=== PATIENT | female | born 1960 | race Caucasian/White ===

== ENCOUNTER 2017-11-16 06:12 | Emergency (ER) | payer OTHER, SELFPAY ==
[2017-11-16 06:14] VITALS: BP 134/77; PULSE 86; RESP 16; TEMP 36.8; O2SAT 97; BMI 26.5
--- NOTE | 2017-11-16 06:32 | CT_ITS ---
STUDY: CT ABDOMEN AND PELVIS WITH CONTRAST REASON FOR EXAM: Female, 56 years old. Left lower quadrant and flank pain RADIATION DOSAGE (If Supplied By Facility): CTDIvol = ( 10.18 ) mGy, DLP = ( 543.61 ) mGycm TECHNIQUE: Transaxial images were obtained from the dome of the diaphragm to the symphysis pubis without oral contrast. 100 ml of Isovue 300 contrast was administered. Sagittal and coronal images were reconstructed. Individualized dose optimization techniques were used for this CT. COMPARISON: 06/21/2017 FINDINGS: The visualized lung bases are unremarkable. The visualized portions of the heart are within normal limits. Normal liver. Normal gallbladder and extrahepatic biliary system. Normal spleen. Normal pancreas. Normal bilateral adrenal glands. Normal right kidney. Normal left kidney. Normal visualized stomach. Normal small intestine. Early/mild acute sigmoid diverticulitis is suspected with inflamed thick-walled diverticulum seen on axial image 83. No abscess or free air. The appendix is visualized and appears normal. Normal abdominal aorta. Normal inferior vena cava. Normal retroperitoneum. Normal urinary bladder. Fallopian tube clip on the left. Free pelvic fluid. Normal abdominal wall. Normal osseous structures. CT/Abdomen/Pelvis W IV Cont ONLY IMPRESSION: Early/mild acute sigmoid diverticulitis is suspected. No abscess or free air. Free pelvic fluid. Electronically Signed: Holden Byers MD at 7:16 EST Tel , Service support ,
[2017-11-16] MEDS: 0.9% Normal Saline 1,000 ML 1000 ML IV (06:41)
[2017-11-16 06:45] LABS: Color, Urine Yellow (Yellow); Glucose, Dipstick Normal (Normal); Ketone-Dipstick Negative (Negative); Leukocyte Esterase-Dipstick 500 /ul (Negative); Mucous, Urine 0 SEEN /hpf (<or=2+); Nitrite-Dipstick Negative (Negative); Occult Blood-Urine 25 /ul (Negative); Protein-Dipstick Negative (Negative); Specific Gravity, Urine 1.025 (1.002-1.030); Urine Bilirubin Dipstick Negative (Negative); Urine Clarity Clear (Clear); Urine Urobilinogen Normal (Normal)
[2017-11-16 06:49] LABS: Absolute Lymphocyte Count 1.74 X10^3/ul (0.83-4.51); Absolute Neutrophil Count 4.2 X10^3/uL (2.0-7.7); Basophil# 0.01 X10^3/uL; Basophil% 0.1 % (0-1); Eosinophil# 0.13 X10^3/uL; Eosinophils% 1.9 % (0-5); Hematocrit 43.6 % (37-47); Hemoglobin 14.5 g/dl (12.0-15.0); Lymphocyte # 1.74 X10^3/ul (4.0); Lymphocyte % 25.8 % (19-41); Mean Corp Hgb Conc 33.3 g/gl (32-36); Mean Corpuscular Hgb 30.7 pg (27.0-32.0); Mean Corpuscular Volume 92.2 fL (81-99); Monocyte# 0.65 X10^3/uL; Monocyte% 9.6 % (0-10); Neutrophil # 4.22 X10^3/uL (2.7-7.7); Neutrophil % 62.6 % (47-70); Platelet Count 206 K/mm3 (150-450); RBC Distribution Width CV 12.2 % (11.6-14.6); Red Blood Count 4.73 M/mm3 (4.2-5.4); White Blood Count 6.8 K/mm3 (4.4-11.0)
[2017-11-16 06:51] LABS: POSITIVE COUNT NO; POSITIVE DIFFERENTIAL NO; POSITIVE MORPHOLOGY NO
--- NOTE | 2017-11-16 06:54 | ED.DCSUM_ITS ---
- ER Visit Summary Date of Service: 11/16/17 Chief Complaint: Abdominal pain History of Present Illness: The patient is a 56 F with left lower quadrant abdominal pain since yesterday evening. She was having some similar symptoms about a week ago and she was worried about her kidneys. She drank a lot of cranberry juice and seemed to feel better. Since last night, her pain has been increasingly more severe. Very severe this morning. Crampy and feels like gas pain. She had similar symptoms in the past with diverticulitis. She denies fevers or chills. Denies any urinary symptoms. Denies nausea, vomiting, or diarrhea. Physical Examination: Afebrile and vital signs unremarkable. The patient appears nontoxic and in no acute distress. Heart regular. Lungs clear. Abdomen is tender in the left lower quadrant. No guarding or rebound. CVAs nontender. Skin appears normal in color. Alert and oriented. Moves all extremities, normal gait. Test Results: CT, labs, urinalysis pending. Emergency Department Course and Treatment: Patient was treated with fluids while awaiting results. She declined pain medication. The oncoming physician will check the results and make the appropriate disposition. I am concerned this is diverticulitis. The patient was noted to have multiple medication allergies. She cannot tolerate clindamycin or Flagyl. She also cannot tolerate Cipro, penicillin, or Bactrim. She has taken Levaquin in the past without issue. She has not taken moxifloxacin in the past, and this would provide good monotherapy coverage for diverticulitis. All results returned before I left. Her CBC, BMP, and urinalysis were unremarkable. CT showed early diverticulitis without complications. After discussion with the patient, we will prescribe moxifloxacin, 400 mg once a day for 7 days. Patient was discharged to follow-up with her primary doctor. Treatment Plan: As above Disposition: Discharge Impression: 1. Acute sigmoid diverticulitis This note was generated with [employer]ation software. It may contain incorrect words, spelling, and punctuation that were not noted in review of the chart prior to signing ED Disposition - Plan for ED Patient: Chief Complaint: Flank Pain Referrals: Kwasi Calderon MD [Primary Care Provider] -
[2017-11-16 06:56] LABS: Bacteria RARE /hpf (None Seen); Squamous Epithelial Cells - UA 0-5 SEEN /hpf (5-10)
[2017-11-16 06:57] LABS: White Blood Cells 5-10 SEEN /hpf (0-5)
[2017-11-16 07:01] LABS: Red Blood Cells-Urine 5-10 SEEN /hpf (0-5)
[2017-11-16 07:05] LABS: Anion Gap 9 (5-15); BUN 16 mg/dL (7-18); BUN/Creat Ratio 19.6 RATIO (10-20); Calcium,Total 9.3 mg/dL (8.5-10.1); Chloride 107 mmol/L (98-107); Creatinine, Serum 0.82 mg/dL (0.55-1.02); EST Glomerular Filtration Rate 77 mL/min (>60); Est Glom Filt Rate - Afr Amer 93 mL/min (>60); Estimated Creatinine Clearance 64.12 ml/min; Glucose 100 mg/dL (74-106); Potassium 4.7 mmol/L (3.5-5.1); Sodium Level 140 mmol/L (136-145)
--- NOTE | 2017-11-16 07:17 | ED.RN ---
Report received, care of patient assumed.
--- NOTE | 2017-11-16 07:23 | ED.DEP ---
ED Disposition - Plan for ED Patient: Chief Complaint: Flank Pain Instructions: ED Diverticulitis Prescriptions: Moxifloxacin HCl 400 mg PO DAILY 7 Days #7 tab Referrals: Kwasi Calderon MD [Primary Care Provider] -
[2017-11-16 07:27] VITALS: BP 128/81; PULSE 71; RESP 16; O2SAT 98
--- NOTE | 2017-11-16 07:33 | ED.RN ---
Verbal and written d/c instructions given. All questions answered. Skin w/d. ABCS intact. Gait steady out of department.
== END 2017-11-16 07:33 | disposition home or self-care (01) ==
LOC: ED 06:30
PROVIDERS: Emergency Provider Emergency Medicine; Family Provider Family Medicine; PCP Family Medicine
DX: K57.32 Diverticulitis of large intestine without perforation or abscess without bleeding (principal)
CPT/HCPCS: 74176; 80048; 81001; 85025; 96360; 99283; J7030; A4216

== ENCOUNTER 2018-05-02 00:23 | Observation (INO) | payer OTHER, SELFPAY ==
[2018-05-02] VITALS (15 sets, daily range): BP systolic 125–175; BP diastolic 70–90; PULSE 59–74; RESP 16–19; TEMP 36.6–37.2; O2SAT 93–99; BMI 26.9; BMI 26.6; BMI 26.7
--- NOTE | 2018-05-02 01:02 | RAD_ITS ---
STUDY: X-RAY CHEST REASON FOR EXAM: Female, 57 years old. chest pain, chest tightness, SOB TECHNIQUE: Single frontal view of the chest. COMPARISON: 11/02/2016 FINDINGS: The lungs are clear and expanded. There is no demonstrated pleural abnormality. Normal size heart. Normal mediastinum and rosanne. Normal visualized pulmonary arteries. Normal visualized aortic arch and descending thoracic aorta. There are diffuse degenerative changes of the visualized thoracic spine. Normal visualized ribs, clavicles, and shoulders. There is no demonstrated abnormality of the visualized soft tissue structures of the upper abdomen. RAD/Chest 1 View (Portable) IMPRESSION: No acute pulmonary findings. Electronically Signed: Holden Byers MD at 1:37 EDT Tel , Service support ,
--- NOTE | 2018-05-02 01:02 | EKG12_ITS ---
Test Reason : CP Blood Pressure : / mmHG Vent. Rate : 070 BPM Atrial Rate : 070 BPM P-R Int : 120 ms QRS Dur : 098 ms QT Int : 418 ms P-R-T Axes : 023 044 035 degrees QTc Int : 451 ms Normal sinus rhythm Low voltage QRS (limb leads) Confirmed by MARIANA COMBS, MICHELINE ([id number]), assistant production editor NEELA DORMAN ([id number]) on 05/03/2018 1:32:06 PM Referred By: ALLAN Confirmed By:MICHELINE PEÑA MD
[2018-05-02 01:08] LABS: Absolute Lymphocyte Count 2.56 X10^3/ul (0.83-4.51); Absolute Neutrophil Count 3.2 X10^3/uL (2.0-7.7); Basophil# 0.02 X10^3/uL; Basophil% 0.3 % (0-1); Eosinophil# 0.06 X10^3/uL; Eosinophils% 0.9 % (0-5); Hematocrit 42.7 % (37-47); Hemoglobin 14.9 g/dl (12.0-15.0); Lymphocyte # 2.56 X10^3/ul (4.0); Lymphocyte % 40.2 % (19-41); Mean Corp Hgb Conc 34.9 g/gl (32-36); Mean Corpuscular Hgb 31.6 pg (27.0-32.0); Mean Corpuscular Volume 90.5 fL (81-99); Monocyte# 0.55 X10^3/uL; Monocyte% 8.6 % (0-10); Neutrophil # 3.18 X10^3/uL (2.7-7.7); POSITIVE COUNT NO; POSITIVE DIFFERENTIAL NO; POSITIVE MORPHOLOGY NO; Platelet Count 194 K/mm3 (150-450); RBC Distribution Width CV 12.7 % (11.6-14.6); Red Blood Count 4.72 M/mm3 (4.2-5.4); White Blood Count 6.4 K/mm3 (4.4-11.0)
[2018-05-02] MEDS: Aspirin 81 MG TAB.CHEW 324 MG PO (01:12)
[2018-05-02 01:21] LABS: Anion Gap 6 (5-15); BUN 12 mg/dL (7-18); BUN/Creat Ratio 12.9 RATIO (10-20); Chloride 108 mmol/L (98-107); Creatinine, Serum 0.93 mg/dL (0.55-1.02); EST Glomerular Filtration Rate 66 mL/min (>60); Est Glom Filt Rate - Afr Amer 80 mL/min (>60); Estimated Creatinine Clearance 58.33 ml/min; Glucose 123 mg/dL (74-106); Potassium 3.1 mmol/L (3.5-5.1); Sodium Level 142 mmol/L (136-145)
--- NOTE | 2018-05-02 01:57 | ED.DCSUM_ITS ---
- ER Visit Summary Date of Service: 05/02/18 Chief Complaint: Chest pain History of Present Illness: The patient is a 57 F presenting with chest pain. Patient states she has had chest pressure which has been intermittent for the past 3 days. She states this is becoming more frequent and more severe. She states this is associated with shortness of breath. She does not recall anything that makes this better or worse. She recently started amlodipine for hypertension. She is not a smoker. No PE/DVT risk factors. Physical Examination: Vitals are stable. Patient is afebrile. Alert no acute distress. HEENT exam is unremarkable. Neck is supple. Lungs are clear and equal bilaterally. Heart is regular rate and rhythm. Abdomen is soft nontender nondistended. Extremities are unremarkable. Skin is warm and dry. No focal neurologic deficit. Remainder of exam is unremarkable. Emergency Department Course and Treatment: EKG is sinus rhythm rate of 70 with no acute ischemic changes. Chest x-ray shows no acute process. CBC, chemistries unremarkable other than potassium 3.1, glucose 123. Troponin is negative. She was given aspirin, potassium oral replacement. On repeat evaluation, she is pain-free. Discussed with the hospitalist for observation. Disposition: Observation Impression: Chest pain This note was generated with [employer] dictation software. It may contain incorrect words, spelling, and punctuation that were not noted in review of the chart prior to signing ED Disposition - Plan for ED Patient: Chief Complaint: Chest Pain Referrals: Irwin Baker MD [Primary Care Provider] -
--- NOTE | 2018-05-02 03:42 | HP.PCM_ITS ---
Problem List (1) Chest pain Status: Acute History of Present Illness Date of Admission: 05/02/18 Chief Complaint: Chest pain ?3 days The patient is a 57 year old F with a significant history of hypertension, cardiac arrhythmia (tachycardia) who presented because of worsening chest pain ? 3 days. Patient describes her chest pain as chest pressure. She woke up at 3 days ago with the chest pain. Her chest pain has been episodic. However the night before her admission the chest pain became persistent. Her chest pain does not radiate. She denies any nausea, vomiting or diaphoresis. Because she has been having elevated blood pressure at the same time that her chest pain has been occurring she attributed the chest pain to have elevated blood pressure. She reports an unremarkable treadmill and nuclear imaging a year ago. [] Past Medical History Past Medical History (Chronic Problems): Chronic Problems Cardiac arrhythmia (Chronic) Menometrorrhagia (Chronic) History of anemia (Chronic) Allergies ciprofloxacin [From Cipro] Allergy (Verified 05/02/18:) Hives ciprofloxacin HCl [From Cipro] Allergy (Verified 05/02/18:) Hives clindamycin Allergy (Verified 05/02/18:) Hives Iodinated Contrast- Oral and IV Dye [CONTRASTS] Allergy (Verified 05/02/18: ) Chest tightness metronidazole [From Flagyl] Allergy (Verified 05/02/18) Other Metronidazole HCl [From Flagyl] Allergy (Verified 05/02/18:) Other Penicillins Allergy (Verified 05/02/18:) Anaphylaxis procaine HCl [From Novocain] Allergy (Verified 05/02/18:) Other red dye Allergy (Verified 05/02/18:) Unknown sulfamethoxazole [From Bactrim] Allergy (Verified 05/02/18:) Hives tetracycline [Tetracycline] Allergy (Verified 05/02/18:) Hives trimethoprim [From Bactrim] Allergy (Verified 05/02/18:) Hives morphine Adverse Reaction (Verified 05/02/18:) Other Sulfa (Sulfonamide Antibiotics) Adverse Reaction (Verified 05/02/18:) Unknown peanuts Allergy (Uncoded 05/02/18:) Food Allergy strawberry Allergy (Uncoded 05/02/18:26) Food Allergy Home Medications: Ambulatory Orders Medication Instructions Recorded Metoprolol(XL)Succ [Toprol Xl] 50 mg PO QHS 07/21/13 Amlodipine [Norvasc] 2.5 mg PO DAILY 05/02/18 Ascorbic Acid [Vitamin C] 1,000 mg PO DAILY 05/02/18 Aspirin [Aspirin, Baby] 81 tab PO DAILY 05/02/18 Multivitamin [Daily Multiple 1 tab PO DAILY 05/02/18 Vitamin] Surgical History: no surgical history Smoking Status: Never smoker Tobacco Use: Non-smoker Alcohol: None - *Family History Maternal History Items: No pertinent history Paternal History Items: No pertinent history Review of Systems Constitutional: Denies: Chills, Fever, Weight Change HEENT: Reports: Difficulty Hearing Cardiovascular: Reports: Chest Pain Respiratory: Reports: Shortness of Breath Gastrointestinal: Denies: Abdominal Pain, Nausea, Vomiting Genitourinary: Denies: Dysuria Musculoskeletal: Denies: Joint Pain, Joint Tenderness Skin: Denies: Rash, Wounds Neurological: Reports: Balance problems Psychiatric: Reports: Depression. Denies: Homicidal Ideations, Suicidal Ideations Hematologic/ Lymphatic: Denies: Easy Bruising, Easy Bleeding VTE Information - Inpt Only VTE Present on Admission: No VTE Mechan Device Prophylaxis: None VTE Pharm Prophylaxis ordered?: Yes Patient Problems: Active and Suspected Problems Chest pain (Acute) - Physical Exam General: Alert, Oriented x3, Cooperative, - - Crying during examination HEENT: Atraumatic, PERRLA, EOMI, Normocephalic Neck: Supple, No JVD, Negative Carotid Bruits Lungs: Clear to auscultation Cardiovascular: Regular rate, No murmurs, - - Nontender chest Abdomen: Bowel Sounds Present, Soft, Non Tender Extremities: No edema, Capillary Refill Less than 3 Seconds Skin: No rashes, No breakdown Musculoskeletal: No Tenderness to Palpation of Joints or Extremities Neurological: Cranial nerves II-XII grossly intact Psych/Mental Status: Normal Affect, Appropriate Vital Signs Temp Pulse Resp BP Pulse Ox 98.1 F 74 16 168/79 H 98 05/02/18 00:23 05/02/18 03:07 05/02/18 03:07 05/02/18 03:07 05/02/18 03:07 Oxygen Flow Rate (L/min) 2 Oxygen Delivery Method Nasal Cannula Weight: 71.214 kg Body Mass Index (BMI) 26.9 Laboratory Tests Past 24 Hrs 05/02/18 05/02/18 00:35 00:35 WBC 6.4 RBC 4.72 Hgb 14.9 Hct 42.7 MCV 90.5 MCH 31.6 MCHC 34.9 RDW 12.7 RDW Differential 42.0 Plt Count 194 MPV 11.0 Immature Gran % (Auto) 0.000 Neut % (Auto) 50.0 Lymph % (Auto) 40.2 [place] % (Auto) 8.6 Eos % (Auto) 0.9 Baso % (Auto) 0.3 Absolute Neuts (auto) 3.2 Absolute Lymphs (auto) 2.56 Total Counted Not Reportable Sodium 142 Potassium 3.1 L Chloride 108 H Carbon Dioxide 28.0 Anion Gap 6 BUN 12 Creatinine 0.93 Estim Creat Clear Calc 58.33 Est GFR (MDRD) Af Amer 80 Est GFR (MDRD) Non-Af 66 BUN/Creatinine Ratio 12.9 Glucose 123 H Calcium 9.0 Troponin I < 0.015 Assessment/Plan All Active Problems Chest pain (Acute) The patient is a 57 year old F with a significant history of hypertension, cardiac arrhythmia (tachycardia) who presented because of worsening chest pain ? 3 days chest pain Chest pain Her PALAK score (aspirin use in the past 7 days, severe angina) is at 2 points representing 8% MORTALITY risk EKG was unremarkable and troponins were negative. The patient received 325 mg aspirin at the ED. Admitted to monitored bed on PCU Serial troponins ordered Daily aspirin continued Atorvastatin ordered. Patient took her home metoprolol a few hours before presentation. Nitroglycerin as needed Fasting lipids in a.m. Stress test in a.m Her risk of cardiac risk chest pain is intermediate. Other differential diagnosis includes hypertensive induced chest pain; musculoskeletal source of chest pain and anxiety. Hydralazine as needed was added to her regimen. If stress test is negative recommend further optimization of her blood pressure regimen. Hypokalemia Potassium on presentation was 3.1 Received 40 mEq potassium at the ED BMP in a.m. DVT prophylaxis Lovenox Code Visit OBSV E&M: [id number] Initial observation care L2
--- NOTE | 2018-05-02 03:46 | NURSING ---
Richi garner rn aware that pt ok to come to floor at this time.
--- NOTE | 2018-05-02 04:07 | EKG12_ITS ---
Test Reason : CP ADMIT Blood Pressure : / mmHG Vent. Rate : 070 BPM Atrial Rate : 070 BPM P-R Int : 128 ms QRS Dur : 090 ms QT Int : 424 ms P-R-T Axes : 036 049 047 degrees QTc Int : 457 ms Normal sinus rhythm Normal ECG Confirmed by MARIANA COMBS, MICHELINE ([id number]), primer expeditor and drier NEELA DORMAN ([id number]) on 05/03/2018 1:46:07 PM Referred By: DR PEREZ Confirmed By:MICHELINE PEÑA MD
[2018-05-02 04:48] LABS: Anion Gap 7 (5-15); BUN 10 mg/dL (7-18); BUN/Creat Ratio 11.3 RATIO (10-20); Chloride 111 mmol/L (98-107); Cholesterol 194 mg/dL (200); Creatinine, Serum 0.88 mg/dL (0.55-1.02); EST Glomerular Filtration Rate 70 mL/min (>60); Est Glom Filt Rate - Afr Amer 85 mL/min (>60); Estimated Creatinine Clearance 61.64 ml/min; Glucose 99 mg/dL (74-106); High Density Lipoprotein 55 mg/dL; Potassium 3.8 mmol/L (3.5-5.1); Sodium Level 145 mmol/L (136-145); Triglycerides 154 mg/dL; Very Low Density Lipoprotein 31 mg/dL (5-40)
[2018-05-02 05:29] LABS: International Normalized Ratio 1.1; Prothrombin Time (Protime)PT. 13.7 SECONDS (11.7-14.9)
[2018-05-02 05:30] LABS: Partial Thromboplast Time 30.8 Seconds (24.1-36.2)
--- NOTE | 2018-05-02 12:02 | NURSING ---
pt at stress test
--- NOTE | 2018-05-02 13:05 | STRESSREP ---
Stress Test Report Date: 05/02/2018 Procedure: Exercise tolerance test/imaging study Indications: Chest pain Consent: Per the patient Procedure: The patient exercised on a Paco protocol for 12 minutes completing Stage 4 achieving a peak heart rate of 146 bpm (89 % predicted maximal heart rate) with a peak blood pressure 170/90 mmHg and a peak MET capacity of 13 METs. The baseline ECG demonstrated sinus rhythm. The peak exercise ECG demonstrated no obvious ECG changes. There was an occasional PVC and a rare ventricular couplet during exercise. The functional capacity was considered excellent. There was vague chest discomfort during early exercise with subsequent resolution by peak exercise. The examination was discontinued secondary to dyspnea. Impression: 1. Technically adequate (percent predicted maximal heart rate greater than 85%) exercise tolerance test 2. Peak exercise ECG with no obvious ECG changes 3. There was an occasional PVC and a rare ventricular couplet during exercise. 4. Nuclear images pending Myocardial perfusion imaging study: Technique: The patient was injected with 11.7 mCi of technetium 99m Cardiolite and subsequently rest SPECT Cardiolite nuclear imaging was obtained in the horizontal long, vertical long, and short axis views. The patient exercised on a Paco protocol for 12 minutes completing Stage 4 achieving a peak heart rate of 146 bpm (89 % predicted maximal heart rate) with a peak blood pressure 170/90 mmHg and a peak MET capacity of 13 METs. The patient was injected with 31.4 mCi of technetium 99m Cardiolite and subsequently stress SPECT Cardiolite nuclear imaging was obtained in the horizontal long, vertical long, and short axis views. A gated Cardiolite study at peak stress was obtained. Interpretation: Rest and stress SPECT Cardiolite nuclear imaging status post realignment, normalization, and attenuation correction, demonstrates of a small area of subtle diminished tracer uptake near the apical segments without significant change between rest and stress. There is end systolic thickening and brightening. The gated Cardiolite study demonstrates myocardial thickening and inward wall motion. The reported LVEF is 84 %. Impression: 1. Rest and stress SPECT Cardiolite nuclear imaging demonstrate a small area of subtle diminished tracer uptake near the apical segments without significant change between rest and stress appearing compatible with physiologic apical thinning with no myocardial perfusion changes consider diagnostic for associated stress-induced myocardial ischemia or previous myocardial injury/infarction. 2. The gated Cardiolite study reports an LVEF of 84 %. This note was generated with [employer] software. It may contain incorrect words, spelling, and punctuation that were not noted in checking the note before signing.
--- NOTE | 2018-05-02 13:16 | STRESSREP_ITS ---
Stress Test Report Date: 05/02/2018 Procedure: Exercise tolerance test/imaging study Indications: Chest pain Consent: Per the patient Procedure: The patient exercised on a Paco protocol for 12 minutes completing Stage 4 achieving a peak heart rate of 146 bpm (89 % predicted maximal heart rate) with a peak blood pressure 170/90 mmHg and a peak MET capacity of 13 METs. The baseline ECG demonstrated sinus rhythm. The peak exercise ECG demonstrated no obvious ECG changes. There was an occasional PVC and a rare ventricular couplet during exercise. The functional capacity was considered excellent. There was vague chest discomfort during early exercise with subsequent resolution by peak exercise. The examination was discontinued secondary to dyspnea. Impression: 1. Technically adequate (percent predicted maximal heart rate greater than 85% ) exercise tolerance test 2. Peak exercise ECG with no obvious ECG changes 3. There was an occasional PVC and a rare ventricular couplet during exercise. 4. Nuclear images pending Myocardial perfusion imaging study: Technique: The patient was injected with 11.7 mCi of technetium 99m Cardiolite and subsequently rest SPECT Cardiolite nuclear imaging was obtained in the horizontal long, vertical long, and short axis views. The patient exercised on a Paco protocol for 12 minutes completing Stage 4 achieving a peak heart rate of 146 bpm (89 % predicted maximal heart rate) with a peak blood pressure 170/ 90 mmHg and a peak MET capacity of 13 METs. The patient was injected with 31.4 mCi of technetium 99m Cardiolite and subsequently stress SPECT Cardiolite nuclear imaging was obtained in the horizontal long, vertical long, and short axis views. A gated Cardiolite study at peak stress was obtained. Interpretation: Rest and stress SPECT Cardiolite nuclear imaging status post realignment, normalization, and attenuation correction, demonstrates of a small area of subtle diminished tracer uptake near the apical segments without significant change between rest and stress. There is end systolic thickening and brightening. The gated Cardiolite study demonstrates myocardial thickening and inward wall motion. The reported LVEF is 84 %. Impression: 1. Rest and stress SPECT Cardiolite nuclear imaging demonstrate a small area of subtle diminished tracer uptake near the apical segments without significant change between rest and stress appearing compatible with physiologic apical thinning with no myocardial perfusion changes consider diagnostic for associated stress-induced myocardial ischemia or previous myocardial injury/ infarction. 2. The gated Cardiolite study reports an LVEF of 84 %. This note was generated with [employer] software. It may contain incorrect words, spelling, and punctuation that were not noted in checking the note before signing.
[2018-05-02] MEDS: Enoxaparin 40 MG/0.4 ML Syringe SC (13:56)
--- NOTE | 2018-05-02 16:55 | DCINST_ITS ---
- Discharge Diagnoses Current Active Problems: Current Active and Chronic Problems Chest pain (Acute) You will use the following diet at home:: No restrictions Your food should be the consistency of: Regular Your liquids should be the consistency of: Regular/Thin Discharge Activity: Return to Normal Activity Weight Bearing Status: Full weight bearing Allergies/Adverse Reactions: Allergies ciprofloxacin [From Cipro] Allergy (Verified 05/02/18 00:26) Hives ciprofloxacin HCl [From Cipro] Allergy (Verified 05/02/18 00:) Hives clindamycin Allergy (Verified 05/02/18 00:) Hives Iodinated Contrast- Oral and IV Dye [CONTRASTS] Allergy (Verified 05/02/18 00:27 ) Chest tightness metronidazole [From Flagyl] Allergy (Verified 05/02/18:) Other Metronidazole HCl [From Flagyl] Allergy (Verified 05/02/18:) Other Penicillins Allergy (Verified 05/02/18 00:) Anaphylaxis procaine HCl [From Novocain] Allergy (Verified 05/02/18 00:) Other red dye Allergy (Verified 05/02/18:) Unknown sulfamethoxazole [From Bactrim] Allergy (Verified 05/02/18 00:26) Hives tetracycline [Tetracycline] Allergy (Verified 05/02/18:26) Hives trimethoprim [From Bactrim] Allergy (Verified 05/02/18:) Hives morphine Adverse Reaction (Verified 05/02/18:26) Other Sulfa (Sulfonamide Antibiotics) Adverse Reaction (Verified 05/02/18 00:26) Unknown peanuts Allergy (Uncoded 05/02/18:26) Food Allergy strawberry Allergy (Uncoded 05/02/18 00:26) Food Allergy Medications to take at Discharge Metoprolol(XL)Succ [Toprol Xl (Beta Kayla)] 50 mg PO QHS 07/21/13 Amlodipine [Norvasc] 2.5 mg PO DAILY 05/02/18 Ascorbic Acid [Vitamin C] 1,000 mg PO DAILY 05/02/18 Aspirin E.C. [Ecotrin] 81 mg PO DAILY@0800 tablet 05/02/18 Aspirin [Aspirin, Baby] 81 tab PO DAILY 05/02/18 Multivitamin [Daily Multiple Vitamin] 1 tab PO DAILY 05/02/18 Primary Care Physician: Irwin Baker MD [Primary Care Provider] - Please follow up with your Primary Care Physician in: in 1-2 weeks Test Results: Test results from this visit will be discussed in further detail at your follow- up appointment, if applicable.
--- NOTE | 2018-05-06 10:08 | PCM.DC.SUM ---
Discharge Date and Diagnosis Date of Admission: 05/02/18 Date of Discharge: 05/02/18 - Primary Discharge Diagnosis #1 musculoskeletal chest pain #2 cardiac arrhythmias by history-type unknown #3 hypokalemia - Secondary Discharge Diagnosis Chronic Problems Cardiac arrhythmia (Chronic) Menometrorrhagia (Chronic) History of anemia (Chronic) Hospital Course and Treatment Operations: None Procedures: Nuclear stress test Summary of Care Provided: The patient is a 57 year old F was seen in the emergency room at [facility] chief complaint of chest pain which she describes as pressure-like in nature and had been intermittent for the past 3 days prior to being seen in the emergency room. Patient had a past history of cardiac arrhythmias-type unknown and was on medication for this. Evaluation in the emergency room showed a negative troponin, potassium was slightly low, chest x-ray showed no acute process, CBC was unremarkable. Patient was placed in observation status on PCU, enzymes were cycled and they remain normal, patient underwent a nuclear stress test which was negative for reversible ischemia. On 05/02/18, patient was seen and examined and felt to be in stable condition for discharge home, I discussed other testing which could be done to further investigate why she was having chest discomfort, these included a Holter monitor and echocardiogram and may be a CT of her chest. Patient was going to consider having these as an outpatient and did not want to stay in the hospital to have any of these testing modalities done. Discharge Activity: Return to Normal Activity Weight Bearing Status: Full weight bearing Home Medications: Medications to take at Discharge Metoprolol(XL)Succ [Toprol Xl (Beta Kayla)] 50 mg PO QHS 07/21/13 Amlodipine [Norvasc] 2.5 mg PO DAILY 05/02/18 Ascorbic Acid [Vitamin C] 1,000 mg PO DAILY 05/02/18 Aspirin E.C. [Ecotrin] 81 mg PO DAILY@0800 tablet 05/02/18 Aspirin [Aspirin, Baby] 81 tab PO DAILY 05/02/18 Multivitamin [Daily Multiple Vitamin] 1 tab PO DAILY 05/02/18 Primary Care Physician: Irwin Baker MD [Primary Care Provider] - Please follow up with your Primary Care Physician in: in 1-2 weeks Disposition: Home Minutes spent on discharge:: 25 Patient Condition:: Stable Medical Necessity - Tobacco Use Smoking Status: Never smoker Tobacco Use: Non-smoker Meaningful Use Info Meaningful Use Diagnoses (Choose all that apply): None applicable Code Visit OBSV E&M: 56965 Observation care discharge
--- NOTE | 2018-05-06 10:12 | DS.PCM_ITS ---
Discharge Date and Diagnosis Date of Admission: 05/02/18 Date of Discharge: 05/02/18 - Primary Discharge Diagnosis #1 musculoskeletal chest pain #2 cardiac arrhythmias by history-type unknown #3 hypokalemia - Secondary Discharge Diagnosis Chronic Problems Cardiac arrhythmia (Chronic) Menometrorrhagia (Chronic) History of anemia (Chronic) Hospital Course and Treatment Operations: None Procedures: Nuclear stress test Summary of Care Provided: The patient is a 57 year old F was seen in the emergency room at [facility] chief complaint of chest pain which she describes as pressure -like in nature and had been intermittent for the past 3 days prior to being seen in the emergency room. Patient had a past history of cardiac arrhythmias- type unknown and was on medication for this. Evaluation in the emergency room showed a negative troponin, potassium was slightly low, chest x-ray showed no acute process, CBC was unremarkable. Patient was placed in observation status on PCU, enzymes were cycled and they remain normal, patient underwent a nuclear stress test which was negative for reversible ischemia. On 05/02/18, patient was seen and examined and felt to be in stable condition for discharge home, I discussed other testing which could be done to further investigate why she was having chest discomfort, these included a Holter monitor and echocardiogram and may be a CT of her chest. Patient was going to consider having these as an outpatient and did not want to stay in the hospital to have any of these testing modalities done. Discharge Activity: Return to Normal Activity Weight Bearing Status: Full weight bearing Home Medications: Medications to take at Discharge Metoprolol(XL)Succ [Toprol Xl (Beta Kayla)] 50 mg PO QHS 07/21/13 Amlodipine [Norvasc] 2.5 mg PO DAILY 05/02/18 Ascorbic Acid [Vitamin C] 1,000 mg PO DAILY 05/02/18 Aspirin E.C. [Ecotrin] 81 mg PO DAILY@0800 tablet 05/02/18 Aspirin [Aspirin, Baby] 81 tab PO DAILY 05/02/18 Multivitamin [Daily Multiple Vitamin] 1 tab PO DAILY 05/02/18 Primary Care Physician: Irwin Baker MD [Primary Care Provider] - Please follow up with your Primary Care Physician in: in 1-2 weeks Disposition: Home Minutes spent on discharge:: 25 Patient Condition:: Stable Medical Necessity - Tobacco Use Smoking Status: Never smoker Tobacco Use: Non-smoker Meaningful Use Info Meaningful Use Diagnoses (Choose all that apply): None applicable Code Visit OBSV E&M: 11139 Observation care discharge
== END 2018-05-02 17:10 | disposition home or self-care (01) ==
LOC: ED 03:12 → PCU 03:43
PROVIDERS: Admitting Provider Hospitalist; Emergency Provider Emergency Medicine; Family Provider Family Medicine; PCP Family Medicine; Visit Provider Internal Medicine
DX: R07.89 Other chest pain (principal); R06.02 Shortness of breath; I10 Essential (primary) hypertension; Z79.899 Other long term (current) drug therapy; E87.6 Hypokalemia; I49.9 Cardiac arrhythmia, unspecified
CPT/HCPCS: 36415; 71045; 78452; 80048; 80061; 84484; 85025; 85610; 85730; 93005; 93017; 96372; 99218; 99284; A9500; A4216; G0378

== ENCOUNTER 2019-10-14 11:40 | Emergency (ER) | payer OTHER, SELFPAY ==
[2019-10-14 11:40] VITALS: BMI 26.5
[2019-10-14 11:41] VITALS: BP 160/82; PULSE 70; RESP 16; TEMP 36.6; O2SAT 99; BMI 28.3
--- NOTE | 2019-10-14 12:23 | EKG12_ITS ---
Test Reason : Blood Pressure : / mmHG Vent. Rate : 068 BPM Atrial Rate : 068 BPM P-R Int : 136 ms QRS Dur : 088 ms QT Int : 418 ms P-R-T Axes : 066 053 044 degrees QTc Int : 444 ms Normal sinus rhythm Normal ECG Confirmed by KRISTEN WHITESIDE ([id number]), editor managing director NEELA DORMAN ([id number] on 10/16/2019 10:51:06 AM Referred By: RUDDY Confirmed By:KRISTEN WHITESIDE
--- NOTE | 2019-10-14 12:23 | RAD_ITS ---
STUDY: X-RAY CHEST REASON FOR EXAM: Female, 58 years old. CHEST PAIN TECHNIQUE: Single AP portable view of the chest. COMPARISON: Comparison is made with prior examination of May 02, 2018. FINDINGS: EKG electrodes are seen. The lungs are clear and expanded. There is no demonstrated pleural abnormality. Normal size heart. Normal mediastinum and rosanne. Normal visualized pulmonary arteries. Normal visualized aortic arch and descending thoracic aorta. There are diffuse degenerative changes of the visualized thoracic spine. Normal visualized ribs, clavicles, and shoulders. There is no demonstrated abnormality of the visualized soft tissue structures of the upper abdomen. RAD/Chest 1 View (Portable) IMPRESSION: No acute abnormality is seen. Electronically Signed: Quinn Ugalde, at 12:53 EST , Service support ,
--- NOTE | 2019-10-14 12:34 | ED.VIS.GEN ---
History of Present Illness Chief Complaint: Chest Pain Informant: Patient Onset: Yesterday Narrative: She presents for the valuation of chest pain. Patient states symptoms began yesterday while at work. Initially she thought had to do with her being bent over more than normal as to her chair at her desk was lower. She went home but continued to wax and wane sometimes would ease up and resolve. She states she had a similar occurrence in the past and got better with an antacid and Maalox. She states she had a stress test last year (chart review shows April 2018). She has a history of SVT. She denies any current dyspepsia. No nausea vomiting. She denies any recent surgery or prior issues with DVT PE. Past Medical History - Allergies and Home Meds Allergies/Adverse Reactions: Allergies ciprofloxacin [From Cipro] Allergy (Verified 10/14/19 11:47) Hives ciprofloxacin HCl [From Cipro] Allergy (Verified 10/14/19 11:47) Hives clindamycin Allergy (Verified 10/14/19 11:47) Hives Iodinated Contrast Media [CONTRASTS] Allergy (Verified 10/14/19 11:47) Chest tightness metronidazole [From Flagyl] Allergy (Verified 10/14/19 11:47) Other Metronidazole HCl [From Flagyl] Allergy (Verified 10/14/19 11:47) Other Penicillins Allergy (Verified 10/14/19 11:47) Anaphylaxis procaine HCl [From Novocain] Allergy (Verified 10/14/19 11:47) Other red dye Allergy (Verified 10/14/19 11:47) Unknown sulfamethoxazole [From Bactrim] Allergy (Verified 10/14/19 11:47) Hives tetracycline [Tetracycline] Allergy (Verified 10/14/19 11:47) Hives trimethoprim [From Bactrim] Allergy (Verified 10/14/19 11:47) Hives morphine Adverse Reaction (Verified 10/14/19 11:47) Other Sulfa (Sulfonamide Antibiotics) Adverse Reaction (Verified 10/14/19 11:47) Unknown peanuts Allergy (Uncoded 10/14/19 11:47) Food Allergy strawberry Allergy (Uncoded 10/14/19 11:47) Food Allergy Primary Care Physician: Irwin Baker MD [Primary Care Provider] - Surgical History: no surgical history Smoking Status: Never smoker - Family History Maternal Family History: Reports: No pertinent history Paternal Family History: Reports: No pertinent history Review of Systems General: Denies: Chills, Fever, Sweats Eyes: Denies: Visual changes - bilaterally, Diplopia ENT: Denies: Rhinorrhea, Sore throat Cardiovascular: Reports: Chest pain. Denies: Palpitations Respiratory: Denies: Dyspnea, Cough, Dyspnea on exertion Gastrointestinal: Denies: Abdominal pain, Nausea, Vomiting, Diarrhea, Melena, Hematochezia Genitourinary: Denies: Dysuria, Hematuria, Frequency Musculoskeletal: Denies: Back pain, Extremity Pain Skin: Denies: Rash, Wounds Neurological: Denies: Headache, Weakness, Numbness Physical Exam Vital Signs/Narrative: Vital Signs Temp Pulse Resp BP Pulse Ox 10/14/19 11:41 97.9 F 70 16 160/82 H 99 Inital Vital Signs reviewed: Yes General: Well nourished, Well developed, No Acute Distress Head: Normocephalic, Atraumatic Eyes: Perrl, EOMI ENT: Moist mucous membranes, No rhinorrhea Neck: Supple, Nontender Cardiovascular: Regular rate, Regular rhythm, No murmurs Respiratory: No distress, CTA bilaterally, Chest nontender Abdomen: Soft, Nontender, Nondistended, Normal bowel sounds Back: Nontender, Normal Inspection Extremities: Nontender, No edema Skin: Normal color, No rash Neurological: Alert, Oriented x3, Cranial nerves II-XII grossly intact, Normal Strength, Normal Sensation Psychological: Normal affect, Normal Mood Diagnostic/Tx/Re-eval - Rhythm Strip Rhythm Strip: Sinus Rhythm Rate: 68 - No significant change noted from April 2018 Ectopy: None - Medical Decision Making Basic labs are negative. Cardiac enzymes are normal. I do not think this is pulmonary embolism. There is no pleuritic component to it. She is not tachycardic she is not hypoxic she is not short of breath. She has no leg swelling or other PE risk factors. She has a normal mediastinal silhouette I do not think this is dissection. She got no relief with a GI cocktail. At this point her pain has been constant since yesterday and the enzymes are negative. Patient will be discharged home to follow-up with her doctor return if worsening or concerns ED Disposition - Plan for ED Patient: Disposition: Home or Assisted Living Diagnosis: Chest pain Instructions: CHEST PAIN, Uncertain Cause Referrals: Irwin Baker MD [Primary Care Provider] - As soon as possible
[2019-10-14 12:48] LABS: Absolute Lymphocyte Count 1.71 X10^3/uL (0.83-4.51); Absolute Neutrophil Count 3.3 X10^3/uL (2.0-7.7); Basophil# 0.03 X10^3/uL; Basophil% 0.5 % (0-1); Eosinophil# 0.11 X10^3/uL; Hematocrit 44.2 % (37-47); Hemoglobin 14.7 g/dL (12.0-15.0); Lymphocyte # 1.71 X10^3/ul (4.0); Lymphocyte % 30.3 % (19-41); Mean Corp Hgb Conc 33.3 g/dL (32-36); Mean Corpuscular Hgb 30.9 pg (27.0-32.0); Mean Corpuscular Volume 92.9 fL (81-99); Mean Platelet Vol. 10.8 fl (6.2-12.0); Monocyte# 0.47 X10^3/uL; Monocyte% 8.3 % (0-10); NRBC Flagged by Analyzer 0 % (0-5); Neutrophil # 3.31 X10^3/uL (2.7-7.7); Neutrophil % 58.7 % (47-70); Platelet Count 214 K/mm3 (150-450); RBC Distribution Width SD 41.5 fl (35.1-43.9); Red Blood Count 4.76 M/mm3 (4.2-5.4); White Blood Count 5.6 K/mm3 (4.4-11.0)
[2019-10-14] MEDS: Mag Hydrox/Al Hydrox/Simeth 30 ML UDC PO (12:56)
[2019-10-14 13:04] LABS: Anion Gap 4 (5-15); BUN 12 mg/dL (7-18); BUN/Creat Ratio 13.5 RATIO (10-20); Calcium,Total 9.6 mg/dL (8.5-10.1); Chloride 111 mmol/L (98-107); Creatinine, Serum 0.89 mg/dL (0.55-1.02); EST Glomerular Filtration Rate 70 mL/min (>60); Est Glom Filt Rate - Afr Amer 84 mL/min (>60); Estimated Creatinine Clearance 60.22 ml/min; Glucose 106 mg/dL (74-106); Potassium 3.6 mmol/L (3.5-5.1); Sodium Level 143 mmol/L (136-145)
[2019-10-14 14:01] VITALS: BP 148/77; PULSE 61; RESP 17; O2SAT 95
== END 2019-10-14 14:10 | disposition home or self-care (01) ==
PROVIDERS: Emergency Provider Emergency Medicine; Family Provider Family Medicine; PCP Family Medicine
DX: R07.9 Chest pain, unspecified (principal); I47.1 Supraventricular tachycardia; Z79.899 Other long term (current) drug therapy
CPT/HCPCS: 71045; 80048; 84484; 85025; 93005; 99285; A4216

== ENCOUNTER 2019-11-16 01:37 | Emergency (ER) | payer OTHER, SELFPAY ==
[2019-11-16 01:38] VITALS: BP 158/90; PULSE 85; RESP 16; TEMP 36.9; O2SAT 98; BMI 27.4
--- NOTE | 2019-11-16 02:14 | CT_ITS ---
STUDY: CT ABDOMEN AND PELVIS WITHOUT CONTRAST REASON FOR EXAM: Female, 58 years old. BILATERAL FLANK PAIN WITH HEMATURIA SINCE SUNDAY, CLEAN URINALYSIS, HX HTN RADIATION DOSAGE (If Supplied By Facility): CTDIvol = ( 6.78 ) mGy, DLP = ( 311.74 ) mGycm TECHNIQUE: Transaxial images were obtained from the dome of the diaphragm to the symphysis pubis without oral contrast, and without intravenous contrast. Sagittal and coronal images were reconstructed. Individualized dose optimization techniques were used for this CT. COMPARISON: 11/16/2017 FINDINGS: The visualized lung bases are unremarkable. The visualized portions of the heart are within normal limits. Normal liver. Normal gallbladder and extrahepatic biliary system. Normal spleen. Normal pancreas. Normal bilateral adrenal glands. Normal right kidney. Normal left kidney. Normal visualized stomach. Normal small intestine. There are multiple colonic diverticula consistent with diverticulosis. The appendix is visualized and appears normal. Normal abdominal aorta. Normal inferior vena cava. Normal retroperitoneum. Normal urinary bladder. Fallopian tube clip on the left. Normal abdominal wall. Normal osseous structures. CT/Abdomen/Pelvis without Cont IMPRESSION: No evidence of appendicitis, acute intestinal pathology, or acute obstructive uropathy. Electronically Signed: Holden Byers MD at 2:54 EST Tel , Service support ,
--- NOTE | 2019-11-16 02:16 | ED.VISSUMM ---
- ER Visit Summary Date of Service: 11/16/19 Chief Complaint: Bilateral flank pain History of Present Illness: The patient is a 58 F who presents with bilateral flank pain that has been getting worse over the past 3 days. Patient states she did have some hematuria couple of days ago. Patient states she went to an urgent care and had a urinalysis done. Patient states there was no evidence of urinary tract infection at that time, only the hematuria. Patient states that they did perform a urine culture and wrote her a prescription for Macrobid to take if her culture grew out something. Patient admits to occasional abdominal pain. Patient denies any nausea or vomiting. Patient denies any dysuria. Physical Examination: Vital signs are stable. Patient is afebrile. Patient is in no acute distress. Oral mucosa is pink and moist. Neck is supple. Trachea is midline. There is no JVD noted. Heart was regular rate and rhythm. Lungs are clear and equal bilaterally. Abdomen is soft. Bowel sounds are normal. There is no tenderness. There is no rebound or guarding noted. There is some mild bilateral CVA tenderness. Skin is warm dry. Cranial nerves II through XII are intact. There are no focal motor or sensory deficits noted. Extremities are intact. There is no calf tenderness or edema. Test Results: Urinalysis shows evidence of urinary tract infection with 50-100 white blood cells and 3+ bacteria. CT scan of the abdomen and pelvis was obtained. There is no acute pathology noted. This was interpreted by the radiologist and myself. Emergency Department Course and Treatment: Patient was given her first dose of Macrobid here. Patient was instructed to fill her prescription for Macrobid as previously prescribed. Patient was instructed to take Tylenol or Motrin as needed for pain or fever. Patient was instructed to follow-up with her primary care physician in 5 to 7 days. Patient understood and was agreeable with the plan. All questions were answered. Disposition: Discharge home Impression: Urinary tract infection This note was generated with [employer] dictation software. It may contain incorrect words, spelling, and punctuation that were not noted in review of the chart prior to signing ED Disposition - Plan for ED Patient: Disposition: Home or Assisted Living Diagnosis: Urinary tract infection Instructions: Bladder Infection, Female (Adult) Referrals: Irwin Baker MD [Primary Care Provider] - 3-5 Days
[2019-11-16] MEDS: Ketorolac 30 MG/ML Syringe IV (02:23)
[2019-11-16 02:24] LABS: Mucous, Urine 0 SEEN /hpf (<or=2+)
[2019-11-16 02:35] LABS: Absolute Lymphocyte Count 2.26 X10^3/uL (0.83-4.51); Absolute Neutrophil Count 4.5 X10^3/uL (2.0-7.7); Basophil# 0.01 X10^3/uL; Basophil% 0.1 % (0-1); Eosinophil# 0.15 X10^3/uL; Hematocrit 42.8 % (37-47); Hemoglobin 14.5 g/dL (12.0-15.0); Lymphocyte # 2.26 X10^3/ul (4.0); Lymphocyte % 30.3 % (19-41); Mean Corp Hgb Conc 33.9 g/dL (32-36); Mean Corpuscular Hgb 31.4 pg (27.0-32.0); Mean Corpuscular Volume 92.6 fL (81-99); Mean Platelet Vol. 11.1 fl (6.2-12.0); Monocyte# 0.55 X10^3/uL; Monocyte% 7.4 % (0-10); NRBC Flagged by Analyzer 0 % (0-5); Neutrophil # 4.46 X10^3/uL (2.7-7.7); Neutrophil % 59.8 % (47-70); Platelet Count 192 K/mm3 (150-450); RBC Distribution Width CV 12.1 % (11.6-14.6); RBC Distribution Width SD 41.1 fl (35.1-43.9); Red Blood Count 4.62 M/mm3 (4.2-5.4); White Blood Count 7.5 K/mm3 (4.4-11.0)
[2019-11-16 02:36] LABS: Color, Urine Yellow (Yellow); Glucose, Dipstick Normal (Normal); Ketone-Dipstick Negative (Negative); Leukocyte Esterase-Dipstick 500 /ul (Negative); Nitrite-Dipstick Negative (Negative); Occult Blood-Urine 250 /ul (Negative); Protein-Dipstick 30 mg/dl (Negative); Specific Gravity, Urine 1.005 (1.002-1.030); Urine Bilirubin Dipstick Negative (Negative); Urine Clarity Cloudy (Clear); Urine Urobilinogen Normal (Normal)
[2019-11-16 02:38] LABS: AST(SGOT) 23 U/L (15-37); Alanine Aminotransfer ALT/SGPT 31 U/L (13-56); Albumin, Serum 3.8 g/dL (3.2-5.0); Alkaline Phosphatase 135 U/L (45-117); Anion Gap 5 (5-15); BUN 12 mg/dL (7-18); BUN/Creat Ratio 13.6 RATIO (10-20); Calcium,Total 9.1 mg/dL (8.5-10.1); Chloride 110 mmol/L (98-107); Creatinine, Serum 0.88 mg/dL (0.55-1.02); EST Glomerular Filtration Rate 70 mL/min (>60); Est Glom Filt Rate - Afr Amer 85 mL/min (>60); Estimated Creatinine Clearance 60.91 ml/min; Globulin 3.9 g/dL (2.2-4.2); Glucose 118 mg/dL (74-106); Potassium 3.7 mmol/L (3.5-5.1); Protein, Total 7.7 g/dL (6.4-8.2); Sodium Level 141 mmol/L (136-145)
[2019-11-16 03:05] LABS: Bacteria 3+ /hpf (None Seen); Red Blood Cells-Urine 10-25 SEEN /hpf (0-5); Squamous Epithelial Cells - UA 0-5 SEEN /hpf (5-10); White Blood Cells 50-100 SEEN /hpf (0-5)
[2019-11-16] MEDS: Nitrofurantoin Macrocrystals 100 MG Capsule PO (03:36)
[2019-11-16 03:43] VITALS: BP 148/86; PULSE 84; RESP 16; O2SAT 98
== END 2019-11-16 03:44 | disposition home or self-care (01) ==
PROVIDERS: Emergency Provider Emergency Medicine; PCP Family Medicine
DX: N39.0 Urinary tract infection, site not specified (principal); I10 Essential (primary) hypertension; Z79.899 Other long term (current) drug therapy
CPT/HCPCS: 74176; 80053; 81001; 85025; 96374; 99284; A4216

== ENCOUNTER 2020-10-25 04:20 | Emergency (ER) | payer OTHER, SELFPAY ==
[2020-10-25 04:20] VITALS: BP 170/77; PULSE 89; RESP 16; TEMP 36.8; O2SAT 97; BMI 31.9
--- NOTE | 2020-10-25 04:25 | CT_ITS ---
STUDY: CT ABDOMEN AND PELVIS WITHOUT CONTRAST REASON FOR EXAM: Female, 59 years old. LLQ PAIN AND ACID REFLUX -- HX:HTN,DIVERTICULITIS,HYSTERECTOMY RADIATION DOSAGE (If Supplied By Facility): CTDIvol = ( 8.40 ) mGy, DLP = ( 403.00 ) mGycm TECHNIQUE: Transaxial images were obtained from the dome of the diaphragm to the symphysis pubis without oral contrast, and without intravenous contrast. Sagittal and coronal images were reconstructed. Individualized dose optimization techniques were used for this CT. COMPARISON: CT scan abdomen and pelvis 11/16/2019. FINDINGS: The visualized lung bases are unremarkable. The visualized portions of the heart are within normal limits. Normal liver. Normal gallbladder and extrahepatic biliary system. Normal spleen. Normal pancreas. Normal bilateral adrenal glands. Normal right kidney. Normal left kidney. There is a small hiatal hernia. Normal small intestine. There are multiple colonic diverticula consistent with diverticulosis. There is mural thickening in the mid segment of the sigmoid colon with adjacent fat infiltration, consistent with acute diverticulitis. There is no demonstrated abscess, ascites, or free intraperitoneal air. The appendix is seen on axial images 114-128 and it appears normal. Normal abdominal aorta. Normal inferior vena cava. Normal retroperitoneum. Normal urinary bladder. There is absence of the uterus consistent with a prior hysterectomy. Normal abdominal wall. There are multilevel degenerative changes in the lumbar spine. CT/Abdomen/Pelvis without Cont IMPRESSION: Acute diverticulitis of the sigmoid colon. No associated abscess or free intraperitoneal air. Small hiatal hernia. Previous hysterectomy. Electronically Signed: Adam Bernard MD at 5:52 EST , Service support ,
--- NOTE | 2020-10-25 04:28 | ED.VIS.GEN ---
History of Present Illness Chief Complaint: Abd Pain Informant: Patient Onset: Yesterday Context: Gradual Onset Timing: Continuous Current Severity: Moderate Maximum Severity: Severe Narrative: The patient is a 59-year-old female who presents to the emergency department abdominal pain. The patient states it started yesterday. She states she had a dull ache in her left lower quadrant. She states it worsened overnight into the morning. She has been nauseated without vomiting. She denies fevers or chills. She denies any urinary symptoms. She does have history of hysterectomy, but no other abdominal surgery. She states she is had about 3 days of some hard stools and constipation. She does have a history of diverticulitis and states this feels similar. Prior similar symptoms: Yes Recent Illness/Hospitalization: No Past Medical History - Allergies and Home Meds Allergies/Adverse Reactions: Allergies ciprofloxacin [From Cipro] Allergy (Verified 11/16/19 01:44) Hives ciprofloxacin HCl [From Cipro] Allergy (Verified 11/16/19 01:44) Hives clindamycin Allergy (Verified 11/16/19 01:44) Hives Iodinated Contrast Media [CONTRASTS] Allergy (Verified 11/16/19 01:44) Chest tightness metronidazole [From Flagyl] Allergy (Verified 11/16/19 01:44) Other Metronidazole HCl [From Flagyl] Allergy (Verified 11/16/19 01:44) Other Penicillins Allergy (Verified 11/16/19 01:44) Anaphylaxis procaine HCl [From Novocain] Allergy (Verified 11/16/19 01:44) Other red dye Allergy (Verified 11/16/19 01:44) Unknown sulfamethoxazole [From Bactrim] Allergy (Verified 11/16/19 01:44) Hives tetracycline [Tetracycline] Allergy (Verified 11/16/19 01:44) Hives trimethoprim [From Bactrim] Allergy (Verified 11/16/19 01:44) Hives bisoprolol [From Ziac] Adverse Reaction (Verified 11/16/19 01:44) Rash hydrochlorothiazide [From Ziac] Adverse Reaction (Verified 11/16/19 01:44) Rash losartan Adverse Reaction (Verified 11/16/19 01:44) Swelling morphine Adverse Reaction (Verified 11/16/19 01:44) Other Sulfa (Sulfonamide Antibiotics) Adverse Reaction (Verified 11/16/19 01:44) Unknown peanuts Allergy (Uncoded 11/16/19 01:44) Food Allergy strawberry Allergy (Uncoded 11/16/19 01:44) Food Allergy Primary Care Physician: Irwin Baker MD [Primary Care Provider] - Prior records reviewed: Yes Past Medical History: None Surgical History: no surgical history Smoking Status: Former smoker - Family History Maternal Family History: Reports: No pertinent history Paternal Family History: Reports: No pertinent history Review of Systems General: Denies: Chills, Fever, Sweats Eyes: Denies: Visual changes - bilaterally, Diplopia ENT: Denies: Rhinorrhea, Sore throat Cardiovascular: Denies: Chest pain, Palpitations Respiratory: Denies: Dyspnea, Cough, Dyspnea on exertion Gastrointestinal: Reports: Abdominal pain, Constipation. Denies: Nausea, Vomiting, Diarrhea, Melena, Hematochezia Genitourinary: Denies: Dysuria, Hematuria, Frequency Musculoskeletal: Denies: Back pain, Extremity Pain Skin: Denies: Rash, Wounds Neurological: Denies: Headache, Weakness, Numbness Physical Exam Vital Signs/Narrative: Vital Signs Temp Pulse Resp BP Pulse Ox 10/25/20 04:20 98.2 F 89 16 170/77 H 97 Inital Vital Signs reviewed: Yes General: Well nourished, Well developed, No Acute Distress Head: Normocephalic, Atraumatic Eyes: Perrl, EOMI ENT: Moist mucous membranes, No rhinorrhea Neck: Supple, Nontender Cardiovascular: Regular rate, Regular rhythm, No murmurs Respiratory: No distress, CTA bilaterally, Chest nontender Abdomen: Soft, Nondistended, Normal bowel sounds, Tender. Negative for: Guarding, Rebound tenderness Back: Nontender, Normal Inspection Extremities: Nontender, No edema Skin: Normal color, No rash Neurological: Alert, Oriented x3, Cranial nerves II-XII grossly intact, Normal Strength, Normal Sensation Psychological: Normal affect, Normal Mood Diagnostic/Tx/Re-eval Clinical Impression(s) from Imaging Studies Abdomen/Pelvis CT 10/25/20 04:25 IMPRESSION: Acute diverticulitis of the sigmoid colon. No associated abscess or free intraperitoneal air. Small hiatal hernia. Previous hysterectomy. Electronically Signed: Adam Bernard MD at 5:52 EST , Service support , Abnormal Lab Results 10/25/20 10/25/20 10/25/20 04:35 04:35 04:50 WBC 8.0 RBC 4.79 Hgb 14.9 Hct 44.4 MCV 92.7 MCH 31.1 MCHC 33.6 RDW Std Deviation 41.0 RDW Coeff of [place] 12.0 Plt Count 196 MPV 10.8 Immature Gran % (Auto) 0.100 Neut % (Auto) 62.6 Lymph % (Auto) 27.4 [place] % (Auto) 7.5 Eos % (Auto) 2.0 Baso % (Auto) 0.4 Absolute Neuts (auto) 5.0 Absolute Lymphs (auto) 2.19 Nucleated RBC % 0 Sodium 138 Potassium 3.8 Chloride 107 Carbon Dioxide 25.0 Anion Gap 6 BUN 16 Creatinine 0.96 Estim Creat Clear Calc 52.84 Est GFR (MDRD) Af Amer 76 Est GFR (MDRD) Non-Af 63 BUN/Creatinine Ratio 16.6 Glucose 104 Calcium 9.1 Total Bilirubin 0.50 AST 24 ALT 31 Alkaline Phosphatase 131 H Total Protein 7.7 Albumin 3.7 Globulin 4.0 Albumin/Globulin Ratio 0.9 Urine Color Yellow Urine Clarity Clear Urine pH 6.0 Ur Specific [place] 1.015 Urine Protein Negative Urine Glucose (UA) Normal Urine Ketones Negative Urine Occult Blood 50 H Urine Nitrite Negative Urine Bilirubin Negative Urine Urobilinogen Normal Ur Leukocyte Esterase 500 H Urine RBC 5-10 SEEN Urine WBC 5-10 SEEN Ur Squamous Epith Cells 0-5 SEEN Urine Bacteria 0 SEEN Urine Mucus 0 SEEN - Medical Decision Making Patient presents with left lower quadrant pain. She does have a history of diverticulitis. She declined antiemetics or analgesics. She was given fluids. Metabolic work-up was pursued and is relatively unremarkable. CT demonstrates diverticulitis without perforation or abscess. Patient has multiple drug allergies and intolerances. However, she has been treated with Avelox before in the past. I will use this. She was counseled on concerning symptoms and reasons to return. She will be discharged home. Impression 1. Diverticulitis ED Disposition - Plan for ED Patient: Instructions: ED Diverticulitis Prescriptions: Moxifloxacin HCl [Avelox] 400 mg PO DAILY #7 tab Prescription Printed Referrals: Irwin Baker MD [Primary Care Provider] -
[2020-10-25 04:48] LABS: Absolute Lymphocyte Count 2.19 X10^3/uL (0.83-4.51); Basophil# 0.03 X10^3/uL; Basophil% 0.4 % (0-1); Eosinophil# 0.16 X10^3/uL; Hematocrit 44.4 % (37-47); Hemoglobin 14.9 g/dL (12.0-15.0); Lymphocyte # 2.19 X10^3/ul (4.0); Lymphocyte % 27.4 % (19-41); Mean Corp Hgb Conc 33.6 g/dL (32-36); Mean Corpuscular Hgb 31.1 pg (27.0-32.0); Mean Corpuscular Volume 92.7 fL (81-99); Mean Platelet Vol. 10.8 fl (6.2-12.0); Monocyte% 7.5 % (0-10); NRBC Flagged by Analyzer 0 % (0-5); Neutrophil # 4.99 X10^3/uL (2.7-7.7); Neutrophil % 62.6 % (47-70); Platelet Count 196 K/mm3 (150-450); Red Blood Count 4.79 M/mm3 (4.2-5.4)
[2020-10-25 04:53] VITALS: BP 131/86; PULSE 72; RESP 18; O2SAT 97
[2020-10-25] MEDS: 0.9% Normal Saline 1,000 ML 1000 ML IV (04:53)
[2020-10-25 05:00] LABS: Bacteria 0 SEEN /hpf (None Seen); Color, Urine Yellow (Yellow); Glucose, Dipstick Normal (Normal); Ketone-Dipstick Negative (Negative); Leukocyte Esterase-Dipstick 500 /ul (Negative); Mucous, Urine 0 SEEN /hpf (<or=2+); Nitrite-Dipstick Negative (Negative); Occult Blood-Urine 50 /ul (Negative); Protein-Dipstick Negative (Negative); Specific Gravity, Urine 1.015 (1.002-1.030); Urine Bilirubin Dipstick Negative (Negative); Urine Clarity Clear (Clear); Urine Urobilinogen Normal (Normal)
[2020-10-25 05:07] LABS: ALB/GLOB Ratio 0.9 RATIO (0.9-2.4); AST(SGOT) 24 U/L (15-37); Alanine Aminotransfer ALT/SGPT 31 U/L (13-56); Albumin, Serum 3.7 g/dL (3.2-5.0); Alkaline Phosphatase 131 U/L (45-117); Anion Gap 6 (5-15); BUN 16 mg/dL (7-18); BUN/Creat Ratio 16.6 RATIO (10-20); Calcium,Total 9.1 mg/dL (8.5-10.1); Chloride 107 mmol/L (98-107); Creatinine, Serum 0.96 mg/dL (0.55-1.02); EST Glomerular Filtration Rate 63 mL/min (>60); Est Glom Filt Rate - Afr Amer 76 mL/min (>60); Estimated Creatinine Clearance 52.84 ml/min; Glucose 104 mg/dL (74-106); Potassium 3.8 mmol/L (3.5-5.1); Protein, Total 7.7 g/dL (6.4-8.2); Sodium Level 138 mmol/L (136-145)
[2020-10-25 05:10] LABS: Red Blood Cells-Urine 5-10 SEEN /hpf (0-5); Squamous Epithelial Cells - UA 0-5 SEEN /hpf (5-10); White Blood Cells 5-10 SEEN /hpf (0-5)
[2020-10-25 06:00] VITALS: BP 164/78; PULSE 74; RESP 16; O2SAT 97
== END 2020-10-25 06:08 | disposition home or self-care (01) ==
LOC: ED 05:28
PROVIDERS: Emergency Provider Emergency Medicine; PCP Family Medicine
DX: K57.32 Diverticulitis of large intestine without perforation or abscess without bleeding (principal); K44.9 Diaphragmatic hernia without obstruction or gangrene; Z87.891 Personal history of nicotine dependence
CPT/HCPCS: 74176; 80053; 81001; 85025; 96360; 99285; J7030; A4216

== ENCOUNTER 2020-10-26 18:18 | Observation (INO) | payer OTHER, SELFPAY ==
[2020-10-25 04:20] VITALS: BMI 31.9
[2020-10-26] VITALS (8 sets, daily range): BP systolic 134–160; BP diastolic 76–91; PULSE 70–104; RESP 15–21; TEMP 36.4–36.7; O2SAT 94–99; BMI 29.2; BMI 29.4
--- NOTE | 2020-10-26 18:41 | EKG12_ITS ---
Test Reason : MORNING EKG Blood Pressure : / mmHG Vent. Rate : 060 BPM Atrial Rate : 060 BPM P-R Int : 132 ms QRS Dur : 086 ms QT Int : 456 ms P-R-T Axes : 023 045 041 degrees QTc Int : 456 ms Normal sinus rhythm Normal ECG When compared with ECG of 26-OCT-2020 23:53, MANUAL COMPARISON REQUIRED, DATA IS UNCONFIRMED Confirmed by VANNA COMBS, JAVIER ([id number]), marketing editor MICHELINE HENNESSY ([id number]) on 10/28/2020 2:28:20 PM Referred By: ANA Confirmed By:JAVIER PRABHAKAR MD
--- NOTE | 2020-10-26 18:42 | ED.VISSUMM ---
- ER Visit Summary Date of Service: 10/26/20 Chief Complaint: [Chest pain] History of Present Illness: The patient is a 59 F [presents to the emergency department complaint of chest pain that started initially last evening. She had some mild discomfort in the center of her chest that she thought was related to just being under increased stress because she was diagnosed with diverticulitis yesterday morning. Patient throughout the day has been having some tightness in the center of her chest without any real radiation. After dinner patient states that she noted like her heart was pounding and felt like it was racing and she felt somewhat short of breath. She denies any nausea or vomiting. Patient has had similar discomfort in the past but no etiology was found. She denies recent travel or surgery. She has no cardiac history. Patient denies history of PE or DVT. Patient denies recent illness such as fever or cough. No Covid exposures. Patient states that she did not fill her antibiotics yet for her diverticulitis.] Physical Examination: [HEENT-PERRLA, EOMI. Cranial nerves II through XII grossly intact. TMs clear. Mucous membranes moist. No adenopathy. Cardiovascular-regular rate and rhythm without murmur or ectopy Lungs-clear to auscultation, chest wall stable without crepitus or subcu emphysema Abdomen-normoactive bowel sounds, soft, nontender, no rebound or rigidity, no peritoneal signs. Extremities-intact ?4, normal range of motion, normal pulses, atraumatic] Test Results: [EKG obtained on arrival shows sinus rhythm with a ventricular rate of 93 bpm with some nonspecific ST changes and occasional PVC.] CBC with it was normal. Chemistries unremarkable. Troponin was less than 0.15. D-dimer was 0.66. CTA of the chest was obtained which showed no evidence of PE or dissection. Emergency Department Course and Treatment: [IV line established on arrival. Patient was given Solu-Medrol and Benadryl to premedicate prior to obtaining CTA given that she claims allergy to IV dye. Patient had taken aspirin at home none was given here. Case discussed with hospitalist will evaluate patient for admission] Treatment Plan: [Admit for heart score of 4] Disposition: [Admit] Impression: [Chest pain-rule out acute coronary syndrome] This note was generated with [employer]ation software. It may contain incorrect words, spelling, and punctuation that were not noted in review of the chart prior to signing ED Disposition - Plan for ED Patient: Referrals: Irwin Baker MD [Primary Care Provider] -
[2020-10-26] MEDS: 0.9% Normal Saline 1,000 ML 150 ML IV (18:58)
[2020-10-26 19:05] LABS: Absolute Lymphocyte Count 1.69 X10^3/uL (0.83-4.51); Absolute Neutrophil Count 4.7 X10^3/uL (2.0-7.7); Basophil# 0.03 X10^3/uL; Basophil% 0.4 % (0-1); Eosinophils% 1.4 % (0-5); Hemoglobin 14.9 g/dL (12.0-15.0); Lymphocyte # 1.69 X10^3/ul (4.0); Lymphocyte % 24.1 % (19-41); Mean Corp Hgb Conc 33.9 g/dL (32-36); Mean Corpuscular Hgb 31.2 pg (27.0-32.0); Mean Corpuscular Volume 92.2 fL (81-99); Mean Platelet Vol. 11.3 fl (6.2-12.0); Monocyte# 0.45 X10^3/uL; Monocyte% 6.4 % (0-10); NRBC Flagged by Analyzer 0 % (0-5); Neutrophil # 4.73 X10^3/uL (2.7-7.7); Neutrophil % 67.4 % (47-70); Platelet Count 210 K/mm3 (150-450); RBC Distribution Width CV 11.9 % (11.6-14.6); RBC Distribution Width SD 40.7 fl (35.1-43.9); Red Blood Count 4.77 M/mm3 (4.2-5.4)
[2020-10-26 19:16] LABS: D-Dimer Quantitative (DVT/PE) 0.66 FEU/ug/m (0.27-0.49)
--- NOTE | 2020-10-26 19:19 | CT_ITS ---
STUDY: CTA CHEST REASON FOR EXAM: Female, 59 years old. CHEST PAIN, PALPITATIONS, TACHYCARDIA, ELEV. D-DIMER. -- HX:HTN RADIATION DOSAGE (If Supplied By Facility): CTDIvol = ( 9.78 ) mGy, DLP = ( 421.86 ) mGycm TECHNIQUE: The examination was performed with the intravenous administration of IV 100mL Isovue-370. Post-processing of the angiographic images was performed, with multiplanar reformation and 3D reconstruction. Individualized dose optimization techniques were used for this CT. COMPARISON: None. FINDINGS: Normal enhancement of the main pulmonary artery and right and left pulmonary arteries. Normal enhancement of the bilateral peripheral pulmonary arteries. There is no demonstrated pulmonary embolism. Normal thoracic aorta and visualized great vessels. There is no demonstrated aortic dissection. Normal heart and pericardium. Normal mediastinum. Normal hilar regions. Normal visualized trachea and bronchi. The lungs are well expanded. There is minimal atelectasis within the dependent portion lungs. No focal infiltration or pulmonary nodule Normal pleura. Normal chest wall structures. Dorsal spine demonstrates advanced spondylosis Normal visualized upper abdomen. CT/CTA Chest W/WO Contrast IMPRESSION: Minimal atelectasis within the dependent portion of the lungs.. No acute abnormalities. No evidence for pulmonary embolus Electronically Signed: Kwasi De León MD at 21:08 EST , Service support ,
[2020-10-26 19:28] LABS: Anion Gap 7 (5-15); BUN 12 mg/dL (7-18); BUN/Creat Ratio 11.4 RATIO (10-20); Calcium,Total 9.5 mg/dL (8.5-10.1); Chloride 106 mmol/L (98-107); Creatinine, Serum 1.05 mg/dL (0.55-1.02); EST Glomerular Filtration Rate 57 mL/min (>60); Est Glom Filt Rate - Afr Amer 69 mL/min (>60); Estimated Creatinine Clearance 50.43 ml/min; Glucose 185 mg/dL (74-106); Potassium 3.5 mmol/L (3.5-5.1); Sodium Level 140 mmol/L (136-145)
[2020-10-26] MEDS: DiphenhydrAMINE 50 MG/ML Syringe IV (19:39)
[2020-10-26] MEDS: MethylPREDNISolone 125 MG/2 ML Vial IV (19:40)
--- NOTE | 2020-10-26 22:11 | PCM.HP.STD ---
Problem List (1) Chest pain Status: Acute (2) Cardiac arrhythmia Status: Chronic (3) Menometrorrhagia Status: Chronic (4) History of anemia Status: Chronic History of Present Illness Date of Admission: 10/26/20 Chief Complaint: Chest pain The patient is a 59 year old F with a significant history of arrhythmia who presents to the emergency department with chest pain that started a day before presentation. After dinner on the night before presentation the patient had chest pain. The chest pain persisted on the day of presentation and increased after dinner on the day of presentation. She described the chest pain as a dull. Intensity of the chest pain is between 5-6. The chest pain is nonradiating. At that time of examination her chest pain was between 1-2. Because of the chest pain she was having difficulty breathing. Also patient had palpitations that was very concerning for her. Past Medical History Past Medical History (Chronic Problems): Chronic Problems Cardiac arrhythmia (Chronic) Menometrorrhagia (Chronic) History of anemia (Chronic) Allergies ciprofloxacin [From Cipro] Allergy (Verified 10/26/20 18:23) Hives ciprofloxacin HCl [From Cipro] Allergy (Verified 10/26/20 18:23) Hives clindamycin Allergy (Verified 10/26/20 18:23) Hives Iodinated Contrast Media [CONTRASTS] Allergy (Verified 10/26/20 18:23) Chest tightness metronidazole [From Flagyl] Allergy (Verified 10/26/20 18:23) Other Metronidazole HCl [From Flagyl] Allergy (Verified 10/26/20 18:23) Other Penicillins Allergy (Verified 10/26/20 18:23) Anaphylaxis procaine HCl [From Novocain] Allergy (Verified 10/26/20 18:23) Other red dye Allergy (Verified 10/26/20 18:23) Unknown sulfamethoxazole [From Bactrim] Allergy (Verified 10/26/20 18:23) Hives tetracycline [Tetracycline] Allergy (Verified 10/26/20 18:23) Hives trimethoprim [From Bactrim] Allergy (Verified 10/26/20 18:23) Hives bisoprolol [From Ziac] Adverse Reaction (Verified 10/26/20 18:23) Rash hydrochlorothiazide [From Ziac] Adverse Reaction (Verified 10/26/20 18:23) Rash levofloxacin [From Levaquin] Adverse Reaction (Verified 10/26/20 18:23) PT UNSURE OF REACTION losartan Adverse Reaction (Verified 10/26/20 18:23) Swelling morphine Adverse Reaction (Verified 10/26/20 18:23) Other Sulfa (Sulfonamide Antibiotics) Adverse Reaction (Verified 10/26/20 18:23) Unknown peanuts Allergy (Uncoded 11/16/19 01:44) Food Allergy strawberry Allergy (Uncoded 11/16/19 01:44) Food Allergy Home Medications: Ambulatory Orders Medication Instructions Recorded Metoprolol(XL)Succ [Toprol Xl 37.5 mg PO QHS 07/21/13 (Beta Kayla)] Ascorbic Acid [Vitamin C] 1,500 mg PO DAILY 05/02/18 Multivitamin [Daily Multiple 1 tab PO DAILY 05/02/18 Vitamin] Moxifloxacin HCl [Avelox] 400 mg PO DAILY #7 tab 10/25/20 Surgical History: hysterectomy Smoking Status: Former smoker - *Family History Maternal History Items: - - Her mother had atrial fibrillation Paternal History Items: Cancer, - Review of Systems Constitutional: Denies: Chills, Fever, Weight Change HEENT: Denies: Head Aches, Sinus Congestion, Sinus Drainage Cardiovascular: Reports: Chest Pain, Palpitations Respiratory: Denies: Cough, Shortness of breath at rest, Sputum production Gastrointestinal: Denies: Abdominal Pain, Nausea, Vomiting Genitourinary: Denies: Dysuria Musculoskeletal: Denies: Joint Pain, Joint Tenderness Skin: Denies: Rash, Wounds Neurological: Denies: Numbness, Tingling, Focal weakness Psychiatric: Denies: Anxiety, Depression, Homicidal Ideations, Suicidal Ideations Hematologic/ Lymphatic: Denies: Easy Bruising, Easy Bleeding VTE Information - Inpt Only VTE Present on Admission: No VTE Mechan Device Prophylaxis: SCD's VTE Pharm Prophylaxis ordered?: No Patient Problems: Active and Suspected Problems Chest pain (Acute) - Physical Exam Vitals/I&O's: Vital Signs Temp Pulse Resp BP Pulse Ox 98 F 74 18 134/86 H 96 10/26/20 21:28 10/26/20 21:28 10/26/20 21:28 10/26/20 21:28 10/26/20 21:28 Oxygen Delivery Method Room Air Weight: 77.111 kg Body Mass Index (BMI) 29.2 General: Alert, Oriented x3, Cooperative HEENT: Atraumatic, PERRLA, EOMI, Normocephalic Neck: Supple, No JVD, Negative Carotid Bruits Lungs: Clear to auscultation, Normal air movement Cardiovascular: Regular rate, Normal S1, Normal S2, No murmurs Abdomen: Bowel Sounds Present, Soft, Non Tender Extremities: No edema, Capillary Refill Less than 3 Seconds Skin: No rashes, No breakdown Musculoskeletal: No Tenderness to Palpation of Joints or Extremities Neurological: Cranial nerves II-XII grossly intact Psych/Mental Status: Normal Affect, Appropriate Laboratory Results 10/26/20 18:50: WBC 7.0, RBC 4.77, Hgb 14.9, Hct 44.0, MCV 92.2, MCH 31.2, MCHC 33.9, RDW Std Deviation 40.7, RDW Coeff of Colby 11.9, Plt Count 210, MPV 11.3, Immature Gran % (Auto) 0.300, Neut % (Auto) 67.4, Lymph % (Auto) 24.1, Pine % (Auto) 6.4, Eos % (Auto) 1.4, Baso % (Auto) 0.4, Absolute Neuts (auto) 4.7, Absolute Lymphs (auto) 1.69, Nucleated RBC % 0 10/26/20 18:50: Sodium 140, Potassium 3.5, Chloride 106, Carbon Dioxide 27.0, Anion Gap 7, BUN 12, Creatinine 1.05 H, Estim Creat Clear Calc 50.43, Est GFR (MDRD) Af Amer 69, Est GFR (MDRD) Non-Af 57 L, BUN/Creatinine Ratio 11.4, Glucose 185 H, Calcium 9.5, Troponin I < 0.015 10/26/20 18:50: D-Dimer Quant (PE/DVT) 0.66 H* Current Medications Sodium Chloride () 1,000 mls @ 150 mls/hr IV .Q6H40M [facility] Last Admin: 10/26/20 18:58 Dose: 150 mls/hr Documented by: Assessment/Plan All Active Problems Chest pain (Acute) The patient is a 59 year old F with a significant history of arrhythmia who presents emergency department with chest pain and palpitations. Chest pain Place on a monitored bed at the PCU. D-dimer was elevated. Follow-up chest CTA showed minimal atelectasis within the dependent portions of the lungs without any acute abnormalities. There was no evidence of pulmonary embolus. Actual EKG tracing was independently visualized. EKG tracing showed nonspecific changes. ASA 81 mg p.o. daily ordered SL NTG 0.4 mg prn as needed for chest pain ordered Morphine as needed for pain ordered We will check lipid panel. Serial cardiac enzymes ordered Stat EKG as needed for chest pain Patient had negative stress test at [facility] a year ago. Review of records here shows that patient had a negative stress test in 2018 at this hospital ([facility]). Treadmill stress test in the AM if the cardiac enzymes are negative Palpitations. Placed on telemetry at progressive care unit. Acute diverticulitis Patient was at our emergency department on 10/25/2019 and diagnosed with diverticulitis. Reportedly, she was prescribed antibiotics but she has not picked up the prescription. Patient is declining antibiotics at this time. She reports that typically with a soft diet and liquids she does fine with diverticulitis. Soft diet per patient's request ordered. DVT SCD in the setting of cardiac work-up for chest pain. OBSV E&M: 08095 Initial observation care L2
[2020-10-26] MEDS: Aspirin 81 MG TAB.CHEW PO (22:12)
--- NOTE | 2020-10-26 22:58 | EKG12_ITS ---
Test Reason : CP ADMISSION Blood Pressure : / mmHG Vent. Rate : 064 BPM Atrial Rate : 064 BPM P-R Int : 132 ms QRS Dur : 088 ms QT Int : 422 ms P-R-T Axes : 036 046 051 degrees QTc Int : 435 ms Normal sinus rhythm Normal ECG When compared with ECG of 14-OCT-2019 11:44, No significant change was found Confirmed by VANNA COMBS, JAVIER ([id number]), school photograph editor MICHELINE HENNESSY ([id number]) on 10/28/2020 2:28:35 PM Referred By: ANA Confirmed By:JAVIER PRABHAKAR MD
--- NOTE | 2020-10-26 23:03 | PCS.PANDOC ---
PANDEMIC DOCUMENTATION INITIATED: Date: 10/26/2020 Time: 8587
[2020-10-27 05:19] LABS: Absolute Lymphocyte Count 0.72 X10^3/uL (0.83-4.51); Absolute Neutrophil Count 8.2 X10^3/uL (2.0-7.7); Basophil# 0.01 X10^3/uL; Basophil% 0.1 % (0-1); Hematocrit 42.2 % (37-47); Hemoglobin 14.4 g/dL (12.0-15.0); Lymphocyte # 0.72 X10^3/ul (4.0); Lymphocyte % 7.9 % (19-41); Mean Corp Hgb Conc 34.1 g/dL (32-36); Mean Corpuscular Volume 90.9 fL (81-99); Monocyte% 1.1 % (0-10); NRBC Flagged by Analyzer 0 % (0-5); Neutrophil # 8.24 X10^3/uL (2.7-7.7); Neutrophil % 90.6 % (47-70); Platelet Count 204 K/mm3 (150-450); RBC Distribution Width CV 11.9 % (11.6-14.6); RBC Distribution Width SD 39.6 fl (35.1-43.9); Red Blood Count 4.64 M/mm3 (4.2-5.4); White Blood Count 9.1 K/mm3 (4.4-11.0)
[2020-10-27 05:20] VITALS: BP 129/77; PULSE 60; RESP 17; TEMP 36.6; O2SAT 96
[2020-10-27 05:45] LABS: Anion Gap 5 (5-15); BUN 13 mg/dL (7-18); BUN/Creat Ratio 15.7 RATIO (10-20); Calcium,Total 9.1 mg/dL (8.5-10.1); Chloride 111 mmol/L (98-107); Cholesterol 218 mg/dL (200); Creatinine, Serum 0.83 mg/dL (0.55-1.02); EST Glomerular Filtration Rate 75 mL/min (>60); Est Glom Filt Rate - Afr Amer 91 mL/min (>60); Glucose 154 mg/dL (74-106); High Density Lipoprotein 68 mg/dL; Potassium 4.1 mmol/L (3.5-5.1); Sodium Level 140 mmol/L (136-145); Thyroid Stim Hormone (TSH) 0.67 uIU/mL (0.358-3.74); Triglycerides 52 mg/dL; Very Low Density Lipoprotein 10 mg/dL (5-40)
--- NOTE | 2020-10-27 05:55 | EKG12_ITS ---
Test Reason : CP Blood Pressure : / mmHG Vent. Rate : 093 BPM Atrial Rate : 093 BPM P-R Int : 152 ms QRS Dur : 088 ms QT Int : 348 ms P-R-T Axes : 079 064 063 degrees QTc Int : 432 ms Sinus rhythm with frequent Premature ventricular complexes Nonspecific ST abnormality Abnormal ECG Confirmed by VANNA COMBS, JAVIER ([id number]), editor city MICHELINE HENNESSY ([id number]) on 11/01/2020 12:49:38 PM Referred By: NIKOLAS Confirmed By:JAVIER PRABHAKAR MD
[2020-10-27 07:00] VITALS: PULSE 67
[2020-10-27 07:05] VITALS: O2SAT 96
[2020-10-27 10:13] VITALS: BP 120/80; PULSE 85; RESP 18; TEMP 36.7; O2SAT 94
[2020-10-27] MEDS: Ascorbic Acid 500 MG Tablet 1500 MG PO (10:50)
[2020-10-27] MEDS: Multivitamins,Therapeutic Tablet 1 TABLET PO (10:50)
[2020-10-27] MEDS: Aspirin 81 MG TAB.CHEW PO (10:50)
--- NOTE | 2020-10-27 12:55 | STRESSREP ---
Stress Test Report Date: 10-27-2020 Procedure: Exercise tolerance test/imaging study Indications: Chest pain Consent: Per the patient Procedure: The patient exercised on a Paco protocol for 10 minutes completing Stage III and 1 minute of Stage IV achieving a peak heart rate of 162 bpm (100% predicted maximal heart rate) with a peak blood pressure 160/90 mmHg and a peak MET capacity of 11 METs. The baseline ECG demonstrated sinus rhythm. The peak exercise ECG demonstrated no obvious ECG changes. There was an occasional PVC and a rare ventricular couplet during exercise and a rare PVC during recovery. The functional capacity was considered good. There was no complaint of chest discomfort during exercise or recovery. The examination was discontinued secondary to dyspnea. Impression: 1. Technically adequate (percent predicted maximal heart rate greater than 85%) exercise tolerance test 2. Peak exercise ECG with no obvious ECG changes 3. There was an occasional PVC and a rare ventricular couplet during exercise and a rare PVC during recovery 4. Nuclear images pending Myocardial perfusion imaging study: Technique: The patient was injected with 11.2 mCi of technetium 99m Cardiolite and subsequently rest SPECT Cardiolite nuclear imaging was obtained in the horizontal long, vertical long, and short axis views. The patient exercised on a Paco protocol for 10 minutes completing Stage III and 1 minute of Stage IV achieving a peak heart rate of 162 bpm (100% predicted maximal heart rate) with a peak blood pressure 160/90 mmHg and a peak MET capacity of 11 METs. The patient was injected with 32.8 mCi of technetium 99m Cardiolite and subsequently stress SPECT Cardiolite nuclear imaging was obtained in the horizontal long, vertical long, and short axis views. A gated Cardiolite study at peak stress was obtained. Interpretation: Rest and stress SPECT Cardiolite nuclear imaging status post realignment and normalization demonstrates the appearance of body motion during image acquisition and otherwise relative uniform tracer uptake during rest and status post exercise. There is end systolic thickening and brightening. The gated Cardiolite study demonstrates myocardial thickening and inward wall motion. The reported LVEF is 92%. Impression: 1. Rest and stress SPECT Cardiolite nuclear imaging demonstrate relative uniform tracer uptake and myocardial perfusion appearing within normal limits. 2. The gated Cardiolite study reports an LVEF of 92%. This note was generated with [employer] software. It may contain incorrect words, spelling, and punctuation that were not noted in checking the note before signing.
--- NOTE | 2020-10-27 13:51 | PCM.DC ---
- Discharge Diagnoses Current Active Problems: Current Active and Chronic Problems Chest pain (Acute) Cardiac arrhythmia (Chronic) Menometrorrhagia (Chronic) History of anemia (Chronic) You will use the following diet at home:: No restrictions, Other - minimize caffeine and alcohol Your food should be the consistency of: Regular Call your doctor if you observe: Fever of 101 or Higher, Chest pain, Increased palpitations (irregular heartbeat) Allergies/Adverse Reactions: Allergies bisacodyl [From Dulcolax (bisacodyl)] Allergy (Verified 10/26/20 23:17) Hives ciprofloxacin [From Cipro] Allergy (Verified 10/26/20 18:23) Hives ciprofloxacin HCl [From Cipro] Allergy (Verified 10/26/20 18:23) Hives clindamycin Allergy (Verified 10/26/20 18:23) Hives Iodinated Contrast Media [CONTRASTS] Allergy (Verified 10/26/20 18:23) Chest tightness metronidazole [From Flagyl] Allergy (Verified 10/26/20 18:23) Other Metronidazole HCl [From Flagyl] Allergy (Verified 10/26/20 18:23) Other nitrofurantoin [From Macrobid] Allergy (Verified 10/26/20 23:18) Hives Penicillins Allergy (Verified 10/26/20 18:23) Anaphylaxis procaine HCl [From Novocain] Allergy (Verified 10/26/20 18:23) Other red dye Allergy (Verified 10/26/20 18:23) Unknown sulfamethoxazole [From Bactrim] Allergy (Verified 10/26/20 18:23) Hives tetracycline [Tetracycline] Allergy (Verified 10/26/20 18:23) Hives trimethoprim [From Bactrim] Allergy (Verified 10/26/20 18:23) Hives bisoprolol [From Ziac] Adverse Reaction (Verified 10/26/20 18:23) Rash hydrochlorothiazide [From Ziac] Adverse Reaction (Verified 10/26/20 18:23) Rash levofloxacin [From Levaquin] Adverse Reaction (Verified 10/26/20 18:23) PT UNSURE OF REACTION losartan Adverse Reaction (Verified 10/26/20 18:23) Swelling morphine Adverse Reaction (Verified 10/26/20 18:23) Other Sulfa (Sulfonamide Antibiotics) Adverse Reaction (Verified 10/26/20 18:23) Unknown peanuts Allergy (Uncoded 02/09/20 01:44) Food Allergy strawberry Allergy (Uncoded 11/16/19 01:44) Food Allergy Medications to take at Discharge Metoprolol(XL)Succ [Toprol Xl (Beta Kayla)] 37.5 mg PO DAILY 07/21/13 Ascorbic Acid [Vitamin C] 1,500 mg PO DAILY 05/02/18 Multivitamin [Daily Multiple Vitamin] 1 tab PO DAILY 05/02/18 Aspirin 81 mg PO DAILY 10/26/20 Calcium/D3/Mag Ox/Optical Coating Technician/Federico/Zn [Caltrate+D3 Plus Mineral Minis] 1 tab PO DAILY 10/26/20 Primary Care Physician: Irwin Baker MD [Primary Care Provider] - Within 2 Weeks Test Results: Test results from this visit will be discussed in further detail at your follow-up appointment, if applicable. Please Follow Up With: [facility] When: 2-4 weeks Proposed Discharge Date: 10/27/20
--- NOTE | 2020-10-27 13:53 | DS.PCM_ITS ---
Discharge Date and Diagnosis - Problem List Patient Problems: Active and Suspected Problems Chest pain (Acute) Date of Admission: 10/26/20 Date of Discharge: 10/27/20 - Primary Discharge Diagnosis Acute Problems: Active Problems Chest pain (Acute) - Secondary Discharge Diagnosis Chronic Problems: Chronic Problems Cardiac arrhythmia (Chronic) Menometrorrhagia (Chronic) History of anemia (Chronic) Hospital Course and Treatment Imaging Results: 10/27/20 05:55 Nuclear Stress Test - Treadmil [NM] AM (NON MEDS) Clinical Impression(s) from Imaging Studies Chest CTA 10/26/20 19:19 IMPRESSION: Minimal atelectasis within the dependent portion of the lungs.. No acute abnormalities. No evidence for pulmonary embolus Electronically Signed: Kwasi De León MD at 21:08 EST , Service support , Operations: None Summary of Care Provided: The patient is a 59 year old F presents with chest pain. Chest pain was midsternal. Patient was also having some palpitations at this time. She checked her blood pressure and was noted to be in the 170s and heart rate was noted to be around 115. Patient has a history of a cardiac arrhythmia noted on Holter monitor and is on metoprolol succinate. Was recently increased to 37.5 daily a few months ago. Patient's blood pressure for the most part remained stable but does have times where it does go up into the 160s 170s. Patient presented to the emergency room and underwent a cardiac work-up, including troponins, CTA of the chest and a stress test. All of which were negative. Discussed with the patient that this could be related with her blood pressure being transiently elevated and/or her heart rate being up. Patient has never seen a care management coordinator. I recommend that she follow-up with cardiology as outpatient for further recommendations. I did inform patient that she did not have a blood clots and her D-dimer was not concerning degree since she had a negative CT angiogram of her chest. Told her I would not change anything in regards to her blood pressure treatment as her blood pressure has remained fairly stable during the course of this hospitalization though I still recommended she continue to check her blood pressure at home and follow-up with her primary care doctor to see if any additional changes would be necessary. Patient was asked about returning to exercise I told her that since she has not really been exercising that much recently to slowly get back into her routine. Patient was previously running prepandemic but I told her not to do that at this point time but just to try to walk at a brisk pace for short period of time around 20 minutes and then over the next several weeks to increase her speed and time as she is able to tolerate. I did tell her that she would not be able to achieve high heart rates given the fact that she is on metoprolol succinate. [] Patient Problems: Active and Suspected Problems Chest pain (Acute) - Physical Exam Vitals/I&O's: Vital Signs Temp Pulse Resp BP Pulse Ox 36.7 C 85 18 120/80 94 10/27/20 10:13 10/27/20 10:13 10/27/20 10:13 10/27/20 10:13 10/27/20 10:13 Oxygen Delivery Method Room Air Weight: 77.7 kg Body Mass Index (BMI) 29.4 Intake and Output for Last 24 Hours 10/25/20 10/26/20 10/27/20 23:59 23:59 23:59 Intake Total 1000 / 1000 Balance 1000 / 1000 General: Alert, No apparent distress HEENT: Atraumatic, Normocephalic Psych/Mental Status: Normal Affect, Appropriate Laboratory Results 10/26/20 18:50: WBC 7.0, RBC 4.77, Hgb 14.9, Hct 44.0, MCV 92.2, MCH 31.2, MCHC 33.9, RDW Std Deviation 40.7, RDW Coeff of [place] 11.9, Plt Count 210, MPV 11.3, Immature Gran % (Auto) 0.300, Neut % (Auto) 67.4, Lymph % (Auto) 24.1, [place] % (Auto) 6.4, Eos % (Auto) 1.4, Baso % (Auto) 0.4, Absolute Neuts (auto) 4.7, Absolute Lymphs (auto) 1.69, Nucleated RBC % 0 10/26/20 18:50: Sodium 140, Potassium 3.5, Chloride 106, Carbon Dioxide 27.0, Anion Gap 7, BUN 12, Creatinine 1.05 H, Estim Creat Clear Calc 50.43, Est GFR (MDRD) Af Amer 69, Est GFR (MDRD) Non-Af 57 L, BUN/Creatinine Ratio 11.4, Glucose 185 H, Calcium 9.5, Troponin I < 0.015 10/26/20 18:50: D-Dimer Quant (PE/DVT) 0.66 H* 10/26/20 23:12: Troponin I < 0.015 10/27/20 01:58: Troponin I < 0.015 10/27/20 05:00: WBC 9.1, RBC 4.64, Hgb 14.4, Hct 42.2, MCV 90.9, MCH 31.0, MCHC 34.1, RDW Std Deviation 39.6, RDW Coeff of [place] 11.9, Plt Count 204, MPV 11.0, Immature Gran % (Auto) 0.300, Neut % (Auto) 90.6 H, Lymph % (Auto) 7.9 L, [place] % (Auto) 1.1, Eos % (Auto) 0.0, Baso % (Auto) 0.1, Absolute Neuts (auto) 8.2 H, Absolute Lymphs (auto) 0.72 L, Nucleated RBC % 0 10/27/20 05:00: Sodium 140, Potassium 4.1, Chloride 111 H, Carbon Dioxide 24.0, Anion Gap 5, BUN 13, Creatinine 0.83, Estim Creat Clear Calc 63.80, Est GFR (MDRD) Af Amer 91, Est GFR (MDRD) Non-Af 75, BUN/Creatinine Ratio 15.7, Glucose 154 H, Calcium 9.1, Troponin I < 0.015, Triglycerides 52, Cholesterol 218 H, LDL Cholesterol 140 H, VLDL Cholesterol 10, HDL Cholesterol 68, TSH 0.67 Current Medications Acetaminophen (Acetaminophen 325 Mg Tablet) 650 mg PO Q6H PRN PRN PRN Reason: Pain Score 1-10/Temp > 100.7 F Ascorbic Acid (Ascorbic Acid 500 Mg Tablet) 1,500 mg PO DAILY [facility] Last Admin: 10/27/20 10:50 Dose: 1,500 mg Documented by: Aspirin (Aspirin 81 Mg Tab.Chew) 81 mg PO DAILY@0800 [facility] Last Admin: 10/27/20 10:50 Dose: 81 mg Documented by: Sodium Chloride () 250 mls @ 15 mls/hr IV .[id number] PRN PRN Reason: Saline Flush Sodium Chloride () 250 mls @ 15 mls/hr IV .[id number] PRN PRN Reason: Additional IVPB Infusion Melatonin (Melatonin 3 Mg Tablet) 3 mg PO QHS PRN PRN PRN Reason: INSOMNIA Metoprolol Succinate (Metoprolol(Xl)Succ 25 Mg Tablet) 37.5 mg PO QHS [facility] Last Admin: 10/26/20 23:42 Dose: Not Given Documented by: Multivitamins ([facility]it[facility],Therapeutic Tablet) [facility] Admin: 10/27/20 10:50 Dose: 1 tablet Documented by: Nitroglycerin (Nitroglycerin (Inpatient Use) 0.4 Mg Tab.Subl) 0.4 mg SUBLINGUAL Q5M PRN PRN Reason: CARDIAC/CHEST PAIN Ondansetron HCl (Ondansetron 4 Mg/2 Ml Vial) 4 mg IV Q8H PRN PRN PRN Reason: NAUSEA/VOMITING Senna/Docusate Sodium (Senna/Docusate Sodium 1 Tablet) 2 tablet PO BID PRN PRN PRN Reason: Constipation Sodium Chloride (0.9% Saline Lock 10 Ml Syringe) 10 - 40 ml IV UD PRN PRN Reason: SALINE FLUSH Discharge Diet: No Restrictions Call your doctor if you observe: Fever of 101 or Higher, Chest pain, Increased palpitations (irregular heartbeat) Home Medications: Medications to take at Discharge Metoprolol(XL)Succ [Toprol Xl (Beta Kayla)] 37.5 mg PO DAILY 07/21/13 Ascorbic Acid [Vitamin C] 1,500 mg PO DAILY 05/02/18 Multivitamin [Daily Multiple Vitamin] 1 tab PO DAILY 05/02/18 Aspirin 81 mg PO DAILY 10/26/20 Calcium/D3/Mag Ox/Entry Level Java Developer/Federico/Zn [Caltrate+D3 Plus Mineral Minis] 1 tab PO DAILY 10/26/20 Primary Care Physician: Irwin Baker MD [Primary Care Provider] - Within 2 Weeks Please Follow Up With: [facility] When: 2-4 weeks Disposition: Home Minutes spent on discharge:: 35 Patient Condition:: Good Medical Necessity - Tobacco Use Smoking Status: Former smoker Meaningful Use Info Meaningful Use Diagnoses (Choose all that apply): None applicable OBSV E&M: 25625 Observation care discharge
== END 2020-10-27 13:52 | disposition home or self-care (01) ==
LOC: ED 19:00 → PCU 22:06
PROVIDERS: Admitting Provider Hospitalist; Emergency Provider Emergency Medicine; PCP Family Medicine
DX: R07.89 Other chest pain (principal); K57.92 Diverticulitis of intestine, part unspecified, without perforation or abscess without bleeding; R06.02 Shortness of breath; Z79.899 Other long term (current) drug therapy; Z79.82 Long term (current) use of aspirin; I49.9 Cardiac arrhythmia, unspecified; R00.2 Palpitations; Z87.891 Personal history of nicotine dependence
CPT/HCPCS: 36415; 71275; 78452; 80048; 80061; 84443; 84484; 85025; 85379; 93005; 93017; 96361; 96374; 96375; 99218; 99285; A9500; J7030; Q9967; A4216; G0378

== ENCOUNTER → 2020-12-01 13:02 | Outpatient (CLI) | payer OTHER, SELFPAY ==
[2020-11-10 10:05] VITALS: BMI 29.8
--- NOTE | 2020-12-01 13:04 | ECHOD_ITS ---
Reason For Study: HYPERTENSION Procedure This was a 2D Doppler, Color Flow transthoracic echocardiogram. Exam performed in department. Left Ventricle Normal LV size. Left ventricular systolic function is normal. The estimated ejection fraction is 65 %. Stage 1 diastolic dysfunction. No regional wall motion abnormalities noted. Right Ventricle Normal RV size. Normal systolic function. Atria Normal left atrium. Normal right atrium. Mitral Valve Normal mitral valve. Tricuspid Valve Normal tricuspid valve. Mild (1+) tricuspid valve insufficiency. Pulmonary artery systolic pressure is 40 mmHg. Aortic Valve Normal aortic valve. Trisinus/trileaflet aortic valve. Pulmonic Valve Normal pulmonic valve. Great Vessels Normal aortic root. The pulmonary artery is normal size. Normal inferior vena cava. Pericardium/Pleural No pericardial effusion. MMode/2D Measurements & Calculations LVIDd: 4.6 cm IVSd: 1.1 cm Ao root diam: 3.2 cm LVIDs: 3.0 cm LVPWd: 1.1 cm RVDd: 3.1 cm FS: 33.6 % LAV(MOD-bp): 38.2 ml LA A4 area: 15.2 cm2 LA dimension(2D): 3.9 cm LAV(MOD-bp) Indexed: 20.7 ml/m2 LAV(MOD-sp2): 37.9 ml LAV(MOD-sp4): 38.4 ml RA A4 area: 11.2 cm2 Time Measurements MV dec time: 0.18 sec Doppler Measurements & Calculations MV E max chucho: 68.2 cm/sec Lat Peak E' Chucho: 5.9 cm/sec Med Peak E' Chucho: 8.5 cm/sec MV A max chucho: 72.2 cm/sec E/E' lat: 11.5 E/E' med: 8.1 MV E/A: 0.94 Ao V2 max: 120.6 cm/sec LV V1 max: 82.7 cm/sec PA V2 max: 83.8 cm/sec Ao max P.8 mmHg LV V1 max P.7 mmHg TR max chucho: 302.5 cm/sec TR max P.6 mmHg Interpretation Summary Normal LV size. Left ventricular systolic function is normal. The estimated ejection fraction is 65 %. Pulmonary artery systolic pressure is 40 mmHg. Stage 1 diastolic dysfunction. Structurally normal valves. Ordering Physician: Erik Cheney Referring Physician: Irwin Baker Performed By: Henna Pratt RDCS, RVT
== END ==
PROVIDERS: PCP Family Medicine; Referring Provider Internal Medicine Cardiovascular Disease; Visit Provider Internal Medicine Cardiovascular Disease
DX: I10 Essential (primary) hypertension (principal)
CPT/HCPCS: 93306

== ENCOUNTER 2021-05-16 08:49 | Emergency (ER) | payer OTHER, SELFPAY ==
[2021-05-11 10:56] VITALS: BMI 29.8
[2021-05-16 08:51] VITALS: BP 163/87; PULSE 76; RESP 15; TEMP 35.9; O2SAT 100; BMI 27.8
--- NOTE | 2021-05-16 09:17 | EKG12_ITS ---
Test Reason : CP Blood Pressure : / mmHG Vent. Rate : 072 BPM Atrial Rate : 072 BPM P-R Int : 130 ms QRS Dur : 092 ms QT Int : 402 ms P-R-T Axes : 059 013 033 degrees QTc Int : 440 ms Normal sinus rhythm Low voltage QRS Borderline ECG Confirmed by MARIANA COMBS, MICHELINE ([id number]), design editor JOHN ROQUE ([id number]) on 05/18/2021 10:32:59 AM Referred By: STEVE Confirmed By:MICHELINE PEÑA MD
--- NOTE | 2021-05-16 09:17 | EX.ED.DYSGE1 ---
HPI History of Present Illness Chief Complaint: Palpitations Informant: patient Onset/Context/Timing Onset: Days (3) Context: Sudden Onset Timing: Intermittent (2 episodes) and Lasts (several mins) Quality: irregular HB Location: chest Current Severity: Gone Maximum Severity: Moderate Worsened by: nothing Relieved by: nothing in particular Associated Symptoms Associated Symptoms: ?chest heaviness - I'm not sure Narrative Narrative: Couple episodes of palpitations the most recent one occurred at 330 or so. She called her doctor this morning about this episode and the one 3 days ago and was this morning told to go to the emergency room. She is asymptomatic at this time. 3 weeks ago or so, she was advised to decrease her metoprolol dose because her heart rate was in the high 50s. She went from 37.5 mg daily to 25 mg daily. She has been seeing her doctor and cardiology regarding elevated blood pressures in the last couple months, they have been anywhere from 140-150s systolic. This morning they were in the 140 -165 range. She denies any dyspnea presyncope nausea vomiting arm discomfort headache or any other symptoms acutely with these symptoms. She states this morning it felt irregular, Sunday she could not tell if it felt heavy or just fluttering. She states taking deep breaths help to make it go away she thinks, she was very anxious during this and so is having trouble remembering the details of the symptoms. She was diagnosed with tachycardia in the past based on a Holter monitor and symptoms of palpitations that she is unsure is similar to this or not, which is why she was put on metoprolol. She denies any recent injury or illness, she does not drink a heavy amount of caffeine and denies any illicit drugs. [facility] Medical History (Updated 05/16/21 @ 11:[address] Pablo Main MD) Anxiety and depression Cardiac arrhythmia Essential (primary) hypertension GERD (gastroesophageal reflux disease) History of anemia Iron deficiency anemia Menometrorrhagia Premature ventricular contractions Subclinical hypothyroidism Tachyarrhythmia Home Medications ascorbic acid (vitamin C) 1,500 mg PO DAILY 05/02/18 [History Last Taken 10/26/20] multivitamin 1 tab PO DAILY 05/02/18 [History Last Taken 10/26/20] Ca carb-D3-mag [id number]-Zn 1 tab PO DAILY 10/26/20 [History Last Taken 10/26/20] aspirin 81 mg tablet,delayed release 81 mg PO DAILY 05/11/21 [History Last Taken Unknown] metoprolol succinate 50 mg PO DAILY #0 tab 05/16/21 [Rx Last Taken Unknown] Allergy/AdvReac Type Severity Reaction Status Date / Time bisacodyl Allergy Hives Verified 05/16/21 08:51 [From Dulcolax (bisacodyl)] ciprofloxacin [From Cipro] Allergy Hives Verified 05/16/21 08:51 ciprofloxacin HCl Allergy Hives Verified 05/16/21 08:51 [From Cipro] clindamycin Allergy Hives Verified 05/16/21 08:51 Iodinated Contrast Media Allergy Chest Verified 05/16/21 08:51 [CONTRASTS] tightness metronidazole [From Flagyl] Allergy Other Verified 05/16/21 08:51 Metronidazole HCl Allergy Other Verified 05/16/21 08:51 [From Flagyl] nitrofurantoin Allergy Hives Verified 05/16/21 08:51 [From Macrobid] Penicillins Allergy Anaphylaxis Verified 05/16/21 08:51 procaine HCl [From Novocain] Allergy Other Verified 05/16/21 08:51 red dye Allergy Unknown Verified 05/16/21 08:51 sulfamethoxazole Allergy Hives Verified 05/16/21 08:51 [From Bactrim] tetracycline [Tetracycline] Allergy Hives Verified 05/16/21 08:51 trimethoprim [From Bactrim] Allergy Hives Verified 05/16/21 08:51 amlodipine AdvReac swelling Verified 05/16/21 08:51 bisoprolol [From Ziac] AdvReac Rash Verified 05/16/21 08:51 hydrochlorothiazide AdvReac Rash Verified 05/16/21 08:51 [From Ziac] levofloxacin [From Levaquin] AdvReac PT UNSURE Verified 05/16/21 08:51 OF REACTION lisinopril AdvReac cough Verified 05/16/21 08:51 losartan AdvReac Swelling Verified 05/16/21 08:51 morphine AdvReac Other Verified 05/16/21 08:51 Sulfa (Sulfonamide AdvReac Unknown Verified 05/16/21 08:51 Antibiotics) peanuts Allergy Food Uncoded 11/10/20 09:09 Allergy strawberry Allergy Food Uncoded 11/10/20 09:09 Allergy Family History Father Cancer Mother Heart disease atrial fib Brother Heart disease afib Other CVA (cerebral vascular accident) Surgical History History of hysterectomy Social History Smoking Status: Former smoker ROS ROS ED Constitutional Constitutional ED: Denies chills or fever(s) Eyes Eyes: Denies change in vision or diplopia ENT ENT ED: Denies rhinorrhea or sore throat Cardiovascular Cardiovascular: Reports as per HPI and palpitations; Denies slow heart rate or syncope Respiratory/Chest Respiratory/Chest: Denies cough or dyspnea Gastrointestinal Gastrointestinal: Denies abdominal pain, diarrhea, nausea or vomiting Genitourinary Genitourinary ED: Denies dysuria or hematuria Musculoskeletal Musculoskeletal: Denies back pain or neck pain Integumentary Denies abscess or rash Neurologic Neurologic: Denies headache(s), paresthesias or weakness Psychiatric Psychiatric: Denies anxiety or suicidal thoughts EXAM Physical Exam Const Vital Signs: 05/16/21 08:51 05/16/21 10:23 Temperature 96.7 F L Temperature Source Temporal Pulse Rate 76 65 Respiratory Rate 15 17 Blood Pressure 163/87 H 146/90 H Blood Pressure Mean 112 108 Pulse Ox 100 97 Oxygen Delivery Method Room Air Room Air Positive well nourished and well developed General Appearance ED: well developed and NAD HEENT Reports moist mucous membranes normocephalic and atraumatic Eyes PERRL and EOMs intact bilaterally Neck full ROM and supple Resp normal respiratory effort and clear to auscultation bilaterally Cardio regular rate, regular rhythm and no murmurs GI non-tender and non-distended Auscultation: normoactive bowel sounds Palpation: soft Back/Spine no CVA tenderness General Back: other FROM Extremity normal to inspection General Extremety ED: Negative for edema, pulses abnormal or tenderness General Extremity: Negative for edema or pulses abnormal Neuro oriented x3, CN's II-XII intact bilaterally and no sensory deficits noted Sensorium / Orientation: awake and alert Motor Exam: strength 5/5 throughout Skin no rashes or lesions noted and no wounds MDM MDM MDM Narrative Medical decision making narrative: During evaluation, patient did have 3 or 4 PVCs that I saw on the monitor while her heart rate was in the 60-70s in sinus rhythm otherwise. These were all symptomatic, but she states this was not the degree of symptoms that she had earlier. Otherwise patient had no dysrhythmias. Her labs are noted below, unremarkable. I discussed with Dr. Gil, who advised doubling her metoprolol to 50 mg at this time, and if she continues to have palpitations 4 days after the change to call the office to have a Holter placed. Patient will follow up and she is comfortable with that plan, she had done 75 mg in the past and had symptomatic bradycardia in the low 40s, she is advised that if that happens again with the 50 to go back down to 25. Lab Data Labs: Laboratory Results - last 24 hr 05/16/21 05/16/21 09:00 09:00 WBC 7.9 RBC 4.73 Hgb 14.7 Hct 44.5 MCV 94.1 MCH 31.1 MCHC 33.0 RDW Std Deviation 41.6 RDW Coeff of [place] 11.9 Plt Count 236 MPV 11.2 Immature Gran % (Auto) 0.100 Neut % (Auto) 61.6 Lymph % (Auto) 29.6 [place] % (Auto) 6.9 Eos % (Auto) 1.4 Baso % (Auto) 0.4 Absolute Neuts (auto) 4.9 Absolute Lymphs (auto) 2.35 Nucleated RBC % 0 Sodium 140 Potassium 3.5 Chloride 108 H Carbon Dioxide 28.0 Anion Gap 4 L BUN 12 Creatinine 0.90 Estim Creat Clear Calc 58.12 Est GFR (MDRD) Af Amer 83 Est GFR (MDRD) Non-Af 68 BUN/Creatinine Ratio 13.4 Glucose 111 H Calcium 9.3 Troponin I High Sens 6.1 Rhythm Strip Rhythm Strip: Sinus Rhythm Rate: 70 Ectopy: PVC(s) EKG Initial EKG: Attestation: I personally reviewed and interpreted this EKG as follows: Interpretation: Sinus Rhythm and No Acute Injury Pattern Comments: normal EKG Discharge Plan Triage Chief Complaint: Palpitations ED Provider: Pablo Main Dx/Rx/DC Orders Clinical Impression: Palpitations Instructions: ED Palpitations Prescriptions: Continued aspirin [Adult Low Dose Aspirin] 81 mg tablet,delayed release (DR/EC) 81 mg PO DAILY RF: 0 multivitamin 1 EACH tablet 1 tab PO DAILY RF: 0 ascorbic acid (vitamin C) 1,000 MG tablet 1,500 mg PO DAILY RF: 0 Ca carb-D3-mag gw-mur-fafb-Zn 1 EACH tablet 1 tab PO DAILY RF: 0 Changed metoprolol succinate 25 mg tablet extended release 24 hr 50 mg PO DAILY Qty: 0 RF: 0 Primary Care Provider: Irwin Baker Referrals: Irwin Baker MD [Primary Care Provider] - Bertha Gil MD [STAFF PHYSICIAN] - (or available green building architect/TOOL AND DIE MANAGER) Activity Restrictions/Additional Instructions: Double your metoprolol to 50 mg once a day (2 tablets). If you are lightheaded and your heart rate is too slow, back it back down to 1 tablet. If you stay at the new dose for days or more and you are still having palpitations, call the office as they will have you do a Holter monitor at that point. Otherwise, call for routine follow-up. Disposition Disposition: Home, Self Care
[2021-05-16 09:28] LABS: Absolute Lymphocyte Count 2.35 X10^3/uL (0.83-4.51); Absolute Neutrophil Count 4.9 X10^3/uL (2.0-7.7); Basophil# 0.03 X10^3/uL; Basophil% 0.4 % (0-1); Eosinophil# 0.11 X10^3/uL; Eosinophils% 1.4 % (0-5); Hematocrit 44.5 % (37-47); Hemoglobin 14.7 g/dL (12.0-15.0); Lymphocyte # 2.35 X10^3/ul (0.83-4.51); Lymphocyte % 29.6 % (19-41); Mean Corpuscular Hgb 31.1 pg (27.0-32.0); Mean Corpuscular Volume 94.1 fL (81-99); Mean Platelet Vol. 11.2 fl (6.2-12.0); Monocyte# 0.55 X10^3/uL; Monocyte% 6.9 % (0-10); NRBC Flagged by Analyzer 0 % (0-5); Neutrophil # 4.89 X10^3/uL (2.7-7.7); Neutrophil % 61.6 % (47-70); Platelet Count 236 K/mm3 (150-450); RBC Distribution Width CV 11.9 % (11.6-14.6); RBC Distribution Width SD 41.6 fl (35.1-43.9); Red Blood Count 4.73 M/mm3 (4.2-5.4); White Blood Count 7.9 K/mm3 (4.4-11.0)
[2021-05-16 09:45] LABS: Anion Gap 4 (5-15); BUN 12 mg/dL (7-18); BUN/Creat Ratio 13.4 RATIO (10-20); Calcium,Total 9.3 mg/dL (8.5-10.1); Chloride 108 mmol/L (98-107); EST Glomerular Filtration Rate 68 mL/min (>60); Est Glom Filt Rate - Afr Amer 83 mL/min (>60); Estimated Creatinine Clearance 58.12 ml/min; Glucose 111 mg/dL (74-106); Potassium 3.5 mmol/L (3.5-5.1); Sodium Level 140 mmol/L (136-145); Troponin-I HS 6.1 pg/mL (3.0-53.7)
[2021-05-16 10:23] VITALS: BP 146/90; PULSE 65; RESP 17; O2SAT 97
[2021-05-16 11:05] VITALS: PULSE 56; RESP 19; O2SAT 98
== END 2021-05-16 11:36 | disposition home or self-care (01) ==
PROVIDERS: Emergency Provider Emergency Medicine; PCP Family Medicine
DX: R00.2 Palpitations (principal); I10 Essential (primary) hypertension; K21.9 Gastro-esophageal reflux disease without esophagitis; Z79.899 Other long term (current) drug therapy; Z87.891 Personal history of nicotine dependence
CPT/HCPCS: 80048; 84484; 85025; 93005; 99284; A4216

== ENCOUNTER 2021-06-24 02:31 | Emergency (ER) | payer OTHER, SELFPAY ==
[2021-06-24 02:32] VITALS: BP 167/89; PULSE 101; RESP 16; RESP 18; TEMP 35.7; O2SAT 98; BMI 28.8
[2021-06-24 02:46] VITALS: O2SAT 98
--- NOTE | 2021-06-24 02:46 | EKG12_ITS ---
Test Reason : TACHYCARDIA Blood Pressure : / mmHG Vent. Rate : 096 BPM Atrial Rate : 096 BPM P-R Int : 132 ms QRS Dur : 082 ms QT Int : 342 ms P-R-T Axes : 057 007 031 degrees QTc Int : 432 ms Normal sinus rhythm Nonspecific ST abnormality Abnormal ECG Confirmed by VANNA COMBS, JAVIER ([id number]), publications editor JOHN ROQUE ([id number]) on 06/27/2021 10:08:53 AM Referred By: ANGELITA Confirmed By:JAVIER PRABHAKAR MD
[2021-06-24 02:51] LABS: Absolute Lymphocyte Count 1.28 X10^3/uL (0.83-4.51); Absolute Neutrophil Count 2.2 X10^3/uL (2.0-7.7); Basophil# 0.03 X10^3/uL; Basophil% 0.7 % (0-1); Eosinophil# 0.02 X10^3/uL; Eosinophils% 0.5 % (0-5); Hematocrit 44.5 % (37-47); Lymphocyte # 1.28 X10^3/ul (0.83-4.51); Lymphocyte % 30.3 % (19-41); Mean Corp Hgb Conc 33.7 g/dL (32-36); Mean Corpuscular Hgb 31.8 pg (27.0-32.0); Mean Corpuscular Volume 94.3 fL (81-99); Mean Platelet Vol. 10.5 fl (6.2-12.0); Monocyte# 0.68 X10^3/uL; Monocyte% 16.1 % (0-10); NRBC Flagged by Analyzer 0 % (0-5); Neutrophil # 2.21 X10^3/uL (2.7-7.7); Neutrophil % 52.2 % (47-70); Platelet Count 175 K/mm3 (150-450); RBC Distribution Width CV 12.6 % (11.6-14.6); RBC Distribution Width SD 43.4 fl (35.1-43.9); Red Blood Count 4.72 M/mm3 (4.2-5.4); White Blood Count 4.2 K/mm3 (4.4-11.0)
--- NOTE | 2021-06-24 03:00 | RAD_ITS ---
STUDY: X-RAY CHEST REASON FOR EXAM: Female, 60 years old. chest pain TECHNIQUE: Single AP portable view of the chest. COMPARISON: None. FINDINGS: The lungs are clear and expanded. There is no demonstrated pleural abnormality. Normal size heart. Normal mediastinum and ros[place]. Normal visualized pulmonary arteries. Normal visualized aortic arch and descending thoracic aorta. Normal visualized thoracic spine. Normal visualized ribs, clavicles, and shoulders. There is no demonstrated abnormality of the visualized soft tissue structures of the upper abdomen. RAD/Chest 1 View (Portable) IMPRESSION: Normal x-ray examination of the chest. Electronically Signed: Johanny Del Cid MD at 3:18 EDT Tel , Service support ,
[2021-06-24 03:05] LABS: Anion Gap 6 (5-15); BUN 9 mg/dL (7-18); BUN/Creat Ratio 8.6 RATIO (10-20); Calcium,Total 9.2 mg/dL (8.5-10.1); Chloride 106 mmol/L (98-107); Creatinine, Serum 1.05 mg/dL (0.55-1.02); EST Glomerular Filtration Rate 57 mL/min (>60); Est Glom Filt Rate - Afr Amer 69 mL/min (>60); Estimated Creatinine Clearance 49.82 ml/min; Glucose 108 mg/dL (74-106); Potassium 3.7 mmol/L (3.5-5.1); Sodium Level 139 mmol/L (136-145); Troponin-I HS 7 pg/mL (3.0-54.0)
--- NOTE | 2021-06-24 03:27 | ED.VIS.CHEST ---
HPI History of Present Illness Chief Complaint: Palpitations Informant: patient Onset/Context/Timing Onset: Today Activity at onset: sudden Timing: Intermittent Quality: Negative for Aching Location: Substernal Worsened By: Nothing Relieved By: Nothing Associated Symptoms: Negative for Nausea, Vomiting, Diaphoresis, Dyspnea and Cough Narrative Narrative: 60-year-old female with a history of palpitations without any specific diagnosis. She recently was wearing a heart monitor which she is to follow-up with her primary care physician in [facility] to see if there was anything found on it. Tonight she woke up from sleep heart rate was between 117 and 132. She try to go back to sleep was not feeling well and came in the emergency department. Now the accelerated heart rate and palpitations have resolved. She denies any chest pain or shortness of breath currently. Prior Similar Symptoms: Yes Recent Illness/Hospitalization: No CVD Risk Factors: Negative for Hypertension, Hypercholesterolemia and Smoking PE Risk Factors: Negative for Recent Travel/Surgery, Recent Immobilization, Prior DVT or PE, Cancer and OCP + Smoking + >/=35 TAD Risk Factors: Negative for Marfan's Syndrome, Hypertension and Family History [facility] Medical History (Updated 06/24/21 @ 03:[address] Eros Hernandez MD) Anxiety and depression Cardiac arrhythmia Essential (primary) hypertension GERD (gastroesophageal reflux disease) History of anemia Iron deficiency anemia Menometrorrhagia Premature ventricular contractions Subclinical hypothyroidism Tachyarrhythmia Home Medications ascorbic acid (vitamin C) 1,500 mg PO DAILY 05/02/18 [History Last Taken 10/26/20] multivitamin 1 tab PO DAILY 05/02/18 [History Last Taken 10/26/20] Ca carb-D3-mag [id number] 1 tab PO DAILY 10/26/20 [History Last Taken 10/26/20] metoprolol succinate 25 mg PO DAILY 06/24/21 [History Last Taken Unknown] Allergy/AdvReac Type Severity Reaction Status Date / Time bisacodyl Allergy Hives Verified 05/16/21 08:51 [From Dulcolax (bisacodyl)] ciprofloxacin [From Cipro] Allergy Hives Verified 05/16/21 08:51 ciprofloxacin HCl Allergy Hives Verified 05/16/21 08:51 [From Cipro] clindamycin Allergy Hives Verified 05/16/21 08:51 Iodinated Contrast Media Allergy Chest Verified 05/16/21 08:51 [CONTRASTS] tightness metronidazole [From Flagyl] Allergy Other Verified 05/16/21 08:51 Metronidazole HCl Allergy Other Verified 05/16/21 08:51 [From Flagyl] nitrofurantoin Allergy Hives Verified 05/16/21 08:51 [From Macrobid] Penicillins Allergy Anaphylaxis Verified 05/16/21 08:51 procaine HCl [From Novocain] Allergy Other Verified 05/16/21 08:51 red dye Allergy Unknown Verified 05/16/21 08:51 sulfamethoxazole Allergy Hives Verified 05/16/21 08:51 [From Bactrim] tetracycline [Tetracycline] Allergy Hives Verified 05/16/21 08:51 trimethoprim [From Bactrim] Allergy Hives Verified 05/16/21 08:51 amlodipine AdvReac swelling Verified 05/16/21 08:51 bisoprolol [From Ziac] AdvReac Rash Verified 05/16/21 08:51 hydrochlorothiazide AdvReac Rash Verified 05/16/21 08:51 [From Ziac] levofloxacin [From Levaquin] AdvReac PT UNSURE Verified 05/16/21 08:51 OF REACTION lisinopril AdvReac cough Verified 05/16/21 08:51 losartan AdvReac Swelling Verified 05/16/21 08:51 morphine AdvReac Other Verified 05/16/21 08:51 Sulfa (Sulfonamide AdvReac Unknown Verified 05/16/21 08:51 Antibiotics) peanuts Allergy Food Uncoded 11/10/20 09:09 Allergy strawberry Allergy Food Uncoded 11/10/20 09:09 Allergy Family History Father Cancer Mother Heart disease atrial fib Brother Heart disease afib Other CVA (cerebral vascular accident) Surgical History History of hysterectomy Social History Smoking Status: Former smoker ROS ROS ED ROS Narrative Denies recent illness. Denies weight loss or hair loss. Review of Systems ROS Unobtainable: Denies due to encephalopathy Constitutional Constitutional ED: Denies chills or fever(s) Eyes Eyes: Denies none or change in vision ENT ENT ED: Denies ear pain or sore throat Cardiovascular Cardiovascular: Reports as per HPI and palpitations; Denies chest pain Respiratory/Chest Respiratory/Chest: Denies cough or dyspnea Gastrointestinal Gastrointestinal: Denies abdominal pain, diarrhea, nausea or vomiting Genitourinary Genitourinary ED: Denies dysuria or hematuria Musculoskeletal Musculoskeletal: Denies arthralgias or myalgias Integumentary Denies rash Neurologic Neurologic: Denies headache(s) Psychiatric Psychiatric: Denies depression Endocrine Endocrinology: Denies polyuria Hematologic/Lymphatic Hematologic/Lymphatic: Denies easy bruising Allergic/Immunologic Allergic/Immunologic ED: Denies urticaria EXAM Physical Exam Narrative Exam Narrative: Well-appearing female. Vital signs stable afebrile. On my exam her heart rates in the 80s. Pulse ox 98% on room air no signs of hypoxia. H EENT exam normal. Neck normal no thyromegaly. Lungs are clear to auscultation bilaterally. Heart regular rate and rhythm rate about 85 no murmur. Chest were nontender. Abdomen nontender. Moving all 4 extremities. Calves are nontender without edema or cords. Neurologic exam normal. Unremarkable exam at this time with a normal sinus rhythm. Const Vital Signs: 06/24/21 02:32 06/24/21 02:46 Temperature 96.2 F L Temperature Source Temporal Pulse Rate 101 H Respiratory Rate 16 Blood Pressure 167/89 H Blood Pressure Mean 115 Pulse Ox 98 98 Oxygen Delivery Method Room Air Room Air Positive well nourished and well developed; Negative for obese, cachectic, contractures or unkempt General Appearance ED: well developed and NAD; Negative for unkempt, cachectic, contractures or pallor Nutritional Appearance: Negative for cachectic or obese HEENT Reports moist mucous membranes normocephalic and atraumatic; Negative for trauma or tenderness Eyes PERRL and EOMs intact bilaterally Neck no lymphadenopathy, supple and no JVD General: Negative for tenderness Chest Wall inspection of chest normal and palpation of chest normal Resp normal respiratory effort and clear to auscultation bilaterally Effort and Inspection: respiratory distress Auscultation: Negative for rales, rhonchi or wheezes Cardio regular rate, regular rhythm, S1 normal heart sound, S2 normal heart sound and no murmurs Rate: Negative for bradycardia or tachycardic GI normal to inspection, nondistended, normoactive bowel sounds, soft to palpation, non-tender, non-distended and no masses Back/Spine no CVA tenderness General Back: Negative for CVA tenderness Extremity normal to inspection General Extremety ED: Negative for edema, pulses abnormal or tenderness General Extremity: Negative for edema or pulses abnormal Neuro oriented x3 and CN's II-XII intact bilaterally Sensorium / Orientation: awake, alert, oriented to person, oriented to place and oriented to time Motor Exam: strength 5/5 throughout Psych mental status grossly normal Appearance: Negative for unkempt Attitude: No agitated Mood & Affect: Negative for depressed, anxious or tearful Skin no rashes or lesions noted and no wounds General Skin Exam: Negative for jaundice or pallor Heart Score History: Slightly/Non-Suspicious ECG: Normal Age: >45 - <65 years Risk Factors: No Risk Factors Troponin: </= Normal Limit Score: 1 MDM MDM MDM Narrative Medical decision making narrative: Middle-aged female with history of palpitations without specific cause. Currently exam is normal and heart rate in the 80s. She undergo cardiac work-up. Repeat exam patient is doing well at 3:33 AM and be discharged home. We went over all of her test results. 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 Lab Data Lab results narrative: CBC White count of 4. Hemoglobin 15. Electrolytes show a normal gap of 6 normal creatinine of 1. Glucose of 108. Troponin of 7. Labs: Laboratory Results - last 24 hr 06/24/21 06/24/21 02:28 02:28 WBC 4.2 L RBC 4.72 Hgb 15.0 Hct 44.5 MCV 94.3 MCH 31.8 MCHC 33.7 RDW Std Deviation 43.4 RDW Coeff of Colby 12.6 Plt Count 175 MPV 10.5 Immature Gran % (Auto) 0.200 Neut % (Auto) 52.2 Lymph % (Auto) 30.3 Sanders % (Auto) 16.1 H Eos % (Auto) 0.5 Baso % (Auto) 0.7 Absolute Neuts (auto) 2.2 Absolute Lymphs (auto) 1.28 Nucleated RBC % 0 Sodium 139 Potassium 3.7 Chloride 106 Carbon Dioxide 27.0 Anion Gap 6 BUN 9 Creatinine 1.05 H Estim Creat Clear Calc 49.82 Est GFR (MDRD) Af Amer 69 Est GFR (MDRD) Non-Af 57 L BUN/Creatinine Ratio 8.6 L Glucose 108 H Calcium 9.2 Troponin I High Sens 7 Radiography Chest X-Ray - ED: 1 View, Read by ED Physician, Read by Radiologist, Normal, Heart, Lungs, Mediastinum, Bony Structures and No Acute Disease Diagnostic Testing: Radiology Impression Chest X-Ray 06/24/21 03:00 IMPRESSION: Normal x-ray examination of the chest. Electronically Signed: Johanny Del Cid MD at 3:18 EDT Tel , Service support , Portable single view chest x-ray interpreted both by myself the radiologist shows no acute abnormality. Rhythm Strip Rhythm Strip: Sinus Rhythm Rate: 96 Ectopy: None EKG Initial EKG: Attestation: I personally reviewed and interpreted this EKG as follows: Interpretation: Sinus Rhythm and No Acute Injury Pattern Comments: Normal sinus rhythm rate of 96 no acute signs of MN nor ischemia nor any dysrhythmia. Unchanged from a prior EKG from May. Prior EKG tracings: available for review Prior: Unchanged Discharge Plan Triage Chief Complaint: Palpitations ED Provider: Eros Hernandez Dx/Rx/DC Orders Clinical Impression: Palpitations Instructions: ED Palpitations Prescriptions: No Action multivitamin 1 EACH tablet 1 tab PO DAILY RF: 0 ascorbic acid (vitamin C) 1,000 MG tablet 1,500 mg PO DAILY RF: 0 Ca carb-D3-mag [id number] 1 EACH tablet 1 tab PO DAILY RF: 0 metoprolol succinate 25 mg tablet extended release 24 hr 25 mg PO DAILY RF: 0 Primary Care Provider: Irwin Baker Referrals: Irwin Baker MD [Primary Care Provider] - As soon as possible Activity Restrictions/Additional Instructions: Follow-up with your primary care physician and/or Dr. Erik Cheney your electric golf cart repairer to get your results of your outpatient laboratory monitor. Your chest x-ray, EKG and labs tonight were all normal. Disposition Disposition: Home, Self Care
[2021-06-24 03:40] VITALS: BP 150/78; PULSE 83; RESP 16; O2SAT 95
== END 2021-06-24 03:50 | disposition home or self-care (01) ==
LOC: ED 03:43
PROVIDERS: Emergency Provider Emergency Medicine; PCP Family Medicine
DX: R00.2 Palpitations (principal); I10 Essential (primary) hypertension; K21.9 Gastro-esophageal reflux disease without esophagitis; Z87.891 Personal history of nicotine dependence
CPT/HCPCS: 71045; 80048; 84484; 85025; 93005; 99285; A4216

== ENCOUNTER → 2024-01-22 | Outpatient (CLI) | payer OTHER, SELFPAY | END | disposition home or self-care (01) | LOC: PSN 10:30 | PROVIDERS: PCP Family Medicine; Referring Provider Nurse Practitioner Gerontology; Visit Provider Nurse Practitioner Gerontology | DX: R00.2 Palpitations (principal) | CPT/HCPCS: 93225; 93226 ==

== ENCOUNTER → 2024-02-07 | Outpatient (CLI) | payer OTHER, SELFPAY ==
--- NOTE | 2024-02-07 12:49 | ECHOD_ITS ---
Reason For Study: Dyspnea/SOB Procedure This was a 2D Doppler, Color Flow transthoracic echocardiogram. Exam performed in department. Left Ventricle Normal LV size. Left ventricular systolic function is normal. The estimated ejection fraction is 60 %. Normal diastology for age. No regional wall motion abnormalities noted. Right Ventricle Normal RV size. Normal systolic function. Atria Normal left atrium. Normal right atrium. Mitral Valve Normal mitral valve. Mild (1+) eccentric mitral valve insufficiency. Tricuspid Valve Normal tricuspid valve. Mild tricuspid valve insufficiency. Pulmonary artery systolic pressure is 24 mmHg. Aortic Valve Normal aortic valve. Pulmonic Valve Normal pulmonic valve. Great Vessels Normal aortic root. The pulmonary artery is normal size. Normal inferior vena cava. Pericardium/Pleural No pericardial effusion. MMode/2D Measurements & Calculations LVIDd: 4.6 cm IVSd: 0.97 cm Ao root diam: 3.4 cm LVIDs: 3.0 cm LVPWd: 0.97 cm LA dimension: 4.0 cm RVDd: 3.6 cm FS: 33.9 % LAV(MOD-bp): 44.3 ml LA A4 area: 17.9 cm2 RA A4 area: 16.5 cm2 LAV(MOD-bp) Indexed: 24.9 ml/m2 LAV(MOD-sp2): 40.6 ml LAV(MOD-sp4): 47.1 ml TAPSE: 2.2 cm Time Measurements MV dec time: 0.21 sec Doppler Measurements & Calculations MV E max chucho: 67.1 cm/sec Lat Peak E' Chucho: 8.5 cm/sec Med Peak E' Chucho: 7.5 cm/sec MV A max chucho: 63.6 cm/sec E/E' lat: 7.8 E/E' med: 9.0 MV E/A: 1.1 MV V2 max: 70.8 cm/sec MV P1/2t max chucho: 71.4 cm/sec Ao V2 max: 104.3 cm/sec MV max P.0 mmHg MV P1/2t: 68.6 msec Ao max P.4 mmHg MV V2 mean: 36.7 cm/sec Ao V2 mean: 73.6 cm/sec MV mean P.65 mmHg MV dec slope: 305.1 cm/sec2 Ao mean P.5 mmHg MV V2 VTI: 25.1 cm MVA(P1/2t): 3.2 cm2 Ao V2 VTI: 26.8 cm AV (velocity ratio): 0.93 LV V1 max: 91.2 cm/sec MR max chucho: 555.0 cm/sec PA V2 max: 87.2 cm/sec LV V1 max P.3 mmHg MR max P.2 mmHg PA V2 mean: 61.7 cm/sec LV V1 mean P.0 mmHg LV V1 mean: 68.0 cm/sec LV V1 VTI: 25.0 cm TR max chucho: 230.7 cm/sec TR max P.3 mmHg ECHO/Echo Complete Interpretation Summary Normal LV size. Left ventricular systolic function is normal. The estimated ejection fraction is 60 %. Normal diastology for age. Mild (1+) eccentric mitral valve insufficiency. Mild tricuspid valve insufficiency. Ordering Physician: Syl Bustos Referring Physician: Syl Bustos Performed By: Ranjit Miranda RCS
== END | disposition home or self-care (01) ==
LOC: CVS 12:49
PROVIDERS: PCP Family Medicine; Referring Provider Nurse Practitioner Gerontology; Visit Provider Nurse Practitioner Gerontology
DX: R06.09 Other forms of dyspnea (principal); R00.2 Palpitations
CPT/HCPCS: 93306

== ENCOUNTER → 2024-05-01 | Outpatient (CLI) | payer OTHER, SELFPAY ==
[2024-05-01 10:50] LABS: Absolute Lymphocyte Count 1.81 X10^3/uL (0.83-4.51); Absolute Neutrophil Count 2.5 X10^3/uL (2.0-7.7); Basophil# 0.05 X10^3/uL; Eosinophil# 0.13 X10^3/uL; Eosinophils% 2.6 % (0-5); Hematocrit 43.6 % (37-47); Hemoglobin 14.5 g/dL (12.0-15.0); Lymphocyte # 1.81 X10^3/ul (0.83-4.51); Lymphocyte % 36.7 % (19-41); Mean Corp Hgb Conc 33.3 g/dL (32-36); Mean Corpuscular Hgb 31.5 pg (27.0-32.0); Mean Corpuscular Volume 94.6 fL (81-99); Mean Platelet Vol. 11.4 fl (6.2-12.0); Monocyte# 0.45 X10^3/uL; Monocyte% 9.1 % (0-10); NRBC Flagged by Analyzer 0 % (0-5); Neutrophil # 2.48 X10^3/uL (2.7-7.7); Neutrophil % 50.4 % (47-70); Platelet Count 215 K/mm3 (150-450); RBC Distribution Width CV 12.3 % (11.6-14.6); RBC Distribution Width SD 42.9 fl (35.1-43.9); Red Blood Count 4.61 M/mm3 (4.2-5.4); White Blood Count 4.9 K/mm3 (4.4-11.0)
[2024-05-01 11:38] LABS: Anion Gap 2 (5-15); BUN 14 mg/dL (7-18); BUN/Creat Ratio 14.3 RATIO (10-20); Calcium,Total 9.7 mg/dL (8.5-10.1); Chloride 109 mmol/L (98-107); Creatinine, Serum 0.98 mg/dL (0.55-1.02); EST Glomerular Filtration Rate 61 mL/min (>60); Est Glom Filt Rate - Afr Amer 74 mL/min (>60); Glucose 89 mg/dL (74-106); Magnesium 2.5 mg/dL (1.6-2.6); Potassium 4.3 mmol/L (3.5-5.1); Sodium Level 140 mmol/L (136-145); Thyroid Stim Hormone (TSH) 2.34 uIU/mL (0.358-3.74)
== END | disposition home or self-care (01) ==
LOC: LAB 10:18
PROVIDERS: PCP Family Medicine; Referring Provider Nurse Practitioner Gerontology; Visit Provider Nurse Practitioner Gerontology
DX: R00.2 Palpitations (principal)
CPT/HCPCS: 36415; 80048; 83735; 84443; 85025

== ENCOUNTER → 2024-08-04 | Outpatient (CLI) | payer OTHER, SELFPAY ==
--- OUTSIDE RECORDS SUMMARY | 2024-08-04 06:26 | XMS RPT_ITS | CCD ---
Author Organization [facility] ion [facility] Care Team Providers Care Jordan Man Name Role Phone BRIDGETT WILKS Unavailable Unavaila ble SAMUEL, RENNY OTTO Unavailable Unavailable Samuel, Renny Unavailable Unavailable Samuel, Renny L Unavailable Unavailable Brittany Pink Unavailable Unavailable Phylicia Jay Unavailable Unavailable Samuel, Renny Unavailable Unavailable AprylBrittany neri Unavailable Unavailable Samuel, Renny L Unavailable Unavailable Unavailable Samuel, Renny Otto Unavailable [phone] Alton Scott Unavailable Unavailable Unavailable Unavailable Pepe Tuttle Attending Unavailable Ms. Michelle Odonnell Referring Unavailable SAMUEL, RENNY OTTO Primary Care Unavailable SAMUEL, RENNY OTTO Primary Care Unavailable SAMUEL, RENNY OTTO Attending Unavailable ASMUEL, RENNY OTTO Referring Unavailable SAMUEL, RENNY OTTO Primary Care Unavailable SAMUEL, RENNY OTTO Attending Unavailable SAMUEL, RENNY OTTO Referring Unavailable SAMUEL, RENNY OTTO Primary Care Unavailable Velma Mckenna Attending Unavailable MckennaVelma Referring Unavailable SAMUEL, RENNY OTTO Primary Care Unavailable SAMUEL, RENNY OTTO Attending Unavailable SAMUEL, RENNY OTTO Referring Unavailable SAMUEL, RENNY OTTO Primary Care Unavailable SAMUEL, RENNY OTTO Attending Unavailable SAMUEL, RENNY OTTO Referring Unavailable Stentz, Gamaliel Attending Unavailable Stentz, Mr. Alston Referring Unavailable SAMUEL, RENNY OTTO Primary Care Unavailable Dr. BRITTANY PINK Attending Unavailable SAMUEL, RENNY AGOSTO Referring Unavailable SAMUEL, RENNY OTTO Primary Care Unavailable Stentz, Gamaliel Attending Unavailable Stentz, Mr. Alston Referring Unavailable SAMUEL, RENNY OTTO Primary Care Unavailable Stentz, Mr. Alston Attending Unavailable Stentz, Mr. Alston Referring Unavailable SAMUEL, RENNY OTTO Primary Care Unavailable RENNY BAKER OTTO Attending Unavailable RENNY BAKER OTTO Referring Unavailable SAMUEL, RENNY OTTO Primary Care Unavailable Unavailable Unavailable Renny Baker MD Primary Care Provider Renny Baker MD Unavailable [phone] MD RENNY BAKER Attending Unavailabl MD RENNY Conteh Primary Care Unavailabl e Ernst Martinez Attending Unavailable Juan Ernst Admitting Unavailable MD RENNY BAKER Referring Unavailabl e MD RENNY BAKRE Primary Care Unavailabl e ANNE-MARIE, MEDIATOR CHRIS KEEN Attending Unavailable MD RENNY BAKER Primary Care Unavailabl e SAMUEL, RENNY L Referring Unavailable SAMUEL, RENNY L Primary Care Unavailable STENTZ, GAMALIEL Referring Unavailable SAMUEL, RENNY L Primary Care Unavailable BERE RIVERS Attending Unava ilable SAMUEL, RENNY L Primary Care Unavailable SAMUEL, RENNY L Primary Care Unavailable STENTZ, GAMALIEL Attending Unavailable SAMUEL, RENNY L Primary Care Unavailable SAMUEL, RENNY L Attending Unavailable SAMUEL, RENNY L Primary Care Unavailable VELMA MCKENNA Attending Unavailable SAMUEL, RENNY L Primary Care Unavailable STENTZ, GAMALIEL Attending Unavailable SAMUEL, RENNY L Primary Care Unavailable SAMUEL, RENNY L Attending Unavailable SAMUEL, RENNY L Primary Care Unavailable SAMUEL, RENNY L Attending Unavailable SAMUEL, RENNY L Primary Care Unavailable Velma Mckenna MD Unavailable [phone] SAMUEL, RENNY L Primary Care Unavailable SAMUEL, RENNY L Primary Care Unavailable SAMUEL, RENNY L Primary Care Unavailable Allergies Allergy Classification Reported Allergen(s) Allergy Type Date of Onset Reaction(s) Facility Bisoprolol / hydroCHLOROthiazide (8 sources) Bisoprolol / hydroCHLOROthiazide; Translations: [bisoprolol-hydrochlo rothiazide] Drug Allergy Itching, Rash [facility] Work Phone: Contrast Media (4 sources) Contrast media Substance Allergy [facility] Work Phone: Docusate (4 sources) Docusate; Translations: [docusate] Drug Allergy Rash [facility] Work Phone: [phone] Lincosamides (antibiotic) (8 sources) Clindamycin; Translations: [clindamycin] Drug Allergy Hives [facility] Work Phone: [phone] NITROFURANTOIN, MACROCRYSTALS / Nitrofurantoin, Monohydrate (4 sources) NITROFURANTOIN, MACROCRYSTALS / Nitrofurantoin, Monohydrate; Translations: [Macrobid] Drug Allergy Other [facility] Work Phone: [phone] Nitroimidazoles (antibiotic) (4 sources) metroNIDAZOLE; Translations: [Flagyl] Drug Allergy Other [facility] Work Phone: [phone] Opioid Agonists (4 sources) Morphine; Translations: [morphine] Drug Allergy Anaphylaxis [facility] Work Phone: [phone] Peanuts and Peanut Containing Products (8 sources) peanut Food Allergy Hives, Other [facility] Work Phone: [phone] Penicillins (antibiotic) (4 sources) Penicillins; Translations: [Penicillins] Drug Allergy Anaphylaxis [facility] Work Phone: [phone] Quinolones (antibiotic) (12 sources) Ciprofloxacin; Translations: [Cipro] Drug Allergy Other, Unknown [facility] Work Phone: [phone] strawberry allergenic extract (4 sources) strawberry allergenic extract Drug Allergy [facility] Work Phone: [phone] Sulfamethoxazole / Trimethoprim (8 sources) Sulfamethoxazole / Trimethoprim; Translations: [Bactrim] Drug Allergy Hives [facility] Work Phone: Tetracyclines (antibiotic) (4 sources) Tetracycline; Translations: [tetracycline] Drug Allergy Hives [facility] Work Phone: (20 sources) Penicillins; Translations: [Penicillins] Allergy to drug (finding) 06-24-2 011 Anaphylaxis [facility] Work Phone: Comment on above: SOB (20 sources) Bisoprolol / hydroCHLOROthiazide; Translations: [bisoprolol-hydrochlo rothiazide] Drug Allergy 023 Itching, Rash [facility] Work Phone: [phone] (20 sources) Ciprofloxacin; Translations: [Cipro] Drug Allergy 023 Other [facility] Work Phone: [phone] (20 sources) Clindamycin; Translations: [clindamycin] Drug Allergy 011 Hives [facility] Work Phone: [phone] (20 sources) Contrast media Allergy to substance (finding) [facility] Work Phone: [phone] (20 sources) Docusate; Translations: [docusate] Drug Allergy 018 Rash [facility] Work Phone: [phone] (20 sources) levoFLOXacin; Translations: [Levaquin] Drug Allergy 023 Unknown [facility] Work Phone: [phone] (20 sources) metroNIDAZOLE; Translations: [Flagyl] Drug Allergy 020 Other [facility] Work Phone: [phone] (20 sources) Morphine; Translations: [morphine] Drug Allergy 017 Anaphylaxis, Other [facility] Work Phone: [phone] (20 sources) NITROFURANTOIN, MACROCRYSTALS / Nitrofurantoin, Monohydrate; Translations: [Macrobid] Drug Allergy 023 Other [facility] Work Phone: [phone] (20 sources) peanut; Translations: [PEANUTS] Allergy to substance (finding) 013 Hives, Other [facility] Work Phone: Comment on above: BLISTES MOUTH & TONG UE (20 sources) strawberry allergenic extract; Translations: [STRAWBERRY] Drug Allergy 013 [facility] (20 sources) Sulfamethoxazole / Trimethoprim; Translations: [Bactrim] Drug Allergy 023 Hives [facility] Work Phone: [phone] (20 sources) Tetracycline; Translations: [tetracycline] Drug Allergy 011 Hives [facility] Work Phone: [phone] (20 sources) Chlorthalidone; Translations: [chlorthalidone] Drug Allergy 023 Unknown [facility] Work Phone: (20 sources) amLODIPine; Translations: [amlodipine] Drug Allergy 023 Swelling [facility] (20 sources) Cephalexin; Translations: [cephalexin] Drug Allergy 023 Unknown [facility] Work Phone: [phone] (20 sources) Mupirocin; Translations: [Mupirocin OINT] Drug Allergy 023 Unknown [facility] Work Phone: (20 sources) rifAMPin; Translations: [rifampin] Drug Allergy 023 Itching, Rash [facility] Work Phone: (1 source) Bisoprolol / hydroCHLOROthiazide Drug Allergy Itching [facility] (1 source) Ciprofloxacin Drug Allergy Other [facility] Comment on above: SOB (1 source) Contrast media Other [facility] Comment on above: CHEST DISCOMFORT (1 source) Docusate Drug Allergy Rash [facility] (1 source) levoFLOXacin Drug Allergy Unknown [facility] (1 source) metroNIDAZOLE Drug Allergy Other [facility] Comment on above: ANXIOUSNESS (1 source) NITROFURANTOIN, MACROCRYSTALS / Nitrofurantoin, Monohydrate Drug Allergy Other [facility] (1 source) Sulfacetamide Drug Allergy Rash [facility] (1 source) Sulfamethoxazole / Trimethoprim Drug Allergy Hives/Urtica daniel [facility] (14 sources) Docusate; Translations: [DOCUSATE SODIUM] Drug Allergy 023 Rash [facility] (1 source) pantoprazole Drug Allergy 023 Other [facility] Work Phone: (14 sources) peanut allergenic extract; Translations: [PEANUT] Drug Allergy 023 Hives, Other [facility] Work Phone: (11 sources) Penicillins Drug Allergy 023 Anaphylaxis [facility] Work Phone: (14 sources) Iodinated Contrast Media; Translations: [IODINATED CONTRAST MEDIA] Drug Allergy 020 Anaphylaxis, Other, Unknown [facility] Work Phone: (4 sources) Ciprofloxacin; Translations: [CIPROFLOXACIN] Drug Allergy 011 [facility] 2 Repository (4 sources) levoFLOXacin; Translations: [LEVOFLOXACIN] Drug Allergy 016 [facility] Repository (4 sources) metroNIDAZOLE; Translations: [METRONIDAZOLE] Drug Allergy 011 [facility] Repository (3 sources) Mupirocin; Translations: [MUPIROCIN] Drug Allergy 023 [facility] Repository (3 sources) Sulfamethoxazole / Trimethoprim; Translations: [SULFAMETHOXAZOLE-TRI METHOPRIM] Drug Allergy 023 [facility] Repository (3 sources) NITROFURANTOIN MONOHYD/M-CRYST; Translations: [NITROFURANTOIN MONOHYD/M-CRYST] Propensity to adverse reactions to drug (disorder) 023 [facility] 2 Repository (6 sources) Nitrofurantoin; Translations: [NITROFURANTOIN] Drug Allergy [facility] Work Phone: (6 sources) Bisacodyl; Translations: [BISACODYL] Drug Allergy [address] [facility] (5 sources) hydroCHLOROthiazide; Translations: [HYDROCHLOROTHIAZIDE] Drug Allergy Rash [facility] Work Phone: (5 sources) Lisinopril; Translations: [LISINOPRIL] Drug Allergy Cough [facility] Work Phone: (5 sources) Losartan; Translations: [LOSARTAN] Drug Allergy 08-04-2 021 Swelling [facility] Work Phone: (5 sources) Procaine; Translations: [PROCAINE] Drug Allergy 020 Other [facility] Work Phone: (6 sources) Sulfonamides (Antibiotic); Translations: [SULFA (SULFONAMIDE ANTIBIOTICS)] Drug Intolerance 017 Hives, Rash, Unknown [facility] Work Phone: (5 sources) Trimethoprim; Translations: [TRIMETHOPRIM] Drug Allergy 020 Hives [facility] Work Phone: (1 source) Contrast media; Translations: [RED DYE] Propensity to adverse reactions to drug (disorder) 013 [facility] Repository (1 source) Iodine; Translations: [IODINE] Drug Allergy 019 [facility] Repository (1 source) [place]; Translations: [STRAWBERRIES] Propensity to adverse reactions to food (disorder) 013 [facility] Repository (1 source) Sulfamethoxazole; Translations: [SULFAMETHOXAZOLE] Drug Allergy 011 [facility] Repository Medications Current Medications Medication Drug Class(es) Dates Sig (Normalized) Sig (Original) ascorbic acid 1500 mg extended release oral tablet (20 sources) Vitamin C Start: 04-29-2020 take 1 tablet by mouth once daily ascorbic acid, vitamin C, 1,500 mg ER tablet Take 1 tablet (1,500 mg) by mouth once daily. 04/29/2020 Active take 1 tablet by mouth once shree y Vitamin C 1000 mg oral tablet ; 1 tab(s) orally once a day Quantity: 0 Refills: 0 Ordered: 18-Sep-2020 Юлия Avalos Generic Substitution Allowed cholecalciferol 0.025 mg oral tablet (4 sources) Vitamin D take 1 tablet by mouth once daily cholecalciferol (Vitamin D3) 25 MCG (1000 UT) tablet Take 1 tablet (1,000 Units) by mouth once daily. Active codeine phosphate 2 mg/ml / guaiFENesin 20 mg/ml oral solution (1 source) Opioid Agonist Start: End: take 5 mL by mouth every six hours for cough codeine-guaifenesin (Robitussin-AC) 10-100 mg/5 mL syrup Indications: Viral URI with cough Take 5 mL by mouth every 6 hours if needed for cough for up to 7 days. 120 mL 0 12/31/2023 01/07/2024 Active cyclobenzaprine hydrochloride 5 mg oral tablet (1 source) Muscle Relaxant Start: End: take 1 tablet by mouth three times daily as needed for muscle spasms cyclobenzaprine (Flexeril) 5 mg tablet Indications: Neck muscle spasm Take 1 tablet (5 mg) by mouth 3 times a day as needed for muscle spasms. 30 tablet 0 10/16/2023 12/15/2023 Active diclofenac sodium 0.01 mg/mg topical gel (6 sources) Nonsteroidal Anti-inflammatory Drug Start: End: diclofenac sodium (Voltaren) 1 % gel Indications: Acute right-sided low back pain without sciatica Apply 4g topically. 100 g 02/26/2024 07/18/2024 Discontinued (Med List Cleanup) Start: 08-06-2023 End: 02-26-2024 diclofenac sodium (Voltaren) 1 % gel gel Indications: Acute right-sided low back pain without sciatica Apply 1 Application topically 4 times a day. Apply 2g topically. 100 g 08/06/2023 02/26/2024 Discontinued (Reorder) meloxicam 7.5 mg oral tablet (1 source) Nonsteroidal Anti-inflammatory Drug Start: 08-06-2023 End: 08-16-2023 take 2 tablets by mouth once daily meloxicam (Mobic) 7.5 mg tablet Indications: Acute right-sided low back pain without sciatica Take 2 tablets (15 mg) by mouth once daily for 10 days. 20 tablet 0 08/06/2023 08/16/2023 Active 24 hr metoprolol succinate 25 mg extended release oral tablet (20 sources) beta-Adrenergic Kayla Start: 07-24-2019 End: 07-01-2025 take 1 tablet by mouth once daily metoprolol succinate XL (Toprol-XL) 25 mg 24 hr tablet Indications: Benign essential hypertension Take 1 tablet (25 mg) by mouth once daily. 30 tablet 11 07/01/2024 07/01/2025 Active Start: 07-24-2019 take 2 tablets by mo uth once daily Metoprolol Succinate ER 25 MG Oral Tablet Extended Release 24 Hour TAKE 2 TABLET Daily Quantity: 60 Refills: 11 SamuelRenny garner Start : 24-Jul-2019 Active take 1 tablet by sandeep th twice daily metoprolol succinate 25 mg oral tablet, extended release ; 1 orally 2 times a day Quantity: 0 Refills: 0 Ordered: 06-Oct-2019 Claudio Henao Generic Substitution Allowed multivitamin tablet (11 sources) take 1 tablet by sandeep th once daily multivitamin tablet Take 1 tablet by mouth once daily. Active take 1 tablet by mouth once shree y multivitamin tablet Take 1 tablet by mouth once daily. 0 Active pantoprazole 40 mg delayed release oral tablet (20 sources) Proton Pump Inhibitor Start: 04-17-2024 End: 04-17-2025 take 1 tablet by mouth once daily pantoprazole (ProtoNix) 40 mg EC tablet Indications: Gastroesophageal reflux disease, unspecified whether esophagitis present Take 1 tablet (40 mg) by mouth once daily. 90 tablet 3 04/17/2024 04/17/2025 Active Start: 12-02-2020 End: 03-25-2024 take 1 tablet by mouth once daily pantoprazole (ProtoNix) 40 mg EC tablet Indications: Gastroesophageal reflux disease, unspecified whether esophagitis present Take 1 tablet (40 mg) by mouth once daily. 90 tablet 3 03/26/2023 03/25/2024 Active predniSONE 20 mg oral tablet (3 sources) Start: 02-26-2024 predniSONE (De ltasone) 20 mg tablet Indications: Achilles tendinitis of left lower extremity Take 3 tabs (60mg) daily for 3 days, then take 2 tabs (40mg) daily for 3 days, then take 1 tab (20mg) daily for 3 days. 18 tablet 02/26/2024 Active Start: 02-20-2022 End: 02-24-2022 take 3 tablets by mouth once daily at mealtime predniSONE 10 mg oral tablet ; 3 tab(s) orally once a day x 5 days Quantity: 15 Refills: 0 Ordered: 20-Feb-2022 Alton Scott Start: 20-Feb-2022 End: 24-Feb-2022 Generic Substitution Allowed Comments: It is very important that you take or use this exactly as directed. Do not skip doses or discontinue unless directed by your doctor.Obtain medical advice before taking any non-prescription drugs as some may affect the action of this medication.Take with food or milk. Start: 10-06-2019 End: 10-08-2019 take 1 tablet by mouth twice daily at mealtime predniSONE 10 mg oral tablet ; 1 tab(s) orally 2 times a day Quantity: 6 Refills: 0 Ordered: 06-Oct-2019 Mario Jimenez Start: 06-Oct-2019 End: 08-Oct-2019 Status: Other Generic Substitution Allowed Comments: It is very important that you take or use this exactly as directed. Do not skip doses or discontinue unless directed by your doctor.Obtain medical advice before taking any non-prescription drugs as some may affect the action of this medication.Take with food or milk. Comment on above: It is very important that you take or use this exactly as directed. Do not skip doses or discontinue unless directed by your doctor.Obtain medical advice before taking any non-prescription drugs as some may affect the action of this medication.Take with food or milk. spironolactone 25 mg oral tablet (20 sources) Aldosterone Antagonist Start: 2020 End: 2022 take 1 tablet by mouth once daily spironolactone (Aldactone) 25 mg tablet Indications: Benign essential hypertension Take 1 tablet (25 mg) by mouth once daily. 90 tablet 3 01/08/2023 Active tirzepatide (Mounjaro) 2.5 mg/0.5 mL pen injector (4 sources) Start: 2022 End: 2023 inject 2.5 mg by subcutaneous injection every week tirzepatide (Mounjaro) 2.5 mg/0.5 mL pen injector Indications: Overweight (BMI 25.0-29.9) Inject 2.5 mg under the skin 1 (one) time per week. 2 mL 2 07/10/2023 10/16/2023 Discontinued (Cost of medication) Start: 07-10-2023 inject 2.5 mg by sub cutaneous injection every week tirzepatide (Mounjaro) 2.5 mg/0.5 mL pen injector Indications: Overweight (BMI 25.0-29.9) Inject 2.5 mg under the skin 1 (one) time per week. 2 mL 2 07/10/2023 Active zinc sulfate 220 mg oral capsule (11 sources) take 1 capsule by [facility] once daily zinc sulfate (Zincate) 220 (50 Zn) MG capsule Take 1 capsule (50 mg of elemental zinc) by mouth once daily. Active Completed/Discontinued Medications Medication Drug Class(es) Dates Sig (Normalized) Sig (Original) amLODIPine 2.5 mg oral tablet (1 source) Dihydropyridine Calcium Channel Kayla Start: 01-14-2020 take 1 tablet by mouth once daily amLODIPine Besylate 2.5 MG Oral Tablet Take 1 tablet daily Quantity: 30 Refills: 1 Phylicia Prajapati Start : 14-Jan-2020 Active aspirin 81 mg delayed release oral tablet (11 sources) Platelet Aggregation Inhibitor, Nonsteroidal Anti-inflammatory Drug Start: 07-24-2019 Aspirin EC Low Dose 81 MG Oral Tablet Delayed Release Refills: 0 Start : 24-Jul-2019 Active Caltrate 600+D Plus Minerals 600-800 MG-UNIT Oral Tablet Chewable (20 sources) Start: 04-29-2020 take 600-800 tablets by mouth once daily Caltrate 600+D Plus Minerals 600-800 MG-UNIT Oral Tablet Chewable Once daily Quantity: 0 Refills: 0 Ordered: 29-Apr-2020 Phylicia Prajapati Start : 29-Apr-2020 Active carvedilol 6.25 mg oral tablet (7 sources) alpha-Adrenergic Kayla, beta-Adrenergic Kayla Start: 06-03-2021 take 1 tablet by mouth twice daily at dinner Carvedilol 6.25 MG Oral Tablet TAKE 1 TABLET TWICE DAILY, WITH MORNING AND EVENING MEAL Quantity: 60 Refills: 1 Ordered: 03-Jun-2021 Michelle Gill Start : 03-Jun-2021 Active ceFAZolin 1000 mg injection (5 sources) Cephalosporin Antibacterial Start: 12-13-2022 ceFAZolin Sodium 1 GM Injection Solution Reconstituted USE DIRECTED. Quantity: 1 Refills: 0 Ordered: 14-Dec-2022 Brittany Pink MD Start : 13-Dec-2022 Active cefdinir 300 mg oral capsule (1 source) Cephalosporin Antibacterial Start: 10-06-2019 End: 10-15-2019 take 1 capsule by mouth twice daily cefdinir 300 mg oral capsule ; 1 cap(s) orally 2 times a day Quantity: 20 Refills: 0 Ordered: 06-Oct-2019 Mario Jimenez Start: 06-Oct-2019 End: 15-Oct-2019 Status: Other Generic Substitution Allowed Comments: Finish all this medication unless otherwise directed by prescriber. Comment on above: Finish all this medi cation unless otherwise directed by prescriber. cefTRIAXone 1000 mg injection (5 sources) Cephalosporin Antibacterial Start: 12-13-2022 CefTRIAXone Sodium 1 GM Injection Solution Reconstituted Do not reconstitute. To be used for skin testing. Send Package insert. Fill by request Quantity: 1 Refills: 0 Ordered: 14-Dec-2022 Brittany Pink MD Start : 13-Dec-2022 Active cefuroxime 1500 mg injection (5 sources) Cephalosporin Antibacterial Start: 12-13-2022 Cefuroxime Sodium 1.5 GM Intravenous Solution Reconstituted to be used for skin testing. Do not reconstitue. Please send package insert. Quantity: 1 Refills: 0 Ordered: 14-Dec-2022 Brittany Pink MD Start : 13-Dec-2022 Active cephalexin 500 mg oral capsule (1 source) Cephalosporin Antibacterial Start: 02-03-2022 take 1 capsule by mouth four times daily Cephalexin 500 MG Oral Capsule TAKE 1 CAPSULE 4 TIMES DAILY UNTIL GONE. Quantity: 40 Refills: 0 Ordered: 03-Feb-2022 Gamaliel Swenson PA-C Start : 03-Feb-2022 Active chlorthalidone 25 mg oral tablet (2 sources) Thiazide-like Diuretic Start: 09-06-2021 End: 09-08-2021 take 0.5 tablet by mouth once daily Chlorthalidone 25 MG Oral Tablet TAKE 0.5 TABLET Daily Quantity: 15 Refills: 0 Ordered: 06-Sep-2021 Renny Baker MD Start : 06-Sep-2021 End : 08-Sep-2021 Complete ibuprofen 800 mg oral tablet (18 sources) Nonsteroidal Anti-inflammatory Drug Start: 04-18-2021 End: 12-21-2021 take 1 tablet by mouth three times daily Ibuprofen 800 MG Oral Tablet TAKE 1 TABLET 3 TIMES DAILY. Quantity: 15 Refills: 0 Ordered: 18-Apr-2021 Michelle Gill Start : 18-Apr-2021 End : 21-Dec-2021 Complete 50 ml levoFLOXacin 5 mg/ml injection (1 source) Quinolone Antimicrobial Start: 11-26-2019 levoFLOXacin in D5W 250 MG/50ML Intravenous Solution To be used for testing Quantity: 1 Refills: 0 Brittany Pink MD Start : 26-Nov-2019 Active 50 ML Flex Cont lisinopril 10 mg oral tablet (2 sources) Angiotensin Converting Enzyme Inhibitor Start: 04-18-2021 take 1 tablet by mouth once daily Lisinopril 10 MG Oral Tablet TAKE 1 TABLET DAILY DIRECTED. Quantity: 30 Refills: 3 Ordered: 18-Apr-2021 Belle HAASNVonMEDIATORMichelle Start : 18-Apr-2021 Active magnesium sulfate 0.0277 meq/ml / potassium sulfate 0.0374 meq/ml / sodium sulfate 0.257 meq/ml oral solution (3 sources) Start: 01-25-2023 Na Sulfate-K Sulfate-Mg Sulf 17.5-3.13-1.6 GM/177ML Oral Solution USE DIRECTED. Quantity: 1 Refills: 0 Ordered: 30-Jan-2023 Ernst Martinez DO Start : 25-Jan-2023 Active 100 ML metroNIDAZOLE 5 MG/ML Injection (1 source) Nitroimidazole Antimicrobial Start: 11-26-2019 metroNIDAZOLE in NaCl 5-0.79 MG/ML-% Intravenous Solution to be used for skin testing Quantity: 100 Refills: 0 Brittany Pink MD Start : 26-Nov-2019 Active Multi-Vitamins TABS (20 sources) Multi-Vitamins T ABS Quantity: 0 Refills: 0 Ordered: 10-Aug-2020 DO Active mupirocin 0.02 mg/mg topical ointment (1 source) RNA Synthetase Inhibitor Antibacterial Start: 02-03-2022 Mupirocin 2 % External Ointment APPLY A SMALL AMOUNT 3 TIMES DAILY DIRECTED. Quantity: 1 Refills: 1 Ordered: 03-Feb-2022 Gamaliel Swenson PA-C Start : 03-Feb-2022 Active nitrofurantoin, macrocrystals 25 mg / nitrofurantoin, monohydrate 75 mg oral capsule (1 source) Nitrofuran Antibacterial Start: 11-26-2019 Nitrofurantoin Monohyd Macro 100 MG Oral Capsule to be used for skin testing and oral challenge Quantity: 10 Refills: 0 Brittany Pink MD Start : 26-Nov-2019 Active omeprazole 40 mg delayed release oral capsule (4 sources) Proton Pump Inhibitor Start: 01-08-2020 take 1 capsule by mouth once daily Omeprazole 40 MG Oral Capsule Delayed Release TAKE 1 CAPSULE Daily Quantity: 30 Refills: 0 Phylicia Prajapati Start : 08-Jan-2020 Active Start: 07-24-2019 take 1 tablet by sandeep once daily Omeprazole 20 MG Oral Tablet Delayed Release Take 1 tablet daily Refills: 0 DO Start : 24-Jul-2019 Active ondansetron 4 mg oral tablet (1 source) Serotonin-3 Receptor Antagonist Start: 09-18-2020 End: 09-20-2020 take 1 tablet by mouth three times daily ondansetron 4 mg oral tablet ; 1 tab(s) orally 3 times a day Quantity: 9 Refills: 0 Ordered: 18-Sep-2020 Catia Castelan Start: 18-Sep-2020 End: 20-Sep-2020 Status: Other Generic Substitution Allowed predniSONE 10 MG (21) Oral Tablet Therapy Pack (4 sources) Start: 01-30-2022 take 5 tablets by mouth once daily, then take 1 tablet by mouth once daily, then take 2 tablets by mouth once daily, then take 3 tablets by mouth once daily, then take 4 tablets by mouth once daily predniSONE 10 MG (21) Oral Tablet Therapy Pack take 5 tablets on day 1, then 4 tabs day 2, 3 tabs day 3, 2 tavs day 4, and 1 tablet daily until gone Quantity: 1 Refills: 0 Ordered: 30-Jan-2022 Chris Mcmillan Start : 30-Jan-2022 Active rifAMPin 300 mg oral capsule (1 source) Rifamycin Antibacterial Start: 02-06-2022 take 2 capsules by mouth once daily rifAMPin 300 MG Oral Capsule TAKE 2 CAPSULES DAILY. Quantity: 10 Refills: 0 Ordered: 06-Feb-2022 Gamaliel Swenson PA-C Start : 06-Feb-2022 Active tetracycline 250 mg oral capsule (1 source) Tetracycline-class Antimicrobial Start: 11-26-2019 Tetracycline HCl - 250 MG Oral Capsule to be used for skin testing and oral challenge Quantity: 10 Refills: 0 Brittany Pink MD Start : 26-Nov-2019 Active Vitamin D-3 TABS (20 sources) Vitamin D-3 TABS Quantity: 0 Refills: 0 Ordered: 20-Sep-2021 DO Active Problems Active Problems Problem Classification Problem Date Documented Da te Episodic/Chronic Allergic reactions (20 sources) Allergy to drug; Translations: [Personal history of allergy to other antibiotic agent] Onset: 3 03-11-2023 Episodic Anxiety disorders (19 sources) Generalized anxiety disorder; Translations: [Generalized anxiety disorder] 07-18-2024 Chronic Cardiac dysrhythmias (20 sources) Ventricular premature beats; Translations: [Other premature beats] Onset: 3 01-08-2023 Chronic Disorders of lipid metabolism (4 sources) Hypertriglyceridemia; Translations: [Pure hyperglyceridemia] Onset: 4 07-10-2023 Chronic Diverticulosis and diverticulitis (20 sources) Diverticulitis of colon; Translations: [Diverticulitis of colon (without mention of hemorrhage)] Onset: 3 11-20-2022 Chronic E Codes: Adverse effects of medical drugs (3 sources) Adverse reaction to drug; Translations: [Unspecified drug or medicinal substance causing adverse effects in therapeutic use] Episodic Esophageal disorders (20 sources) Gastroesophageal reflux disease; Translations: [Esophageal reflux] Onset: 3 11-20-2022 Chronic Essential hypertension (20 sources) Benign essential hypertension; Translations: [Benign essential hypertension] Onset: 3 Resolved: 1 01-08-2023 Chronic Mood disorders (18 sources) Depressive disorder; Translations: [Depressive disorder, not elsewhere classified] Chronic Nonmalignant breast conditions (11 sources) Breast lump; Translations: [Other (abnormal) findings on radiological examination of breast] Episodic Nonspecific chest pain (10 sources) Chest pain; Translations: [Chest discomfort] Onset: 3 02-01-2023 Episodic Open wounds of head; neck; and trunk (5 sources) Complication of ear piercing; Translations: [Open wound of ear, part unspecified, complicated] Episodic Osteoarthritis (20 sources) Bilateral osteoarthritis of feet; Translations: [Osteoarthrosis, localized, primary, ankle and foot] Onset: 3 Resolved: 3 11-20-2022 Chronic Other aftercare (1 source) longterm (current) use of aspirin; Translations: [longterm (current) use of aspirin] Onset: 3 Episodic Other aftercare (1 source) Long-term current use of aspirin; Translations: [longterm (current) use of aspirin] 03-11-2023 Episodic Other and unspecified benign neoplasm (3 sources) Personal history of colonic polyps; Translations: [Personal history of colonic polyps] Onset: 3 Episodic Other and unspecified benign neoplasm (1 source) History of polyp of colon; Translations: [Personal history of colonic polyps] 03-02-2023 Episodic Other circulatory disease (20 sources) H/O: hypertension; Translations: [Personal history of other diseases of circulatory system] Episodic Other connective tissue disease (18 sources) Pain in left lower limb; Translations: [Pain in limb] Episodic Other connective tissue disease (14 sources) Pain in toe; Translations: [Pain in limb] Episodic Other connective tissue disease (2 sources) Trochanteric bursitis; Translations: [Trochanteric bursitis, left hip] 07-10-2023 Episodic Other connective tissue disease (1 source) Muscle spasm of cervical muscle of neck; Translations: [Other muscle spasm] 10-16-2023 Episodic Other connective tissue disease (1 source) Left achilles tendonitis; Translations: [Achilles tendinitis, left leg] 02-26-2024 Episodic Other ear and sense organ disorders (20 sources) Bilateral tinnitus; Translations: [Tinnitus, unspecified] Episodic Other gastrointestinal disorders (1 source) Heartburn; Translations: [Heartburn] Episodic Other gastrointestinal disorders (1 source) Diarrhea; Translations: [Diarrhea] Episodic Other hematologic conditions (20 sources) H/O: anemia; Translations: [Personal history of diseases of blood and blood-forming organs] Episodic Other lower respiratory disease (1 source) Chronic cough; Translations: [Chronic cough] Episodic Other lower respiratory disease (20 sources) H/O: bronchitis; Translations: [Personal history of other diseases of respiratory system] Episodic Other lower respiratory disease (2 sources) Other forms of dyspnea; Translations: [Other forms of dyspnea] Onset: 4 Episodic Other non-traumatic joint disorders (17 sources) Shoulder pain; Translations: [Pain in joint, shoulder region] Episodic Other nutritional; endocrine; and metabolic disorders (18 sources) Obesity; Translations: [Obesity, unspecified] Chronic Other nutritional; endocrine; and metabolic disorders (12 sources) Overweight in adulthood with body mass index of 25 or more but less than 30; Translations: [Overweight] Episodic Other nutritional; endocrine; and metabolic disorders (3 sources) Body mass index 25-29 - overweight; Translations: [Overweight] 07-10-2023 Episodic Other screening for suspected conditions (not mental disorders or infectious disease) (20 sources) Patient encounter status; Translations: [Breast screening, unspecified] Onset: 3 07-10-2023 Episodic Other upper respiratory disease (18 sources) Nasal sinus problem; Translations: [Other disease of nasal cavity and sinuses] Episodic Residual codes; unclassified (18 sources) Hypersomnia; Translations: [Hypersomnia, unspecified] Chronic Residual codes; unclassified (20 sources) Sleep apnea; Translations: [Unspecified sleep apnea] Onset: 3 01-08-2023 Chronic Residual codes; unclassified (1 source) Sleep apnea, unspecified; Translations: [Sleep apnea, unspecified] Onset: 3 Chronic Residual codes; unclassified (1 source) Acquired absence of both cervix and uterus; Translations: [Acquired absence of both cervix and uterus] Onset: 3 Episodic Residual codes; unclassified (1 source) Acquired absence of cervix and uterus; Translations: [Acquired absence of both cervix and uterus] 03-11-2023 Episodic Spondylosis; intervertebral disc disorders; other back problems (18 sources) Cervical syndrome; Translations: [Other syndromes affecting cervical region] Chronic Spondylosis; intervertebral disc disorders; other back problems (2 sources) Acute low back pain; Translations: [Acute right-sided low back pain without sciatica] 08-06-2023 Episodic Thyroid disorders (20 sources) Subclinical hypothyroidism; Translations: [Other specified acquired hypothyroidism] Onset: 3 01-08-2023 Chronic Unclassified (2 sources) LEFT ELBOW DISCOLORATION 02-20-2022 Comment on above: LEFT ELBOW DISCOLORA TION Unclassified (1 source) 6 MONTHS 12-21-2021 Comment on above: 6 MONTHS Unclassified (1 source) cross fell and hit pt in [place] Onset: 4 Unclassified (1 source) Low back pain, unspecified; Translations: [Low back pain, unspecified] Onset: 3 Urinary tract infections (1 source) Urinary tract infectious disease; Translations: [Urinary tract infection] Episodic Past or Other Problems Problem Classification Problem Date Documented Da te Episodic/Chronic Abdominal pain (20 sources) O/E - epigastric pain; Translations: [Abdominal pain] Onset: 3 Resolved: 0 08-06-2023 Episodic Allergic reactions (1 source) Allergy to antibiotic; Translations: [Allergy to multiple antibiotics] Cardiac dysrhythmias (20 sources) Tachyarrhythmia ; Translations: [Tachycardia, unspecified] Onset: 3 Resolved: 3 01-08-2023 Episodic Conditions associated with dizziness or vertigo (1 source) Dizziness and giddiness; Translations: [Dizziness] Onset: 4 Episodic Deficiency and other anemia (20 sources) Iron deficiency anemia; Translations: [Iron deficiency anemia, unspecified] Onset: 3 11-20-2022 Episodic Genitourinary symptoms and ill-defined conditions (2 sources) Other microscopic hematuria; Translations: [Other microscopic hematuria] Onset: 4 Episodic Noninfectious gastroenteritis (20 sources) Noninfectious colitis; Translations: [Other and unspecified noninfectious gastroenteritis and colitis] Resolved: 0 Episodic Other congenital anomalies (18 sources) Ear lesion; Translations: [Sebaceous cyst] Onset: 3 Resolved: 3 01-08-2023 Chronic Other connective tissue disease (11 sources) Pain of toe of left foot; Translations: [Pain in left toe(s)] Onset: 3 Resolved: 3 01-08-2023 Episodic Other connective tissue disease (11 sources) Bursitis of elbow; Translations: [Other bursitis of elbow, left elbow] Onset: 3 Resolved: 3 01-08-2023 Episodic Other connective tissue disease (4 sources) Other bursitis of elbow, left elbow; Translations: [Olecranon bursitis] Onset: 3 Resolved: 3 Episodic Other connective tissue disease (2 sources) Achilles tendinitis, left leg; Translations: [Achilles tendinitis, left leg] Onset: 4 Episodic Other connective tissue disease (2 sources) Other muscle spasm; Translations: [Other muscle spasm] Onset: 4 Episodic Other liver diseases (20 sources) Alkaline phosphatase raised; Translations: [Other nonspecific abnormal serum enzyme levels] Onset: 3 01-08-2023 Episodic Other non-traumatic joint disorders (1 source) Pain in left elbow; Translations: [Pain in left elbow] Onset: 3 Episodic Other nutritional; endocrine; and metabolic disorders (2 sources) Overweight; Translations: [Overweight] Onset: 4 Episodic Other skin disorders (1 source) Localized swelling, mass and lump, left upper limb; Translations: [Localized swelling, mass and lump, left upper limb] Onset: 3 Episodic Other upper respiratory infections (3 sources) Viral upper respiratory tract infection; Translations: [Acute upper respiratory infection, unspecified] Onset: 4 12-31-2023 Episodic Phlebitis; thrombophlebitis and thromboembolism (20 sources) Thrombophlebitis of superficial vein of left lower limb; Translations: [Phlebitis and thrombophlebitis of superficial vessels of lower extremities] Onset: 3 11-20-2022 Episodic Residual codes; unclassified (20 sources) Past history of procedure; Translations: [Other specified personal history presenting hazards to health] Resolved: 0 Episodic Unclassified (3 sources) Patient encounter status; Translations: [Encounter for screening mammogram for breast cancer] Unclassified (1 source) Low back pain, unspecified; Translations: [Low back pain, unspecified] Onset: 3 Unclassified (1 source) Onset: 4 04-17-2024 Viral infection (20 sources) Disease caused by 2019-nCoV; Translations: [Other specified viral infection] Resolved: 1 Episodic NEGATED: Highlighted row has not occurred!Residual codes; unclassified (12 sources) Disease Episodic Results Test Name Value Interpretation Reference Range Facility Basic metabolic 2000 panelon 07-18-2024 Anion gap [Moles/Vol] 10 mmol/L Normal 10-20 [facility] Comment on above: Performed By: #### 2 4321-2 #### ADEN SANON ([id number]) [facility] ([facility]) [address] [place] [address] [id number] Calcium [Mass/Vol] 10.0 mg/dL Normal 8.6-10.3 [facility] Comment on above: Performed By: #### 2 4321-2 #### ADEN SANON ([id number]) [facility] ([facility]) [address] [place] [address] 46417 Chloride [Moles/Vol] 111 mmol/L High 98-107 [facility] Comment on above: Performed By: #### 2 4321-2 #### ADEN SANON ([id number]) [facility] ([facility]) [address] [place] [address] 47459 CO2 [Moles/Vol] 28 mmol/L Normal 21-32 [facility] Comment on above: Performed By: #### 2 4321-2 #### ADEN SANON ([id number]) [facility] ([facility]) [address] [place] [address] 86357 Creatinine [Mass/Vol] 0.93 mg/dL Normal 0.50-1.05 [facility] Comment on above: Performed By: #### 2 4321-2 #### ADEN SANON ([id number]) [facility] ([facility]) [address] [place] [address] 05891 Glomerular filtration rate/1.73 sq M.predicted 70 mL/min/1.73m*2 Normal >60 [facility] Comment on above: Result Comment: Calc ulations of estimated GFR are performed using the 2020 CKD-EPI Study Refit equation without the race variable for the IDMS-Traceable creatinine methods. https://jasn.asnjournals.org/content/early//ASN.73366 18283 Performed By: #### 2 4321-2 #### ADEN SANON ([id number]) [facility] ([facility]) [address] [place] [address] 56955 Glucose [Mass/Vol] 86 mg/dL Normal 74-99 [facility] Comment on above: Performed By: #### 2 4321-2 #### ADEN SANON ([id number]) [facility] ([facility]) [address] [place] [address] 09282 Potassium [Moles/Vol] 4.4 mmol/L Normal 3.5-5.3 [facility] Comment on above: Performed By: #### 2 4321-2 #### ADEN SANON ([id number]) [facility] ([facility]) [address] [place] [address] 74627 Sodium [Moles/Vol] 145 mmol/L Normal 136-145 [facility] Comment on above: Performed By: #### 2 4321-2 #### ADEN SANON ([id number]) [facility] ([facility]) [address] [place] [address] 65183 Urea nitrogen [Mass/Vol] 12 mg/dL Normal 6-23 [facility] Comment on above: Performed By: #### 2 4321-2 #### ADEN SANON ([id number]) [facility] ([facility]) [address] [place] [address] 86975 CBC W Auto Differential pane l (Bld)on 07-18-2024 Basophils (Bld) [#/Vol] 0.04 x10*3/uL Normal 0.00-0.10 [facility] Comment on above: Performed By: #### 5 7021-8 #### ADEN SANON ([id number]) [facility] ([facility]) [address] [place] [address] 78774 Basophils/100 WBC (Bld) 0.6 % Normal 0.0-2.0 [facility] Comment on above: Performed By: #### 5 7021-8 #### ADEN SANON ([id number]) [facility] ([facility]) [address] [place] [address] 14877 Eosinophils (Bld) [#/Vol] 0.13 x10*3/uL Normal 0.00-0.70 [facility] Comment on above: Performed By: #### 5 7021-8 #### ADEN SANON ([id number]) [facility] ([facility]) [address] [place] [address] 30196 Eosinophils/100 WBC (Bld) 2.0 % Normal 0.0-6.0 [facility] Comment on above: Performed By: #### 5 7021-8 #### ADEN SANON ([id number]) [facility] ([facility]) [address] [place] [address] 77832 Erythrocyte distribution width (RBC) [Ratio] 12.1 % Normal 11.5-14.5 [facility] Comment on above: Performed By: #### 5 7021-8 #### ADEN SANON ([id number]) [facility] ([facility]) [address] [place] [address] 75516 Hematocrit (Bld) [Volume fraction] 44.9 % Normal 36.0-46.0 [facility] Comment on above: Performed By: #### 5 7021-8 #### ADEN SANON ([id number]) [facility] ([facility]) [address] [place] [address] 27766 Hemoglobin (Bld) [Mass/Vol] 14.5 g/dL Normal 12.0-16.0 [facility] Comment on above: Performed By: #### 5 7021-8 #### ADEN SANON ([id number]) [facility] ([facility]) [address] [place] [address] 28759 Immature granulocytes (Bld) [#/Vol] 0.02 x10*3/uL Normal 0.00-0.70 [facility] Comment on above: Performed By: #### 5 7021-8 #### ADEN SANON ([id number]) [facility] ([facility]) [address] [place] [address] 48971 Immature granulocytes/100 WBC (Bld) 0.3 % Normal 0.0-0.9 [facility] Comment on above: Result Comment: Luz Elena ture Granulocyte Count (IG) includes promyelocytes, myelocytes and metamyelocytes but does not include bands. Percent differential counts (%) should be interpreted in the context of the absolute cell counts (cells/UL). Performed By: #### 5 7021-8 #### ADEN SANON ([id number]) [facility] ([facility]) [address] [place] [address] 58849 Lymphocytes (Bld) [#/Vol] 2.14 x10*3/uL Normal 1.20-4.80 [facility] Comment on above: Performed By: #### 5 7021-8 #### ADEN SANON ([id number]) [facility] ([facility]) [address] [place] [address] 16682 Lymphocytes/100 WBC (Bld) 33.0 % Normal 13.0-44.0 [facility] Comment on above: Performed By: #### 5 7021-8 #### ADEN SANON ([id number]) [facility] ([facility]) [address] [place] [address] 36158 MCH (RBC) [Entitic mass] 30.9 pg Normal 26.0-34.0 [facility] Comment on above: Performed By: #### 5 7021-8 #### ADEN SANON ([id number]) [facility] ([facility]) [address] [place] [address] 25387 MCHC (RBC) [Mass/Vol] 32.3 g/dL Normal 32.0-36.0 [facility] Comment on above: Performed By: #### 5 7021-8 #### ADEN SANON ([id number]) [facility] ([facility]) [address] [place] [address] 45083 MCV (RBC) [Entitic vol] 96 fL Normal 80-100 [facility] Comment on above: Performed By: #### 5 7021-8 #### ADEN SANON ([id number]) [facility] ([facility]) [address] [place] [address] 66853 Monocytes (Bld) [#/Vol] 0.48 x10*3/uL Normal 0.10-1.00 [facility] Comment on above: Performed By: #### 5 7021-8 #### ADEN SANON ([id number]) [facility] ([facility]) [address] [place] [address] 40378 Monocytes/100 WBC (Bld) 7.4 % Normal 2.0-10.0 [facility] Comment on above: Performed By: #### 5 7021-8 #### ADEN SANON ([id number]) [facility] ([facility]) [address] [place] [address] 64432 Neutrophils (Bld) [#/Vol] 3.68 x10*3/uL Normal 1.20-7.70 [facility] Comment on above: Result Comment: Perc ent differential counts (%) should be interpreted in the context of the absolute cell counts (cells/uL). Performed By: #### 5 7021-8 #### ADEN SANON ([id number]) [facility] ([facility]) [address] [place] [address] 53021 Neutrophils/100 WBC (Bld) 56.7 % Normal 40.0-80.0 [facility] Comment on above: Performed By: #### 5 7021-8 #### ADEN SANON ([id number]) [facility] ([facility]) [address] [place] [address] 84472 Nucleated RBC/100 WBC (Bld) [Ratio] 0.0 /100 WBCs Normal 0.0-0.0 [facility] Comment on above: Performed By: #### 5 7021-8 #### ADEN SANON ([id number]) [facility] ([facility]) [address] [place] [address] 50273 Platelets (Bld) [#/Vol] 205 x10*3/uL Normal 150-450 [facility] Comment on above: Performed By: #### 5 7021-8 #### ADEN SANON ([id number]) [facility] ([facility]) [address] [place] [address] 82578 RBC (Bld) [#/Vol] 4.69 x10*6/uL Normal 4.00-5.20 [facility] Comment on above: Performed By: #### 5 7021-8 #### ADEN SANON ([id number]) [facility] ([facility]) [address] [place] [address] WBC (Bld) [#/Vol] 6.5 x10*3/uL Normal 4.4-11.3 [facility] Comment on above: Performed By: #### 5 7021-8 #### ADEN SANON ([id number]) [facility] ([facility]) [facility] [place] [address] Natriuretic peptide B [Mass/ Vol]on 07-18-2024 Natriuretic peptide B (Bld) [Mass/Vol] 29 pg/mL Normal 0-99 [facility] Comment on above: Order Comment: <100 pg/mL - Heart failure [id number] pg/mL - Intermediate probability of acute heart failure exacerbation. Correlate with clinical context and patient history. >=300 pg/mL - Heart Failure likely. Correlate with clinical context and patient history.BNP testing is performed using different testing methodology at [facility] than at other [facility]. Direct result comparisons should only be made within the same method. Performed By: #### 5 3315-8 #### ADEN SANON ([id number]) [facility] ([facility]) [facility] [place] [address] CT BRAIN WO IVCONon 04-21-20 CT BRAIN WO IVCON * * *Final Report* * * DATE OF EXAM: Apr 21 2024 7:28PM [facility] 0504 - CT BRAIN WO IVCON / PROCEDURE REASON: Head trauma, moderate-severe * * * * Physician Interpretation * * * * CT HEAD, FACIAL BONES AND CERVICAL SPINE CLINICAL HISTORY: Head trauma, moderate-severe (accession [id number]), Neck trauma, midline tenderness (Age 16-64y) (accession [id number]), Maxillofacial pain (accession [id number]) TECHNIQUE: Routine axial images from skull base through vertex and thin axial images through the facial bones including the mandible. Routine thin axial imaging of the cervical spine completed without contrast. Reformatted coronal images of facial bones and sagittal and coronal images of the cervical spine are reviewed. CT Dose-Length Product (DLP): 706.22 (accession [id number]), 227.84 (accession [id number]), 398.32 (accession [id number]) mGy*cm. CT Dose Reduction Employed: Iterative reconstruction. COMPARISON: 03/14/2019 CT scans RESULT: Head: No acute intracranial hemorrhage, air or mass effect. The parenchymal tissue is within normal limits. No evidence of hydrocephalus or extra axial hematoma. Bony structures are unremarkable with no evidence of fracture. Facial bones: The visible facial bones are negative for acute fracture. Bony chakraborty of the orbits are intact. No air, fluid collections or inflammatory changes noted within the orbital cavities. Optic nerves and extraocular muscles are unremarkable. Mandible, including the temporal mandibular joints, are negative. Limited images through the skull base are also negative. Paranasal sinuses: Small mucosal polyp at the floor of the right maxillary sinus. Left medullary sinus mucosal thickening. Cervical spine: Counting reference: Craniocervical junction. Alignment: Alignment is anatomic. Craniocervical junction: Craniocervical junction is normal. Bone: Included bony structures are intact without fracture or destructive changes. Degenerative change: Moderate degenerative changes at C5-6 disc level. Spinal canal: Mild central canal stenosis and bilateral osteophytic foraminal at C5-6 secondary to endplate osteophytes. Cervical soft tissues: The paraspinal soft tissues planes are maintained. Other: Included upper thoracic structures are unremarkable. COMBINED IMPRESSION: 1. Head CT: No acute intracranial abnormality or calvarial fracture. 2. CT of Facial bones: No CT evidence of facial bone fracture. 3. CT of Cervical spine: No acute fracture or traumatic malalignment. Director Of Clinical Education: TRACE Transcribe Date/Time: Apr 21 2024 7:39P Dictated by : SHANE GIMENEZ MD This examination was interpreted and the report reviewed and electronically signed by: SHANE GIMENEZ MD on Apr 21 2024 7:44PM EST [id number] N Normal [facility] CT CERVICAL SPINE WO IVCONon 04-21-2024 CT CERVICAL SPINE WO IVCON * * *Final Report* * * DATE OF EXAM: Apr 21 2024 7:28PM [facility] 0505 - CT CERVICAL SPINE WO IVCON / PROCEDURE REASON: Neck trauma, midline tenderness (Age 16-64y) * * * * Physician Interpretation * * * * CT HEAD, FACIAL BONES AND CERVICAL SPINE CLINICAL HISTORY: Head trauma, moderate-severe (accession [id number]), Neck trauma, midline tenderness (Age 16-64y) (accession [id number]), Maxillofacial pain (accession [id number]) TECHNIQUE: Routine axial images from skull base through vertex and thin axial images through the facial bones including the mandible. Routine thin axial imaging of the cervical spine completed without contrast. Reformatted coronal images of facial bones and sagittal and coronal images of the cervical spine are reviewed. CT Dose-Length Product (DLP): 706.22 (accession [id number]), 227.84 (accession [id number]), 398.32 (accession [id number]) mGy*cm. CT Dose Reduction Employed: Iterative reconstruction. COMPARISON: 03/14/2019 CT scans RESULT: Head: No acute intracranial hemorrhage, air or mass effect. The parenchymal tissue is within normal limits. No evidence of hydrocephalus or extra axial hematoma. Bony structures are unremarkable with no evidence of fracture. Facial bones: The visible facial bones are negative for acute fracture. Bony chakraborty of the orbits are intact. No air, fluid collections or inflammatory changes noted within the orbital cavities. Optic nerves and extraocular muscles are unremarkable. Mandible, including the temporal mandibular joints, are negative. Limited images through the skull base are also negative. Paranasal sinuses: Small mucosal polyp at the floor of the right maxillary sinus. Left medullary sinus mucosal thickening. Cervical spine: Counting reference: Craniocervical junction. Alignment: Alignment is anatomic. Craniocervical junction: Craniocervical junction is normal. Bone: Included bony structures are intact without fracture or destructive changes. Degenerative change: Moderate degenerative changes at C5-6 disc level. Spinal canal: Mild central canal stenosis and bilateral osteophytic foraminal at C5-6 secondary to endplate osteophytes. Cervical soft tissues: The paraspinal soft tissues planes are maintained. Other: Included upper thoracic structures are unremarkable. COMBINED IMPRESSION: 1. Head CT: No acute intracranial abnormality or calvarial fracture. 2. CT of Facial bones: No CT evidence of facial bone fracture. 3. CT of Cervical spine: No acute fracture or traumatic malalignment. Director Of Clinical Education: PSCB Transcribe Date/Time: Apr 21 2024 7:39P Dictated by : SHANE GIMENEZ MD This examination was interpreted and the report reviewed and electronically signed by: SHANE GIMENEZ MD on Apr 21 2024 7:44PM EST [id number] N Normal [facility] CT FACIAL BONE/JACK WO IVCON on 04-21-2024 CT FACIAL BONE/JACK WO IVCON * * *Final Report* * * DATE OF EXAM: Apr 21 2024 7:28PM [facility] 0507 - CT FACIAL BONE/JACK WO IVCON / PROCEDURE REASON: Maxillofacial pain * * * * Physician Interpretation * * * * CT HEAD, FACIAL BONES AND CERVICAL SPINE CLINICAL HISTORY: Head trauma, moderate-severe (accession [id number]), Neck trauma, midline tenderness (Age 16-64y) (accession [id number]), Maxillofacial pain (accession [id number]) TECHNIQUE: Routine axial images from skull base through vertex and thin axial images through the facial bones including the mandible. Routine thin axial imaging of the cervical spine completed without contrast. Reformatted coronal images of facial bones and sagittal and coronal images of the cervical spine are reviewed. CT Dose-Length Product (DLP): 706.22 (accession [id number]), 227.84 (accession [id number]), 398.32 (accession [id number]) mGy*cm. CT Dose Reduction Employed: Iterative reconstruction. COMPARISON: 03/14/2019 CT scans RESULT: Head: No acute intracranial hemorrhage, air or mass effect. The parenchymal tissue is within normal limits. No evidence of hydrocephalus or extra axial hematoma. Bony structures are unremarkable with no evidence of fracture. Facial bones: The visible facial bones are negative for acute fracture. Bony chakraborty of the orbits are intact. No air, fluid collections or inflammatory changes noted within the orbital cavities. Optic nerves and extraocular muscles are unremarkable. Mandible, including the temporal mandibular joints, are negative. Limited images through the skull base are also negative. Paranasal sinuses: Small mucosal polyp at the floor of the right maxillary sinus. Left medullary sinus mucosal thickening. Cervical spine: Counting reference: Craniocervical junction. Alignment: Alignment is anatomic. Craniocervical junction: Craniocervical junction is normal. Bone: Included bony structures are intact without fracture or destructive changes. Degenerative change: Moderate degenerative changes at C5-6 disc level. Spinal canal: Mild central canal stenosis and bilateral osteophytic foraminal at C5-6 secondary to endplate osteophytes. Cervical soft tissues: The paraspinal soft tissues planes are maintained. Other: Included upper thoracic structures are unremarkable. COMBINED IMPRESSION: 1. Head CT: No acute intracranial abnormality or calvarial fracture. 2. CT of Facial bones: No CT evidence of facial bone fracture. 3. CT of Cervical spine: No acute fracture or traumatic malalignment. Director Of Clinical Education: PSCAlbertina Transcribe Date/Time: Apr 21 2024 7:39P Dictated by : SHANE GIMENEZ MD This examination was interpreted and the report reviewed and electronically signed by: SHANE GIMENEZ MD on Apr 21 2024 7:44PM EST [id number] N Normal [facility] ED PROV NOTEon 04-21-2024 ED PROV NOTE HNO ID: [id number] Author: MARY MONTEJO DO Service: Emergency Medicine Author Type: Physician Type: ED Provider Notes Filed: 04/21/2024 19:47 Note Text: ED Provider Note Patient Name: Wanda Haddad : 1960 SERVICE DATE: 04/21/24 History Patient presents with: Head Injury Patient is a pleasant 63-year-old white female presents emergency department following a head injury. She states she was at religion when she was pulling a table out from against the wall when a 7 foot wooden cross fell and struck her in her right cheek and head. She states she was knocked to the ground did not lose consciousness. She states she has some stiffness in her neck no numbness or tingling in her extremities she has no vision changes blurred vision double vision no nausea no vomiting. PAST MEDICAL HISTORY Diagnosis Date Cervical intraepithelial neoplasia (JUDITH) Essential hypertension Menorrhagia Tachyarrhythmia PAST SURGICAL HISTORY Procedure Laterality Date BX BREAST W/DEVICE 1ST LESION ULTRASOUND GUID 09/02/14 U/S needle core UOQ left breast HYSTERECTOMY HX 2013 total robotic LEEP PROCEDURE ([facility] DEPT)_*[place] PAST SURGICAL HISTORY OF 2004 Dr. Viveros - colonoscopy (for anemia) STRESS TEST 11/08/2016 normal FAMILY HISTORY Problem Relation Age of Onset Coronary Artery Disease Mother a-fib Kidney Disease Mother renal failure Diabetes Father Cancer Father bladder Heart Father Hypertension Maternal Grandmother Heart Maternal Grandfather irregular heart beat Cancer Maternal Grandfather prostate Cancer Paternal Grandmother stomach COPD Paternal Grandfather black lung Coronary Artery Disease Brother a-fib Hypertension Brother Diabetes Brother pre Hypertension Brother Social History Tobacco Use Smoking status: Former Packs/day: 1.00 Years: 10.00 Additional pack years: 0.00 Total pack years: 10.00 Types: Cigarettes Quit date: 08/04/1988 Years since quittin.7 Smokeless tobacco: Never Vaping Use Vaping Use: Never used Substance and Sexual Activity Alcohol use: No Drug use: No Sexual activity: Yes Partners: Male control/protection: Surgical Comment: Hysterectomy ALLERGIES Allergen Reactions Red Dye Hives Bactrim [Sulfametho* Rash Ciprofloxacin Rash Clindamycin Rash Colace [Docusate] Rash Dulcolax [Bisacodyl] Rash Flagyl [Metronidazo* Hives Iv Contrast [Iodine] Shortness of Breath Levaquin [Levofloxa* Unknown Morphine Mental Status Change, GI Upset anxiety Peanuts Other: See Comments blisters in mouth Penicillins Shortness of Breath Strawberries Swelling Sulfa (Sulfonamide * Rash Tetracycline Rash Review of Systems HENT: Positive for facial swelling. Eyes: Negative for pain, redness and visual disturbance. Neurological: Positive for headaches. All other systems reviewed and are negative. Physical Exam Vitals [04/21/24 1841] BP Pulse Temp Temp src Resp SpO2 Weight Height 164/93 79 36.6 ?C (97.8 ?F) Temporal 16 100 % -- -- Physical Exam Vitals and nursing note reviewed. 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 Constitutional: General: She is not in acute distress. Appearance: Normal appearance. She is normal weight. She is not ill-appearing or toxic-appearing. HENT: Head: Normocephalic. Contusion (Right cheek extending towards the right islam with soft tissue swelling) present. Jaw: There is normal jaw occlusion. Right Ear: Tympanic membrane normal. Left Ear: Tympanic membrane normal. Nose: Nose normal. Mouth/Throat: Mouth: Mucous membranes are moist. Eyes: General: No scleral icterus. Extraocular Movements: Extraocular movements intact. Conjunctiva/sclera: Conjunctivae normal. Pupils: Pupils are equal, round, and reactive to light. Neck: Trachea: Trachea normal. Cardiovascular: Rate and Rhythm: Normal rate and regular rhythm. Pulses: Normal pulses. Heart sounds: Normal heart sounds. Pulmonary: Effort: Pulmonary effort is normal. Breath sounds: Normal breath sounds. Abdominal: General: Abdomen is flat. Palpations: Abdomen is soft. Musculoskeletal: General: No swelling or tenderness. Normal range of motion. Cervical back: Neck supple. Pain with movement and muscular tenderness present. No spinous process tenderness. Skin: General: Skin is warm and dry. Capillary Refill: Capillary refill takes less than 2 seconds. Neurological: General: No focal deficit present. Mental Status: She is alert and oriented to person, place, and time. Cranial Nerves: No cranial nerve deficit. Sensory: No sensory deficit. Motor: No weakness. Psychiatric: Mood and Affect: Mood normal. Behavior: Behavior normal. Diagnostic Testing ED Labs Ordered and Reviewed - No data to display Procedures ED Course / Clinical Impression Clinical Impressions as of 04/21/241930 Contusion of face, initial encounter Injury of h (more content not included)... Normal [facility] CBC panel Auto (Bld)on 01-07 Erythrocyte distribution width (RBC) [Ratio] 12.4 % Normal 11.5-15.0 [facility] Comment on above: Order Comment: Saravanan flores Type: BLOOD SPECIMEN Ordering Facility: [facility] Address: [address] [place] [address] Performed By: #### 5 8410-2 #### [facility] CLIA [id number] [address] [place] [address] [place] Hematocrit (Bld) [Volume fraction] 41.5 % Normal 36.0-46.0 [facility] Comment on above: Order Comment: Saravanan flores Type: BLOOD SPECIMEN Ordering Facility: [facility] Address: [address] [place] [address] Performed By: #### 5 8410-2 #### [facility] CLIA [id number] [address] [place] [address] [place] Hemoglobin (Bld) [Mass/Vol] 13.8 g/dL Normal 11.5-15.5 [facility] Comment on above: Order Comment: Saravanan flores Type: BLOOD SPECIMEN Ordering Facility: [facility] Address: [address] [place] [address] Performed By: #### 5 8410-2 #### [facility] CLIA [id number] [address] [place], [place] [id number] [place] MCH (RBC) [Entitic mass] 31.7 pg Normal 26.0-34.0 [facility] Comment on above: Order Comment: Speci men Type: BLOOD SPECIMEN Ordering Facility: [facility] Address: [address] [place] [address] Performed By: #### 5 8410-2 #### [facility] CLIA [id number] [address] [place] [address] [place] MCHC (RBC) [Mass/Vol] 33.3 g/dL Normal 30.5-36.0 [facility] Comment on above: Order Comment: Speci men Type: BLOOD SPECIMEN Ordering Facility: [facility] Address: [address] [place] [address] Performed By: #### 5 8410-2 #### [facility] CLIA [id number] [address] [place], [place] [id number] [place] [address] [facility] MCV (RBC) [Entitic vol] 95.4 fL Normal 80.0-100.0 [facility] Comment on above: Order Comment: Speci men Type: BLOOD SPECIMEN Ordering Facility: [facility] Address: [address] [place] [address] Performed By: #### 5 8410-2 #### [facility] CLIA [id number] [address] [place] Platelet mean volume (Bld) [Entitic vol] 11.8 fL Normal 9.0-12.7 [facility] Comment on above: Order Comment: Speci men Type: BLOOD SPECIMEN Ordering Facility: [facility] Address: [address] [place] [address] Performed By: #### 5 8410-2 #### [facility] CLIA [id number] [address] [place] Platelets (Bld) [#/Vol] 198 10*3/uL Normal 150-400 [facility] Comment on above: Order Comment: Speci men Type: BLOOD SPECIMEN Ordering Facility: [facility] Address: [address] [place], [place] [address] Performed By: #### 5 8410-2 #### [facility] CLIA [id number] [address] [place] [address] [facility] [place] RBC (Bld) [#/Vol] 4.35 10*6/uL Normal 3.90-5.20 [facility] Comment on above: Order Comment: Speci men Type: BLOOD SPECIMEN Ordering Facility: [facility] Address: [address] [place] [address] Performed By: #### 5 8410-2 #### [facility] CLIA [id number] [address] [place] [address] [place] WBC (Bld) [#/Vol] 5.33 10*3/uL Normal 3.70-11.00 [facility] Comment on above: Order Comment: Speci men Type: BLOOD SPECIMEN Ordering Facility: [facility] Address: [address] [place] [address] Performed By: #### 5 8410-2 #### [facility] CLIA [id number] [address] [place] [address] [facility] [place] Comprehensive metabolic 2000 panelon 01-08-2024 Albumin [Mass/Vol] 4.0 g/dL Normal 3.9-4.9 [facility] Comment on above: Order Comment: Speci men Type: BLOOD SPECIMEN Ordering Facility: [facility] Address: [address] [place] [address] Performed By: #### 3 016-3, 13056-5, 3039-3, 64071-5 #### [facility] CLIA [id number] [address] [place] [address] [place] ALP [Catalytic activity/Vol] 132 U/L High 34-123 [facility] Comment on above: Order Comment: Speci men Type: BLOOD SPECIMEN Ordering Facility: [facility] Address: [address] [place] [address] Performed By: #### 3 016-3, 86501-2, 3040-3, 65951-8 #### [facility] CLIA [id number] [address] [place] [address] [place] ALT With P-5'-P [Catalytic activity/Vol] 15 U/L Normal 7-38 [facility] Comment on above: Order Comment: Speci men Type: BLOOD SPECIMEN Ordering Facility: [facility] Address: [address] [place] [address] Performed By: #### 3 016-3, 50826-5, 3040-3, 72744-3 #### [facility] CLIA [id number] [address] [place] [address] [place] Anion gap [Moles/Vol] 10 mmol/L Normal 9-18 [facility] Comment on above: Order Comment: Speci men Type: BLOOD SPECIMEN Ordering Facility: [facility] Address: [address] [place] [address] Performed By: #### 3 016-3, 10404-4, 3040-3, #### [facility] CLIA [id number] [address] [place] [address] [place] AST With P-5'-P [Catalytic activity/Vol] 22 U/L Normal 13-35 [facility] Comment on above: Order Comment: Speci men Type: BLOOD SPECIMEN Ordering Facility: [facility] Address: [address] [place] [address] Performed By: #### 3 016-3, 73124-3, 3040-3, #### [facility] CLIA [id number] [address] [place] [address] [place] Bilirubin [Mass/Vol] 0.3 mg/dL Normal 0.2-1.3 [facility] Comment on above: Order Comment: Speci men Type: BLOOD SPECIMEN Ordering Facility: [facility] Address: [address] [place] [address] Performed By: #### 3 016-3, 81991-8, 3040-3, 59718-2 #### [facility] CLIA [id number] [address] [place] [address] [place] Calcium [Mass/Vol] 9.6 mg/dL Normal 8.5-10.2 [facility] Comment on above: Order Comment: Speci men Type: BLOOD SPECIMEN Ordering Facility: [facility] Address: [address] [place] [address] Performed By: #### 3 016-3, 77486-1, 3040-3, 25846-8 #### [facility] CLIA [id number] [address] [place] [address] [place] Chloride [Moles/Vol] 107 mmol/L High 97-105 [facility] Comment on above: Order Comment: Speci men Type: BLOOD SPECIMEN Ordering Facility: [facility] Address: [address] [place] [address] Performed By: #### 3 016-3, 10005-5, 3040-3, 24935-4 #### [facility] CLIA [id number] [address] [place] [address] [place] CO2 [Moles/Vol] 26 mmol/L Normal 22-30 [facility] Comment on above: Order Comment: Speci men Type: BLOOD SPECIMEN Ordering Facility: [facility] Address: [address] [place] [address] Performed By: #### 3 016-3, 55936-8, 3040-3, 67207-9 #### [facility] CLIA [id number] [address] [place] [address] [place] Creatinine [Mass/Vol] 0.91 mg/dL Normal 0.58-0.96 [facility] Comment on above: Order Comment: Speci men Type: BLOOD SPECIMEN Ordering Facility: [facility] Address: [address] [place] [address] Performed By: #### 3 016-3, 43819-5, 3040-3, 40801-6 #### [facility] CLIA [id number] [address] [place] [address] [place] Creatinine and Glomerular filtration rate.predicted panel (S/P/Bld) 71 mL/min/1.73m??? Normal >=60 [facility] Comment on above: Order Comment: Saravanan flores Type: BLOOD SPECIMEN Ordering Facility: [facility] Address: [address] [place] [address] Result Comment: Gerald mated Glomerular Filtration Rate (eGFR) is calculated using the 2020 CKD-EPI creatinine equation. This equation utilizes serum creatinine, sex, and age as parameters. The creatinine assay has traceable calibration to isotope dilution-mass spectrometry. Refer to KDIGO guidelines for clinical interpretation. In patients with unstable renal function, e.g. those with acute kidney injury, the eGFR may not accurately reflect actual GFR. Performed By: #### 3 016-3, 83068-1, 3039-3, 36703-6 #### [facility] CLIA [id number] [address] [place] [address] [place] Glucose [Mass/Vol] 101 mg/dL High 74-99 [facility] Comment on above: Order Comment: Saravanan flores Type: BLOOD SPECIMEN Ordering Facility: [facility] Address: [address] [place] [address] Result Comment: The [place] [employer] (ADA) provides guidance for cutoff values for fasting glucose and random glucose. The ADA defines fasting as no caloric intake for at least 8 hours. Fasting plasma glucose results between 100 to 125 mg/dL indicate increased risk for diabetes (prediabetes). Fasting plasma glucose results greater than or equal to 126 mg/dL meet the criteria for diagnosis of diabetes. In the absence of unequivocal hyperglycemia, results should be confirmed by repeat testing. In a patient with classic symptoms of hyperglycemia or hyperglycemic crisis, random plasma glucose results greater than or equal to 200 mg/dL meet the criteria for diagnosis of diabetes. Reference: Standards of Medical Care in Diabetes 2016, [place] [employer]. Diabetes Care. 2016.39(Suppl 1). Performed By: #### 3 016-3, 46387-8, 3039-3, 04253-2 #### [facility] CLIA [id number] [address] [place] [address] [place] Potassium [Moles/Vol] 3.8 mmol/L Normal 3.7-5.1 [facility] Comment on above: Order Comment: Speci men Type: BLOOD SPECIMEN Ordering Facility: [facility] Address: [address] [place] [address] Performed By: #### 3 016-3, 17497-3, 3040-3, 11189-6 #### [facility] CLIA [id number] [address] [place] [address] [place] Protein [Mass/Vol] 6.9 g/dL Normal 6.3-8.0 [facility] Comment on above: Order Comment: Speci men Type: BLOOD SPECIMEN Ordering Facility: [facility] Address: [address] [place] [address] Performed By: #### 3 016-3, 20724-8, 3040-3, 51010-9 #### [facility] CLIA [id number] [address] [place] [address] [place] Sodium [Moles/Vol] 143 mmol/L Normal 136-144 [facility] Comment on above: Order Comment: Speci men Type: BLOOD SPECIMEN Ordering Facility: [facility] Address: [address] [place] [address] Performed By: #### 3 016-3, 29465-7, 3040-3, 21624-9 #### [facility] CLIA [id number] [address] [place] [address] [place] Urea nitrogen [Mass/Vol] 10 mg/dL Normal 7-21 [facility] Comment on above: Order Comment: Speci men Type: BLOOD SPECIMEN Ordering Facility: [facility] Address: [address] [place], [place] [address] Performed By: #### 3 016-3, 06332-2, 3040-3, 95511-7 #### [facility] CLIA [id number] [address] [place] [address] [place] ECG COMPLETEon 01-08-2024 ECG COMPLETE Ventricular Rate : 6 4 BPM Atrial Rate : 64 BPM P-R Interval : 136 ms QRS Duration : 86 ms Q-T Interval : 416 ms QTC Calculation(Bazett) : 429 ms Calculated P Lagrange : 59 degrees Calculated R Lagrange : 29 degrees Calculated T Lagrange : 40 degrees NORMAL SINUS RHYTHM NORMAL ECG NO PREVIOUS ECGS AVAILABLE Confirmed by MD SENA VINAYAK ([id number]) on 01/10/2024 10:39:20 AM NAME : WANDA HADDAD PID : [id number] : 1960 Gender : Female Race : ORD : [id number] Procedure Date : Jan 08 2024 09:16:08 Edit Date : Jan 10 2024 10:40:48 Diagnosis: NORMAL SINUS RHYTHM NORMAL ECG NO PREVIOUS ECGS AVAILABLE Confirmed by MD SENA VINAYAK ([id number]) on 01/10/2024 10:39:20 AM Test Reason : Chest Pain Location : 191 : [facility] ED Overread By : MD SENA VINAYAK Edited By : MD SENA VINAYAK Referred By : , Acquired by : ELIS JOHNSON [facility] ED NOTEon 01-08-2024 ED NOTE HNO ID: [id number] Author: BETSY NASH RN Service: Emergency Medicine Author Type: Registered Nurse Type: ED Notes Filed: 01/09/2024 15:23 Note Text: Emergency Services: ED Call Back Questionnaire SERVICE DATE: 01/08/2024 Are you feeling better? Yes Any questions about discharge instructions and follow-up care? No Were you able to make a follow up appointment? Yes Do you have any further questions? No Is there anything that we could have done differently to improve your ED visit? No SIGNATURE: Betsy Nash RN PATIENT NAME: Wanda Haddad DATE: January 09, 2024 TIME: 3:23 PM [facility] ED NOTE HNO ID: [id number] Author: DIAZ SAMUELS RN Service: Nursing Author Type: Registered Nurse Type: ED Notes Filed: 01/08/2024 13:21 Note Text: Pt verbalizes understanding of discharge instructions. Pt able to ambulate out of ED. [facility] ED NOTE HNO ID: [id number] Author: MARIANN DESAI RN Service: ? Author Type: Registered Nurse Type: ED Notes Filed: 01/08/2024 09:29 Note Text: Dr rivers at bedside for exam Normal [facility] ED NOTE HNO ID: [id number] Author: MARIANN DESAI, MADELYN Service: ? Author Type: Registered Nurse Type: ED Notes Filed: 01/08/2024 09:09 Note Text: Pt reports waking up this am with a weird feeling in my chest , pt reports palpitations, and dizziness now Normal [facility] ED PROV NOTEon 01-08-2024 ED PROV NOTE HNO ID: [id number] Author: BERE RIVERS MD Service: Emergency Medicine Author Type: Physician Type: ED Provider Notes Filed: 02/12/2024 09:42 Note Text: ED Provider Note Patient Name: Wanda Haddad : 1960 SERVICE DATE: 01/08/24 History Patient presents with: Dizziness Palpitations Ex-smoker, past history of hypertension, tachycardia, presents the emergency department with concerns over dizziness palpitations as she woke with this morning. Patient notes this is different from her previous palpitations she has felt in the past. Patient states she went to bed feeling normal, woke up this morning, she felt like when she took of breath, her heart would race or stop, and she got somewhat dizzy. She felt like her balance was off. She denies room spinning or vertiginous type situation however. She has no headache vision changes focal unilateral neurologic deficits. Patient states she is been somewhat dizzy lately. Patient however admits to multiple stressors. Patient takes her medications including an aspirin daily. She has no chest pain no dyspnea at rest, no history of PE, DVT, or known cardiac disease. Patient is walking on the treadmill almost daily, and was able to 3.5 miles yesterday which is reassuring. No medications were taken for patient's symptoms this morning. Palpitations Palpitations quality: Slow Onset quality: Unable to specify Duration: short duration possibly seconds. Context: not caffeine and not nicotine Context comment: Stress n anxiety Relieved by: Nothing Worsened by: Nothing Ineffective treatments: None tried Associated symptoms: dizziness and shortness of breath Associated symptoms: no chest pain, no chest pressure, no cough, no nausea and no vomiting Risk factors: stress Risk factors: no diabetes mellitus, no heart disease, no hx of atrial fibrillation, no hx of PE and no hx of thyroid disease PAST MEDICAL HISTORY Diagnosis Date Cervical intraepithelial neoplasia (JUDITH) Essential hypertension Menorrhagia Tachyarrhythmia PAST SURGICAL HISTORY Procedure Laterality Date BX BREAST W/DEVICE 1ST LESION ULTRASOUND GUID 09/02/14 U/S needle core UOQ left breast HYSTERECTOMY HX 2012 total robotic LEEP PROCEDURE (LOAN SPECIALIST DEPT)_*FL PAST SURGICAL HISTORY OF 2004 Dr. Viveros - colonoscopy (for anemia) STRESS TEST 11/08/2016 normal FAMILY HISTORY Problem Relation Age of Onset Coronary Artery Disease Mother a-fib Kidney Disease Mother renal failure Diabetes Father Cancer Father bladder Heart Father Hypertension Maternal Grandmother Heart Maternal Grandfather irregular heart beat Cancer Maternal Grandfather prostate Cancer Paternal Grandmother stomach COPD Paternal Grandfather black lung Coronary Artery Disease Brother a-fib Hypertension Brother Diabetes Brother pre Hypertension Brother Social History Tobacco Use Smoking status: Former Packs/day: 1.00 Years: 10.00 Additional pack years: 0.00 Total pack years: 10.00 Types: Cigarettes Quit date: 08/04/1988 Years since quittin.4 Smokeless tobacco: Never Vaping Use Vaping Use: Never used Substance and Sexual Activity Alcohol use: No Drug use: No Sexual activity: Yes Partners: Male control/protection: Surgical Comment: Hysterectomy ALLERGIES Allergen Reactions Red Dye Hives Bactrim [Sulfametho* Rash Ciprofloxacin Rash Clindamycin Rash Colace [Docusate] Rash Dulcolax [Bisacodyl] Rash Flagyl [Metronidazo* Hives Iv Contrast [Iodine] Shortness of Breath Levaquin [Levofloxa* Unknown Morphine Mental Status Change, GI Upset anxiety Peanuts Other: See Comments blisters in mouth Penicillins Shortness of Breath Strawberries Swelling Sulfa (Sulfonamide * Rash Tetracycline Rash Review of Systems Respiratory: Positive for shortness of breath. Negative for cough. Cardiovascular: Positive for palpitations. Negative for chest pain. Gastrointestinal: Negative for nausea and vomiting. Neurological: Positive for dizziness. Physical Exam Vitals [01/08/24 0909] BP Pulse Temp Temp src Resp SpO2 Weight Height 151/79 78 36.7 ?C (98.1 ?F) Temporal Art 18 100 % 71.7 kg (158 lb) 1.626 m (5' 4 ) Physical Exam Vitals and nursing note reviewed. Constitutional: General: She is not in acute distress. Appearance: Normal appearance. She is not ill-appearing or toxic-appearing. HENT: Head: Normocephalic and atraumatic. Right Ear: Tympanic membrane and external ear normal. Left Ear: Tympanic membrane and external ear normal. Mouth/Throat: Mouth: Mucous membranes are moist. Pharynx: No oropharyngeal exudate or posterior oropharyngeal erythema. Eyes: General: Right eye: No discharge. Left eye: No discharge. Extraocular Movements: Extraocular movements intact. Pupils: Pupils are equal, round, and reactive to light. Comments: No nystagmus Cardiovascular: Ra (more content not included)... Normal [facility] HIGH SENSITIVITY TROPONIN T (INITIAL)on 01-08-2024 Troponin T.cardiac High sensitivity method [Mass/Vol] 8 ng/L Normal <12 [facility] Comment on above: Order Comment: Saravanan flores Type: BLOOD SPECIMEN Ordering Facility: [facility] Address: [address] [place] [address] Result Comment: When assessing risk for acute coronary syndromes: In patients undergoing blood draw greater than or equal to 2 hours from symptom onset, with history of very low to moderate risk and non-ischemic ECG, an initial hs-Troponin T less than 12 ng/L AND a 1 hour delta hs-Troponin T less than 3 ng/L should be considered very low risk for 30 day MACE. Performed By: #### L [id number] #### [facility] CLIA [id number] [address] [place] [address] HIGH SENSITIVITY TROPONIN T (SECOND)on 01-08-2024 Troponin T.cardiac High sensitivity method [Mass/Vol] 6 ng/L Normal <12 [facility] Comment on above: Order Comment: Saravanan flores Type: BLOOD SPECIMEN Ordering Facility: [facility] Address: [address] [place] [address] Result Comment: When assessing risk for acute coronary syndromes: In patients undergoing blood draw greater than or equal to 2 hours from symptom onset, with history of very low to moderate risk and non-ischemic ECG, an initial hs-Troponin T less than 12 ng/L AND a 1 hour delta hs-Troponin T less than 3 ng/L should be considered very low risk for 30 day MACE. Performed By: #### L [id number] #### [facility] CLIA [id number] [address] [place] [address] [facility] Lipase SerPl-cCncon 01-08-20 24 Lipase [Catalytic activity/Vol] 33 U/L Normal 16-61 [facility] Comment on above: Order Comment: Speci men Type: BLOOD SPECIMEN Ordering Facility: [facility] Address: [address] [place] [address] Performed By: #### 3 016-3, 70433-2, 3040-3, 07615-1 #### [facility] CLIA [id number] [address] [place] [address] [facility] Magnesium SerPl-mCncon 01-07 Magnesium [Mass/Vol] 2.1 mg/dL Normal 1.7-2.3 [facility] Comment on above: Order Comment: Speci men Type: BLOOD SPECIMEN Ordering Facility: [facility] Address: [address] [place] [address] Performed By: #### 3 016-3, 30730-5, 3040-3, 92744-6 #### [facility] CLIA [id number] [address] [place] [address] [facility] NT-proBNP SerPl-mCncon 01-07 Natriuretic peptide.B prohormone N-Terminal [Mass/Vol] 329 pg/mL High <125 [facility] Comment on above: Order Comment: Speci men Type: BLOOD SPECIMEN Ordering Facility: [facility] Address: [address] [place] [address] Performed By: #### 3 3762-6 #### [facility] CLIA [id number] [address] [place] [address] [facility] TSH SerPl-aCncon 01-08-2024 TSH Qn 2.160 m[IU]/L Normal 0.270-4.200 [facility] Comment on above: Order Comment: Speci men Type: BLOOD SPECIMEN Ordering Facility: [facility] Address: [address] [place] [address] Performed By: #### 3 016-3, 47203-0, 3040-3, 74464-5 #### [facility] CLIA [id number] [address] [place] [address] [facility] Urinalysis complete panel (U )on 01-08-2024 Bilirubin Ql (U) Negative Normal Negative [facility] Comment on above: Order Comment: Speci men Type: URINE SPECIMENOrdering Facility: [facility] Address: [address] [place] [address] Performed By: #### 2 4356-8 ####[facility] [id number] [place] [address] [facility] Clarity (Unsp spec) Clear Normal Clear [facility] Comment on above: Order Comment: Speci men Type: URINE SPECIMENOrdering Facility: [facility] Address: [address] [place] [address] Performed By: #### 2 4356-8 ####[facility] [id number] [place] [address] [facility] Color (U) Yellow Normal Yellow [facility] Comment on above: Order Comment: Speci men Type: URINE SPECIMENOrdering Facility: [facility] Address: [address] [place] [address] Performed By: #### 2 4356-8 ####[facility] [id number] [place] [address] [facility] Epithelial cells LM.HPF (Urine sed) [#/Area] Few Normal [facility] Comment on above: Order Comment: Speci men Type: URINE SPECIMENOrdering Facility: [facility] Address: [address] [place] [address] Result Comment: Few Performed By: #### 2 4356-8 ####[facility] [id number] [place] [address] [facility] Glucose Test strip (U) [Mass/Vol] Negative Normal Negative [facility] Comment on above: Order Comment: Speci men Type: URINE SPECIMENOrdering Facility: [facility] Address: [address] [place] [address] Performed By: #### 2 4356-8 ####[facility] [id number] [place] [address] [place] Hemoglobin Ql (U) Trace Abnormal Negative [facility] Comment on above: Order Comment: Speci men Type: URINE SPECIMENOrdering Facility: [facility] Address: [address] [place] [address] Performed By: #### 2 4356-8 ####[facility] [id number] [place] [address] [place] Ketones Ql (U) Negative Normal Negative [facility] Comment on above: Order Comment: Speci men Type: URINE SPECIMENOrdering Facility: [facility] Address: [address] [place] [address] Performed By: #### 2 4356-8 ####[facility] [id number] [place] [address] [place] Leukocyte esterase Test strip Ql (U) Trace Abnormal Negative [facility] Comment on above: Order Comment: Speci men Type: URINE SPECIMENOrdering Facility: [facility] Address: [address] [place] [address] Performed By: #### 2 4356-8 ####[facility] [id number] [place] [address] [place] Nitrite Ql (U) Negative Normal Negative [facility] Comment on above: Order Comment: Speci men Type: URINE SPECIMENOrdering Facility: [facility] Address: [address] [place] [address] Performed By: #### 2 4356-8 ####[facility] [id number] [place] [address] [place] pH (U) 7.5 [pH] Normal 5.0-8.0 [facility] Comment on above: Order Comment: Speci men Type: URINE SPECIMENOrdering Facility: [facility] Address: [address] [place] [address] Performed By: #### 2 4356-8 ####[facility] [id number] [place] [address] [facility] Protein (U) [Mass/Vol] Negative Normal Negative [facility] Comment on above: Order Comment: Speci men Type: URINE SPECIMENOrdering Facility: [facility] Address: [address] [place] [address] Performed By: #### 2 4356-8 ####[facility] [id number] [place] [address] [facility] RBC LM.HPF (Urine sed) [#/Area] 0-3 /HPF Normal 0-3 /HPF [facility] Comment on above: Order Comment: Speci men Type: URINE SPECIMENOrdering Facility: [facility] Address: [address] [place] [address] Performed By: #### 2 4356-8 ####[facility] [id number] [place] [address] [facility] Specific gravity (U) [Rel density] 1.015 Normal 1.005-1.030 [facility] Comment on above: Order Comment: Speci men Type: URINE SPECIMENOrdering Facility: [facility] Address: [address] [place] [address] Performed By: #### 2 4356-8 ####[facility] [id number] [place] [address] [facility] Urobilinogen Ql (U) 0.2 EU/dL Normal 0.2-1.0 EU/dL [facility] Comment on above: Order Comment: Speci men Type: URINE SPECIMENOrdering Facility: [facility] Address: [address] [place] [address] Performed By: #### 2 4356-8 ####[facility] [id number] [place] [address] [place] WBC LM.HPF (Urine sed) [#/Area] 0-5 /HPF Normal 0-5 /HPF [facility] Comment on above: Order Comment: Speci men Type: URINE SPECIMENOrdering Facility: [facility] Address: [address] [place] [address] Performed By: #### 2 4356-8 ####[facility] [id number] [place] [address] [facility] XR CHEST 2V FRONTAL/LATon XR CHEST 2V FRONTAL/LAT * * *Final Report* * * DATE OF EXAM: Jan 08 2024 10:46AM LDX 5291 - XR CHEST 2V FRONTAL/LAT / PROCEDURE REASON: Shortness of breath * * * * Physician Interpretation * * * * EXAMINATION: CHEST RADIOGRAPH (2 VIEW FRONTAL and LATERAL) CLINICAL HISTORY: Shortness of breath MQ: XC2_6 EXAM DATE/TIME: 01/08/2024 10:46 AM COMPARISON: 11/11/2019 RESULT: Lines, tubes, and devices: None. Lungs and pleura: No consolidation. No lung mass. No pleural effusion. No pneumothorax. Cardiomediastinal silhouette: Normal cardiomediastinal silhouette. Bones and soft tissues: Unremarkable. IMPRESSION: Stable exam with no acute radiographic abnormality. Director Of Clinical Education: TRACE Transcribe Date/Time: Jan 08 2024 10:50A Dictated by : ARLEEN GIPSON MD This examination was interpreted and the report reviewed and electronically signed by: ARLEEN GIPSON MD on Jan 08 2024 10:50AM EST [id number] Normal [facility] Influenza virus A and B and SARS-CoV-2 (COVID-19) identified RUBY+probe Nom (Resp)on 12-31-2023 FLUAV RNA RUBY+probe Ql (Resp) Not detected Normal Not Detected [facility] Comment on above: Order Comment: This assay has received FDA Emergency Use Authorization (EUA) and is only authorized for the duration of time that circumstances exist to justify the authorization of the emergency use of in vitro diagnostic tests for the detection of SARS-CoV-2 virus and/or diagnosis of COVID-19 infection under section 564(b)(1) of the Act, 21 U.S.C. 360bbb-3(b)(1). Testing for SARS-CoV-2 is only recommended for patients who meet current clinical and/or epidemiological criteria as defined by federal, state, or local public health directives. This assay is an in vitro diagnostic nucleic acid amplification test for the qualitative detection of SARS-CoV-2, Influenza A, and Influenza B from nasopharyngeal specimens and has been validated for use at [facility]. Negative results do not preclude COVID-19 infections or Influenza A/B infections, and should not be used as the sole basis for diagnosis, treatment, or other management decisions. If Influenza A/B and RSV PCR results are negative, testing for Parainfluenza virus, Adenovirus and Metapneumovirus is routinely performed for [facility] pediatric oncology and intensive care inpatients, and is available on other patients by placing an add-on request. Performed By: #### 9 5423-0 #### TANIYA Lewis ([id number]) [facility] ([facility]) [address] [place] [address] FLUBV RNA RUBY+probe Ql (Resp) Not detected Normal Not Detected [facility] Comment on above: Order Comment: This assay has received FDA Emergency Use Authorization (EUA) and is only authorized for the duration of time that circumstances exist to justify the authorization of the emergency use of in vitro diagnostic tests for the detection of SARS-CoV-2 virus and/or diagnosis of COVID-19 infection under section 564(b)(1) of the Act, 21 U.S.C. 360bbb-3(b)(1). Testing for SARS-CoV-2 is only recommended for patients who meet current clinical and/or epidemiological criteria as defined by federal, state, or local public health directives. This assay is an in vitro diagnostic nucleic acid amplification test for the qualitative detection of SARS-CoV-2, Influenza A, and Influenza B from nasopharyngeal specimens and has been validated for use at [facility]. Negative results do not preclude COVID-19 infections or Influenza A/B infections, and should not be used as the sole basis for diagnosis, treatment, or other management decisions. If Influenza A/B and RSV PCR results are negative, testing for Parainfluenza virus, Adenovirus and Metapneumovirus is routinely performed for [facility] pediatric oncology and intensive care inpatients, and is available on other patients by placing an add-on request. Performed By: #### 9 5423-0 #### TANIYA Lewis ([id number]) [facility] ([facility]) [id number] [place] [address] SARS-CoV-2 (COVID-19) RNA RUBY+probe Ql (Resp) Not detected Normal Not Detected [facility] Comment on above: Order Comment: This assay has received FDA Emergency Use Authorization (EUA) and is only authorized for the duration of time that circumstances exist to justify the authorization of the emergency use of in vitro diagnostic tests for the detection of SARS-CoV-2 virus and/or diagnosis of COVID-19 infection under section 564(b)(1) of the Act, 21 U.S.C. 360bbb-3(b)(1). Testing for SARS-CoV-2 is only recommended for patients who meet current clinical and/or epidemiological criteria as defined by federal, state, or local public health directives. This assay is an in vitro diagnostic nucleic acid amplification test for the qualitative detection of SARS-CoV-2, Influenza A, and Influenza B from nasopharyngeal specimens and has been validated for use at [facility]. Negative results do not preclude COVID-19 infections or Influenza A/B infections, and should not be used as the sole basis for diagnosis, treatment, or other management decisions. If Influenza A/B and RSV PCR results are negative, testing for Parainfluenza virus, Adenovirus and Metapneumovirus is routinely performed for [facility] pediatric oncology and intensive care inpatients, and is available on other patients by placing an add-on request. Performed By: #### 9 5423-0 #### TANIYA Lewis ([id number]) [facility] ([facility]) [address] [place] [address] Basic metabolic 2000 panelon 10-09-2023 Anion gap [Moles/Vol] 9 mmol/L Low 10-20 [facility] Comment on above: Performed By: #### 2 4321-2 #### ADEN SANON ([id number]) [facility] ([facility]) [address] [place] [address] Calcium [Mass/Vol] 9.9 mg/dL Normal 8.6-10.3 [facility] Comment on above: Performed By: #### 2 4321-2 #### ADEN SANON ([id number]) [facility] ([facility]) [address] [place] [address] Chloride [Moles/Vol] 106 mmol/L Normal 98-107 [facility] Comment on above: Performed By: #### 2 4321-2 #### ADEN SANON ([id number]) [facility] ([facility]) [address] [place] [address] CO2 [Moles/Vol] 29 mmol/L Normal 21-32 [facility] Comment on above: Performed By: #### 2 4321-2 #### ADEN SANON ([id number]) [facility] ([facility]) [address] [place] [address] Creatinine [Mass/Vol] 0.94 mg/dL Normal 0.50-1.05 [facility] Comment on above: Performed By: #### 2 4321-2 #### ADEN SANON ([id number]) [facility] ([facility]) [address] [place] [address] GFR/1.73 sq M.predicted MDRD (S/P/Bld) [Vol rate/Area] 69 mL/min/1.73m*2 Normal >60 [facility] Comment on above: Result Comment: Calc ulations of estimated GFR are performed using the 2020 CKD-EPI Study Refit equation without the race variable for the IDMS-Traceable creatinine methods. https://jasn.asnjournals.org/content/early//ASN.41250 60766 Performed By: #### 2 4321-2 #### ADEN SANON ([id number]) [facility] ([facility]) [facility] [place] [address] Glucose [Mass/Vol] 102 mg/dL High 74-99 [facility] Comment on above: Performed By: #### 2 4321-2 #### ADEN SANON ([id number]) [facility] ([facility]) [address] [place] [address] Potassium [Moles/Vol] 4.4 mmol/L Normal 3.5-5.3 [facility] Comment on above: Performed By: #### 2 4321-2 #### ADEN SANON ([id number]) [facility] ([facility]) [facility] [place] [address] Sodium [Moles/Vol] 140 mmol/L Normal 136-145 [facility] Comment on above: Performed By: #### 2 4321-2 #### ADEN SANON ([id number]) [facility] ([facility]) [address] [place] [address] Urea nitrogen [Mass/Vol] 21 mg/dL Normal 6-23 [facility] Comment on above: Performed By: #### 2 4321-2 #### ADEN SANON ([id number]) [facility] ([facility]) [address] [place] [address] Lipid 1996 panelon 4 Cholesterol [Mass/Vol] 234 mg/dL High 0-199 [facility] Comment on above: Result Comment: Age Desirable Borderline High High 0-19 Y 0 - 169 170 - 199 >/= 200 20-24 Y 0 - 189 190 - 224 >/= 225 >24 Y 0 - 199 200 - 239 >/= 240 All ranges are based on fasting samples. Specific therapeutic targets will vary based on patient-specific cardiac risk. Pediatric guidelines reference:Pediatrics 2011, 128(S5).Adult guidelines reference: NCEP ATPIII Guidelines,TYLER 2001, 258:2486-97 Venipuncture immediately after or during the administration of Metamizole may lead to falsely low results. Testing should be performed immediately prior to Metamizole dosing. Performed By: #### 2 4331-1 #### ADEN SANON ([id number]) [facility] ([facility]) [facility] [place] [address] Cholesterol in HDL [Mass/Vol] 48.0 mg/dL Normal [facility] Comment on above: Result Comment: Age Very Low Low Normal High 0-19 Y < 35 < 40 40-45 ---- 20-24 Y ---- < 40 >45 ---- >24 Y ---- < 40 40-60 >60 Performed By: #### 2 4331-1 #### ADEN SANON ([id number]) [facility] ([facility]) [facility] [place] [address] Cholesterol in LDL [Mass/Vol] 118 mg/dL High <=99 [facility] Comment on above: Result Comment: Near Borderline AGE Desirable Optimal High High Very High 0-19 Y 0 - 109 --- 110-129 >/= 130 ---- 20-24 Y 0 - 119 --- 120-159 >/= 160 ---- >24 Y 0 - 99 100-129 130-159 160-189 >/=190 Performed By: #### 2 4331-1 #### ADEN SANON ([id number]) [facility] ([facility]) [address] [place] [address] Cholesterol in VLDL [Mass/Vol] 68 mg/dL High 0-40 [facility] Comment on above: Performed By: #### 2 4331-1 #### ADEN SANON ([id number]) [facility] ([facility]) [address] [place] [address] CHOLESTEROL/HDL RATIO 4.9 Normal [facility] Comment on above: Result Comment: Ref Values Desirable < 3.4 High Risk > 5.0 Performed By: #### 2 4331-1 #### ADEN SANON ([id number]) [facility] ([facility]) [address] [place] [address] 59709 NON HDL CHOLESTEROL 186 mg/dL High 0-149 [facility] Comment on above: Result Comment: Age Desirable Borderline High High Very High 0-19 Y 0 - 119 120 - 144 >/= 145 >/= 160 20-24 Y 0 - 149 150 - 189 >/= 190 ---- >24 Y 30 mg/dL above LDL Cholesterol goal Performed By: #### 2 4331-1 #### ADEN SANON ([id number]) [facility] ([facility]) [address] [place] [address]476 Triglyceride [Mass/Vol] 339 mg/dL High 0-149 [facility] Comment on above: Result Comment: Age Desirable Borderline High High Very High 0 D-90 D 19 - 174 ---- ---- ---- 91 D- 9 Y 0 - 74 75 - 99 >/= 100 ---- 10-19 Y 0 - 89 90 - 129 >/= 130 ---- 20-24 Y 0 - 114 115 - 149 >/= 150 ---- >24 Y 0 - 149 150 - 199 200- 499 >/= 500 Venipuncture immediately after or during the administration of Metamizole may lead to falsely low results. Testing should be performed immediately prior to Metamizole dosing. Performed By: #### 2 4331-1 #### ADEN SANON ([id number]) [facility] ([facility]) [address] [place] [address] Urinalysis complete panel (U )on 10-09-2023 Appearance (U) Clear Normal Clear [facility] Comment on above: Performed By: #### 2 4356-8 #### ADEN SANON ([id number]) [facility] ([facility]) [address] [place] [address]34 Bilirubin (U) [Mass/Vol] Negative Normal NEGATIVE [facility] Comment on above: Performed By: #### 2 4356-8 #### ADEN SANON ([id number]) [facility] ([facility]) [address] [place] [address] 90719 Color (U) Yellow Normal Straw, Yellow [facility] Comment on above: Performed By: #### 2 4356-8 #### ADEN SANON ([id number]) [facility] ([facility]) [address] [place] [address]302 Glucose Auto test strip (U) [Mass/Vol] Negative Normal NEGATIVE [facility] Comment on above: Performed By: #### 2 4356-8 #### ADEN SANON ([id number]) [facility] ([facility]) [address] [place] [address] 99302 Ketones (U) [Mass/Vol] Negative Normal NEGATIVE Un [facility] Comment on above: Performed By: #### 2 435-8 #### ADEN SANON ([id number]) [facility] ([facility]) [address] [place] [address]34 Leukocyte esterase Auto test strip Ql (U) Negative Normal NEGATIVE [facility] Comment on above: Performed By: #### 2 435-8 #### ADEN SANON ([id number]) [facility] ([facility]) [address] [place] [address] 08900 Nitrite Auto test strip Ql (U) Negative Normal NEGATIVE [facility] Comment on above: Performed By: #### 2 435-8 #### ADEN SANON ([id number]) [facility] ([facility]) [address] [place] [address] 53158 pH (U) 5.0 [pH] Normal 5.0, 5.5, 6.0, 6.5, 7.0, 7.5, 8.0 [facility] Comment on above: Performed By: #### 2 435-8 #### ADEN SANON ([id number]) [facility] ([facility]) [address] [place] [address] 05638 Protein (U) [Mass/Vol] Negative Normal NEGATIVE [facility] Comment on above: Performed By: #### 2 435-8 #### ADEN SANON ([id number]) [facility] ([facility]) [address] [place] [address] 00518 RBC (U) [#/Vol] SMALL (1+) Abnormal NEGATIVE [facility] Comment on above: Performed By: #### 2 435-8 #### ADEN SANON ([id number]) [facility] ([facility]) [address] [place] [address] 52221 Specific gravity (U) [Rel density] 1.019 Normal 1.005-1.035 [facility] Comment on above: Performed By: #### 2 435-8 #### ADEN SANON ([id number]) [facility] ([facility]) [address] [place] [address] 67126 Urobilinogen (U) [Mass/Vol] mg/dL Normal <2.0 [facility] Comment on above: Performed By: #### 2 4356-8 #### ADNE SANON ([id number]) [facility] ([facility]) [address] [place] [address] Urinalysis microscopic panel Auto Ql (U)on 10-09-2023 Epithelial cells.squamous Auto (Urine sed) [#/Area] 1-9 (SPARSE) Normal Reference range not established. [facility] Comment on above: Performed By: #### 5 3315-8 #### ADEN SANON ([id number]) [facility] ([facility]) [address] [place] [address] Mucus Auto (Urine sed) [#/Area] 1+ /LPF Normal Reference range not established. [facility] Comment on above: Performed By: #### 5 3315-8 #### ADEN SANON ([id number]) [facility] ([facility]) [address] [place] [address] RBC Auto (Urine sed) [#/Area] 1-2 Normal NONE, 1-2, 3-5 [facility] Comment on above: Performed By: #### 5 3315-8 #### ADEN SANON ([id number]) [facility] ([facility]) [address] [place] [address] WBC Auto (Urine sed) [#/Area] NONE Normal 1-5, NONE [facility] Comment on above: Performed By: #### 5 3315-8 #### ADEN SANON ([id number]) [facility] ([facility]) [address] [place] [address] CBC panel Auto (Bld)on 08-06 Erythrocyte distribution width (RBC) [Ratio] 12.5 % Normal 11.5-14.5 [facility] Comment on above: Performed By: #### 5 8410-2 #### ADEN SANON ([id number]) [facility] ([facility]) [address] [place] [address] Hematocrit (Bld) [Volume fraction] 44.3 % Normal 36.0-46.0 [facility] Comment on above: Performed By: #### 5 8410-2 #### ADEN SANON ([id number]) [facility] ([facility]) [address] [place] [address] 56715 Hemoglobin (Bld) [Mass/Vol] 14.4 g/dL Normal 12.0-16.0 [facility] Comment on above: Performed By: #### 5 8410-2 #### ADEN SANON ([id number]) [facility] ([facility]) [address] [place] [address] 72249 MCH (RBC) [Entitic mass] 31.0 pg Normal 26.0-34.0 [facility] Comment on above: Performed By: #### 5 8410-2 #### ADEN SANON ([id number]) [facility] ([facility]) [address] [place] [address] 07321 MCHC (RBC) [Mass/Vol] 32.5 g/dL Normal 32.0-36.0 [facility] Comment on above: Performed By: #### 5 8410-2 #### ADEN SANON ([id number]) [facility] ([facility]) [address] [place] [address] 59865 MCV (RBC) [Entitic vol] 96 fL Normal 80-100 [facility] Comment on above: Performed By: #### 5 8410-2 #### ADEN SANON ([id number]) [facility] ([facility]) [address] [place] [address] 49362 Nucleated RBC/100 WBC (Bld) [Ratio] 0.0 /100 WBCs Normal 0.0-0.0 [facility] Comment on above: Performed By: #### 5 8410-2 #### ADEN SANON ([id number]) [facility] ([facility]) [address] [place] [address] 51262 Platelet mean volume (Bld) [Entitic vol] 11.2 fL Normal 7.5-11.5 [facility] Comment on above: Performed By: #### 5 8410-2 #### ADEN SANON ([id number]) [facility] ([facility]) [address] [place] [address] 57988 Platelets (Bld) [#/Vol] 245 x10*3/uL Normal 150-450 [facility] Comment on above: Performed By: #### 5 8410-2 #### ADEN SANON ([id number]) [facility] ([facility]) [address] [place] [address] 81951 RBC (Bld) [#/Vol] 4.64 x10*6/uL Normal 4.00-5.20 [facility] Comment on above: Performed By: #### 5 8410-2 #### ADEN SANON ([id number]) [facility] ([facility]) [address] [place] [address] 62998 WBC (Bld) [#/Vol] 7.2 x10*3/uL Normal 4.4-11.3 [facility] Comment on above: Performed By: #### 5 8410-2 #### ADEN SANON ([id number]) [facility] ([facility]) [address] [place] [address] 45689 Triacylglycerol lipaseon Lipase [Catalytic activity/Vol] 22 U/L Normal 9-82 [facility] Comment on above: Order Comment: Venip uncture immediately after or during the administration of Metamizole may lead to falsely low results. Testing should be performed immediately prior to Metamizole dosing. Performed By: #### 3 040-3 #### ADEN SANON ([id number]) [facility] ([facility]) [address] [place] [address] 97987 Urinalysis complete panel (U )on 08-06-2023 Appearance (U) Clear Normal Clear [facility] Comment on above: Performed By: #### 2 4356-8 #### ADEN SANON ([id number]) [facility] ([facility]) [address] [place] [address] 06214 Bilirubin (U) [Mass/Vol] Negative Normal NEGATIVE [facility] Comment on above: Performed By: #### 2 4356-8 #### ADEN SANON ([id number]) [facility] ([facility]) [address] [place] [address] 36495 Color (U) Yellow Normal Straw, Yellow [facility] Comment on above: Performed By: #### 2 4356-8 #### ADEN SANON ([id number]) [facility] ([facility]) [address] [place] [address] 05920 Glucose Auto test strip (U) [Mass/Vol] Negative Normal NEGATIVE [facility] Comment on above: Performed By: #### 2 4356-8 #### ADEN SANON ([id number]) [facility] ([facility]) [address] [place] [address] 05189 Ketones (U) [Mass/Vol] Negative Normal NEGATIVE [facility] above: Performed By: #### 2 4356-8 #### ADEN SANON ([id number]) [facility] ([facility]) [address] [place] [address] 06652 Leukocyte esterase Auto test strip Ql (U) Negative Normal NEGATIVE [facility] Comment on above: Performed By: #### 2 4356-8 #### ADEN SANON ([id number]) [facility] ([facility]) [address] [place] [address] 28062 Nitrite Auto test strip Ql (U) Negative Normal NEGATIVE [facility] Comment on above: Performed By: #### 2 4356-8 #### ADEN SANON ([id number]) [facility] ([facility]) [address] [place] [address] 57293 pH (U) 6.0 [pH] Normal 5.0, 5.5, 6.0, 6.5, 7.0, 7.5, 8.0 [facility] Comment on above: Performed By: #### 2 4356-8 #### ADEN SANON ([id number]) [facility] ([facility]) [address] [place] [address] 26059 Protein (U) [Mass/Vol] Negative Normal NEGATIVE [facility] Comment on above: Performed By: #### 2 4356-8 #### ADEN SANON ([id number]) [facility] ([facility]) [address] [place] [address] 43832 RBC (U) [#/Vol] SMALL (1+) Abnormal NEGATIVE [facility] Comment on above: Performed By: #### 2 4356-8 #### ADEN SANON ([id number]) [facility] ([facility]) [address] [place] [address] Specific gravity (U) [Rel density] 1.010 Normal 1.005-1.035 [facility] Comment on above: Performed By: #### 2 4356-8 #### ADEN SANON ([id number]) [facility] ([facility]) [address] [place] [address] Urobilinogen (U) [Mass/Vol] mg/dL Normal <2.0 [facility] Comment on above: Performed By: #### 2 4356-8 #### ADEN SANON ([id number]) [facility] ([facility]) [address] [place], [place] [address] Urinalysis microscopic panel Auto Ql (U)on 08-06-2023 RBC Auto (Urine sed) [#/Area] 1-2 Normal NONE, 1-2, 3-5 [facility] Comment on above: Performed By: #### 5 3315-8 #### ADEN SANON ([id number]) [facility] ([facility]) [address] [place] [address] 82645 WBC Auto (Urine sed) [#/Area] 1-5 Normal 1-5, NONE [facility] Comment on above: Performed By: #### 5 3315-8 #### ADEN SANON ([id number]) [facility] ([facility]) [address] [place], [place] [address] XR ABDOMEN 1 VIEWon 08-06-20 XR ABDOMEN 1 VIEW Interpreted By: Pietro Vu, STUDY: XR ABDOMEN 1 VIEW; 08/06/2023 3:32 pm INDICATION: Signs/Symptoms:pain. COMPARISON: None. ACCESSION NUMBER(S): [id number] ORDERING CLINICIAN: GAMALIEL SWENSON FINDINGS: Nonobstructive bowel gas pattern. Limited evaluation of pneumoperitoneum on supine imaging, however no gross evidence of free air is noted. Moderate colonic stool. Tubal ligation clips. Visualized lungs are clear. Osseous structures demonstrate no acute bony changes. IMPRESSION: 1. Nonobstructive bowel gas pattern. Moderate colonic stool. Signed by: Pietro Vu 08/07/2023 7:31 PM Dictation workstation: [id number] [facility] BI MAMMO BILATERAL SCREENING TOMOSYNTHESISon 07-17-2023 BI MAMMO BILATERAL SCREENING TOMOSYNTHESIS Interpreted By: Mason Benjamin, STUDY: BI MAMMO BILATERAL SCREENING TOMOSYNTHESIS; 07/17/2023 9:17 am ACCESSION NUMBER(S): [id number] ORDERING CLINICIAN: RENNY BAKER INDICATION: Screening. COMPARISON: 12/28/2021, 08/19/2019 FINDINGS: 2D and tomosynthesis images were reviewed at 1 mm slice thickness. Density: There are areas of scattered fibroglandular tissue. A nodule in the upper lateral portion of the left breast shows more calcification, and contains a biopsy clip within it. This is consistent with a fibroadenoma with calcifications. A lobulated density, in the lateral upper portion of the right breast is probably an intramammary lymph node or fibroadenoma unchanged from 12/28/2021. No suspicious masses or calcifications are identified. IMPRESSION: No mammographic evidence of malignancy. No significant change from previous examinations. CAD was utilized. BI-RADS CATEGORY: BI-RADS Category: 2 Benign. Recommendation: Routine Screening Mammogram in 1 Year. Recommended Date: 1 Year. Laterality: Bilateral. For any future breast imaging appointments, please call [phone] ([phone]). MACRO: None Signed by: Mason Benjamin 07/17/2023 9:27 AM Dictation workstation: [id number] [facility] DBT Breast - bilateralon No mammographic evidence of malignancy. No significant change from previous examinations. CAD was utilized. BI-RADS CATEGORY: BI-RADS Category: 2 Benign. Recommendation: Routine Screening Mammogram in 1 Year. Recommended Date: 1 Year. Laterality: Bilateral. For any future breast imaging appointments, please call [phone] ([phone]). MACRO: None Signed by: Mason Benjamin 07/17/2023 9:27 AM Dictation workstation: [id number] MMODAL Interpreted By: Mason Benjamin, STUDY: BI MAMMO BILATERAL SCREENING TOMOSYNTHESIS; 07/17/2023 9:17 am ACCESSION NUMBER(S): [id number] ORDERING CLINICIAN: RENNY BAKER INDICATION: Screening. COMPARISON: 12/28/2021, 08/19/2019 FINDINGS: 2D and tomosynthesis images were reviewed at 1 mm slice thickness. Density: There are areas of scattered fibroglandular tissue. A nodule in the upper lateral portion of the left breast shows more calcification, and contains a biopsy clip within it. This is consistent with a fibroadenoma with calcifications. A lobulated density, in the lateral upper portion of the right breast is probably an intramammary lymph node or fibroadenoma unchanged from 12/28/2021. No suspicious masses or calcifications are identified. MMODAL Mason Benjamin MD - 07/17/2023 Interpreted By: Mason Benjamin, STUDY: BI MAMMO BILATERAL SCREENING TOMOSYNTHESIS; 07/17/2023 9:17 am ACCESSION NUMBER(S): [id number] ORDERING CLINICIAN: RENNY BAKER INDICATION: Screening. COMPARISON: 12/28/2021, 08/19/2019 FINDINGS: 2D and tomosynthesis images were reviewed at 1 mm slice thickness. Density: There are areas of scattered fibroglandular tissue. A nodule in the upper lateral portion of the left breast shows more calcification, and contains a biopsy clip within it. This is consistent with a fibroadenoma with calcifications. A lobulated density, in the lateral upper portion of the right breast is probably an intramammary lymph node or fibroadenoma unchanged from 12/28/2021. No suspicious masses or calcifications are identified. IMPRESSION: No mammographic evidence of malignancy. No significant change from previous examinations. CAD was utilized. BI-RADS CATEGORY: BI-RADS Category: 2 Benign. Recommendation: Routine Screening Mammogram in 1 Year. Recommended Date: 1 Year. Laterality: Bilateral. For any future breast imaging appointments, please call [phone] ([phone]). MACRO: None Signed by: Mason Benjamin 07/17/2023 9:27 AM Dictation workstation: [id number] [facility] Work Phone: Radiology Study observation (narrative) [facility] Work Phone: DBT Breast - bilateralOrdere d By: Mason Benjamin on 07-17-2023 [facility] Work Phone: BASIC METABOLIC PANELon 03-08 Anion gap [Moles/Vol] 9 mmol/L Low 10 - 20 [facility] Comment on above: Performed By: #### B MP #### [address] [address] Calcium [Mass/Vol] 10.2 mg/dL Normal 8.6 - 10.3 [facility] Comment on above: Performed By: #### B MP #### [address] [address] Chloride [Moles/Vol] 105 mmol/L Normal 98 - 107 [facility] Comment on above: Performed By: #### B MP #### [address] [address] Creatinine [Mass/Vol] 0.96 mg/dL Normal 0.50 - 1.05 [facility] Comment on above: Performed By: #### B MP #### [address] [address] GFR/1.73 sq M.predicted among non-blacks MDRD (S/P/Bld) [Vol rate/Area] 67 mL/min/{1.73_m2} Normal >90 [facility] Comment on above: Result Comment: CALC ULATIONS OF ESTIMATED GFR ARE PERFORMED USING THE 2020 CKD-EPI STUDY REFIT EQUATION WITHOUT THE RACE VARIABLE FOR THE IDMS-TRACEABLE CREATININE METHODS. https://jasn.asnjournals.org/content//ASN.62797 87978 Performed By: #### B MP #### [address] [address] Glucose [Mass/Vol] 97 mg/dL Normal 74 - 99 [facility] Comment on above: Performed By: #### B MP #### [address] [address] HCO3 (Bld) [Moles/Vol] 30 mmol/L Normal 21 - 32 [facility] Comment on above: Performed By: #### B MP #### [address] [address] Potassium [Moles/Vol] 3.8 mmol/L Normal 3.5 - 5.3 [facility] Comment on above: Performed By: #### B MP #### [address] [address] Sodium [Moles/Vol] 140 mmol/L Normal 136 - 145 [facility] Comment on above: Performed By: #### B MP #### [place] [id number] Urea nitrogen [Mass/Vol] 13 mg/dL Normal 6 - 23 [facility] Comment on above: Performed By: #### B MP #### [address] [address] CREATINE KINASEon 03-26-2023 CK [Catalytic activity/Vol] 85 U/L Normal 0 - 215 [facility] Comment on above: Performed By: #### C K #### [address] [address] Lab Specimen Source Normal [facility] Comment on above: Performed By: #### C K #### [address] [address] Performed By: #### B MP #### [address] [address] Creatine Kinase, Levelon CK [Catalytic activity/Vol] 85 U/L 0 - 215 [facility] Work Phone: Comment on above: SOURCE: Laboratory - Chemistry and C hemistry - challengeon 03-26-2023 Anion gap [Moles/Vol] 9 mmol/L below low threshold 10 - 20 [facility] Work Phone: Calcium [Mass/Vol] 10.2 mg/dL 8.6 - 10.3 [facility] Work Phone: Chloride [Moles/Vol] 105 mmol/L 98 - 107 [facility] Work Phone: CO2 [Moles/Vol] 30 mmol/L 21 - 32 [facility] Work Phone: Creatinine [Mass/Vol] 0.96 mg/dL See Below [facility] Work Phone: Comment on above: Reference Range: 0.5 0 - 1.05 Glucose [Mass/Vol] 97 mg/dL 74 - 99 [facility] Work Phone: Comment on above: SOURCE: Potassium [Moles/Vol] 3.8 mmol/L 3.5 - 5.3 [facility] Work Phone: Sodium [Moles/Vol] 140 mmol/L 136 - 145 [facility] Work Phone: Urea nitrogen [Mass/Vol] 13 mg/dL 6 - 23 [facility] Work Phone: No Panel Informationon 03-26 67 {mL/min/1.73m2} >90 [facility] Work Phone: Comment on above: CALCULATIONS OF GERALD MATED GFR ARE PERFORMED USING THE 2020 CKD-EPI STUDY REFIT EQUATION WITHOUT THE RACE VARIABLE FOR THE IDMS-TRACEABLE CREATININE METHODS.https://jasn.asnjournals.org/content//A SN.3635370267 Colonoscopyon 03-02-2023 Ernst Martinez DO - 04/02/2023 Patient Name: Wanda Haddad Procedure Date: 03/02/2023 12:29 PM Date of : 1960 Admit Type: Outpatient Site: [facility] 1 Ethnicity: Not or Race: White Attending MD: Ernst Martinez DO, [id number] Procedure: Colonoscopy Indications: Surveillance: Personal history of colonic polyps (unknown histology) on last colonoscopy more than 5 years ago Providers: Ernst Martinez DO (Doctor), Lisa Galloway RN (Nurse), Phylicia Sue, Cylinder Tester Referring: Renny Baker MD Medicines: Midazolam 6 mg IV, Meperidine 50 mg IV, Glucagon 2 mg IV Complications: No immediate complications. Procedure: Pre-Anesthesia Assessment: - Prior to the procedure, a History and Physical was performed, and patient medications and allergies were reviewed. The patient is competent. The risks and benefits of the procedure and the sedation options and risks were discussed with the patient. All questions were answered and informed consent was obtained. Patient identification and proposed procedure were verified by the physician in the pre-procedure area. Mental Status Examination: alert and oriented. Airway Examination: normal oropharyngeal airway and neck mobility. Respiratory Examination: clear to auscultation. CV Examination: normal. Prophylactic Antibiotics: The patient does not require prophylactic antibiotics. Prior Anticoagulants: The patient has taken no anticoagulant or antiplatelet agents. ASA Grade Assessment: II - A patient with mild systemic disease. After reviewing the risks and benefits, the patient was deemed in satisfactory condition to undergo the procedure. The anesthesia plan was to use moderate sedation / analgesia (conscious sedation). Immediately prior to administration of medications, the patient was re-assessed for adequacy to receive sedatives. The heart rate, respiratory rate, oxygen saturations, blood pressure, adequacy of pulmonary ventilation, and response to care were monitored throughout the procedure. The physical status of the patient was re-assessed after the procedure. After I obtained informed consent, the scope was passed under direct vision. Throughout the procedure, the patient's blood pressure, pulse, and oxygen saturations were monitored continuously. The pediatric colonoscope was introduced through the anus and advanced to the terminal ileum, with identification of the appendiceal orifice and IC valve. The colonoscopy was performed without difficulty. The patient tolerated the procedure well. The quality of the bowel preparation was excellent. The terminal ileum, ileocecal valve, appendiceal orifice, and rectum were photographed. Findings: The perianal and digital rectal examinations were normal. Pertinent negatives include normal sphincter tone and no palpable rectal lesions. The terminal ileum appeared normal. Multiple small and large-mouthed diverticula were found in the sigmoid colon and descending colon. The exam was otherwise without abnormality on direct and retroflexion views. Moderate Sedation: Moderate (conscious) sedation was administered by the nurse and supervised by the endoscopist. The following parameters were monitored: oxygen saturation, heart rate, blood pressure, and response to care. Total physician intraservice time was 21 minutes. Estimated Blood Loss: Estimated blood loss: none. Impression: - The examined portion of the ileum was normal. - Diverticulosis in the sigmoid colon and in the descending colon. - The examination was otherwise normal on direct and retroflexion views. - No specimens collected. Recommendation: - Patient has a contact number available for emergencies. The signs and symptoms of potential delayed complications were discussed with the patient. Return to normal activities tomorrow. Written discharge instructions were provided to the patient. - Resume previous diet. - Continue present medications. - Repeat colonoscopy in 5 years for screening purposes. Procedure Code(s): --- Professional --- G0105, Colorectal cancer screening; colonoscopy on individual at high risk G0500, Moderate sedation services provided by the same physician or other qualified health daycare assistant performing a gastrointestinal endoscopic service that sedation supports, requiring the presence of an independent trained observer to assist in the monitoring of the patient's level of consciousness and physiological status; initial 15 minutes of intra-service time; patient age 5 years or older (additional time may be reported with 51296, as appropriate) Diagnosis Code(s): --- Professional --- Z12.11, Encounter for screening for malignant neoplasm of colon Z86.010, Personal history of colonic polyps K57.30, Divert (more content not included)... [facility] Work Phone: Radiology Study observation (narrative) [facility] Work Phone: ColonoscopyOrdered By: Ernst Martinez on 03-02-2023 [facility] Work Phone: CHEST 2 VIEW PA AND LATon CHEST 2 VIEW PA AND LAT Patient Name: WANDA HADDAD STUDY: CHEST 2 VIEW PA AND LAT INDICATION: ant chest wall pain. COMPARISON: July 21, 2017 ACCESSION NUMBER(S): [id number] ORDERING CLINICIAN: RENNY BAKER FINDINGS: No consolidation, effusion, edema, or pneumothorax. Heart size within normal limits. IMPRESSION: No evidence of acute intrathoracic abnormality. Chest wall not evaluated in a diagnostic manner. No gross osseous abnormality seen on the limited evaluation provided. Electronically signed by: JUANIS SCHNEIDER MD Normal [facility] ECG 12 leadon 02-01-2023 Sinus bradycardia no acute stt changes [facility] Work Phone: [facility] Work Phone: CBCon 01-08-2023 Erythrocyte distribution width (RBC) [Ratio] 12.3 % Normal 11.5 - 14.5 [facility] Comment on above: Performed By: #### C BC #### [address] [address] Hematocrit (Bld) [Volume fraction] 45.9 % Normal 36.0 - 46.0 [facility] Comment on above: Performed By: #### C BC #### [address] [address] Hemoglobin (Bld) [Mass/Vol] 14.7 g/dL Normal 12.0 - 16.0 [facility] Comment on above: Performed By: #### C BC #### [address] [address] MCHC (RBC) [Mass/Vol] 32.0 g/dL Normal 32.0 - 36.0 [facility] Comment on above: Performed By: #### C BC #### [address] [address] MCV (RBC) [Entitic vol] 97 fL Normal 80 - 100 [facility] Comment on above: Performed By: #### C BC #### [address] [address] Platelets (Bld) [#/Vol] 231 10*3/uL Normal 150 - 450 [facility] Comment on above: Performed By: #### C BC #### [address] [address] RBC 4.74 x10E12/L Normal 4.00 - 5.20 [facility] Comment on above: Performed By: #### C BC #### [address] [address] WBC (Bld) [#/Vol] 6.9 10*3/uL Normal 4.4 - 11.3 [facility] Comment on above: Performed By: #### C BC #### [place] [address] Lab Specimen Source Normal [facility] Comment on above: Performed By: #### C BC #### [place] [address] Performed By: #### T HYDS #### [place] [address] Performed By: #### C MP #### [place] [address] COMPREHENSIVE PANELon 2022 Albumin [Mass/Vol] 4.3 g/dL Normal 3.4 - 5.0 [facility] Comment on above: Performed By: #### C MP #### [place] [address] ALP [Catalytic activity/Vol] 116 U/L Normal 33 - 136 [facility] Comment on above: Performed By: #### C MP #### [place] [address] ALT [Catalytic activity/Vol] 18 U/L Normal 7 - 45 [facility] Comment on above: Result Comment: Tracie ents treated with Sulfasalazine may generate falsely decreased results for ALT. Performed By: #### C MP #### [place] [address] Anion gap [Moles/Vol] 10 mmol/L Normal 10 - 20 [facility] Comment on above: Performed By: #### C MP #### [place] [id number] AST [Catalytic activity/Vol] 24 U/L Normal 9 - 39 [facility] Comment on above: Performed By: #### C MP #### [place] [id number] Bilirubin [Mass/Vol] 0.8 mg/dL Normal 0.0 - 1.2 [facility] Comment on above: Performed By: #### C MP #### [place] [address] Calcium [Mass/Vol] 9.9 mg/dL Normal 8.6 - 10.3 [facility] Comment on above: Performed By: #### C MP #### [address] [address] Chloride [Moles/Vol] 107 mmol/L Normal 98 - 107 [facility] Comment on above: Performed By: #### C MP #### [address] [address] Creatinine [Mass/Vol] 0.95 mg/dL Normal 0.50 - 1.05 [facility] Comment on above: Performed By: #### C MP #### [address] [address] GFR/1.73 sq M.predicted among non-blacks MDRD (S/P/Bld) [Vol rate/Area] 68 mL/min/{1.73_m2} Normal >90 [facility] Comment on above: Result Comment: CALC ULATIONS OF ESTIMATED GFR ARE PERFORMED USING THE 2020 CKD-EPI STUDY REFIT EQUATION WITHOUT THE RACE VARIABLE FOR THE IDMS-TRACEABLE CREATININE METHODS. https://jasn.asnjournals.org/content//ASN.33261 45628 Performed By: #### C MP #### [address] [address] Glucose [Mass/Vol] 86 mg/dL Normal 74 - 99 [facility] Comment on above: Performed By: #### C MP #### [address] [address] HCO3 (Bld) [Moles/Vol] 28 mmol/L Normal 21 - 32 [facility] Comment on above: Performed By: #### C MP #### [address] [address] Potassium [Moles/Vol] 4.1 mmol/L Normal 3.5 - 5.3 [facility] Comment on above: Performed By: #### C MP #### [address] [address] Protein [Mass/Vol] 7.4 g/dL Normal 6.4 - 8.2 [facility] Comment on above: Performed By: #### C MP #### [address] [address] Sodium [Moles/Vol] 141 mmol/L Normal 136 - 145 [facility] Comment on above: Performed By: #### C MP #### [address] [address] Urea nitrogen [Mass/Vol] 12 mg/dL Normal 6 - 23 [facility] Comment on above: Performed By: #### C MP #### [address] [address] Laboratory - Chemistry and C hemistry - challengeon 01-08-2023 Albumin BCP dye [Mass/Vol] 4.3 g/dL 3.4 - 5.0 [place] [address] Work Phone: ALP [Catalytic activity/Vol] 116 U/L 33 - 136 [place] [address] Work Phone: ALT With P-5'-P [Catalytic activity/Vol] 18 U/L 7 - 45 [place] [address] Work Phone: Comment on above: Patients treated wit h Sulfasalazine may generate falsely decreased results for ALT. Anion gap [Moles/Vol] 10 mmol/L 10 - 20 [place] [address] Work Phone: AST With P-5'-P [Catalytic activity/Vol] 24 U/L 9 - 39 [place] [address] Work Phone: Bilirubin [Mass/Vol] 0.8 mg/dL 0.0 - 1.2 [facility] [place] [address] Work Phone: Calcium [Mass/Vol] 9.9 mg/dL 8.6 - 10.3 [facility] [place] [address] Work Phone: Chloride [Moles/Vol] 107 mmol/L 98 - 107 [facility] [facility] Work Phone: CO2 [Moles/Vol] 28 mmol/L 21 - 32 [facility] 120 Work Phone: Creatinine [Mass/Vol] 0.95 mg/dL See Below [facility] 120 Work Phone: Comment on above: Reference Range: 0.5 0 - 1.05 Glucose [Mass/Vol] 86 mg/dL 74 - 99 [place] [address] Work Phone: Comment on above: SOURCE: Potassium [Moles/Vol] 4.1 mmol/L 3.5 - 5.3 [place] [address] Work Phone: Protein [Mass/Vol] 7.4 g/dL 6.4 - 8.2 [place] [address] Work Phone: Sodium [Moles/Vol] 141 mmol/L 136 - 145 [place] [address] Work Phone: TSH Qn 2.44 m[IU]/L See Below [place] [address] Work Phone: Comment on above: SOURCE: Reference Ra nge: 0.44 - 3.98 TSH testing is performed using different testing methodology at [facility] than at other [facility]. Direct result comparisons should only be made within the same method. Urea nitrogen [Mass/Vol] 12 mg/dL 6 - 23 [place] [address] Work Phone: Laboratory - Hematology and Cell countson 01-08-2023 Erythrocyte distribution width (RBC) [Ratio] 12.3 % See Below [facility] 120 Work Phone: Comment on above: Reference Range: 11. 5 - 14.5 Hematocrit (Bld) [Volume fraction] 45.9 % See Below [place] [address] Work Phone: Comment on above: Reference Range: 36. 0 - 46.0 Hemoglobin (Bld) [Mass/Vol] 14.7 g/dL See Below [place] [address] Work Phone: Comment on above: Reference Range: 12. 0 - 16.0 MCHC (RBC) [Mass/Vol] 32.0 g/dL See Below [place] [address] Work Phone: Comment on above: Reference Range: 32. 0 - 36.0 MCV (RBC) [Entitic vol] 97 fL 80 - 100 [place] [address] Work Phone: Platelets (Bld) [#/Vol] 231 10*3/uL 150 - 450 [place] [address] Work Phone: RBC (Bld) [#/Vol] 4.74 {x10E12/L} See Below [place] [address] Work Phone: Comment on above: Reference Range: 4.0 0 - 5.20 WBC (Bld) [#/Vol] 6.9 10*3/uL 4.4 - 11.3 -[employer] [place] [address] Work Phone: Comment on above: SOURCE: No Panel Informationon 01-08 68 {mL/min/1.73m2} >90 -[employer] [place] [address] Work Phone: Comment on above: CALCULATIONS OF GERALD MATED GFR ARE PERFORMED USING THE 2020 CKD-EPI STUDY REFIT EQUATION WITHOUT THE RACE VARIABLE FOR THE IDMS-TRACEABLE CREATININE METHODS.https://jasn.asnjournals.org/content//A SN.8664036616 TSH WITH REFLEX TO FREE T4 I F ABNORMALon 01-08-2023 TSH Qn 2.44 m[IU]/L Normal 0.44 - 3.98 [facility] Comment on above: Result Comment: TSH testing is performed using different testing methodology at [facility] than at other [facility]. Direct result comparisons should only be made within the same method. Performed By: #### T HYDS #### [place] [id number] [place] [address] ELBOW COMPLETE MIN. 3 VIEWSo n 12-14-2022 ELBOW COMPLETE MIN. 3 VIEWS Patient Name: WANDA HADDAD STUDY: Left elbow 4 views. INDICATION: pian, swelling at left elbow. COMPARISON: 02/20/2022. ACCESSION NUMBER(S): [id number] ORDERING CLINICIAN: CHRIS XIE FINDINGS: No acute fracture or malalignment. No elbow joint effusion or abnormal fat pad elevation. Mild olecranon soft tissue swelling. IMPRESSION: 1. Mild olecranon soft tissue swelling which may represent bursitis. 2. No acute fracture or malalignment. If there is concern for tendon or soft tissue injury, an MRI study may be obtained for additional evaluation. Electronically signed by: HE PAIGE MD Normal [facility] Radiologyon 12-14-2022 XR Elbow 3 Views Please click on the link to view the study images Normal [facility] Work Phone: XR Elbow 3 Views [facility] Work [facility] Follow-up visit Diagnoses/Problems Benign essential hypertension (401.1) (I10) Cyst on ear (706.2) (Q18.1) Heart palpitations (785.1) (R00.2) GERD (gastroesophageal reflux disease) (530.81) (K21.9) Orders Benign essential hypertension Follow-up visit in 6 months Outpatient Follow-up Status: Hold For - Scheduling Requested for: 10Jul2022 Cyst on ear Plastic Surgery Referral Evaluation and Treatment Evaluate AND Treat Status: Hold For - Scheduling Requested for: 10Jul2022 PMH: Benign essential hypertension Renew: Metoprolol Succinate ER 25 MG Oral Tablet Extended Release 24 Hour; take 1 tablet daily Chief Complaint 6 month mdck. History of Present Illness CP and htn had stress test was normal and has had 2 in [address] Cheney who ordered an echo only showed diastolic dysfunction. was seen 1 month ago and no longer needs to be seen PVC on metoprolol HTN edema wih amlodipine had efren inhibitor cough chlorthalidone had allergic reaction with swollen lips and hands doing well with aldactone GERD was ppi for a couple of years after eating turkey burger and then had n/v then had some dysphagia after vomitting cheese makes worse started pantoprazole and taken only 2 x and some itching dry skin no rash uses lotion sleep apnea mild no treatment needed high chol ASCVD risk calculator is low 2021 left ear has cyst that cmoes and goes last time was leaking Patient is up-to-date on her colonoscopy repeat in 2022 all other systems have been reviewed and are negative except as noted in the HPI 'Scores and Scales' PHQ-9 [id number] 09:17AM PHQ-9 Depression Severity PHQ-9 #1. Little interest or pleasure in doing things3-Nearly every day PHQ-9 #2. Feeling down, depressed, or hopelesS0-Not at all PHQ-9 #3. Trouble falling or staying asleep, or sleeping too much2-More than half the days PHQ-9 #4. Feeling tired or having little energy2-More than half the days PHQ-9 #5. Poor appetite or overeating2-More than half the days PHQ-9 #6. Feeling bad about yourself or you are a failure or that you have let yourself or your family down3-Nearly every day PHQ-9 #7. Trouble concentrating on things, such as reading the newspaper or watch television2-More than half the days PHQ-9 #8. Moving or speaking so slowly that other people could have noticed. Or the opposite-being so fidgety or restless that you have been moving around a lot more than usual1-Several days PHQ-9 #9. Thoughts that you would be better off , or of hurting yourself0-Not at all PHQ-9 #10. If you checked off any problems, how difficult have these problems made it for you to do your work, take care of things at home, or get along with other people?Somewhat Difficult PHQ-9 Total Score (Please update problem list based on total score)15- Moderately Severe Depression ALESSANDRA-7 [id number] ALESSANDRA-7 Total Score15 Feeling nervous, anxious or on edgeSeveral days - 1 Not being able to stop or control worryingNearly every day - 3 Worrying too much about different thingsNearly every day - 3 Trouble relaxingNearly every day - 3 Being so restless that it's hard to sit stillNot at all - 0 Becoming easily annoyed or irritableNearly every day - 3 Feeling afraid as if something awful might happenOver half the days - 2 Active Problems Adverse effects of medication (E947.9) (T50.905A) Benign essential hypertension (401.1) (I10) Breast nodule (793.89) (N63.0) Class 1 obesity with body mass index (BMI) of 30.0 to 30.9 in adult (278.00,V85.30) (E66.9,Z68.30) Diverticulitis of colon (562.11) (K57.32) DJD (degenerative joint disease) (715.90) (M19.90) Elevated alkaline phosphatase level (790.5) (R74.8) Encounter for screening mammogram for breast cancer (V76.12) (Z12.31) GERD (gastroesophageal reflux disease) (530.81) (K21.9) Heart palpitations (785.1) (R00.2) Iron deficiency anemia (280.9) (D50.9) Mild sleep apnea (780.57) (G47.30) Overweight with body mass index (BMI) of 29 to 29.9 in adult (278.02,V85.25) (E66.3,Z68.29) Pain of toe of left foot (729.5) (M79.675) Premature ventricular beat (427.69) (I49.3) Primary osteoarthritis of left shoulder (715.11) (M19.012) Screening for malignant neoplasm of breast (V76.10) (Z12.39) Subclinical hypothyroidism (244.8) (E03.8) Thrombophlebitis of superficial veins of left lower extremity (451.0) (I80.02) Past Medical History History of Benign essential hypertension (401.1) (I10) Resolved Date: 20 Sep 2021 History of COVID-19 virus infection (079.89) (U07.1) Resolved Date: 06 Sep 2021 History of Epigastric pain determined by examination (789.06) (R10.13) Resolved Date: 26 Nov 2019 History of anemia (V12.3) (Z86.2) History of bronchitis (V12.69) (Z87.09) History of hypertension (V12.59) (Z86.79) History of screening mammography (V15.89) (Z92.89) Resolved Date: 26 Nov 2019 History of Noninfectious colitis (558.9) (K52.9) Resolved Date: 26 Nov 2019 Hist (more content not included)... Normal [employer] Tobacco Screening.on 022 Tobacco use status CP b) No [facility] Work Phone: Office Visiton 03-16-2022 Follow-up visit Diagnoses/Problems Adverse effects of medication (E947.9) (T50.545V) Patient Discussion/Summary Return for skin testing for cephalosporin, penicillin and Bactrim. Be sure to be off all antihistamines at least 5 days prior to testing. By signing my name below, I, Danita Concepcion, attest that this documentation has been prepared under the direction and in the presence of Dr. Brittany Pink. All medical record entries made by the Melissaibmargarito were at my direction and personally dictated by me. I have reviewed the chart and agree that the record accurately reflects my personal performance of the history, physical exam, discussion and plan. Provider Impressions Multiple drug reactions - Stable. Per HPI. C/O infected left earlobe due to piercing and prescribed cephalexin and mupirocin, but caused red bumps and itching across her abdomen 4-6 hours after initial dose. She had similar Sx with rifampin. Return for skin testing for cephalosporin, penicillin and Bactrim. Be sure to be off all antihistamines at least 5 days prior to testing. Moderate risk of disease progression exists. Chief Complaint Followup visit for multiple drug allergies History of Present Illness SHE GOES BY [place] Since last visit, 11/26/2019, patient reports an infected left earlobe due to piercing, which is still symptomatic. He prescribed cephalexin and mupirocin, which caused red bumps and itching across her abdomen 4-6 hours after initial dose. She stopped it and switched to rifampin with developed similar Sx. With most antibiotics, she develops itching after 2 days and a painful, hot, sandpaper-like rash to bilateral arms, which resolves in a couple of days. Amlodipine caused swelling so she was switched to Lisinopril, which caused coughing. She subsequently stopped it and takes spironolactone. She developed SOB after having penicillin as a teen. She has multiple allergy/intolerances to: Penicillin in late 30s-40s, unsure date, with trouble breathing. They gave her a shot, unsure what, during hospitalization for aphasia and SOB. She developed shaking after the shot. Cipro 9 years ago for diverticulitis. Flagyl, 1574-1184, prescribed by Dr. Baker for a UTI. She notes feeling like her insides were shaking after 4th dose. Macrobid on 11/17/2019 - she developed sores inside her mouth and red squares on her face, but she was on cranberry at the same time so unsure if the cranberries were contributing to her Sx. Contrast, unknown type Morphine - anaphylaxis Dulcolax - rash Sulfacetamide Sodium - rash Levaquin - unknown Clindamycin - urticaria Tetracycline - urticaria Bactrim - urticaria Ziac - itching Review of Systems See attached Review of Systems in HPI. Active Problems Benign essential hypertension (401.1) (I10) Breast nodule (793.89) (N63.0) Class 1 obesity with body mass index (BMI) of 30.0 to 30.9 in adult (278.00,V85.30) (E66.9,Z68.30) Diverticulitis of colon (562.11) (K57.32) DJD (degenerative joint disease) (715.90) (M19.90) Elevated alkaline phosphatase level (790.5) (R74.8) Encounter for screening mammogram for breast cancer (V76.12) (Z12.31) GERD (gastroesophageal reflux disease) (530.81) (K21.9) Heart palpitations (785.1) (R00.2) Infected pierced ear (872.9) (S01.339A,L08.9) Iron deficiency anemia (280.9) (D50.9) Mild sleep apnea (780.57) (G47.30) Overweight with body mass index (BMI) of 29 to 29.9 in adult (278.02,V85.25) (E66.3,Z68.29) Pain of toe of left foot (729.5) (M79.675) Premature ventricular beat (427.69) (I49.3) Primary osteoarthritis of left shoulder (715.11) (M19.012) Screening for malignant neoplasm of breast (V76.10) (Z12.39) Subclinical hypothyroidism (244.8) (E03.8) Thrombophlebitis of superficial veins of left lower extremity (451.0) (I80.02) Past Medical History History of Benign essential hypertension (401.1) (I10) Resolved Date: 20 Sep 2021 History of COVID-19 virus infection (079.89) (U07.1) Resolved Date: 06 Sep 2021 History of Epigastric pain determined by examination (789.06) (R10.13) Resolved Date: 26 Nov 2019 History of anemia (V12.3) (Z86.2) History of bronchitis (V12.69) (Z87.09) History of hypertension (V12.59) (Z86.79) History of screening mammography (V15.89) (Z92.89) Resolved Date: 26 Nov 2019 History of Noninfectious colitis (558.9) (K52.9) Resolved Date: 26 Nov 2019 History of Tachyarrhythmia (785.0) (R00.0) Surgical History History of Breast biopsy History of Colonoscopy 01/28/18 Dr. Martinez. To repeat 5 years History of Hysterectomy History of Tubal ligation Social History Does not have living will Feels safe at home Former smoker (V15.82) (Z87.891) No recent foreign travel Allergies Bactrim Hives;; Recorded By: Elly Collins; 04/29/2020 8:10:57 AM clindamycin Hives;; Recorded By: Elly Collins; 04/29/2020 8:10:57 AM morphine Anaphylaxis;; Recorded By: Elly Collins; 04/29/2020 8:10:57 AM Penicillins All (more content not included)... Normal [facility] Office Visit ([facility])on 02-14-2022 Follow-up visit Diagnoses/Problems Multiple drug allergies (V14.9) (Z88.9) Referral to Dr. Pink for testing. Infected pierced ear (872.9) (S01.339A,L08.9) Advised to continue warm compressess/sea salt soaks/ and to apply otc antibiotic ointment as tolerated. Follow up prn. Overweight with body mass index (BMI) of 29 to 29.9 in adult (278.02,V85.25) (E66.3,Z68.29) Orders Multiple drug allergies Allergy and Immunology Referral Evaluation and Treatment Evaluate AND Treat Status: Hold For - Scheduling Requested for: 14Feb2022 Chief Complaint pt here to have left ear lobe infection evaluated , pt still itching from reaction from antibiotic. History of Present Illness 61 YOF presents for follow up. INFECTED EAR LOBE: She presented on 02/03/22 with infected left ear lobe. I prescribed antibiotics, but she was unable to tolerate cephalexin or mupirocin due to hives. She has extensive allergies to antibiotics. I then prescribed rifampin and scheduled her for IANDD with cold freeze as she has tachycardic reaction to novacaine. 1 day before IANDD she called and endorsed that the ear lobe popped and began to drain on it's own. We canceled the IANDD. She has been applying warm compresses frequently along with sea salt soaks. Seeing her today she endorsed being unable to tolerate rifampin due to pruritus. Today the left ear lobe is pain free, still with erythema, does not look edematous, looks like it is healing well. ALLERGIES TO MEDICATIONS: She had been seen by preparation supervisor canning Brittany Pink, but was unable to finish testing due to COVID and cost. She would like another referral to resume testing for allergies to medications. Dr. Pink was thinking the cause of reactions to antibiotics might be due to binding agents within the preparations. 'Scores and Scales' PHQ-9 [id number] 09:17AM PHQ-9 Depression Severity PHQ-9 #1. Little interest or pleasure in doing things3-Nearly every day PHQ-9 #2. Feeling down, depressed, or hopelesS0-Not at all PHQ-9 #3. Trouble falling or staying asleep, or sleeping too much2-More than half the days PHQ-9 #4. Feeling tired or having little energy2-More than half the days PHQ-9 #5. Poor appetite or overeating2-More than half the days PHQ-9 #6. Feeling bad about yourself or you are a failure or that you have let yourself or your family down3-Nearly every day PHQ-9 #7. Trouble concentrating on things, such as reading the newspaper or watch television2-More than half the days PHQ-9 #8. Moving or speaking so slowly that other people could have noticed. Or the opposite-being so fidgety or restless that you have been moving around a lot more than usual1-Several days PHQ-9 #9. Thoughts that you would be better off , or of hurting yourself0-Not at all PHQ-9 #10. If you checked off any problems, how difficult have these problems made it for you to do your work, take care of things at home, or get along with other people?Somewhat Difficult PHQ-9 Total Score (Please update problem list based on total score)15- Moderately Severe Depression ALESSANDRA-7 [id number] ALESSANDRA-7 Total Score15 Feeling nervous, anxious or on edgeSeveral days - 1 Not being able to stop or control worryingNearly every day - 3 Worrying too much about different thingsNearly every day - 3 Trouble relaxingNearly every day - 3 Being so restless that it's hard to sit stillNot at all - 0 Becoming easily annoyed or irritableNearly every day - 3 Feeling afraid as if something awful might happenOver half the days - 2 Review of Systems Review of Systems: Constitutional: no fever, no unintentional weight change Eye: no recent visual problem Respiratory: no shortness of breath Cardiac: no chest pain GI: no reflux, no nausea, no vomiting, no diarrhea, no constipation, no heartburn, no abdominal pain Neurological: no headache Active Problems Benign essential hypertension (401.1) (I10) Breast nodule (793.89) (N63.0) Class 1 obesity with body mass index (BMI) of 30.0 to 30.9 in adult (278.00,V85.30) (E66.9,Z68.30) Diverticulitis of colon (562.11) (K57.32) DJD (degenerative joint disease) (715.90) (M19.90) Elevated alkaline phosphatase level (790.5) (R74.8) Encounter for screening mammogram for breast cancer (V76.12) (Z12.31) GERD (gastroesophageal reflux disease) (530.81) (K21.9) Heart palpitations (785.1) (R00.2) Infected pierced ear (872.9) (S01.339A,L08.9) Iron deficiency anemia (280.9) (D50.9) Mild sleep apnea (780.57) (G47.30) Overweight with body mass index (BMI) of 29 to 29.9 in adult (278.02,V85.25) (E66.3,Z68.29) Pain of toe of left foot (729.5) (M79.675) Premature ventricular beat (427.69) (I49.3) Primary osteoarthritis of left shoulder (715.11) (M19.012) Screening for malignant neoplasm of breast (V76.10) (Z12.39) Subclinical hypothyroidism (244.8) (E03.8) Thrombophlebitis of superficial veins of left lower extremity (451.0) (I80.02) Past Medical History History of Benign essential hypertension (40 (more content not included)... Normal Touchworks Tobacco Screening.on 022 Tobacco use status [facility] b) No -[facility] Work Phone: Office Visit ([facility] Yuan pimentel)on 02-06-2022 Follow-up visit Diagnoses/Problems Infected pierced ear (872.9) (S01.339A,L08.9) Rifampin sent. Due to her extensive list of allergies to antibiotics and local anesthetic, will refer to general surgery for evaluation. Follow up prn. Overweight with body mass index (BMI) of 29 to 29.9 in adult (278.02,V85.25) (E66.3,Z68.29) Orders Infected pierced ear Start: rifAMPin 300 MG Oral Capsule; TAKE 2 CAPSULES DAILY General Surgery Referral Evaluation and Treatment Evaluate AND Treat Status: Hold For - Scheduling Requested for: [id number] Chief Complaint pt here for f/u to left ear lobe infection , she was unable to tolerate the antibiotic. History of Present Illness 61 YOF presents for follow up. INFECTED EAR LOBE: She was unable to tolerate cephalexin or mupirocin due to hives. Currently still infectious looking, pain has reduced. She endorses applying warm compresses frequently. She endorses history tachycardic reaction to novocaine. 'Scores and Scales' PHQ-9 [id number] 09:17AM PHQ-9 Depression Severity PHQ-9 #1. Little interest or pleasure in doing things3-Nearly every day PHQ-9 #2. Feeling down, depressed, or hopelesS0-Not at all PHQ-9 #3. Trouble falling or staying asleep, or sleeping too much2-More than half the days PHQ-9 #4. Feeling tired or having little energy2-More than half the days PHQ-9 #5. Poor appetite or overeating2-More than half the days PHQ-9 #6. Feeling bad about yourself or you are a failure or that you have let yourself or your family down3-Nearly every day PHQ-9 #7. Trouble concentrating on things, such as reading the newspaper or watch television2-More than half the days PHQ-9 #8. Moving or speaking so slowly that other people could have noticed. Or the opposite-being so fidgety or restless that you have been moving around a lot more than usual1-Several days PHQ-9 #9. Thoughts that you would be better off , or of hurting yourself0-Not at all PHQ-9 #10. If you checked off any problems, how difficult have these problems made it for you to do your work, take care of things at home, or get along with other people?Somewhat Difficult PHQ-9 Total Score (Please update problem list based on total score)15- Moderately Severe Depression ALESSANDRA-7 [id number] ALESSANDRA-7 Total Score15 Feeling nervous, anxious or on edgeSeveral days - 1 Not being able to stop or control worryingNearly every day - 3 Worrying too much about different thingsNearly every day - 3 Trouble relaxingNearly every day - 3 Being so restless that it's hard to sit stillNot at all - 0 Becoming easily annoyed or irritableNearly every day - 3 Feeling afraid as if something awful might happenOver half the days - 2 Review of Systems Review of Systems: Constitutional: no fever, no unintentional weight change Eye: no recent visual problem Respiratory: no shortness of breath Cardiac: no chest pain GI: no reflux, no nausea, no vomiting, no diarrhea, no constipation, no heartburn, no abdominal pain Neurological: no headache Active Problems Benign essential hypertension (401.1) (I10) Breast nodule (793.89) (N63.0) Class 1 obesity with body mass index (BMI) of 30.0 to 30.9 in adult (278.00,V85.30) (E66.9,Z68.30) Diverticulitis of colon (562.11) (K57.32) DJD (degenerative joint disease) (715.90) (M19.90) Elevated alkaline phosphatase level (790.5) (R74.8) Encounter for screening mammogram for breast cancer (V76.12) (Z12.31) GERD (gastroesophageal reflux disease) (530.81) (K21.9) Heart palpitations (785.1) (R00.2) Infected pierced ear (872.9) (S01.339A,L08.9) Iron deficiency anemia (280.9) (D50.9) Mild sleep apnea (780.57) (G47.30) Overweight with body mass index (BMI) of 29 to 29.9 in adult (278.02,V85.25) (E66.3,Z68.29) Pain of toe of left foot (729.5) (M79.675) Premature ventricular beat (427.69) (I49.3) Primary osteoarthritis of left shoulder (715.11) (M19.012) Screening for malignant neoplasm of breast (V76.10) (Z12.39) Subclinical hypothyroidism (244.8) (E03.8) Thrombophlebitis of superficial veins of left lower extremity (451.0) (I80.02) Past Medical History History of Benign essential hypertension (401.1) (I10) Resolved Date: 20 Sep 2021 History of COVID-19 virus infection (079.89) (U07.1) Resolved Date: 06 Sep 2021 History of Epigastric pain determined by examination (789.06) (R10.13) Resolved Date: 26 Nov 2019 History of anemia (V12.3) (Z86.2) History of bronchitis (V12.69) (Z87.09) History of hypertension (V12.59) (Z86.79) History of screening mammography (V15.89) (Z92.89) Resolved Date: 26 Nov 2019 History of Noninfectious colitis (558.9) (K52.9) Resolved Date: 26 Nov 2019 History of Tachyarrhythmia (785.0) (R00.0) Surgical History History of Breast biopsy History of Colonoscopy 01/28/18 Dr. Martinez. To repeat 5 years History of Hysterectomy History of Tubal ligation Family History Family history of atrial fibrillation (V17.49) (Z82.49) Family history of diabete (more content not included)... Normal Respirics Tobacco Screening.on 022 Tobacco use status [facility] b) No -[facility] Work [facility] Follow-up visit Diagnoses/Problems Infected pierced ear (872.9) (S01.339A,L08.9) Cephalexin 500mg QID x10 days, history of allergy to almost every antibiotic including penicillin allergy, she is strongly advised to stop taking cephalexin at first sign of reaction and take antihistamine. Mupirocin ointment apply TID Advised warm compresses Follow up 3 days, if not improving may have to nadia Overweight with body mass index (BMI) of 29 to 29.9 in adult (278.02,V85.25) (E66.3,Z68.29) Orders Infected pierced ear Start: Cephalexin 500 MG Oral Capsule; TAKE 1 CAPSULE 4 TIMES DAILY UNTIL GONE Follow-up visit in 1 week Outpatient Follow-up Status: Hold For - Scheduling Requested for: 03Feb2022 Start: Mupirocin 2 % External Ointment; APPLY A SMALL AMOUNT 3 TIMES DAILY DIRECTED Chief Complaint pt c/o sore on left ear lobe x 3 days. History of Present Illness 61 YOF presents for acute visit. Presents for sore on left ear lobe x3 days. Erythematous, if you touch it is 8/10 pain, not pruritic, edematous, no warmth. Has tried hot water compress once with minimal relief, no other medication trials. Was here 4 days ago for suspected gout, has prescription for prednisone but has not started it yet. 'Scores and Scales' PHQ-9 [id number] 09:17AM PHQ-9 Depression Severity PHQ-9 #1. Little interest or pleasure in doing things3-Nearly every day PHQ-9 #2. Feeling down, depressed, or hopelesS0-Not at all PHQ-9 #3. Trouble falling or staying asleep, or sleeping too much2-More than half the days PHQ-9 #4. Feeling tired or having little energy2-More than half the days PHQ-9 #5. Poor appetite or overeating2-More than half the days PHQ-9 #6. Feeling bad about yourself or you are a failure or that you have let yourself or your family down3-Nearly every day PHQ-9 #7. Trouble concentrating on things, such as reading the newspaper or watch television2-More than half the days PHQ-9 #8. Moving or speaking so slowly that other people could have noticed. Or the opposite-being so fidgety or restless that you have been moving around a lot more than usual1-Several days PHQ-9 #9. Thoughts that you would be better off , or of hurting yourself0-Not at all PHQ-9 #10. If you checked off any problems, how difficult have these problems made it for you to do your work, take care of things at home, or get along with other people?Somewhat Difficult PHQ-9 Total Score (Please update problem list based on total score)15- Moderately Severe Depression ALESSANDRA-7 [id number] ALESSANDRA-7 Total Score15 Feeling nervous, anxious or on edgeSeveral days - 1 Not being able to stop or control worryingNearly every day - 3 Worrying too much about different thingsNearly every day - 3 Trouble relaxingNearly every day - 3 Being so restless that it's hard to sit stillNot at all - 0 Becoming easily annoyed or irritableNearly every day - 3 Feeling afraid as if something awful might happenOver half the days - 2 Review of Systems Review of Systems: Constitutional: no fever, no unintentional weight change Eye: no recent visual problem Respiratory: no shortness of breath Cardiac: no chest pain GI: no reflux, no nausea, no vomiting, no diarrhea, no constipation, no heartburn, no abdominal pain Neurological: no headache Active Problems Benign essential hypertension (401.1) (I10) Breast nodule (793.89) (N63.0) Class 1 obesity with body mass index (BMI) of 30.0 to 30.9 in adult (278.00,V85.30) (E66.9,Z68.30) Diverticulitis of colon (562.11) (K57.32) DJD (degenerative joint disease) (715.90) (M19.90) Elevated alkaline phosphatase level (790.5) (R74.8) Encounter for screening mammogram for breast cancer (V76.12) (Z12.31) GERD (gastroesophageal reflux disease) (530.81) (K21.9) Heart palpitations (785.1) (R00.2) Iron deficiency anemia (280.9) (D50.9) Mild sleep apnea (780.57) (G47.30) Pain of toe of left foot (729.5) (M79.675) Premature ventricular beat (427.69) (I49.3) Primary osteoarthritis of left shoulder (715.11) (M19.012) Screening for malignant neoplasm of breast (V76.10) (Z12.39) Subclinical hypothyroidism (244.8) (E03.8) Thrombophlebitis of superficial veins of left lower extremity (451.0) (I80.02) Past Medical History History of Benign essential hypertension (401.1) (I10) Resolved Date: 20 Sep 2021 History of COVID-19 virus infection (079.89) (U07.1) Resolved Date: 06 Sep 2021 History of Epigastric pain determined by examination (789.06) (R10.13) Resolved Date: 26 Nov 2019 History of anemia (V12.3) (Z86.2) History of bronchitis (V12.69) (Z87.09) History of hypertension (V12.59) (Z86.79) History of screening mammography (V15.89) (Z92.89) Resolved Date: 26 Nov 2019 History of Noninfectious colitis (558.9) (K52.9) Resolved Date: 26 Nov 2019 History of Tachyarrhythmia (785.0) (R00.0) Surgical History History of Breast biopsy History of Colonoscopy 01/28/18 Dr. Martinez. To repeat 5 years History of Hysterectomy Hi (more content not included)... Normal Touchworks Tobacco Screening.on 022 Tobacco use status [facility] b) No -[facility] Work Phone: CBC AND DIFFERENTIALon 01-30 Basophils (Bld) [#/Vol] 0.00 10*3/uL Normal 0.00 - 0.10 [facility] Comment on above: Performed By: #### C BCDF #### [address] [address] Basophils/100 WBC (Bld) 0.7 % Normal 0.0 - 2.0 [facility] Comment on above: Performed By: #### C BCDF #### [address] [address] Eosinophils (Bld) [#/Vol] 0.10 10*3/uL Normal 0.00 - 0.70 [facility] Comment on above: Performed By: #### C BCDF #### [address] [address] Eosinophils/100 WBC (Bld) 2.5 % Normal 0.0 - 6.0 [facility] Comment on above: Performed By: #### C BCDF #### [address] [address] Erythrocyte distribution width (RBC) [Ratio] 13.3 % Normal 11.5 - 14.5 [facility] Comment on above: Performed By: #### C BCDF #### [address] [address] Hematocrit (Bld) [Volume fraction] 43.7 % Normal 36.0 - 46.0 [facility] Comment on above: Performed By: #### C BCDF #### [address] [address] Hemoglobin (Bld) [Mass/Vol] 14.8 g/dL Normal 12.0 - 16.0 [facility] Comment on above: Performed By: #### C BCDF #### [address] [address] Lymphocytes (Bld) [#/Vol] 1.70 10*3/uL Normal 1.20 - 4.80 [facility] Comment on above: Performed By: #### C BCDF #### [address] [address] Lymphocytes/100 WBC (Bld) 37.5 % Normal 13.0 - 44.0 [facility] Comment on above: Performed By: #### C BCDF #### [address] [address] MCHC (RBC) [Mass/Vol] 33.8 g/dL Normal 32.0 - 36.0 [facility] Comment on above: Performed By: #### C BCDF #### [address] [address] MCV (RBC) [Entitic vol] 93 fL Normal 80 - 100 [facility] Comment on above: Performed By: #### C BCDF #### [address] [address] Monocytes (Bld) [#/Vol] 0.40 10*3/uL Normal 0.10 - 1.00 [facility] Comment on above: Performed By: #### C BCDF #### [address] [address] Monocytes/100 WBC (Bld) 9.7 % Normal 2.0 - 10.0 [facility] Comment on above: Performed By: #### C BCDF #### [address] [address] Neutrophils (Bld) [#/Vol] 2.30 10*3/uL Normal 1.20 - 7.70 [facility] Comment on above: Result Comment: Perc ent differential counts (%) should be interpreted in the context of the absolute cell counts (cells/L). Performed By: #### C BCDF #### [address] [address] Neutrophils/100 WBC (Bld) 49.6 % Normal 40.0 - 80.0 [facility] Comment on above: Performed By: #### C BCDF #### [address] [address] NUCLEATED RBC 0.2 /100 WBC Normal [facility] Comment on above: Performed By: #### C BCDF #### [address] [address] Platelets (Bld) [#/Vol] 208 10*3/uL Normal 150 - 450 [facility] Comment on above: Performed By: #### C BCDF #### [address] [address] RBC 4.70 x10E12/L Normal 4.00 - 5.20 [facility] Comment on above: Performed By: #### C BCDF #### [address] [address] WBC (Bld) [#/Vol] 4.5 10*3/uL Normal 4.4 - 11.3 [facility] Comment on above: Performed By: #### C BCDF #### [address] [address] Complete Blood Count + Diffe taetialon 01-30-2022 Basophils/100 WBC (Bld) 0.7 % 0.0 - 2.0 [facility] Work Phone: Erythrocyte distribution width (RBC) [Ratio] 13.3 % See Below [facility] Work Phone: Comment on above: Reference Range: 11. 5 - 14.5 Hematocrit (Bld) [Volume fraction] 43.7 % See Below [facility] Work Phone: Comment on above: Reference Range: 36. 0 - 46.0 Hemoglobin (Bld) [Mass/Vol] 14.8 g/dL See Below [facility] Work Phone: Comment on above: Reference Range: 12. 0 - 16.0 Lymphocytes/100 WBC (Bld) 37.5 % See Below [facility] Work Phone: Comment on above: Reference Range: 13. 0 - 44.0 MCHC (RBC) [Mass/Vol] 33.8 g/dL See Below [facility] Work Phone: Comment on above: Reference Range: 32. 0 - 36.0 MCV (RBC) [Entitic vol] 93 fL 80 - 100 [facility] Work Phone: Monocytes/100 WBC (Bld) 9.7 % 2.0 - 10.0 [facility] Work Phone: Neutrophils/100 WBC (Bld) 49.6 % See Below [facility] Work Phone: Comment on above: Reference Range: 40. 0 - 80.0 Platelets (Bld) [#/Vol] 208 10*3/uL 150 - 450 [facility] Work Phone: RBC (Bld) [#/Vol] 4.70 {x10E12/L} See Below [facility] Work Phone: Comment on above: Reference Range: 4.0 0 - 5.20 WBC (Bld) [#/Vol] 4.5 10*3/uL 4.4 - 11.3 [facility] Work Phone: Complete Blood Count + Differential 0.00 {x10E9/L} See Below [facility] Work Phone: Comment on above: Reference Range: 0.0 0 - 0.10 Complete Blood Count + Differential 0.10 {x10E9/L} See Below [facility] Work Phone: Comment on above: Reference Range: 0.0 0 - 0.70 Complete Blood Count + Differential 0.40 {x10E9/L} See Below [facility] Work Phone: Comment on above: Reference Range: 0.1 0 - 1.00 Complete Blood Count + Differential 1.70 {x10E9/L} See Below [facility] Work Phone: Comment on above: Reference Range: 1.2 0 - 4.80 Complete Blood Count + Differential 2.30 {x10E9/L} See Below [facility] Work Phone: Comment on above: Reference Range: 1.2 0 - 7.70 Percent differential counts (%) should be interpreted in the context of the absolute cell counts (cells/L). Complete Blood Count + Differential 2.5 % 0.0 - 6.0 [facility] Work Phone: Complete Blood Count + Differential 0.2 {/100_WBC} [facility] Work Phone: Office Visit ([facility])on 01-30-2022 Follow-up visit Diagnoses/Problems Pain of toe of left foot (729.5) (M79.675) Orders GERD (gastroesophageal reflux disease) Xray Upper GI with KUB; Status:Canceled; Reason: Unspecified for Xray Upper GI with KUB SCHEDULED FOR... MARCH 09 2021 @ 9:00 Radiologist to Determine Optimal Study : Y What are the patient's signs and symptoms? : gerd Heart palpitations, PMH: History of irregular heartbeat Holter Monitor 3-14 Days; Status:Canceled; Mild sleep apnea Positive Airway Pressure (PAP) Therapy; Status:Canceled; Staff Performing Instructions (new machine setup only) : Please fax patient's demographics, current insurance information, recent testing (home sleep apnea test, in-lab sleep study, or oximetry test), and signed clinic note summary along with this order to the corresponding DME company. Additional Instructions to DME : Please enroll patient's name in [employer] or [employer] if applicable. Performing Instructions to DME Supplier : For new machine setup or recent adjustment of current PAP settings, please fax 30-day PAP adherence download data to the office. Heated PAP tubing (A4604), non-heated PAP tubing (A7037) - 1 per 6 months : Yes Water chamber (A7046), Non-disposable filters (A7039) (if applicable) - 1 per 6 months : Yes Headgear used with PAP mask (A7035), Chin Strap (A7036) - 1 per 6 months : Yes Full face cushions (A7031) - 1 per month : Yes Nasal cushions (A7032), nasal pillows (A7033), disposable filters (A7038) - 2 per month : Yes Nasal mask (A7034), Pillow mask (A7034), Full face mask (A7030) - 1 per 3 months : Yes New PAP supplies: Order / Replace as needed, whichever is applicable, as per insurance schedule : Yes Additional Information : low profile dreamwear nasal mask. Mask Type (selection required with new machine setup order) : Other Heated Humidification (E0562) (applies only if PAP device is ordered) : Yes Pressure range in cm H2O : 5-15 AutoCPAP (E0601) : Yes Order Type : New pie maker machine, new PAP supplies, and PAP education Length of Need : 99 months Adult Sleep Medicine Referral Evaluation and Treatment Evaluate AND Treat, [facility] Status: Canceled Pain of toe of left foot Start: predniSONE 10 MG (21) Oral Tablet Therapy Pack; take 5 tablets on day 1, then 4 tabs day 2, 3 tabs day 3, 2 tavs day 4, and 1 tablet daily until gone Complete Blood Count + Differential; Status:Active; Requested for:[id number]; Uric Acid, Serum; Status:Active; Requested for:[id number]; Xray Foot 2 View; Status:Hold For - Scheduling; Requested for:[id number]; Laterality : Left Radiologist to Determine Optimal Study : Y What are the patient's signs and symptoms? : pain to 4th toe left foot, acute started about 10-14 days ago PMH: COVID-19 virus infection Follow-up PRN Outpatient [facility] is scheduled with Dr. Baker in August. Status: Canceled Provider Impressions Pain left 4th toe: Possibly gout, will check uric acid and CBC, obtain foot xray, start on prednisone dose pack. Education provided on uric acid and gout diet, encouraged to stop drinking Pepsi. Patient to return if symptoms persist or worsen. Chief Complaint Toe pain on the left foot x 2 weeks - no trauma to her knowledge. Adult Risk Screening Pain Scale: On a scale of 0 to 10, the patient rates the pain at 10. Please identify location of pain: left great toe. Pain Quality: sharp. The pain makes it hard for the patient to do these things: walking and touching . History of Present Illness Wanda is a 61 yo female here with complaints of pain to 4th toe left foot. Pain started about 10-14 days ago. Patient states she initially thought it was her shoes ad tried wearing other shoes, pain worsened, she has tried soaking the toe in hot water with mild relief. Pain is worse when the toe is touched or any pressure applied. Patient states she noticed a few days ago it is now red, no warmness reported. Did not try any OTC medications. Denies any injury or wound to toe. 'Scores and Scales' PHQ-9 [id number] 09:17AM PHQ-9 Depression Severity PHQ-9 #1. Little interest or pleasure in doing things3-Nearly every day PHQ-9 #2. Feeling down, depressed, or hopelesS0-Not at all PHQ-9 #3. Trouble falling or staying asleep, or sleeping too much2-More than half the days PHQ-9 #4. Feeling tired or having little energy2-More than half the days PHQ-9 #5. Poor appetite or overeating2-More than half the days PHQ-9 #6. Feeling bad about yourself or you are a failure or that you have let yourself or your family down3-Nearly every day PHQ-9 #7. Trouble concentrating on things, such as reading the newspaper or watch television2-More than half the days PHQ-9 #8. Moving or speaking so slowly that other people could have noticed. Or the opposite-being so fidgety or restless that you have been moving around a lot more than usual1-Several days PHQ-9 #9. Thoughts that you would be james (more content not included)... Normal [facility] Radiologyon 01-30-2022 XR Foot 3 Views Normal [facility] Work Phone: Tobacco Screening.on 022 Fall risk assessment a) No falls within the last year [facility] Work Phone: Tobacco use status CP b) No -[facility] Work Phone: URIC ACIDon 01-30-2022 Urate [Mass/Vol] 6.3 mg/dL Normal 2.3 - 6.7 [facility] Comment on above: Result Comment: Jessica puncture immediately after or during the administration of Metamizole may lead to falsely low results. Testing should be performed immediately prior to Metamizole dosing. Performed By: #### U ANI #### [facility] [address] [place] [address] Uric Acid, Serumon Urate [Mass/Vol] 6.3 mg/dL 2.3 - 6.7 [facility] Work Phone: Comment on above: Venipuncture immedia tely after or during the administration of Metamizole may lead to falsely low results. Testing should be performed immediately prior to Metamizole dosing. Ultrasound Limited [place] 01-03-2022 MG Breast Screening Normal -As [facility] Work Phone: Mamm - Screening Mammogram w / Tomosynthesison 12-28-2021 MG Breast Screening Normal -As [facility] Work Phone: Laboratory - Chemistry and C hemistry - challengeon 12-21-2021 Cholesterol [Mass/Vol] 223 mg/dL [facility] Work Phone: No Panel Informationon 12-21 More than 5 years ago [facility] Work Phone: Former [facility] Work Phone: False -[facility] Work Phone: True -[facility] Work Phone: 129 mg/dL [facility] Work Phone: 55.0 mg/dL [facility] Work Phone: 60 {years} [facility] Work Phone: N/A [facility] Work Phone: 3.72 % [facility] Work Phone: 3.8 % [facility] Work Phone: Borderline Risk [place] [facility] Work Phone: 2.08 % [facility] Work Phone: 5.07 % [facility] Work Phone: Comment on above: Age: 60Sex: FemaleRa ce: WhiteSystolic Blood Pressure: 138Diastolic Blood Pressure: 62Total Cholesterol: 223HDL Cholesterol: 55.0LDL Cholesterol: 129Diabetes: NoSmoker: FormerHow Long Ago Patient Quit Smoking: More than 5 years agoOn Hypertension Treatment: YesOn a Statin: NoOn Aspirin Therapy: NoRefine Current Risk Estimate Using Data from a Previous Visit: No 39 % [facility] Work Phone[facility] Follow-up visit Diagnoses/Problems Class 1 obesity with body mass index (BMI) of 30.0 to 30.9 in adult (278.00,V85.30) (E66.9,Z68.30) handout on wt loss diet and exercise given1 Benign essential hypertension (401.1) (I10) Subclinical hypothyroidism (244.8) (E03.8)1 GERD (gastroesophageal reflux disease) (530.81) (K21.9)1 1 Amended By: Renny Baker; Dec 21 2021 12:02 PM ESTOrders Benign essential hypertension Follow-up visit in 6 months Outpatient Follow-up Status: Hold For - Scheduling Requested for: 21Dec2021 Chief Complaint 3 month. History of Present Illness CP and htn had stress test was normal and has had 2 in [address] Cheney who ordered an echo only showed diastolic dysfunction. next appt is may no leg edema felt like passing out with ear pressure subocciptial and radiated over top of head x 3 times 2 weeks ago cervi ddd no pain only pressure no visual changes no n/v no palpitations HTN edema wih amlodipine had efren inhibitor cough chlorthalidone had allergic reaction with swollen lips and hands never started aldactone home bp fluctuate GERD no choking no dysphagia takes ppi 2 x per months inc HOB has helped intermittent abd pain no dysuira no kidney pain last bm last night normal still has gallbladder now normal today sleep apnea mild no treatment needed 1 1 high chol ASCVD risk calculator is low 2021 1 I have discussed with the patient their cardiovascular risk. I have recommended behavioral therapies of nutritional choices, exercise and elimination of habits contributing to risk. We agreed on a plan how they may be able to reduce their risk. For patients 40 to 70 with a risk of 20% who are not at risk of bleeding complications aspirin was recommended. For patients 40 to 75 with risk of 10%, diabetes or ckd statins were recommended. has started fiber and recommend low fat Patient is up-to-date on her colonoscopy repeat in 2022 Patient is due for mammogram she has had no changes on self breast exam. all other systems have been reviewed and are negative except as noted in the HPI 1 Amended By: Renny Baker; Dec 21 2021 12:03 PM EST'Scores and Scales' PHQ-9 [id number] 09:17AM PHQ-9 Depression Severity PHQ-9 #1. Little interest or pleasure in doing things3-Nearly every day PHQ-9 #2. Feeling down, depressed, or hopelesS0-Not at all PHQ-9 #3. Trouble falling or staying asleep, or sleeping too much2-More than half the days PHQ-9 #4. Feeling tired or having little energy2-More than half the days PHQ-9 #5. Poor appetite or overeating2-More than half the days PHQ-9 #6. Feeling bad about yourself or you are a failure or that you have let yourself or your family down3-Nearly every day PHQ-9 #7. Trouble concentrating on things, such as reading the newspaper or watch television2-More than half the days PHQ-9 #8. Moving or speaking so slowly that other people could have noticed. Or the opposite-being so fidgety or restless that you have been moving around a lot more than usual1-Several days PHQ-9 #9. Thoughts that you would be better off , or of hurting yourself0-Not at all PHQ-9 #10. If you checked off any problems, how difficult have these problems made it for you to do your work, take care of things at home, or get along with other people?Somewhat Difficult PHQ-9 Total Score (Please update problem list based on total score)15- Moderately Severe Depression ALESSANDRA-7 [id number] ALESSANDRA-7 Total Score15 Feeling nervous, anxious or on edgeSeveral days - 1 Not being able to stop or control worryingNearly every day - 3 Worrying too much about different thingsNearly every day - 3 Trouble relaxingNearly every day - 3 Being so restless that it's hard to sit stillNot at all - 0 Becoming easily annoyed or irritableNearly every day - 3 Feeling afraid as if something awful might happenOver half the days - 2 Active Problems Benign essential hypertension (401.1) (I10) Diverticulitis of colon (562.11) (K57.32) DJD (degenerative joint disease) (715.90) (M19.90) Elevated alkaline phosphatase level (790.5) (R74.8) Encounter for screening mammogram for breast cancer (V76.12) (Z12.31) GERD (gastroesophageal reflux disease) (530.81) (K21.9) Heart palpitations (785.1) (R00.2) Iron deficiency anemia (280.9) (D50.9) Mild sleep apnea (780.57) (G47.30) Premature ventricular beat (427.69) (I49.3) Primary osteoarthritis of left shoulder (715.11) (M19.012) Screening for malignant neoplasm of breast (V76.10) (Z12.39) Subclinical hypothyroidism (244.8) (E03.8) Thrombophlebitis of superficial veins of left lower extremity (451.0) (I80.02) Past Medical History History of Benign essential hypertension (401.1) (I10) Resolved Date: 20 Sep 2021 History of COVID-19 virus infection (079.89) (U07.1) Resolved Date: 06 Sep 2021 History of Epigastric pain determined by examination (789.06) (R10.13) Resolved Date: 26 Nov 2019 History of anemia (V12.3) (more content not included)... Normal Touchworks Tobacco Screening.on 022 Adult depression screening assessment No [facility] Work Phone: Tobacco use status [facility] b) No [facility] Work Phone: BASIC METABOLIC PANELon GFR/1.73 sq M.predicted among non-blacks MDRD (S/P/Bld) [Vol rate/Area] 69 mL/min/{1.73_m2} Normal >90 [facility] Comment on above: Result Comment: CALC ULATIONS OF ESTIMATED GFR ARE PERFORMED USING THE 2020 CKD-EPI STUDY REFIT EQUATION WITHOUT THE RACE VARIABLE FOR THE IDMS-TRACEABLE CREATININE METHODS. https://jasn.asnjournals.org/content/early//ASN.25552 78969 Performed By: #### B MP #### [address] [address] HCO3 (Bld) [Moles/Vol] 27 mmol/L Normal 21 - 32 [facility] Comment on above: Performed By: #### B MP #### [address] [address] Anion gap [Moles/Vol] 10 mmol/L Normal 10 - 20 [facility] Work Phone: Comment on above: Performed By: #### B MP #### [address] [address] Calcium [Mass/Vol] 9.8 mg/dL Normal 8.6 - 10.3 [facility] Work Phone: Comment on above: Performed By: #### B MP #### [address] [address] Chloride [Moles/Vol] 108 mmol/L High 98 - 107 [facility] Work Phone: Comment on above: Performed By: #### B MP #### [address] [address] Creatinine [Mass/Vol] 0.94 mg/dL Normal 0.50 - 1.05 [facility] Work Phone: Comment on above: Reference Range: 0.5 0 - 1.05 Performed By: #### B MP #### [address] [address] Glucose [Mass/Vol] 95 mg/dL Normal 74 - 99 [facility] Work Phone: Comment on above: Performed By: #### B MP #### [address] [address] Potassium [Moles/Vol] 4.1 mmol/L Normal 3.5 - 5.3 [facility] Work Phone: Comment on above: Performed By: #### B MP #### [address] [address] Sodium [Moles/Vol] 141 mmol/L Normal 136 - 145 [facility] Work Phone: Comment on above: Performed By: #### B MP #### [address] [address] Urea nitrogen [Mass/Vol] 21 mg/dL Normal 6 - 23 [facility] Work Phone: Comment on above: Performed By: #### B MP #### [address] [address] CBCon 12-12-2021 Erythrocyte distribution width (RBC) [Ratio] 12.9 % Normal 11.5 - 14.5 [facility] Comment on above: Performed By: #### C BC #### [address] [address] Hematocrit (Bld) [Volume fraction] 42.4 % Normal 36.0 - 46.0 [facility] Comment on above: Performed By: #### C BC #### [address] [address] Hemoglobin (Bld) [Mass/Vol] 14.8 g/dL Normal 12.0 - 16.0 [facility] Comment on above: Performed By: #### C BC #### [address] [address] MCHC (RBC) [Mass/Vol] 34.8 g/dL Normal 32.0 - 36.0 [facility] Comment on above: Performed By: #### C BC #### [address] [address] MCV (RBC) [Entitic vol] 90 fL Normal 80 - 100 [facility] Comment on above: Performed By: #### C BC #### [address] [address] Platelets (Bld) [#/Vol] 192 10*3/uL Normal 150 - 450 [facility] Comment on above: Performed By: #### C BC #### [address] [address] RBC 4.70 x10E12/L Normal 4.00 - 5.20 [facility] Comment on above: Performed By: #### C BC #### [address] [address] WBC (Bld) [#/Vol] 4.2 10*3/uL Low 4.4 - 11.3 [facility] Comment on above: Performed By: #### C BC #### [address] [address] LIPID PANEL (CORONARY RISK 2 )on 12-12-2021 Cholesterol in VLDL [Mass/Vol] 39 mg/dL Normal 0 - 40 [facility] Comment on above: Performed By: #### L IPID #### [address] [address] Laboratory - Chemistry and C hemistry - challengeon 12-12-2021 CO2 [Moles/Vol] 27 mmol/L 21 - 32 [facility] Work Phone: TSH Qn 2.24 m[IU]/L See Below [facility] Work Phone: Comment on above: Reference Range: 0.4 4 - 3.98 TSH testing is performed using different testing methodology at [facility] than at other [facility]. Direct result comparisons should only be made within the same method. Laboratory - Hematology and Cell countson 12-12-2021 Erythrocyte distribution width (RBC) [Ratio] 12.9 % See Below [facility] Work Phone: Comment on above: Reference Range: 11. 5 - 14.5 Hematocrit (Bld) [Volume fraction] 42.4 % See Below [facility] Work Phone: Comment on above: Reference Range: 36. 0 - 46.0 Hemoglobin (Bld) [Mass/Vol] 14.8 g/dL See Below [facility] Work Phone: Comment on above: Reference Range: 12. 0 - 16.0 MCHC (RBC) [Mass/Vol] 34.8 g/dL See Below [facility] Work Phone: Comment on above: Reference Range: 32. 0 - 36.0 MCV (RBC) [Entitic vol] 90 fL 80 - 100 [facility] Work Phone: Platelets (Bld) [#/Vol] 192 10*3/uL 150 - 450 [facility] Work Phone: RBC (Bld) [#/Vol] 4.70 {x10E12/L} See Below [facility] Work Phone: Comment on above: Reference Range: 4.0 0 - 5.20 WBC (Bld) [#/Vol] 4.2 10*3/uL below low threshold 4.4 - 11.3 [facility] Work Phone: Lipid Panelon 12-12-2021 Cholesterol [Mass/Vol] 223 mg/dL High 0 - 199 [facility] Work Phone: Comment on above: . AGE DESIRABLE BORD ALMAS HIGH HIGH 0-19 Y 0 - 169 170 - 199 >/= 200 20-24 Y 0 - 189 190 - 224 >/= 225 >24 Y 0 - 199 200 - 239 >/= 240 All ranges are based on fasting samples. Specific therapeutic targets will vary based on patient-specific cardiac risk.. Pediatric guidelines reference:Pediatrics 2011, 128(S5). Adult guidelines reference: NCEP ATPIII Guidelines, TYLER 2001, 258:2486-97. Venipuncture immediately after or during the administration of Metamizole may lead to falsely low results. Testing should be performed immediately prior to Metamizole dosing. Result Comment: . AGE DESIRABLE BORDERLINE HIGH HIGH 0-19 Y 0 - 169 170 - 199 >/= 200 20-24 Y 0 - 189 190 - 224 >/= 225 >24 Y 0 - 199 200 - 239 >/= 240 All ranges are based on fasting samples. Specific therapeutic targets will vary based on patient-specific cardiac risk. . Pediatric guidelines reference:Pediatrics 2011, 128(S5). Adult guidelines reference: NCEP ATPIII Guidelines, TYLER 2001, 258:2486-97 . Venipuncture immediately after or during the administration of Metamizole may lead to falsely low results. Testing should be performed immediately prior to Metamizole dosing. Performed By: #### L IPID #### [address] [address] Cholesterol in HDL [Mass/Vol] 55.0 mg/dL Normal [facility] Work Phone: Comment on above: . AGE VERY LOW LOW N ORMAL HIGH 0-19 Y < 35 < 40 40-45 ---- 20-24 Y ---- < 40 >45 ---- >24 Y ---- < 40 40-60 >60. Result Comment: . AGE VERY LOW LOW NORMAL HIGH 0-19 Y < 35 < 40 40-45 ---- 20-24 Y ---- < 40 >45 ---- >24 Y ---- < 40 40-60 >60 . Performed By: #### L IPID #### [address] [address] Cholesterol in LDL [Mass/Vol] 129 mg/dL High 0 - 99 [facility] Work Phone: Comment on above: . NEAR BORD AGE BRANDON RABLE OPTIMAL HIGH HIGH VERY HIGH 0-19 Y 0 - 109 --- 110-129 >/= 130 ---- 20-24 Y 0 - 119 --- 120-159 >/= 160 ---- >24 Y 0 - 99 100-129 130-159 160-189 >/=190. Result Comment: . NEAR BORD AGE DESIRABLE OPTIMAL HIGH HIGH VERY HIGH 0-19 Y 0 - 109 --- 110-129 >/= 130 ---- 20-24 Y 0 - 119 --- 120-159 >/= 160 ---- >24 Y 0 - 99 100-129 130-159 160-189 >/=190 . Performed By: #### L IPID #### [address] [address] Cholesterol.total/Chol esterol in HDL [Mass ratio] 4.1 {ratio} Normal [facility] Work Phone: Comment on above: REF VALUESDESIRABLE < 3.4HIGH RISK > 5.0 Result Comment: REF VALUES DESIRABLE < 3.4 HIGH RISK > 5.0 Performed By: #### L IPID #### [address] [address] Triglyceride [Mass/Vol] 193 mg/dL High 0 - 149 [facility] Work Phone: Comment on above: . AGE DESIRABLE BORD ALMAS HIGH HIGH VERY HIGH 0 D-90 D 19 - 174 ---- ---- ----91 D- 9 Y 0 - 74 75 - 99 >/= 100 ---- 10-19 Y 0 - 89 90 - 129 >/= 130 ---- 20-24 Y 0 - 114 115 - 149 >/= 150 ---- >24 Y 0 - 149 150 - 199 200- 499 >/= 500. Venipuncture immediately after or during the administration of Metamizole may lead to falsely low results. Testing should be performed immediately prior to Metamizole dosing. Result Comment: . AGE DESIRABLE BORDERLINE HIGH HIGH VERY HIGH 0 D-90 D 19 - 174 ---- ---- ---- 91 D- 9 Y 0 - 74 75 - 99 >/= 100 ---- 10-19 Y 0 - 89 90 - 129 >/= 130 ---- 20-24 Y 0 - 114 115 - 149 >/= 150 ---- >24 Y 0 - 149 150 - 199 200- 499 >/= 500 . Venipuncture immediately after or during the administration of Metamizole may lead to falsely low results. Testing should be performed immediately prior to Metamizole dosing. Performed By: #### L IPID #### [address] [address] Lipid Panel 39 mg/dL 0 - 40 [facility] Work Phone: No Panel Informationon 12-12 69 {mL/min/1.73m2} >90 -[facility] Work Phone: Comment on above: CALCULATIONS OF GERALD MATED GFR ARE PERFORMED USING THE 2020 CKD-EPI STUDY REFIT EQUATION WITHOUT THE RACE VARIABLE FOR THE IDMS-TRACEABLE CREATININE METHODS.https://jasn.asnjournals.org/content//A .4441551248 TSH WITH REFLEX TO FREE T4 I F ABNORMALon 12-12-2021 TSH Qn 2.24 m[IU]/L Normal 0.44 - 3.98 [facility] Comment on above: Result Comment: TSH testing is performed using different testing methodology at [facility] than at other [facility]. Direct result comparisons should only be made within the same method. Performed By: #### T HYDS #### [address] [address] Office Visiton 10-04-2021 Follow-up visit Diagnoses/Problems Benign essential hypertension (401.1) (I10) Irregular heart rhythm (427.9) (I49.9) Chest pressure (786.59) (R07.89) Orders Benign essential hypertension Basic Metabolic Panel; Status:Active; Requested for:[id number]; Complete Blood Count; Status:Active; Requested for:[id number]; TSH WITH REFLEX TO FREE T4 IF ABNORMAL; Status:Active; Requested for:[id number]; Chest pressure IO EKG Electrocardiogram- 12 Lead; Status:Active - Perform Order; Requested for:[id number]; PMH: Benign essential hypertension Renew: Spironolactone 25 MG Oral Tablet; Take 1 tablet daily Patient Discussion/Summary It is not clear if the chest pressure is a side effect of the metoprolol or the high blood pressure. Will drop back to 1 tablet of the metoprolol and then go ahead and start the spironolactone. Consider Losartan as well. Does not appear to be ischemic based on history and EKG Will get labs today to screen for metabolic issues. anxiety may also play a role in this Chief Complaint chest pressure History of Present IllnessHer blood pressure has been running high for the last 160/98 Pulse has been running in the 60s and 50s Has done in the past with increase in dose Feeling pressure in the chest substernal She has been falling asleep when she sits down The pressure will last for a few seconds Cannot get a deep breath initially but when she finally can get a breath it goes away Walking does not create pressure and actually helps Has a history of premature beats which are much better on meds Has history of low heart rate on higher doses of the metoprolol Amlodipine caused edema Lisinopril caused cough Did not get spironolactone Chlorthalidone caused lip swelling No recent labs so will check today She did note one time when she was feeling closed in by people in a store that she had the chest tightness Active Problems Acute pain of left shoulder (719.41) (M25.512) Allergy to multiple antibiotics (V14.1) (Z88.1) Benign essential hypertension (401.1) (I10) Cervical facet joint syndrome (723.8) (M47.812) Depression (311) (F32.A) Diverticulitis of colon (562.11) (K57.32) DJD (degenerative joint disease) (715.90) (M19.90) Elevated alkaline phosphatase level (790.5) (R74.8) Encounter for screening mammogram for breast cancer (V76.12) (Z12.31) Generalized anxiety disorder (300.02) (F41.1) GERD (gastroesophageal reflux disease) (530.81) (K21.9) Heart palpitations (785.1) (R00.2) Hypersomnia (780.54) (G47.10) Iron deficiency anemia (280.9) (D50.9) Irregular heart rhythm (427.9) (I49.9) Mild sleep apnea (780.57) (G47.30) 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) Pain of left lower extremity (729.5) (M79.605) Premature ventricular beat (427.69) (I49.3) Primary osteoarthritis of both feet (715.17) (M19.071,M19.072) Primary osteoarthritis of left shoulder (715.11) (M19.012) Screening for malignant neoplasm of breast (V76.10) (Z12.39) Sinus drainage (478.19) (J34.89) Subclinical hypothyroidism (244.8) (E03.8) Thrombophlebitis of superficial veins of left lower extremity (451.0) (I80.02) Tinnitus of both ears (388.30) (H93.13) Past Medical History History of Benign essential hypertension (401.1) (I10) Resolved Date: 20 Sep 2021 History of COVID-19 virus infection (079.89) (U07.1) Resolved Date: 06 Sep 2021 History of Epigastric pain determined by examination (789.06) (R10.13) Resolved Date: 26 Nov 2019 History of anemia (V12.3) (Z86.2) History of bronchitis (V12.69) (Z87.09) History of hypertension (V12.59) (Z86.79) History of screening mammography (V15.89) (Z92.89) Resolved Date: 26 Nov 2019 History of Noninfectious colitis (558.9) (K52.9) Resolved Date: 26 Nov 2019 History of Tachyarrhythmia (785.0) (R00.0) Surgical History History of Breast biopsy History of Colonoscopy 01/28/18 Dr. Martinez. To repeat 5 years History of Hysterectomy History of Tubal ligation Social History Does not have living will Feels safe at home Former smoker (V15.82) (Z87.891) No recent foreign travel Allergies Bactrim Hives;; Recorded By: Elly Collins; 04/29/2020 8:10:57 AM clindamycin Hives;; Recorded By: Elly Collins; 04/29/2020 8:10:57 AM morphine Anaphylaxis;; Recorded By: Elly Collins; 04/29/2020 8:10:57 AM Penicillins Allergy; Anaphylaxis;; Updated By: Phylicia Jay; 11/18/2019 2:11:24 PM Additional reactions - SOB - Shortness of breath tetracycline Hives;; Recorded By: Elly Collins; 04/29/2020 8:10:57 AM amlodipine Swelling; Recorded By: Lisa Damon; 10/04/2021 3:08:03 PM bisoprolol-hydrochlor othiazide Itching; Recorded By: Elly Collins; 04/29/2020 8:10:57 AM bisoprolol-hydrochlor othiazide Rash; Recorded By: Elly Collins; 04/29/2020 8:10:57 AM Additional reactions - C/O: itching Cipro Recorded By: Elly Collins; 04/29/2020 8:10:57 AM docusate Rash; Recorded By: Elly Collins; 04/29/2020 8:10:57 AM (more content not included)... Normal [facility] Tobacco Screening.on 021 Tobacco use status [facility] b) No -[facility] Work Phone: Office Visit ([facility] e)on 09-20-2021 Follow-up visit Diagnoses/Problems Encounter for preventive health examination (V70.0) (Z00.00) Allergy to multiple antibiotics (V14.1) (Z88.1) Heart palpitations (785.1) (R00.2) Encounter for screening mammogram for breast cancer (V76.12) (Z12.31) History of Benign essential hypertension (401.1) (I10) Benign essential hypertension (401.1) (I10) Orders Benign essential hypertension Basic Metabolic Panel; Status:Active; Requested for:19Dec2021; Lipid Panel; Status:Active; Requested for:19Dec2021; Encounter for screening mammogram for breast cancer Mamm - Screening Mammogram w/ Tomosynthesis; Status:Hold For - Scheduling; Requested for:[id number]; Radiologist to Determine Optimal Study : Y What are the patient's signs and symptoms ? : Annual Screening Mammogram Heart palpitations Allergy and Immunology Referral Evaluation and Treatment Evaluate AND Treat Status: Hold For - Scheduling Requested for: [id number] Follow-up visit in 3 months Outpatient Follow-up Status: Hold For - Scheduling Requested for: [id number] PMH: Benign essential hypertension Renew: Metoprolol Succinate ER 25 MG Oral Tablet Extended Release 24 Hour; take 1 tablet daily Chief Complaint 2 wk fu bp. History of Present Illness CP and htn had stress test was normal and has had 2 in [address] Cheney who ordered an echo only showed diastolic dysfunction. HTN echo only showed diastolic dysfunction edema wih amlodipine had efren inhibitor cough no cp with neg cardiac workup chlorthalidone had allergic reaction with swollen lips and hands never started aldactone home bp fluctuate GERD no choking no dysphagia takes ppi 2 x per months inc HOB has helped sleep apnea mild has seen sleep sp Dr Felton states does feel she is not taking deep breaths states insurance did not cover machine sleeps on slide Patient is up-to-date on her colonoscopy repeat in 2022 Patient is due for mammogram she has had no changes on self breast exam. She is due for fasting glucose and lipid panel. Her annual wellness form for work was signed that she is current and up-to-date on screening test. all other systems have been reviewed and are negative except as noted in the HPI 'Scores and Scales' PHQ-9 [id number] 09:17AM PHQ-9 Depression Severity IO PHQ2 IO PHQ9 PHQ-9 #1. Little interest or pleasure in doing things3-Nearly every day PHQ-9 #2. Feeling down, depressed, or hopelesS0-Not at all PHQ-9 #3. Trouble falling or staying asleep, or sleeping too much2-More than half the days PHQ-9 #4. Feeling tired or having little energy2-More than half the days PHQ-9 #5. Poor appetite or overeating2-More than half the days PHQ-9 #6. Feeling bad about yourself or you are a failure or that you have let yourself or your family down3-Nearly every day PHQ-9 #7. Trouble concentrating on things, such as reading the newspaper or watch television2-More than half the days PHQ-9 #8. Moving or speaking so slowly that other people could have noticed. Or the opposite-being so fidgety or restless that you have been moving around a lot more than usual1-Several days PHQ-9 #9. Thoughts that you would be better off , or of hurting yourself0-Not at all PHQ-9 #10. If you checked off any problems, how difficult have these problems made it for you to do your work, take care of things at home, or get along with other people?Somewhat Difficult PHQ-9 Total Score (Please update problem list based on total score)15- Moderately Severe Depression ALESSANDRA-7 [id number] ALESSANDRA-7 Total Score15 Feeling nervous, anxious or on edgeSeveral days - 1 Not being able to stop or control worryingNearly every day - 3 Worrying too much about different thingsNearly every day - 3 Trouble relaxingNearly every day - 3 Being so restless that it's hard to sit stillNot at all - 0 Becoming easily annoyed or irritableNearly every day - 3 Feeling afraid as if something awful might happenOver half the days - 2 Active Problems Acute pain of left shoulder (719.41) (M25.512) Allergy to multiple antibiotics (V14.1) (Z88.1) Cervical facet joint syndrome (723.8) (M47.812) Depression (311) (F32.A) Diverticulitis of colon (562.11) (K57.32) DJD (degenerative joint disease) (715.90) (M19.90) Elevated alkaline phosphatase level (790.5) (R74.8) Generalized anxiety disorder (300.02) (F41.1) GERD (gastroesophageal reflux disease) (530.81) (K21.9) Heart palpitations (785.1) (R00.2) Hypersomnia (780.54) (G47.10) Iron deficiency anemia (280.9) (D50.9) Irregular heart rhythm (427.9) (I49.9) Mild sleep apnea (780.57) (G47.30) 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 Normal Respirics Tobacco Screening.on 021 Tobacco use status [facility] b) No [facility] Work Phone: Office Visit (Family Yuan pimentel)on 09-06-2021 Follow-up visit Diagnoses/Problems Benign essential hypertension (401.1) (I10) History of COVID-19 virus infection (079.89) (U07.1) GERD (gastroesophageal reflux disease) (530.81) (K21.9) Orders Benign essential hypertension Start: Chlorthalidone 25 MG Oral Tablet; TAKE 0.5 TABLET Daily Follow-up visit in 2 weeks Outpatient Follow-up Status: Hold For - Scheduling Requested for: 06Sep2021 Chief Complaint 6 month f/u. History of Present Illness CP and htn had stress test was normal and has had 2 in [address] Cheney who ordered an echo only showed diastolic dysfunction. HTN echo only showed diastolic dysfunction edema wih amlodipine had efren inhibitor cough no cp with neg cardiac workup GERD no choking no dysphagia takes ppi 2 x per months inc HOB has helped had covid june 2021 had tachycardia and dizziness and had cough had sbusternal had chest fluttering and 2 deep breaths made better sleep apnea mild has seen sleep sp Dr Felton states does feel she is not taking deep breaths states insurance did not cover machine sleeps on slide all other systems have been reviewed and are negative except as noted in the HPI 'Scores and Scales' PHQ-9 [id number] 09:17AM PHQ-9 Depression Severity IO PHQ2 IO PHQ9 PHQ-9 #1. Little interest or pleasure in doing things3-Nearly every day PHQ-9 #2. Feeling down, depressed, or hopelesS0-Not at all PHQ-9 #3. Trouble falling or staying asleep, or sleeping too much2-More than half the days PHQ-9 #4. Feeling tired or having little energy2-More than half the days PHQ-9 #5. Poor appetite or overeating2-More than half the days PHQ-9 #6. Feeling bad about yourself or you are a failure or that you have let yourself or your family down3-Nearly every day PHQ-9 #7. Trouble concentrating on things, such as reading the newspaper or watch television2-More than half the days PHQ-9 #8. Moving or speaking so slowly that other people could have noticed. Or the opposite-being so fidgety or restless that you have been moving around a lot more than usual1-Several days PHQ-9 #9. Thoughts that you would be better off , or of hurting yourself0-Not at all PHQ-9 #10. If you checked off any problems, how difficult have these problems made it for you to do your work, take care of things at home, or get along with other people?Somewhat Difficult PHQ-9 Total Score (Please update problem list based on total score)15- Moderately Severe Depression ALESSANDRA-7 [id number] ALESSANDRA-7 Total Score15 Feeling nervous, anxious or on edgeSeveral days - 1 Not being able to stop or control worryingNearly every day - 3 Worrying too much about different thingsNearly every day - 3 Trouble relaxingNearly every day - 3 Being so restless that it's hard to sit stillNot at all - 0 Becoming easily annoyed or irritableNearly every day - 3 Feeling afraid as if something awful might happenOver half the days - 2 Active Problems Acute pain of left shoulder (719.41) (M25.512) Allergy to multiple antibiotics (V14.1) (Z88.1) Benign essential hypertension (401.1) (I10) Cervical facet joint syndrome (723.8) (M47.812) Depression (311) (F32.A) Diverticulitis of colon (562.11) (K57.32) DJD (degenerative joint disease) (715.90) (M19.90) Elevated alkaline phosphatase level (790.5) (R74.8) Generalized anxiety disorder (300.02) (F41.1) GERD (gastroesophageal reflux disease) (530.81) (K21.9) Heart palpitations (785.1) (R00.2) Hypersomnia (780.54) (G47.10) Iron deficiency anemia (280.9) (D50.9) Irregular heart rhythm (427.9) (I49.9) Mild sleep apnea (780.57) (G47.30) 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) Pain of left lower extremity (729.5) (M79.605) Premature ventricular beat (427.69) (I49.3) Primary osteoarthritis of both feet (715.17) (M19.071,M19.072) Primary osteoarthritis of left shoulder (715.11) (M19.012) Screening for malignant neoplasm of breast (V76.10) (Z12.39) Sinus drainage (478.19) (J34.89) Subclinical hypothyroidism (244.8) (E03.8) Thrombophlebitis of superficial veins of left lower extremity (451.0) (I80.02) Tinnitus of both ears (388.30) (H93.13) Past Medical History History of COVID-19 virus infection (079.89) (U07.1) Resolved Date: 06 Sep 2021 History of Epigastric pain determined by examination (789.06) (R10.13) Resolved Date: 26 Nov 2019 History of anemia (V12.3) (Z86.2) History of bronchitis (V12.69) (Z87.09) History of hypertension (V12.59) (Z86.79) History of screening mammography (V15.89) (Z92.89) Resolved Date: 26 Nov 2019 History of Noninfectious colitis (558.9) (K52.9) Resolved Date: 26 Nov 2019 History of Tachyarrhythmia (785.0) (R00.0) Surgical History History of Breast biopsy History of Colonoscopy 01/28/18 Dr. Martinez. To repeat 5 years History of Hysterectomy History of Tubal ligation Family History Family history of atrial fibrillation (V17.49) (Z82.49) Family history of diabetes mellitus (V (more content not included)... Normal Touch[employer] Tobacco Screening.on 021 Tobacco use status [facility] b) No -[facility] Work Phone: Office Visit (Family [facility])on 07-18-2021 Follow-up visit Diagnoses/Problems Mild sleep apnea (780.57) (G47.30) Orders Mild sleep apnea Positive Airway Pressure (PAP) Therapy; Status:Active; Requested for:18Jul2021; Staff Performing Instructions (new machine setup only) : Please fax patient's demographics, current insurance information, recent testing (home sleep apnea test, in-lab sleep study, or oximetry test), and signed clinic note summary along with this order to the corresponding DME company. Additional Instructions to DME : Please enroll patient's name in [employer] or [employer] if applicable. Performing Instructions to DME Supplier : For new machine setup or recent adjustment of current PAP settings, please fax 30-day PAP adherence download data to the office. Heated PAP tubing (A4604), non-heated PAP tubing (A7037) - 1 per 6 months : Yes Water chamber (A7046), Non-disposable filters (A7039) (if applicable) - 1 per 6 months : Yes Headgear used with PAP mask (A7035), Chin Strap (A7036) - 1 per 6 months : Yes Full face cushions (A7031) - 1 per month : Yes Nasal cushions (A7032), nasal pillows (A7033), disposable filters (A7038) - 2 per month : Yes Nasal mask (A7034), Pillow mask (A7034), Full face mask (A7030) - 1 per 3 months : Yes New PAP supplies: Order / Replace as needed, whichever is applicable, as per insurance schedule : Yes Additional Information : low profile dreamwear nasal mask. Mask Type (selection required with new machine setup order) : Other Heated Humidification (E0562) (applies only if PAP device is ordered) : Yes Pressure range in cm H2O : 5-15 AutoCPAP (E0601) : Yes Order Type : New pie maker machine, new PAP supplies, and PAP education Length of Need : 99 months Provider Impressions Assessment: Wanda who is seen to evaluate for obstructive sleep apnea and insomnia. The pathophysiology of, the reasons to treat and treatment options for obstructive sleep apnea were all reviewed with the patient today. Given that the patient's insomnia was better controlled with CPAP, a new device is ordered. Given that the patient's sleep onset insomnia seems to be primarily due to stress (anxiety/unstoppable thoughts), controlling anxiety may help her sleep onset insomnia. Discussed about behavioral interventions as well. Recommendations: 1) Ordered CPAP- sent to [facility] 2) Discussed about Trazodone to help with sleep onset/maintenance insomnia- as stress seems to play a significant role in preventing her from falling asleep. (waking up from sleep could be secondary to SAAR, but difficulty falling back asleep could be related to her anxiety.) We will try CPAP first as this may improve sleep maintenance. She will also talk to her PCP regarding medications. 3) Driving safety was reviewed with patient. If the patient feels too sleepy to drive he/she knows not to drive. If he/she becomes sleepy while driving he/she will cushion cover inspector and nap. The patient indicates understanding of these issues and agrees with the plan. Follow up in 8 weeks. Patient to bring her CPAP machine with her. Chief Complaint pt here to discuss sleeping issues , trouble staying asleep , [facility]. History of Present Illness Sleep Medicine Consultation Note HPI: Wanda seen at the request of Dr. Baker, for advice regarding obstructive sleep apnea management. Patient reports that she has history of SARA and was prescribed CPAP. Face is hurting when she wakes up in the morning. Increased the amount of humidity in hopes that this may help her compliance. Gets the CPAP supplies from [employer]. Trouble staying asleep is a concern- started about 5-6 years ago. most of the times to use restroom Snoring: yes Severity: loud Frequency: most days Duration: 3 years ago Observed Apneas: no Mouth Breathing at night: yes Dry Mouth in morning: yes Nocturnal Gasping: yes Sleep Pattern: Bedtime: 10 - 11 Lights out: immediate Latency: 20 mins to 1 hour Awakenings: multiple - to use restroom Wake time: 6:30 am Rise time: 6:30 am Days off: 7:30-8am -feels better on those days. 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 Patients estimate of total sleep time: 4 hours Daytime Symptoms: Upon Awakening: no Daytime fatigue/sleepiness: yes Naps: not usually Involuntary Dozing: yes Cognitive Symptoms: affected Driving: Difficulty with sleepiness and driving: no Close calls related to sleepiness: no Accidents related to sleepiness: no Sleep Review of Symptoms: Parasomnias: Sleep Walking: no Dream Enactment: no Bruxism: yes Motor: RLS: no PLMS: yes Narcolepsy: Hallucinations: no Paralysis: no Cataplexy: no Past/Childhood Sleep History: none Family History: Family history of sleep disorders: older brother Social History: 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 'Scores and Scales' PHQ-9 [id number] 09:17AM PHQ-9 Depression Severity IO PHQ2 (more content not included)... Normal Touchworks Tobacco Screening.on Tobacco use status [facility] b) No [facility] Work Phone: Tobacco Screening.on Tobacco use status [facility] b) No [facility] Work Phone: Radiologyon 04-18-2021 XR Shoulder 2 Views Normal [facility] Work Phone: Tobacco Screening.on Tobacco use status [facility] b) No [facility] Work Phone: Tobacco Screening.on Tobacco Screening. b) No [facility] Work Phone: CNOVon 11-14-2019 CNOV Office Visit (UCWSTR ) WANDA HADDAD ([id number]) 1960 F Date Time Provider Department 11/14/19 8:15 AM ASHLYN SHARPE) WSTR During your visit today, we recorded the following information about you: Temperature Pulse Respiration Blood pressure 98.5 degrees 78/minute 16/minute 122/80 Weight 74.8 kg Ashlyn Sharpe PA-C 11/14/2019 1:25 PM Signed Subjective HPI Pt presents with hematuria for 10 hours. She has had some bladder spasms and frequency as well. No dysuria. She had passed a few blood clots in her urine as well. She is a former smoker, having quit in 1987. She used to smoke 2-2.5 packs per day. Dad had hx bladder cancer. No back pain. No hx kidney stones. No fever, nv. She is currently on omnicef for an ear infection. No vaginal discharge or itching. Review of Systems Constitutional: Negative for fever, malaise/fatigue and weight loss. Gastrointestinal: Negative for abdominal pain, diarrhea, nausea and vomiting. Genitourinary: Positive for frequency, hematuria and urgency. Negative for dysuria and flank pain. Musculoskeletal: Negative for back pain. All other systems reviewed and are negative. PAST MEDICAL HISTORY Diagnosis Date - Cervical intraepithelial neoplasia (JUDITH) - Essential hypertension - Menorrhagia - Tachyarrhythmia Current Outpatient Medications Medication Sig Dispense Refill - cefdinir (OMNICEF) 300 mg capsule Take 1 capsule by mouth twice daily for 10 days. 20 capsule 0 - benzonatate (TESSALON PERLE) 100 mg capsule Take 2 capsules by mouth three times daily as needed. 30 capsule 0 - albuterol HFA (PROAIR HFA) 90 mcg/actuation inhaler Inhale 2 Puffs as instructed every 4 hours as needed. 1 Inhaler 0 - clobetasol (TEMOVATE) 0.05 % ointment Apply 1 application to affected area as directed. Peas-sized amount to perineum bid x 3 weeks, qday x 3 weeks then qod x 3 weeks 30 g 0 - metoprolol succinate ER (TOPROL XL) 25 mg 24 hr tablet Take 2 tablets by mouth once daily. 180 tablet 1 - ibuprofen (ADVIL) 200 mg tablet Take 200 mg by mouth every 6 hours as needed. - Aspirin 81 mg Tab Take 81 mg by mouth. - multivitamin (MULTIPLE VITAMIN) ORAL tablet Take 1 tablet by mouth once daily. 0 - Ascorbic Acid (VITAMIN C) 1,000 mg ORAL tablet Take 1 tablet by mouth once daily. 0 - nitrofurantoin monohydrate and macrocrystal (MACROBID) 100 mg capsule Take 1 capsule by mouth twice daily with meals for 7 days. 14 capsule 0 - phenazopyridine (PYRIDIUM) 200 mg tablet Take 1 tablet by mouth three times daily as needed for up to 2 days. 6 tablet 0 - loratadine (CLARITIN) 10 mg tablet Take 1 tablet by mouth once daily. (Patient not taking: Reported on 07/02/2019 ) 7 tablet 0 - cyclobenzaprine (FLEXERIL) 10 mg tablet Take 1 tablet by mouth every 8 hours as needed for Muscle Spasm (or pain). (Patient not taking: Reported on 07/02/2019 ) 14 tablet 0 No current facility-administered medications for this visit. PAST SURGICAL HISTORY Procedure Laterality Date - BREAST BIOPSY W/ULTRASOUND GUIDANCE 09/02/14 U/S needle core UOQ left breast - HYSTERECTOMY HX 2013 total robotic - LEEP PROCEDURE (LOAN SPECIALIST DEPT)_*FL - PAST SURGICAL HISTORY OF 2004 Dr. Viveros - colonoscopy (for anemia) - STRESS TEST 11/08/2016 normal FAMILY HISTORY Problem Relation Age of Onset - Coronary Artery Disease Mother a-fib - Kidney Disease Mother renal failure - Diabetes Father - Cancer Father bladder - Heart Father - Hypertension Maternal Grandmother - Heart Maternal Grandfather irregular heart beat - Cancer Maternal Grandfather prostate - Cancer Paternal Grandmother stomach - COPD Paternal Grandfather black lung - Coronary Artery Disease Brother a-fib - Hypertension Brother - Diabetes Brother pre - Hypertension Brother Social History Tobacco Use - Smoking status: Former Smoker Packs/day: 1.00 Years: 10.00 Pack years: 10.00 Last attempt to quit: 08/04/1988 Years since quittin.2 - Smokeless tobacco: Never Used Substance Use Topics - Alcohol use: No - Drug use: No BP 122/80 Pulse 78 Temp 36.9 ?C (98.5 ?F) (Tympanic) Resp 16 Wt 74.8 kg (165 lb) LMP 03/23/2013 BMI 27.88 kg/m? Objective Physical Exam Constitutional: She is well-developed, well-nourished, and in no distress. HENT: Head: Normocephalic and atraumatic. Cardiovascular: Normal rate, regular rhythm and normal heart sounds. Pulmonary/Chest: Effort normal and breath sounds normal. Abdominal: Soft. Bowel sounds are normal. She exhibits no distension and no mass. There is no abdominal tenderness. There is no rebound and no guarding. Musculoskeletal: Comments: No cva tenderness Neurological: She is alert. Skin: Skin is warm and dry. Nursing note and vitals reviewed. ASSESSMENT/PLAN: 1. Urinary frequency - ICD9: 788.41, ICD10: R35.0 (primary diagnosis) acute - UA positive for carson esterase, hematuria and proteinuria - Send urine for culture - Begin treatment with macrobid for 7 days - Discussed with patient it is less likely to have a uti while on omnicef as this would cover most UTIs, but she does have blood, leuk est and protein in urine. I will add macrobid and culture the urine. I did recommend if her culture is negative to see her regular doctor about the blood in the urine. Pt understands plan. - UA DIP, URINE (POC) - URINE CULTURE 2. Gross hematuria - ICD9: 599.71, ICD10: R31.0 - UA DIP, URINE (POC) - URINE CULTURE Ashlyn Sharpe PA-C Referring Provider: SELF [[id number]] Allergies As of Date: 11/14/2019 Noted Allergy Reaction RED DYE 03/27/2013 4 - Hives BACTRIM (SULFAMETHOXAZOLE) 03/31/2011 2 - Rash CIPROFLOXACIN 03/31/2011 2 - Rash CLINDAMYCIN 03/31/2011 2 - Rash COLACE (DOCUSATE) 02/01/2018 2 - Rash DULCOLAX (BISACODYL) 07/02/2019 2 - Rash FLAGYL (METRONIDAZOLE) 03/31/2011 4 - Hives IV CONTRAST (IODINE) 07/02/2019 12 - Shortness of Breath LEVAQUIN (LEVOFLOXACIN) 02/26/2016 16 - Unknown MORPHINE 06/21/2017 1 - Mental Status Change 8 - GI Upset Comments: anxiety PEANUTS 03/27/2013 14 - Other: See Comments Comments: blisters in mouth PENICILLINS 03/31/2011 12 - Shortness of Breath STRAWBERRIES 03/27/2013 7 - Swelling SULFA (SULFONAMIDE ANTIBIOTICS) 10/20/2016 2 - Rash TETRACYCLINE 03/31/2011 2 - Rash Date Reviewed: 11/14/2019 Reviewed by: Rubina Lu Ma - Fully Assessed Reason for Visit: Urinary Frequency [1086] Cmt: hematuria x 11pm Primary Visit Diagnosis:Urinary frequency [R35.0] Other Visit Diagnosis:Gross hematuria [R31.0] Order(s):UA DIP, URINE (POC) [1530644] Order #: [id number]. #:[id number] URINE CULTURE [SQURCUL] Order #: [id number] nitrofurantoin monohydrate and macrocrystal (MACROBID) 100 mg capsuleTake 1 capsule by mouth twice daily with meals for 7 days.Disp: 14 capsuleRfl: 0 phenazopyridine (PYRIDIUM) 200 mg tabletTake 1 tablet by mouth three times daily as needed for up to 2 days.Disp: 6 tabletRfl: 0 Prescriptions as of 11/14/2019 Sig: CEFDINIR 300 MG CAPSULE Take 1 capsule by mouth twice* BENZONATATE 100 MG CAPSULE Take 2 capsules by mouth thre* ALBUTEROL SULFATE HFA 90 MCG/* Inhale 2 Puffs as instructed * CLOBETASOL 0.05 % TOPICAL OIN* Apply 1 application to affect* METOPROLOL SUCCINATE ER 25 MG* Take 2 tablets by mouth once * IBUPROFEN 200 MG TABLET Take 200 mg by mouth every 6 * ASPIRIN 81 MG TABLET Take 81 mg by mouth. MULTIVITAMIN TABLET Take 1 tablet by mouth once d* ASCORBIC ACID (VITAMIN C) 1,0* Take 1 tablet by mouth once d* NITROFURANTOIN MONOHYDRATE AND * Take 1 capsule by mouth twice* PHENAZOPYRIDINE 200 MG TABLET Take 1 tablet by mouth three * LORATADINE 10 MG TABLET Take 1 tablet by mouth once d* Patient not taking: Reported on 07/02/2019 CYCLOBENZAPRINE 10 MG TABLET Take 1 tablet by mouth every * Patient not taking: Reported on 07/02/2019 More... Problem List As Of Date 11/14/2019 Noted Resolved Routine gynecological examination [Z01.419] 03/31/2011 07/02/2019 Class: Chronic More... More... Anemia [D64.9] 03/31/2011 More... Abnormal mammogram, unspecified [R92.8] 08/24/2014 Tachyarrhythmia [R00.0] More... Essential hypertension [I10] More... Ex-smoker [Z87.891] 10/13/2016 More... Prescriptions ordered this encounter Disp Refills Start End NITROFURANTOIN MONOHYDRATE AND MACROCR* 14 c* 0 11/14/2019 11/21/2019 Route: ORAL Sig: Take 1 capsule by mouth twice daily with meals for 7 days. PHENAZOPYRIDINE 200 MG TABLET 6 ta* 0 11/14/2019 11/16/2019 Route: ORAL Sig: Take 1 tablet by mouth three times daily as needed for up to 2 days. Encounter Status:Closed by ASHLYN SHARPE PA-C on 11/14/19 Normal [facility] PROGRESSon 11-14-2019 PROGRESS HNO ID: [id number] Author: Ashlyn Bacon) Dusty Service: ? Author Type: Physician Aquatics Specialist Type: Progress Notes Filed: 11/14/2019 1:25 PM Note Text: Subjective HPI Pt presents with hematuria for 10 hours. She has had some bladder spasms and frequency as well. No dysuria. She had passed a few blood clots in her urine as well. She is a former smoker, having quit in 1987. She used to smoke 2-2.5 packs per day. Dad had hx bladder cancer. No back pain. No hx kidney stones. No fever, nv. She is currently on omnicef for an ear infection. No vaginal discharge or itching. Review of Systems Constitutional: Negative for fever, malaise/fatigue and weight loss. Gastrointestinal: Negative for abdominal pain, diarrhea, nausea and vomiting. Genitourinary: Positive for frequency, hematuria and urgency. Negative for dysuria and flank pain. Musculoskeletal: Negative for back pain. All other systems reviewed and are negative. PAST MEDICAL HISTORY Diagnosis Date - Cervical intraepithelial neoplasia (JUDITH) - Essential hypertension - Menorrhagia - Tachyarrhythmia Current Outpatient Medications Medication Sig Dispense Refill - cefdinir (OMNICEF) 300 mg capsule Take 1 capsule by mouth twice daily for 10 days. 20 capsule 0 - benzonatate (TESSALON PERLE) 100 mg capsule Take 2 capsules by mouth three times daily as needed. 30 capsule 0 - albuterol HFA (PROAIR HFA) 90 mcg/actuation inhaler Inhale 2 Puffs as instructed every 4 hours as needed. 1 Inhaler 0 - clobetasol (TEMOVATE) 0.05 % ointment Apply 1 application to affected area as directed. Peas-sized amount to perineum bid x 3 weeks, qday x 3 weeks then qod x 3 weeks 30 g 0 - metoprolol succinate ER (TOPROL XL) 25 mg 24 hr tablet Take 2 tablets by mouth once daily. 180 tablet 1 - ibuprofen (ADVIL) 200 mg tablet Take 200 mg by mouth every 6 hours as needed. - Aspirin 81 mg Tab Take 81 mg by mouth. - multivitamin (MULTIPLE VITAMIN) ORAL tablet Take 1 tablet by mouth once daily. 0 - Ascorbic Acid (VITAMIN C) 1,000 mg ORAL tablet Take 1 tablet by mouth once daily. 0 - nitrofurantoin monohydrate and macrocrystal (MACROBID) 100 mg capsule Take 1 capsule by mouth twice daily with meals for 7 days. 14 capsule 0 - phenazopyridine (PYRIDIUM) 200 mg tablet Take 1 tablet by mouth three times daily as needed for up to 2 days. 6 tablet 0 - loratadine (CLARITIN) 10 mg tablet Take 1 tablet by mouth once daily. (Patient not taking: Reported on 07/02/2019 ) 7 tablet 0 - cyclobenzaprine (FLEXERIL) 10 mg tablet Take 1 tablet by mouth every 8 hours as needed for Muscle Spasm (or pain). (Patient not taking: Reported on 07/02/2019 ) 14 tablet 0 No current facility-administered medications for this visit. PAST SURGICAL HISTORY Procedure Laterality Date - BREAST BIOPSY W/ULTRASOUND GUIDANCE 09/02/14 U/S needle core UOQ left breast - HYSTERECTOMY HX 2012 total robotic - LEEP PROCEDURE (LO[facility] SPECIALIST DEPT)_*FL - PAST SURGICAL HISTORY OF 2004 Dr. Viveros - colonoscopy (for anemia) - STRESS TEST 11/08/2016 normal FAMILY HISTORY Problem Relation Age of Onset - Coronary Artery Disease Mother a-fib - Kidney Disease Mother renal failure - Diabetes Father - Cancer Father bladder - Heart Father - Hypertension Maternal Grandmother - Heart Maternal Grandfather irregular heart beat - Cancer Maternal Grandfather prostate - Cancer Paternal Grandmother stomach - COPD Paternal Grandfather black lung - Coronary Artery Disease Brother a-fib - Hypertension Brother - Diabetes Brother pre - Hypertension Brother Social History Tobacco Use - Smoking status: Former Smoker Packs/day: 1.00 Years: 10.00 Pack years: 10.00 Last attempt to quit: 08/04/1988 Years since quittin.2 - Smokeless tobacco: Never Used Substance Use Topics - Alcohol use: No - Drug use: No BP 122/80 Pulse 78 Temp 36.9 ?C (98.5 ?F) (Tympanic) Resp 16 Wt 74.8 kg (165 lb) LMP 03/23/2013 BMI 27.88 kg/m? Objective Physical Exam Constitutional: She is well-developed, well-nourished, and in no distress. HENT: Head: Normocephalic and atraumatic. Cardiovascular: Normal rate, regular rhythm and normal heart sounds. Pulmonary/Chest: Effort normal and breath sounds normal. Abdominal: Soft. Bowel sounds are normal. She exhibits no distension and no mass. There is no abdominal tenderness. There is no rebound and no guarding. Musculoskeletal: Comments: No cva tenderness Neurological: She is alert. Skin: Skin is warm and dry. Nursing note and vitals reviewed. ASSESSMENT/PLAN: 1. Urinary frequency - ICD9: 788.41, ICD10: R35.0 (primary diagnosis) acute - UA positive for carson esterase, hematuria and proteinuria - Send urine for culture - Begin treatment with macrobid for 7 days - Discussed with patient it is less likely to have a uti while on omnicef as this would cover most UTIs, but she does have blood, leuk est and protein in urine. I will add macrobid and culture the urine. I did recommend if her culture is negative to see her regular doctor about the blood in the urine. Pt understands plan. - UA DIP, URINE (POC) - URINE CULTURE 2. Gross hematuria - ICD9: 599.71, ICD10: R31.0 - UA DIP, URINE (POC) - URINE CULTURE Ashlyn Sharpe PA-C Normal [facility] Urine Cultureon 11-14-2019 Bacteria identified Cx Nom (U) Sp. Request/Comment: - Specimen received in preservative Culture Result - <10,000 CFU/ml Lactose positive gram negative bacilli --> ABNORMAL ALERT Insignificant colony count. No further workup. --> ABNORMAL ALERT Critically abnormal [facility] Comment on above: Performed By: #### U RCUL ####[facility] [id number] [place], [place] [phone] CNOVon 11-11-2019 CNOV Office Visit (WSTR ) WANDA HADDAD ([id number]) 1960 F Date Time Provider Department 11/11/19 8:00 THOMAS THOMAS (DEVIN) WSTR During your visit today, we recorded the following information about you: Temperature Pulse Respiration Blood pressure 98.4 degrees 70/minute 16/minute 138/84 Weight 75.2 kg Thomas Carpenter APRN.CNP 11/11/2019 10:38 AM Signed Subjective HPI HPI Wanda Haddad is a 58 year old female who presents today for CC of cough, congestion, headache. This started 3 days ago. Has tried otc medication. Symptoms are worsened by nothing. Risk factors recent sick exposures. .Patient presents with: Cough: cough and ZAVALA x 3 days PAST MEDICAL HISTORY Diagnosis Date - Cervical intraepithelial neoplasia (JUDITH) - Essential hypertension - Menorrhagia - Tachyarrhythmia PAST SURGICAL HISTORY Procedure Laterality Date - BREAST BIOPSY W/ULTRASOUND GUIDANCE 09/02/14 U/S needle core UOQ left breast - HYSTERECTOMY HX 2012 total robotic - LEEP PROCEDURE (LO[facility] SPECIALIST DEPT)_*[place] - PAST SURGICAL HISTORY OF 2004 Dr. Viveros - colonoscopy (for anemia) - STRESS TEST 11/08/2016 normal ALLERGIES Red Dye; Bactrim [Sulfamethoxazole]; Ciprofloxacin; Clindamycin; Colace [Docusate]; Dulcolax [Bisacodyl]; Flagyl [Metronidazole]; Iv Contrast [Iodine]; Levaquin [Levofloxacin]; Morphine; Peanuts; Penicillins; Strawberries; Sulfa (Sulfonamide Antibiotics); Tetracycline -This section reviewed with patient, no changes MEDICATIONS clobetasol (TEMOVATE) 0.05 % ointment Apply 1 application to affected area as directed. Peas-sized amount to perineum bid x 3 weeks, qday x 3 weeks then qod x 3 weeks metoprolol succinate ER (TOPROL XL) 25 mg 24 hr tablet Take 2 tablets by mouth once daily. ibuprofen (ADVIL) 200 mg tablet Take 200 mg by mouth every 6 hours as needed. Aspirin 81 mg Tab Take 81 mg by mouth. multivitamin (MULTIPLE VITAMIN) ORAL tablet Take 1 tablet by mouth once daily. Ascorbic Acid (VITAMIN C) 1,000 mg ORAL tablet Take 1 tablet by mouth once daily. loratadine (CLARITIN) 10 mg tablet Take 1 tablet by mouth once daily. cyclobenzaprine (FLEXERIL) 10 mg tablet Take 1 tablet by mouth every 8 hours as needed for Muscle Spasm (or pain). FAMILY HISTORY Problem Relation Age of Onset - Coronary Artery Disease Mother a-fib - Kidney Disease Mother renal failure - Diabetes Father - Cancer Father bladder - Heart Father - Hypertension Maternal Grandmother - Heart Maternal Grandfather irregular heart beat - Cancer Maternal Grandfather prostate - Cancer Paternal Grandmother stomach - COPD Paternal Grandfather black lung - Coronary Artery Disease Brother a-fib - Hypertension Brother - Diabetes Brother pre - Hypertension Brother Social History Tobacco Use - Smoking status: Former Smoker Packs/day: 1.00 Years: 10.00 Pack years: 10.00 Last attempt to quit: 08/04/1988 Years since quittin.2 - Smokeless tobacco: Never Used Substance Use Topics - Alcohol use: No - Drug use: No Review of Systems Constitutional: Negative for fever. HENT: Positive for congestion, ear pain and sore throat. Negative for ear discharge and nosebleeds. Respiratory: Positive for cough. Negative for shortness of breath and wheezing. Musculoskeletal: Negative for neck pain. Objective Blood pressure 138/84, pulse 70, temperature 36.9 ?C (98.4 ?F), temperature source Tympanic, resp. rate 16, weight 75.2 kg (165 lb 12.8 oz), last menstrual period 03/23/2013, SpO2 97 %. Physical Exam Constitutional: She is oriented to person, place, and time and well-developed, well-nourished, and in no distress. Non-toxic appearance. She does not have a sickly appearance. No distress. HENT: Head: Normocephalic and atraumatic. Right Ear: Hearing, external ear and ear canal normal. Tympanic membrane is erythematous and bulging. Tympanic membrane is not perforated. Left Ear: Hearing, tympanic membrane, external ear and ear canal normal. Nose: Nose normal. Mouth/Throat: Uvula is midline, oropharynx is clear and moist and mucous membranes are normal. Eyes: Pupils are equal, round, and reactive to light. Conjunctivae and lids are normal. Right eye exhibits no discharge. Left eye exhibits no discharge. No scleral icterus. Neck: Trachea normal and normal range of motion. Neck supple. Cardiovascular: Normal rate, regular rhythm and normal heart sounds. Pulmonary/Chest: Effort normal. She has no decreased breath sounds. She has no wheezes. She has rhonchi (scattered, clear with cough). She has no rales. Lymphadenopathy: She has no cervical adenopathy. Neurological: She is alert and oriented to person, place, and time. Skin: No rash noted. She is not diaphoretic. ASSESSMENT/PLAN: 1. Acute otitis media, right - ICD9: 382.9, ICD10: H66.91 (primary diagnosis) - Will begin treatment with as per antibiotic as written, see orders - Supportive care with plenty of fluids, rest, and analgesia prn. - Follow up in 3-5 days if symptoms persist or worsen. - CEFDINIR 300 MG CAPSULE 2. Rhonchi - ICD9: 786.7, ICD10: R09.89 - XR CHEST 2V FRONTAL/LAT IMPRESSION: ? No acute radiographic abnormality. ? Dictated by : SEBAS POOLE MD 3. Viral bronchitis - ICD9: 466.0, ICD10: J20.8 - Discussed supportive care, given educational handout - Limit exposure to smoke and other inhaled irritants - Discussed possible red flags and when to seek medical attention - Follow up in 3-5 days or sooner if no better or worse -If you experience chest pain/shortness of breath go to ER - BENZONATATE 100 MG CAPSULE - ALBUTEROL SULFATE HFA 90 MCG/ACTUATION AEROSOL INHALER Prescription instructions reviewed with patient as applicable. Patient advised if symptoms do not improve or if symptoms worsen sooner, to contact the office for further evaluation by their primary care physician. Potential red flag symptoms discussed with the patient. Reviewed appropriate action plan to take if red flag symptoms occur. Patient agreeable to treatment plan. Thomas Carpenter APRN.DEVIN Carpenter APRN.DEVIN 11/11/2019 9:03 AM Signed Otitis media is an infection of the middle ear. The middle ear sits behind the eardrum. This infection may be caused by a virus or bacteria and often follows a cold. Otitis media is not contagious. INSTRUCTIONS: 1. If an antibiotic has been prescribed,it should be taken exactly as prescribed. Do not stop the medicine even if the symptoms go away. 2. Kfkt-qge-qdokjpk pain medication may be taken or other pain medication as prescribed by the doctor. 3. Nothing should be placed in the ear unless instructed by your doctor. 4. The patient may return to school or work when the temperature is normal (98.6 F or 37 C). 5. The patient should not swim while the ear is infected. CALL YOUR PRIMARY CARE PROVIDERS OFFICE- -If you do not feel better within 48-72 hours. -If you develop a temperature over 102 F (39 C). -If you develop drainage from the affected ear. -If you have any new problem that may be related to the medicine prescribed. EXPRESS CARE PATIENT INFO BRONCHITIS OVERVIEW Bronchitis develops when there is swelling and irritation of the bronchi, the large tubes that carry air to the lungs. There are two types of bronchitis: acute (sudden onset) and chronic (long-standing). Acute bronchitis often occurs with a viral infection, such as the common cold, and is sometimes called a chest cold . The most common symptom of acute bronchitis is a nagging cough. Treatment of acute bronchitis usually involves treating the symptoms, such as sore throat and congestion. Antibiotics do not help to eliminate acute bronchitis caused by a virus. Antiviral agents are useful in some cases of acute bronchitis due to influenza, but there are antiviral agents for other forms of viral bronchitis. BRONCHITIS CAUSES Most cases of bronchitis are caused by a viral infection of the upper airways, such as the common cold or the flu. Less commonly, a bacterium such as pertussis (whooping cough) is the cause. BRONCHITIS SYMPTOMS The most common symptoms of acute bronchitis include: ? A persistent cough; this may last 10 to 20 days ? Some people cough up mucus, which may be clear, yellow, or green in color Fever is not common in people with acute bronchitis. However, having a fever can be a sign of another condition, such as the flu or pneumonia. Conditions with similar features ? There are other conditions that have symptoms similar to those of acute bronchitis. ? Chronic cough ? A persistent cough that lasts more than eight weeks is considered a chronic cough, which is discussed in detail elsewhere. ? Chronic bronchitis ? Chronic bronchitis is defined as a cough that occurs on most days of the month for at least three months of the year during two consecutive years. ? Pneumonia ? Signs of pneumonia include fever and a fast heart and breathing rate. ? Postnasal drip ? Postnasal drip occurs when secretions drain from the sinuses into the throat. This can cause the throat to feel irritated, which causes you to feel like you need to clear your throat frequently. Postnasal drip can be caused by the common cold, allergies, sinusitis, or environmental irritants. BRONCHITIS DIAGNOSIS Most people who have a persistent cough after an upper respiratory infection (cold) do not need to see a healthcare provider. Diagnostic testing, such as x-rays, cultures, and blood tests, are not usually needed for people with acute bronchitis. However, testing may be recommended if your diagnosis is not clear based upon your examination or if another condition, such as pneumonia, is suspected. When to seek help ? You should call your healthcare provider if you have any of the following: ? Fever (temperature greater than 100.4? F or 38? C) ? A cough that lasts longer than 10 days ? Chest pain with coughing, difficulty breathing, or coughing up blood ? A barking cough that makes it hard to speak, especially if it persists ? Cough accompanied by unexplained weight loss People who are older than 75 do not always have a fever or other concerning symptoms. If you are over 75 years and you have a persistent cough, you should call your clinician to determine if and when an office visit is recommended. BRONCHITIS TREATMENT Relief of symptoms ? There is no specific treatment for bronchitis, but there are a few treatments available for the common cold. ? A nonsteroidal antiinflammatory drug (ibuprofen, naproxen), aspirin, or acetaminophen (Tylenol?) can help to relieve the pain of a sore throat or headache. ? Pseudoephedrine is a decongestant that can improve nasal congestion. Most drugstores in the [place] carry pseudoephedrine behind the counter, so you must ask for it from the pharmacist (a prescription is not required). Other decongestants, such as phenylephrine, are not as effective as pseudoephedrine. Antihistamines such as diphenhydramine (Benadryl?) may also help, but can cause side effects such as drowsiness and drying of the eyes, nose, and mouth. ? Heated, humidified, air can improve symptoms of nasal congestion and runny nose, and has few to no side effects. ? Cough suppressants such as dextromethorphan may be helpful. Antibiotics ? Antibiotics are NOT helpful for most people with bronchitis since the illness is typically caused by a virus. Antibiotics treat bacterial, not viral infections. Antibiotics may be helpful for some patients with other chronic diseases. Many people request antibiotics in the hopes that it will get rid of the cough, and some people even think that antibiotics have helped on previous occasions. However, there is no benefit of antibiotics for most cases of bronchitis. PREVENTING THE SPREAD OF ILLNESS Hand washing is an essential and highly effective way to prevent the spread of infection. Wet your hands with water and plain soap and rub them together for 15 to 30 seconds. Pay special attention to the fingernails, between the fingers, and the wrists. Rinse your hands thoroughly, and dry with a single use towel. Alcohol-based hand rubs are a good alternative for disinfecting hands if a sink is not available. Spread the hand rub over the entire surface of your hands, fingers, and wrists until dry. You can use hand rubs repeatedly without irritating the skin or losing effectiveness. Hand rubs are available as a liquid or wipe in small, portable sizes that are easy to carry in a pocket or handbag. When a sink is available, you should wash visibly soiled hands with soap and water. Wash your hands before preparing food and eating, and after going to the bathroom, and after coughing, blowing the nose, or sneezing. While it is not always possible to limit contact with people who are ill, avoid touching your eyes, nose, or mouth after direct contact, when possible. In addition, use a tissue to cover your mouth when sneezing or coughing. Throw away used tissues promptly and then wash your hands. Sneezing/coughing into the sleeve of your clothing (at the inner elbow) is another way of containing sprays of saliva and secretions and does not contaminate your hands. Sneezing and coughing without covering your mouth can spread infection to anyone within 6 feet. Referring Provider: SELF [200] Allergies As of Date: 11/11/2019 Noted Allergy Reaction RED DYE 03/27/2013 4 - Hives BACTRIM (SULFAMETHOXAZOLE) 03/31/2011 2 - Rash CIPROFLOXACIN 03/31/2011 2 - Rash CLINDAMYCIN 03/31/2011 2 - Rash COLACE (DOCUSATE) 02/01/2018 2 - Rash DULCOLAX (BISACODYL) 07/02/2019 2 - Rash FLAGYL (METRONIDAZOLE) 03/31/2011 4 - Hives IV CONTRAST (IODINE) 07/02/2019 12 - Shortness of Breath LEVAQUIN (LEVOFLOXACIN) 02/26/2016 16 - Unknown MORPHINE 06/21/2017 1 - Mental Status Change 8 - GI Upset Comments: anxiety PEANUTS 03/27/2013 14 - Other: See Comments Comments: blisters in mouth PENICILLINS 03/31/2011 12 - Shortness of Breath STRAWBERRIES 03/27/2013 7 - Swelling SULFA (SULFONAMIDE ANTIBIOTICS) 10/20/2016 2 - Rash TETRACYCLINE 03/31/2011 2 - Rash Date Reviewed: 11/11/2019 Reviewed by: Laly Alejandra LPN - Fully Assessed Reason for Visit: Cough [28] Cmt: cough and ZAVALA x 3 days Primary Visit Diagnosis:Acute otitis media, right [H66.91] Other Visit Diagnoses:Rhonchi [R09.89] Viral bronchitis [J20.8] Order(s):XR CHEST 2V FRONTAL/LAT [[id number]] Order #: [id number]. #:[id number] cefdinir (OMNICEF) 300 mg capsuleTake 1 capsule by mouth twice daily for 10 days.Disp: 20 capsuleRfl: 0 benzonatate (TESSALON PERLE) 100 mg capsuleTake 2 capsules by mouth three times daily as needed.Disp: 30 capsuleRfl: 0 albuterol HFA (PROAIR HFA) 90 mcg/actuation inhalerInhale 2 Puffs as instructed every 4 hours as needed.Disp: 1 InhalerRfl: 0 Prescriptions as of 11/11/2019 Sig: CLOBETASOL 0.05 % TOPICAL OIN* Apply 1 application to affect* METOPROLOL SUCCINATE ER 25 MG* Take 2 tablets by mouth once * IBUPROFEN 200 MG TABLET Take 200 mg by mouth every 6 * ASPIRIN 81 MG TABLET Take 81 mg by mouth. MULTIVITAMIN TABLET Take 1 tablet by mouth once d* ASCORBIC ACID (VITAMIN C) 1,0* Take 1 tablet by mouth once d* CEFDINIR 300 MG CAPSULE Take 1 capsule by mouth twice* BENZONATATE 100 MG CAPSULE Take 2 capsules by mouth thre* ALBUTEROL SULFATE HFA 90 MCG/* Inhale 2 Puffs as instructed * LORATADINE 10 MG TABLET Take 1 tablet by mouth once d* Patient not taking: Reported on 07/02/2019 CYCLOBENZAPRINE 10 MG TABLET Take 1 tablet by mouth every * Patient not taking: Reported on 07/02/2019 More... Problem List As Of Date 11/11/2019 Noted Resolved Routine gynecological examination [Z01.419] 03/31/2011 07/02/2019 Class: Chronic More... More... Anemia [D64.9] 03/31/2011 More... Abnormal mammogram, unspecified [R92.8] 08/24/2014 Tachyarrhythmia [R00.0] More... Essential hypertension [I10] More... Ex-smoker [Z87.891] 10/13/2016 More... Other instructions from your clinician: Otitis media is an infection of the middle ear. The middle ear sits behind the eardrum. This infection may be caused by a virus or bacteria and often follows a cold. Otitis media is not contagious. INSTRUCTIONS: 1. If an antibiotic has been prescribed,it should be taken exactly as prescribed. Do not stop the medicine even if the symptoms go away. 2. Mvmn-dlt-iceiujz pain medication may be taken or other pain medication as prescribed by the doctor. 3. Nothing should be placed in the ear unless instructed by your doctor. 4. The patient may return to school or work when the temperature is normal (98.6 F or 37 C). 5. The patient should not swim while the ear is infected. CALL YOUR PRIMARY CARE PROVIDERS OFFICE- -If you do not feel better within 48-72 hours. -If you develop a temperature over 102 F (39 C). -If you develop drainage from the affected ear. -If you have any new problem that may be related to the medicine prescribed. EXPRESS CARE PATIENT INFO BRONCHITIS OVERVIEW Bronchitis develops when there is swelling and irritation of the bronchi, the large tubes that carry air to the lungs. There are two types of bronchitis: acute (sudden onset) and chronic (long-standing). Acute bronchitis often occurs with a viral infection, such as the common cold, and is sometimes called a chest cold . The most common symptom of acute bronchitis is a nagging cough. Treatment of acute bronchitis usually involves treating the symptoms, such as sore throat and congestion. Antibiotics do not help to eliminate acute bronchitis caused by a virus. Antiviral agents are useful in some cases of acute bronchitis due to influenza, but there are antiviral agents for other forms of viral bronchitis. BRONCHITIS CAUSES Most cases of bronchitis are caused by a viral infection of the upper airways, such as the common cold or the flu. Less commonly, a bacterium such as pertussis (whooping cough) is the cause. BRONCHITIS SYMPTOMS The most common symptoms of acute bronchitis include: ? A persistent cough; this may last 10 to 20 days ? Some people cough up mucus, which may be clear, yellow, or green in color Fever is not common in people with acute bronchitis. However, having a fever can be a sign of another condition, such as the flu or pneumonia. Conditions with similar features ? There are other conditions that have symptoms similar to those of acute bronchitis. ? Chronic cough ? A persistent cough that lasts more than eight weeks is considered a chronic cough, which is discussed in detail elsewhere. ? Chronic bronchitis ? Chronic bronchitis is defined as a cough that occurs on most days of the month for at least three months of the year during two consecutive years. ? Pneumonia ? Signs of pneumonia include fever and a fast heart and breathing rate. ? Postnasal drip ? Postnasal drip occurs when secretions drain from the sinuses into the throat. This can cause the throat to feel irritated, which causes you to feel like you need to clear your throat frequently. Postnasal drip can be caused by the common cold, allergies, sinusitis, or environmental irritants. BRONCHITIS DIAGNOSIS Most people who have a persistent cough after an upper respiratory infection (cold) do not need to see a healthcare provider. Diagnostic testing, such as x-rays, cultures, and blood tests, are not usually needed for people with acute bronchitis. However, testing may be recommended if your diagnosis is not clear based upon your examination or if another condition, such as pneumonia, is suspected. When to seek help ? You should call your healthcare provider if you have any of the following: ? Fever (temperature greater than 100.4? F or 38? C) ? A cough that lasts longer than 10 days ? Chest pain with coughing, difficulty breathing, or coughing up blood ? A barking cough that makes it hard to speak, especially if it persists ? Cough accompanied by unexplained weight loss People who are older than 75 do not always have a fever or other concerning symptoms. If you are over 75 years and you have a persistent cough, you should call your clinician to determine if and when an office visit is recommended. BRONCHITIS TREATMENT Relief of symptoms ? There is no specific treatment for bronchitis, but there are a few treatments available for the common cold. ? A nonsteroidal antiinflammatory drug (ibuprofen, naproxen), aspirin, or acetaminophen (Tylenol?) can help to relieve the pain of a sore throat or headache. ? Pseudoephedrine is a decongestant that can improve nasal congestion. Most drugstores in the [place] carry pseudoephedrine behind the counter, so you must ask for it from the pharmacist (a prescription is not required). Other decongestants, such as phenylephrine, are not as effective as pseudoephedrine. Antihistamines such as diphenhydramine (Benadryl?) may also help, but can cause side effects such as drowsiness and drying of the eyes, nose, and mouth. ? Heated, humidified, air can improve symptoms of nasal congestion and runny nose, and has few to no side effects. ? Cough suppressants such as dextromethorphan may be helpful. Antibiotics ? Antibiotics are NOT helpful for most people with bronchitis since the illness is typically caused by a virus. Antibiotics treat bacterial, not viral infections. Antibiotics may be helpful for some patients with other chronic diseases. Many people request antibiotics in the hopes that it will get rid of the cough, and some people even think that antibiotics have helped on previous occasions. However, there is no benefit of antibiotics for most cases of bronchitis. PREVENTING THE SPREAD OF ILLNESS Hand washing is an essential and highly effective way to prevent the spread of infection. Wet your hands with water and plain soap and rub them together for 15 to 30 seconds. Pay special attention to the fingernails, between the fingers, and the wrists. Rinse your hands thoroughly, and dry with a single use towel. Alcohol-based hand rubs are a good alternative for disinfecting hands if a sink is not available. Spread the hand rub over the entire surface of your hands, fingers, and wrists until dry. You can use hand rubs repeatedly without irritating the skin or losing effectiveness. Hand rubs are available as a liquid or wipe in small, portable sizes that are easy to carry in a pocket or handbag. When a sink is available, you should wash visibly soiled hands with soap and water. Wash your hands before preparing food and eating, and after going to the bathroom, and after coughing, blowing the nose, or sneezing. While it is not always possible to limit contact with people who are ill, avoid touching your eyes, nose, or mouth after direct contact, when possible. In addition, use a tissue to cover your mouth when sneezing or coughing. Throw away used tissues promptly and then wash your hands. Sneezing/coughing into the sleeve of your clothing (at the inner elbow) is another way of containing sprays of saliva and secretions and does not contaminate your hands. Sneezing and coughing without covering your mouth can spread infection to anyone within 6 feet. Prescriptions ordered this encounter Disp Refills Start End CEFDINIR 300 MG CAPSULE 20 c* 0 11/11/2019 11/21/2019 Route: ORAL Sig: Take 1 capsule by mouth twice daily for 10 days. BENZONATATE 100 MG CAPSULE 30 c* 0 11/11/2019 Route: ORAL Sig: Take 2 capsules by mouth three times daily as needed. ALBUTEROL SULFATE HFA 90 MCG/ACTUATI* 1 In* 0 11/11/2019 Cmt: Generic or brand: dispense inhaler preferred by patient/insurance, may sub for ventolin Route: INHALATION Sig: Inhale 2 Puffs as instructed every 4 hours as needed. Encounter Status:Closed by THOMAS CARPENTER CNP on 11/11/19 Normal [facility] PROGRESSon 11-11-2019 PROGRESS HNO ID: [id number] Author: Lani Espinal) Courtney Hammond Service: ? Author Type: Cylinder Tester Type: Progress Notes Filed: 11/11/2019 8:39 AM Note Text: Radiology Service Progress Note PATIENT NAME: Wanda Haddad DATE OF SERVICE: November 11, 2019 TIME: 8:29 AM PATIENT IDENTITY VERIFICATION COMPLETED USING TWO (2) IDENTIFIERS: Name and Date of confirmed by patient verbally. PATIENT GENDER DATA: Female. status: : No status: NO. PATIENT RELEVANT IMPLANT DATA REVIEWED: Not Applicable RADIOLOGY DEPARTMENT: General X-ray: Exam(s) Completed: Chest X-Ray PERIPHERAL IV DATA: Not applicable SIGNED BY: RT Andrzej November 11, 2019 8:29 AM [facility] PROGRESS HNO ID: [id number] Author: Thomas Carpenter Service: ? Author Type: Nurse Practitioner Type: Progress Notes Filed: 11/11/2019 10:38 AM Note Text: Subjective HPI HPI Wanda Haddad is a 58 year old female who presents today for CC of cough, congestion, headache. This started 3 days ago. Has tried otc medication. Symptoms are worsened by nothing. Risk factors recent sick exposures. .Patient presents with: Cough: cough and ZAVALA x 3 days PAST MEDICAL HISTORY Diagnosis Date - Cervical intraepithelial neoplasia (JUDITH) - Essential hypertension - Menorrhagia - Tachyarrhythmia PAST SURGICAL HISTORY Procedure Laterality Date - BREAST BIOPSY W/ULTRASOUND GUIDANCE 09/02/14 U/S needle core UOQ left breast - HYSTERECTOMY HX 2013 total robotic - LEEP PROCEDURE ([facility] SPECIALIST DEPT)_*[place] - PAST SURGICAL HISTORY OF 2004 Dr. Viveros - colonoscopy (for anemia) - STRESS TEST 11/08/2016 normal ALLERGIES Red Dye; Bactrim [Sulfamethoxazole]; Ciprofloxacin; Clindamycin; Colace [Docusate]; Dulcolax [Bisacodyl]; Flagyl [Metronidazole]; Iv Contrast [Iodine]; Levaquin [Levofloxacin]; Morphine; Peanuts; Penicillins; Strawberries; Sulfa (Sulfonamide Antibiotics); Tetracycline -This section reviewed with patient, no changes MEDICATIONS clobetasol (TEMOVATE) 0.05 % ointment Apply 1 application to affected area as directed. Peas-sized amount to perineum bid x 3 weeks, qday x 3 weeks then qod x 3 weeks metoprolol succinate ER (TOPROL XL) 25 mg 24 hr tablet Take 2 tablets by mouth once daily. ibuprofen (ADVIL) 200 mg tablet Take 200 mg by mouth every 6 hours as needed. Aspirin 81 mg Tab Take 81 mg by mouth. multivitamin (MULTIPLE VITAMIN) ORAL tablet Take 1 tablet by mouth once daily. Ascorbic Acid (VITAMIN C) 1,000 mg ORAL tablet Take 1 tablet by mouth once daily. loratadine (CLARITIN) 10 mg tablet Take 1 tablet by mouth once daily. cyclobenzaprine (FLEXERIL) 10 mg tablet Take 1 tablet by mouth every 8 hours as needed for Muscle Spasm (or pain). FAMILY HISTORY Problem Relation Age of Onset - Coronary Artery Disease Mother a-fib - Kidney Disease Mother renal failure - Diabetes Father - Cancer Father bladder - Heart Father - Hypertension Maternal Grandmother - Heart Maternal Grandfather irregular heart beat - Cancer Maternal Grandfather prostate - Cancer Paternal Grandmother stomach - COPD Paternal Grandfather black lung - Coronary Artery Disease Brother a-fib - Hypertension Brother - Diabetes Brother pre - Hypertension Brother Social History Tobacco Use - Smoking status: Former Smoker Packs/day: 1.00 Years: 10.00 Pack years: 10.00 Last attempt to quit: 08/04/1988 Years since quittin.2 - Smokeless tobacco: Never Used Substance Use Topics - Alcohol use: No - Drug use: No Review of Systems Constitutional: Negative for fever. HENT: Positive for congestion, ear pain and sore throat. Negative for ear discharge and nosebleeds. Respiratory: Positive for cough. Negative for shortness of breath and wheezing. Musculoskeletal: Negative for neck pain. Objective Blood pressure 138/84, pulse 70, temperature 36.9 ?C (98.4 ?F), temperature source Tympanic, resp. rate 16, weight 75.2 kg (165 lb 12.8 oz), last menstrual period 03/23/2013, SpO2 97 %. Physical Exam Constitutional: She is oriented to person, place, and time and well-developed, well-nourished, and in no distress. Non-toxic appearance. She does not have a sickly appearance. No distress. HENT: Head: Normocephalic and atraumatic. Right Ear: Hearing, external ear and ear canal normal. Tympanic membrane is erythematous and bulging. Tympanic membrane is not perforated. Left Ear: Hearing, tympanic membrane, external ear and ear canal normal. Nose: Nose normal. Mouth/Throat: Uvula is midline, oropharynx is clear and moist and mucous membranes are normal. Eyes: Pupils are equal, round, and reactive to light. Conjunctivae and lids are normal. Right eye exhibits no discharge. Left eye exhibits no discharge. No scleral icterus. Neck: Trachea normal and normal range of motion. Neck supple. Cardiovascular: Normal rate, regular rhythm and normal heart sounds. Pulmonary/Chest: Effort normal. She has no decreased breath sounds. She has no wheezes. She has rhonchi (scattered, clear with cough). She has no rales. Lymphadenopathy: She has no cervical adenopathy. Neurological: She is alert and oriented to person, place, and time. Skin: No rash noted. She is not diaphoretic. ASSESSMENT/PLAN: 1. Acute otitis media, right - ICD9: 382.9, ICD10: H66.91 (primary diagnosis) - Will begin treatment with as per antibiotic as written, see orders - Supportive care with plenty of fluids, rest, and analgesia prn. - Follow up in 3-5 days if symptoms persist or worsen. - CEFDINIR 300 MG CAPSULE 2. Rhonchi - ICD9: 786.7, ICD10: R09.89 - XR CHEST 2V FRONTAL/LAT IMPRESSION: ? No acute radiographic abnormality. ? Dictated by : SEBAS POOLE MD 3. Viral bronchitis - ICD9: 466.0, ICD10: J20.8 - Discussed supportive care, given educational handout - Limit exposure to smoke and other inhaled irritants - Discussed possible red flags and when to seek medical attention - Follow up in 3-5 days or sooner if no better or worse -If you experience chest pain/shortness of breath go to ER - BENZONATATE 100 MG CAPSULE - ALBUTEROL SULFATE HFA 90 MCG/ACTUATION AEROSOL INHALER Prescription instructions reviewed with patient as applicable. Patient advised if symptoms do not improve or if symptoms worsen sooner, to contact the office for further evaluation by their primary care physician. Potential red flag symptoms discussed with the patient. Reviewed appropriate action plan to take if red flag symptoms occur. Patient agreeable to treatment plan. Thomas Carpenter APRN.MEDIATOR Normal [facility] XR CHEST 2V FRONTAL/LATon XR CHEST 2V FRONTAL/LAT * * *Final Report* * * DATE OF EXAM: Nov 11 2019 8:39AM WOX [id number] - XR CHEST 2V FRONTAL/LAT / PROCEDURE REASON: Rhonchi * * * * Physician Interpretation * * * * EXAMINATION: CHEST RADIOGRAPH (2 VIEW FRONTAL and LATERAL) CLINICAL HISTORY: Rhonchi MQ: XC2_5 Comparison: Chest x-ray on 10/06/2018 RESULT: Lines, tubes, and devices: None. Lungs and pleura: No consolidation. No lung mass. No pleural effusion. Cardiomediastinal silhouette: Normal cardiomediastinal silhouette. Other: There are degenerative changes in the spine. IMPRESSION: No acute radiographic abnormality. Director Of Clinical Education: TRACE Transcribe Date/Time: Nov 11 2019 8:41A Dictated by : SEBAS POOLE MD This examination was interpreted and the report reviewed and electronically signed by: SEBAS POOLE MD on Nov 11 2019 8:42AM EST [id number] Normal [facility] Mamm - Screening Mammogram w / Tomosynthesison 08-19-2019 MG Breast screening Interpreted by: MASON BENJAMIN08/19/19 15:43MRN: [id number] Name: WANDA HADDAD STUDY:DIGITAL MAMM SCREENING W/ SOPHY; 08/19/2019 1:54 pm ORDERING CLINICIAN:RENNY BAKER INDICATION:Screening. COMPARISON:05/31/2018 FINDINGS:2D and tomosynthesis images were reviewed at 1 mm slice thickness. The breast tissue is heterogeneously dense, which may obscure smallmasses. No suspicious masses or calcifications are identified. IMPRESSION:No mammographic evidence of malignancy. BI-RADS CATEGORY:Category: 2 - Benign Finding.Recommendatio n: Normal Interval Follow-up, Over Age 40.Recall Interval: 12 Months.Breast Density: Heterogeneous. For any future breast imaging appointments, please call [phone]). Electronically signed by: MASON BENJAMIN 08/19/19 15:43 Normal [facility] Work Phone: Complete Blood Count + Diffe rentialon 08-15-2019 Basophils (Bld) [#/Vol] 0.00 {x10E9/L} See Below [facility] Work Phone: Comment on above: Reference Range: 0.0 0 - 0.10 Basophils/100 WBC (Bld) 0.7 % 0.0 - 2.0 [facility] Work Phone: Eosinophils (Bld) [#/Vol] 0.10 {x10E9/L} See Below [facility] Work Phone: Comment on above: Reference Range: 0.0 0 - 0.70 Eosinophils/100 WBC (Bld) 2.2 % 0.0 - 6.0 [facility] Work Phone: Erythrocyte distribution width (RBC) [Ratio] 13.4 % See Below [facility] Work Phone: Comment on above: Reference Range: 11. 5 - 14.5 Hematocrit (Bld) [Volume fraction] 45.5 % See Below [facility] Work Phone: Comment on above: Reference Range: 36. 0 - 46.0 Hemoglobin (Bld) [Mass/Vol] 15.5 g/dL See Below [facility] Work Phone: Comment on above: Reference Range: 12. 0 - 16.0 Lymphocytes (Bld) [#/Vol] 1.60 {x10E9/L} See Below [facility] Work Phone: Comment on above: Reference Range: 1.2 0 - 4.80 Lymphocytes/100 WBC (Bld) 34.0 % See Below [facility] Work Phone: Comment on above: Reference Range: 13. 0 - 44.0 MCHC (RBC) [Mass/Vol] 34.1 g/dL See Below [facility] Work Phone: Comment on above: Reference Range: 32. 0 - 36.0 MCV (RBC) [Entitic vol] 94 fL 80 - 100 [facility] Work Phone: Monocytes (Bld) [#/Vol] 0.40 {x10E9/L} See Below [facility] Work Phone: Comment on above: Reference Range: 0.1 0 - 1.00 Monocytes/100 WBC (Bld) 9.3 % 2.0 - 10.0 [facility] Work Phone: Neutrophils (Bld) [#/Vol] 2.50 {x10E9/L} See Below [facility] Work Phone: Comment on above: Reference Range: 1.2 0 - 7.70 Neutrophils/100 WBC (Bld) 53.8 % See Below [facility] Work Phone: Comment on above: Reference Range: 40. 0 - 80.0 Platelets (Bld) [#/Vol] 214 {x10E9/L} 150 - 450 [facility] Work Phone: RBC (Bld) [#/Vol] 4.84 {x10E12/L} See Below [facility] Work Phone: Comment on above: Reference Range: 4.0 0 - 5.20 WBC (Bld) [#/Vol] 4.7 {x10E9/L} 4.4 - 11.3 [facility] Work Phone: Metabolic Panelon 08-15-2019 Anion gap [Moles/Vol] 8 mmol/L below low threshold 10 - 20 [facility] Work Phone: Calcium [Mass/Vol] 9.6 mg/dL 8.6 - 10.3 [facility] Work Phone: Chloride [Moles/Vol] 105 mmol/L 98 - 107 [facility] Work Phone: CO2 [Moles/Vol] 31 mmol/L 21 - 32 [facility] Work Phone: Creatinine [Mass/Vol] 0.83 mg/dL See Below [facility] Work Phone: Comment on above: Reference Range: 0.5 0 - 1.05 Glucose [Mass/Vol] 88 mg/dL 74 - 99 [facility] Work Phone: Potassium [Moles/Vol] 4.4 mmol/L 3.5 - 5.3 [facility] Work Phone: Sodium [Moles/Vol] 140 mmol/L 136 - 145 [facility] Work Phone: Urea nitrogen [Mass/Vol] 15 mg/dL 6 - 23 [facility] Work Phone: Otheron 08-15-2019 >60 >60 [facility] Work Phone: Comment on above: CALCULATIONS OF GERALD MATED GFR ARE PERFORMED USING THE MDRD STUDY EQUATION FOR THE IDMS-TRACEABLE CREATININE METHODS. CLIN CHEM 2007;53:766-72 Thyroidon 08-15-2019 TSH Qn 2.14 {mIU/L} See Below [facility] Work Phone: Comment on above: Reference Range: 0.4 4 - 3.98 TSH testing is performed using different testing methodology at [facility] than at other [facility]. Direct result comparisons should only be made within the same method. US Abdomen, Limitedon 2018 US Abdomen, Limited Exam Date/Time: 06/05/2019 08:59 EDT Reason for Exam: ABD PAIN LEFT UPPER QUAD EPIGASTRIC PAIN ELEVATED ALK PHOS ATTN: BILATERAL UPPER QUAD;Abdominal pain Report STUDY: US Abdomen, Limited; 06/05/2019 8:59 am INDICATION: 58 y/o F with Abdominal pain. COMPARISON: 04/30/2012 ACCESSION NUMBER(S): [id number] ORDERING CLINICIAN: Kimberley Sutton TECHNIQUE: Routine ultrasound of the right upper quadrant and spleen was performed. Static images were obtained for remote interpretation. FINDINGS: LIVER: Normal size and measures 15.6 cm. Normal echogenicity, and echotexture. No focal abnormalities. BILE DUCTS: No intrahepatic or extrahepatic bile duct dilatation. Extrahepatic bile duct = 3 mm. GALLBLADDER: Normal. No stones, pericholecystic fluid, wall thickening, or localized tenderness. PANCREAS: Normal head and body. The pancreatic tail is obscured by bowel gas. RIGHT KIDNEY: Normal size, no hydronephrosis. PERITONEUM: No upper abdominal ascites. SPLEEN: Normal size and echogenicity. IMPRESSION: Unremarkable ultrasound of the right upper quadrant and spleen FINAL REPORT Dictated: 06/05/2019 9:10 am Michell Jacobs MD Signed (Electronic Signature): 06/05/2019 9:10 am Signed by: Michell Jacobs MD Technologist: Normal [facility] Amylaseon 06-02-2019 Amylase [Catalytic activity/Vol] 49 Int._Unit/L Normal 29 [facility] Comment on above: Performed By: #### 2 [id number] #### TEJINDER [employer] [facility] [place] [address] CMPon 06-02-2019 Albumin [Mass/Vol] 4.3 g/dL Normal 3.4-5.0 [facility] Comment on above: Performed By: #### 2 [id number] #### TEJINDER [employer] [address] [place] [address] Albumin/Globulin [Mass ratio] 1.3 {ratio} Normal 1.1-1.9 [facility] Comment on above: Performed By: #### 2 [id number] #### TEJINDER [employer] [address] [place] [address] Alk Phos 113 Int._Unit/L High 33-110 [facility] Comment on above: Performed By: #### 2 [id number] #### [employer]JINDER [employer] [facility] [place] [address] ALT [Catalytic activity/Vol] 18 Int._Unit/L Normal 7-45 [facility] Comment on above: Performed By: #### 2 [id number] #### TEJINDER [employer] [address] [place] [address] Anion gap [Moles/Vol] 11 mmol/L Normal 10-20 [facility] Comment on above: Performed By: #### 2 [id number] #### TEJINDERHermelinda [employer] [address] [place] [address] AST [Catalytic activity/Vol] 23 Int._Unit/L Normal 9-39 [facility] Comment on above: Performed By: #### 2 [id number] #### TEJINDERHermelinda [employer] [address] [place] [address] Bili Total 0.99 mg/dL Normal 0.00-1.20 [facility] Comment on above: Performed By: #### 2 [id number] #### TEJINDERHermelinda [employer] [facility] [place] [address] Calcium [Mass/Vol] 9.6 mg/dL Normal 8.6-10.3 [facility] Comment on above: Performed By: #### 2 [id number] #### TEJINDERHermelinda [employer] [address] [place] [address] Chloride [Moles/Vol] 104 mmol/L Normal 98-107 [facility] Comment on above: Performed By: #### 2 [id number] #### TEJINDERHermelinda [employer] [address] [place] [address] CO2 [Moles/Vol] 30.0 mmol/L Normal 21.0-32.0 [facility] Comment on above: Performed By: #### 2 [id number] #### TEJINDER [employer] [address] [place] [address] Creatinine [Mass/Vol] 0.8 mg/dL Normal 0.5-1.1 [facility] Comment on above: Performed By: #### 2 [id number] #### TE[employer]ER [employer] [address] [place] [address] Globulin (S) [Mass/Vol] 3.0 g/dL Normal 2.0-4.0 [facility] Comment on above: Performed By: #### 2 [id number] #### TE[employer]ER [employer] [address] [place] [address] Glucose [Mass/Vol] 73 mg/dL Normal 70-99 [facility] Comment on above: Performed By: #### 2 [id number] #### TEJINDER [employer] [address] [place] [address] Potassium [Moles/Vol] 3.4 mmol/L Low 3.5-5.3 [facility] Comment on above: Performed By: #### 2 [id number] #### TEJINDER [employer] [address] [place] [address] Protein [Mass/Vol] 7.7 g/dL Normal 6.4-8.2 [facility] Comment on above: Performed By: #### 2 [id number] #### TE[employer] [address] [place] [address] Sodium [Moles/Vol] 141 mmol/L Normal 136-145 [facility] Comment on above: Performed By: #### 2 [id number] #### TEJINDER [employer] [address] [place] [address] Urea nitrogen [Mass/Vol] 11 mg/dL Normal 6-23 [facility] Comment on above: Performed By: #### 2 [id number] #### TE[employer] [address] [place] [address] Urea nitrogen/Creatinine [Mass ratio] 13.8 ratio Normal 5.4-30.0 [facility] Comment on above: Performed By: #### 2 [id number] #### TEJINDERHermelinda [employer] [address] [place] [address] Lipase Levelon 06-02-2019 Lipase Lvl 16 Int._Unit/L Normal 9-82 [facility] Comment on above: Performed By: #### 2 [id number] #### TEJINDER [employer] [facility] [place] [address] eGFRon 06-02-2019 GFR/1.73 sq M predicted among non-blacks MDRD (S/P/Bld) [Vol rate/Area] mL/min/{1.73_m2} Normal [facility] Comment on above: Order Comment: Order added by Discern Expert. Performed By: #### 1 [id number] #### TEJINDER [employer] [address] [place] [address] XR Hip 2-3 Views Left + Pelv keo 04-16-2019 XR Hip 2-3 Views Left + Pelvis Exam Date/Time: 04/16/2019 10:11 EDT Reason for Exam: Pain, Non Traumatic Report STUDY: XR Hip 2-3 Views Left + Pelvis;; 04/16/2019 10:11 am INDICATION: Pain, Non Traumatic. COMPARISON: None. ACCESSION NUMBER(S): [id number] ORDERING CLINICIAN: Renny Baker FINDINGS: The pelvic bones are intact. Mild degenerative changes are present in the symphysis pubis. There is slight narrowing of the superior aspect of left hip joint space consistent with early degenerative joint disease. Note is made of metallic clips on the left side of the pelvis. IMPRESSION: No acute abnormality. Mild degenerative change of the left hip. FINAL REPORT Dictated: 04/16/2019 3:47 pm Mason Benjamin MD Signed (Electronic Signature): 04/16/2019 3:47 pm Signed by: Mason Benjamin MD Technologist: HLR Normal [facility] ED NOTEon 03-14-2019 ED NOTE HNO ID: [id number] Author: Brody (Rn) MADELYN Goel Service: Emergency Medicine Author Type: Registered Nurse Type: ED Notes Filed: 03/14/2019 12:34 PM Note Text: Doctor at bedside for exam Normal [facility] ED PROV NOTEon 03-14-2019 ED PROV NOTE HNO ID: [id number] Author: Lavern Barnes DO Service: Emergency Medicine Author Type: Physician Type: ED Provider Notes Filed: 03/14/2019 3:42 PM Note Text: ED Provider Note Patient Name: Wanda Haddad SERVICE DATE: 03/14/19 History Patient presents with: Dizziness Neck Pain Ringing In Ear(s) Wanda Haddad is a 58 year old female with history of hypertension, tachyarrhythmia who presents with Dizziness; Neck Pain; and Ringing In Ear(s). Patient took nothing for this prior to arrival. - Symptoms began 6 days prior to arrival for ear symptoms, mainly today for neck and dizzy symptoms. - Severity: moderate - Timing: constant - Quality: Humming in ears, sore/stiff neck - Dizziness is occasionally if she turns her neck too quick; Neck Pain is exacerbated by moving neck and palpation; and Ringing In Ear(s) is exacerbated by nothing. - Dizziness; Neck Pain; and Ringing In Ear(s) is not exacerbated by rest. - Symptoms are associated with nothing. - Symptoms are not associated with abdominal pain, chest pain, diarrhea, fever, nausea, rash, shortness of breath, URI symptoms, vomiting, headache, vision changes, pain radiating into arms or leg, weakness, speech difficulty. - Improved by nothing. - Not improved by anything. Patient presents stating she fell while walking her large dog one week ago. She fell hitting the side of her face. She states she did have neck pain right after for about 30-40 minutes then it seemed to go away. The next day she felt a fluid sensation/sound in both ears. She states it is not ringing. She has no hearing loss or headache. States that has been ongoing for the past 6 days. Today she woke up and having pain in her neck again. Worse with movement, palpation. If she moves her neck too quickly she feels dizzy briefly, but states not vertiginous. She states she slows down moving her neck and she is fine. She denies any weakness, speech difficulty, headache, vision changes, fever, chest pain, shortness of breath, abdominal pain. No sore throat, sinus drainage. No ear pain. She is on aspirin, no other blood thinners. PAST MEDICAL HISTORY Diagnosis Date - Cervical intraepithelial neoplasia (JUDITH) - Essential hypertension - Menorrhagia - Tachyarrhythmia PAST SURGICAL HISTORY Procedure Laterality Date - BREAST BIOPSY W/ULTRASOUND GUIDANCE 09/02/14 U/S needle core UOQ left breast - HYSTERECTOMY HX 2013 total robotic - LEEP PROCEDURE (LOAN SPECIALIST DEPT)_*[place] - PAST SURGICAL HISTORY OF 2004 Dr. Viveros - colonoscopy (for anemia) - STRESS TEST 11/08/2016 normal FAMILY HISTORY Problem Relation Age of Onset - Coronary Artery Disease Mother a-fib - Kidney Disease Mother renal failure - Diabetes Father - Cancer Father bladder - Heart Father - Hypertension Maternal Grandmother - Heart Maternal Grandfather irregular heart beat - Cancer Maternal Grandfather prostate - Cancer Paternal Grandmother stomach - COPD Paternal Grandfather black lung - Coronary Artery Disease Brother a-fib - Hypertension Brother - Diabetes Brother pre - Hypertension Brother Social History Tobacco Use - Smoking status: Former Smoker Packs/day: 1.00 Years: 10.00 Pack years: 10.00 Last attempt to quit: 08/04/1988 Years since quittin.6 - Smokeless tobacco: Never Used Substance and Sexual Activity - Alcohol use: No - Drug use: No - Sexual activity: Yes Partners: Male control/protection: Surgical Comment: Hysterectomy ALLERGIES Allergen Reactions - Red Dye Hives - Bactrim [Sulfametho* Rash - Ciprofloxacin Rash - Clindamycin Rash - Colace [Docusate] Rash - Flagyl [Metronidazo* Hives - Levaquin [Levofloxa* Unknown - Morphine Mental Status Change, GI Upset anxiety - Peanuts Other: See Comments blisters in mouth - Penicillins Shortness of Breath - Strawberries Swelling - Sulfa (Sulfonamide * Rash - Tetracycline Rash Review of Systems Constitutional: Negative for chills and fever. HENT: Positive for postnasal drip and tinnitus ( humming in both ears). Negative for congestion, drooling, ear discharge, ear pain, sinus pain, sore throat and trouble swallowing. Eyes: Negative for photophobia, pain, redness and visual disturbance. Respiratory: Negative for cough and shortness of breath. Cardiovascular: Negative for chest pain and palpitations. Gastrointestinal: Negative for abdominal pain and vomiting. Musculoskeletal: Positive for neck pain and neck stiffness. Negative for back pain. Skin: Negative for color change, pallor, rash and wound. Allergic/Immunologic: Negative for immunocompromised state. Neurological: Positive for dizziness (brief is she turns neck too quickly). Negative for seizures, syncope, facial asymmetry, speech difficulty, weakness, light-headedness, numbness and headaches. Psychiatric/Behaviora l: Negative for agitation and confusion. Physical Exam BP 136/79 Pulse 57 Temp 98.1 Resp 16 Ht 5' 4 (1.63m) Wt 145 lb (65.8kg) SpO2 99% LMP 03/23/2013 BMI 24.88 kg/(m2). Physical Exam Constitutional: She is oriented to person, place, and time. She appears well-developed and well-nourished. No distress. HENT: Head: Normocephalic and atraumatic. Right Ear: External ear normal. No mastoid tenderness. Tympanic membrane is not injected. Left Ear: External ear normal. No mastoid tenderness. Mouth/Throat: Uvula is midline, oropharynx is clear and moist and mucous membranes are normal. No trismus in the jaw. No uvula swelling. No oropharyngeal exudate. No tonsillar exudate. Right TM dull, no erythema, poor light reflex. Left TM partially obscured and appears dull, no erythema. There is dried, flaky cerumen in the ear canal Eyes: Pupils are equal, round, and reactive to light. Conjunctivae and EOM are normal. Right eye exhibits no discharge. Left eye exhibits no discharge. No scleral icterus. Neck: Trachea normal and phonation normal. Neck supple. No JVD present. Spinous process tenderness and muscular tenderness present. No tracheal tenderness present. Carotid bruit is not present. No neck rigidity. Decreased range of motion present. No tracheal deviation, no edema and no erythema present. Cardiovascular: Normal rate, regular rhythm and intact distal pulses. Pulmonary/Chest: Effort normal and breath sounds normal. No respiratory distress. She exhibits no tenderness. Abdominal: Soft. Bowel sounds are normal. She exhibits no distension. There is no tenderness. There is no guarding. Musculoskeletal: Cervical back: She exhibits decreased range of motion, tenderness, bony tenderness, pain and spasm. She exhibits no swelling, no edema, no deformity, no laceration and normal pulse. Thoracic back: She exhibits normal range of motion, no tenderness, no bony tenderness, no swelling, no edema, no deformity, no laceration, no pain and no spasm. Lumbar back: She exhibits normal range of motion, no tenderness, no bony tenderness, no swelling, no edema, no deformity, no laceration, no pain and no spasm. Midline bony and paraspinal cervical tenderness. There is muscular spasm bilateral cervical paraspinal muscles. No overlying skin changes. Neurological: She is alert and oriented to person, place, and time. She has normal strength. No cranial nerve deficit or sensory deficit. GCS eye subscore is 4. GCS verbal subscore is 5. GCS motor subscore is 6. Finger to nose and heel to espino normal bilaterally Skin: Skin is warm and dry. Capillary refill takes less than 2 seconds. No rash noted. She is not diaphoretic. No erythema. No pallor. Psychiatric: She has a normal mood and affect. Her behavior is normal. Nursing note and vitals reviewed. Diagnostic Testing ED Labs Ordered and Reviewed - No data to display Procedures ED Course / Clinical Impression Clinical Impressions as of Mar 14 1537 Muscle spasms of neck Degenerative disc disease, cervical Injury of head, initial encounter Tinnitus of both ears MDM / Disposition / Plan With recent trauma and current symptoms, imaging has been ordered. I discussed all results with the patient. She is non-toxic appearing. She states her neck is feeling better, pain improving, less stiff/sore. On re-evaluation, she is much less tender palpating her cervical paraspinal muscles and cervical muscle spasm has improved from initial exam. She does state her ears have been itchy all week too along with the humming noise in both ears and she notes a feeling like she needs to pop both of her ears. She states her hearing is better than usual currently and denies any hearing loss. She denies any palpitations, syncope, chest pain, shortness of breath, headache, numbness or weakness. A prescription for claritin to try for her ear itching and congestion will be given, though I discussed her symptoms of humming/tinnitus need to be further evaluated for other causes and needs to closely follow up with primary. Flexeril will also be prescribed for muscle spasm as she is improving with the dose she was given in the ED. I instructed her on reasons to return to the ED, otherwise follow up closely with primary. Disposition The patient was discharged. Counseled patient regarding radiology results and suspected diagnosis. As well as the need for follow-up. Discharged home with verbal and written instructions. They were instructed to return as needed for persistent or worsening symptoms or any new concerns. Condition at disposition is stable. SIGNATURE: Lavern Barnes DO regi Lavern Cameron, 03/14/19 1542 Normal [facility] PROGRESSon 03-05-2019 PROGRESS HNO ID: [id number] Author: Leonor Bass Service: ? Author Type: Powerhouse Helper Type: Progress Notes Filed: 03/05/2019 12:36 PM Note Text: [employer] QUICKNOTE Provider Action/FYI: I spoke with Wanda and she declines an appointment at this time because she's busy (her dad is in the hospital). She will call when she's ready to make an appointment. Patient identified by name and . Leonor Bass CMA [facility] CNPTOUTREACHojack 02-27-2019 CNPTOUTREA Patient Outreach (FAMPWS) WANDA HADDAD ([id number]) 1960 F Date Time Provider Department 02[facility]27[facility] During your visit today, we recorded the following information about you: Leonor Bass CMA 03/05/2019 12:36 PM Signed PHMA TEAMLET DOCUMENTATION Provider Action/FYI: PSR Action/FYI: Due for Physical (declined appointment 05/2018 - was thinking about changing PCPs) Health Maintenance Due: BP CONTROLLED (<130/80) due on 12/26/1979 DTAP,TDAP,TD(1 - Tdap) due on 1980 COLORECTAL CANCER SCREENING,SEE MODIFIER due on 12/26/2011 MAMMOGRAM due on 07/29/2015 ANNUAL PCP TEAM CHRONIC DISEASE VISIT due on 07/24/2018 Teamlet has identified patient by name and date of . Team: Monserrat Galvez ? Last Office Visit:Visit date not found ? Next Office Visit: Visit date not found ? Last BP/Labs: Blood Pressure: Last 3 Encounter BP Readings: Date: BP: 01/07/2019 149/69 10/06/2018 144/74 02/01/2018 164/90 Lipids: Cholesterol, Total (mg/dL) Date Value 10/12/2016 210 HDL Cholesterol (mg/dL) Date Value 10/12/2016 65 LDL Cholesterol (mg/dL) Date Value 10/12/2016 116 Triglyceride (mg/dL) Date Value 10/12/2016 145 HGB A1C: No results found for: HBA1C TSH: TSH (uU/mL) Date Value 06/12/2017 2.020 10/12/2016 1.630 ) Care Gap: HTN Plan: ? Confirm PCP / Status -unknown ? Type of appointment needed: Physical next available with pcp or director peoplesoft ? Consultation Appointments: n/a Labs, HM and Immunization: Health Maintenance Due: BP CONTROLLED (<130/80) due on 12/26/1979 DTAP,TDAP,TD(1 - Tdap) due on 1980 COLORECTAL CANCER SCREENING,SEE MODIFIER due on 12/26/2011 MAMMOGRAM due on 07/29/2015 ANNUAL PCP TEAM CHRONIC DISEASE VISIT due on 07/24/2018 SHAKIRA Aguilar CMA 03/05/2019 12:36 PM Signed [facility] [employer] MANAGER ELEANORNOTE Provider Action/FYI: Patient identified by name and . 1st attempt - Fortumot message sent. SHAKIRA Aguilar CMA 03/05/2019 12:36 PM Signed [facility] [employer] MANAGER CHRIS Provider Action/FYI: I spoke with Wanda and she declines an appointment at this time because she's busy (her dad is in the hospital). She will call when she's ready to make an appointment. Patient identified by name and . Leonor Bass CMA Allergies As of Date: 02/27/2019 Noted Allergy Reaction RED DYE 03/27/2013 4 - Hives BACTRIM (SULFAMETHOXAZOLE) 03/31/2011 2 - Rash CIPROFLOXACIN 03/31/2011 2 - Rash CLINDAMYCIN 03/31/2011 2 - Rash COLACE (DOCUSATE) 02/01/2018 2 - Rash FLAGYL (METRONIDAZOLE) 03/31/2011 4 - Hives LEVAQUIN (LEVOFLOXACIN) 02/26/2016 16 - Unknown MORPHINE 06/21/2017 1 - Mental Status Change 8 - GI Upset Comments: anxiety PEANUTS 03/27/2013 14 - Other: See Comments Comments: blisters in mouth PENICILLINS 03/31/2011 12 - Shortness of Breath STRAWBERRIES 03/27/2013 7 - Swelling SULFA (SULFONAMIDE ANTIBIOTICS) 10/20/2016 2 - Rash TETRACYCLINE 03/31/2011 2 - Rash Date Reviewed: 01/07/2019 Reviewed by: Laly Soto) MADELYN Chow - Fully Assessed Reason for Visit: PHMA/Care Gap Outreach [[id number]] Prescriptions as of 02/27/2019 Sig: METOPROLOL SUCCINATE ER 25 MG* Take 2 tablets by mouth once * IBUPROFEN 200 MG TABLET Take 200 mg by mouth every 6 * ASPIRIN 81 MG TABLET Take 81 mg by mouth. MULTIVITAMIN TABLET Take 1 tablet by mouth once d* ASCORBIC ACID (VITAMIN C) 1,0* Take 1 tablet by mouth once d* More... Problem List As Of Date 02/27/2019 Noted Resolved Routine gynecological examination [Z01.419] INVALID FOR* Class: Chronic More... More... Anemia [D64.9] INVALID FOR* More... Abnormal mammogram, unspecified [R92.8] INVALID FOR* Tachyarrhythmia [R00.0] More... Essential hypertension [I10] More... Ex-smoker [Z87.891] INVALID FOR* More... Encounter Status:Closed by LEONOR BASS CMA on 03/05/19 [facility] PROGRESSon 02-27-2019 PROGRESS HNO ID: [id number] Author: Leonor Bass Service: ? Author Type: Powerhouse Helper Type: Progress Notes Filed: 03/05/2019 12:36 PM Note Text: [facility] [employer] [employer] MANAGER QUICKNOTE Provider Action/FYI: Patient identified by name and . 1st attempt - Fortumot message sent. Leonor Bass CMA [facility] PROGRESS HNO ID: [id number] Author: Leonor Bass Service: ? Author Type: Powerhouse Helper Type: Progress Notes Filed: 03/05/2019 12:36 PM Note Text: PHMA TEAMLET DOCUMENTATION Provider Action/FYI: PSR Action/FYI: Due for Physical (declined appointment 05/2018 - was thinking about changing PCPs) Health Maintenance Due: BP CONTROLLED (<130/80) due on 12/26/1979 DTAP,TDAP,TD(1 - Tdap) due on 1980 COLORECTAL CANCER SCREENING,SEE MODIFIER due on 12/26/2011 MAMMOGRAM due on 07/29/2015 ANNUAL PCP TEAM CHRONIC DISEASE VISIT due on 07/24/2018 Teamlet has identified patient by name and date of . Team: Monserrat Galvez ? Last Office Visit:Visit date not found ? Next Office Visit: Visit date not found ? Last BP/Labs: Blood Pressure: Last 3 Encounter BP Readings: Date: BP: 01/07/2019 149/69 10/06/2018 144/74 02/01/2018 164/90 Lipids: Cholesterol, Total (mg/dL) Date Value 10/12/2016 210 HDL Cholesterol (mg/dL) Date Value 10/12/2016 65 LDL Cholesterol (mg/dL) Date Value 10/12/2016 116 Triglyceride (mg/dL) Date Value 10/12/2016 145 HGB A1C: No results found for: HBA1C TSH: TSH (uU/mL) Date Value 06/12/2017 2.020 10/12/2016 1.630 ) Care Gap: HTN Plan: ? Confirm PCP / Status -unknown ? Type of appointment needed: Physical next available with pcp or director peoplesoft ? Consultation Appointments: n/a Labs, HM and Immunization: Health Maintenance Due: BP CONTROLLED (<130/80) due on 12/26/1979 DTAP,TDAP,TD(1 - Tdap) due on 1980 COLORECTAL CANCER SCREENING,SEE MODIFIER due on 12/26/2011 MAMMOGRAM due on 07/29/2015 ANNUAL PCP TEAM CHRONIC DISEASE VISIT due on 07/24/2018 Leonor Bass CMA Normal [facility] ED NOTEon 01-07-2019 ED NOTE HNO ID: [id number] Author: (Rn) Devendra, RN Service: Emergency Medicine Author Type: Registered Nurse Type: ED Notes Filed: 01/07/2019 7:36 PM Note Text: Pt verbalizes understanding d/c inst. Inst to f/u w/ PCP. Skin warm AND dry. Resp easy. Normal [facility] ED NOTE HNO ID: [id number] Author: Lisa MaxwellRn) Devendra, RN Service: Emergency Medicine Author Type: Registered Nurse Type: ED Notes Filed: 01/07/2019 7:07 PM Note Text: Patient informed: the name of medication, why we are giving it, possible side effects, what they may expect to feel, and was offered a chance to ask questions, prior to the administration of bacitracin. Normal [facility] ED NOTE HNO ID: [id number] Author: Laly (Rn) MADELYN Chow Service: Emergency Medicine Author Type: Registered Nurse Type: ED Notes Filed: 01/07/2019 6:51 PM Note Text: Pt was changing a light bulb, injury to left hand, reports legs feel sore , experienced tachycardia and diaphoresis. Normal [facility] ED PROV NOTEon 01-07-2019 ED PROV NOTE HNO ID: [id number] Author: Hernandez Huffman MD Service: Emergency Medicine Author Type: Physician Type: ED Provider Notes Filed: 01/07/2019 7:29 PM Note Text: ED Provider Note Patient Name: Wanda Haddad SERVICE DATE: 01/07/19 History No chief complaint on file. Wanda Haddad is a 58 year old female with history of tachycardia who presents with No chief complaint on file.. Patient took nothing for this prior to arrival. - Symptoms began 30 minutes prior to arrival. - Severity: mild - Timing: constant - Quality: changing a light bulb chandelier the light bulb broke and generated some mckinley struck the left thumb - No chief complaint on file. is exacerbated by palpation. - No chief complaint on file. is not exacerbated by movement. - Symptoms are associated with after this incident she was walking away when she felt a little sweaty and woozy but no fainting spell may have felt some palpitations. - Symptoms are not associated with chest pain. - Improved by rest. -mostly complaining of some discomfort superficially on the left thumb or the Mckinley struck her hand she does not report any glass injury she is noted to be up-to-date in her tetanus vaccine he should she now feels a little bit of aching in the anterior thighs bilaterally by history this is a household current injury.. PAST MEDICAL HISTORY Diagnosis Date - Cervical intraepithelial neoplasia (JUDITH) - Essential hypertension - Menorrhagia - Tachyarrhythmia PAST SURGICAL HISTORY Procedure Laterality Date - BREAST BIOPSY W/ULTRASOUND GUIDANCE 09/02/14 U/S needle core UOQ left breast - HYSTERECTOMY HX 2013 total robotic - LEEP PROCEDURE (LOAN SPECIALIST DEPT)_*[place] - PAST SURGICAL HISTORY OF 2004 Dr. Viveros - colonoscopy (for anemia) - STRESS TEST 11/08/2016 normal FAMILY HISTORY Problem Relation Age of Onset - Coronary Artery Disease Mother a-fib - Kidney Disease Mother renal failure - Diabetes Father - Cancer Father bladder - Heart Father - Hypertension Maternal Grandmother - Heart Maternal Grandfather irregular heart beat - Cancer Maternal Grandfather prostate - Cancer Paternal Grandmother stomach - COPD Paternal Grandfather black lung - Coronary Artery Disease Brother a-fib - Hypertension Brother - Diabetes Brother pre - Hypertension Brother Social History Tobacco Use - Smoking status: Former Smoker Packs/day: 1.00 Years: 10.00 Pack years: 10.00 Last attempt to quit: 08/04/1988 Years since quittin.4 - Smokeless tobacco: Never Used Substance and Sexual Activity - Alcohol use: No - Drug use: No - Sexual activity: Yes Partners: Male control/protection: Surgical Comment: Hysterectomy ALLERGIES Allergen Reactions - Red Dye Hives - Bactrim [Sulfametho* Rash - Ciprofloxacin Rash - Clindamycin Rash - Colace [Docusate] Rash - Flagyl [Metronidazo* Hives - Levaquin [Levofloxa* Unknown - Morphine Mental Status Change, GI Upset anxiety - Peanuts Other: See Comments blisters in mouth - Penicillins Shortness of Breath - Strawberries Swelling - Sulfa (Sulfonamide * Rash - Tetracycline Rash Review of Systems Constitutional: Negative for chills and fever. Respiratory: Negative for cough and shortness of breath. Cardiovascular: Positive for palpitations. Negative for chest pain. Gastrointestinal: Negative for nausea and vomiting. Musculoskeletal: Negative for arthralgias and back pain. Skin: Negative for color change, pallor, rash and wound. Allergic/Immunologic: Negative for environmental allergies, food allergies and immunocompromised state. Neurological: Positive for light-headedness. Negative for dizziness, syncope, weakness and numbness. Psychiatric/Behaviora l: Negative for confusion. The patient is nervous/anxious. Physical Exam BP 149/69 Pulse 77 Temp (Src) 98.3 (Temporal) Resp 16 Ht 5' 4 (1.63m) Wt 150 lb (68.0kg) SpO2 97% LMP 03/23/2013 BMI 25.73 kg/(m2). Physical Exam Constitutional: She is oriented to person, place, and time. She appears well-developed and well-nourished. No distress. HENT: Head: Normocephalic and atraumatic. Right Ear: External ear normal. Left Ear: External ear normal. Eyes: EOM are normal. Right eye exhibits no discharge. Left eye exhibits no discharge. No scleral icterus. Neck: Normal range of motion. Neck supple. No tracheal deviation present. Cardiovascular: Normal rate and regular rhythm. Pulmonary/Chest: Effort normal and breath sounds normal. No respiratory distress. Musculoskeletal: Normal range of motion. She exhibits tenderness. She exhibits no edema or deformity. left thumb over the MCP joint is a little tender to palpation no breaks in the skin are noted no erythema is noted yet. Neurological: She is oriented to person, place, and time. She exhibits normal muscle tone. Skin: Skin is warm and dry. Capillary refill takes less than 2 seconds. No rash noted. She is not diaphoretic. No erythema. No pallor. Psychiatric: She has a normal mood and affect. Her behavior is normal. Judgment and thought content normal. Nursing note and vitals reviewed. Diagnostic Testing ED Labs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 [facility] Work Phone: 09-06-2021 13:27-0500 Body mass index (BMI) [Ratio] 28.98 kg/m2 Renny L Samuel Work Phone: [facility] Work Phone: 09-06-2021 13:27-0500 Body surface area Derived from formula 1.8 m2 Renny L Samuel Work Phone: [facility] Work Phone: 09-06-2021 13:27-0500 Body weight 75.38 kg Renny L Samuel Work Phone: [facility] Work Phone: 09-06-2021 13:27-0500 Diastolic blood pressure 90 mm[Hg] Renny L Samuel Work Phone: [facility] Work Phone: 09-06-2021 13:27-0500 Heart rate 71 /min Renny L Samuel Work Phone: [facility] Work Phone: 09-06-2021 13:27-0500 Systolic blood pressure 142 mm[Hg] Renny L Samuel Work Phone: [facility] Work Phone: 07-18-2021 17:00-0400 Body height 161.29 cm Renny L Samuel Work Phone: [facility] Work Phone: 07-18-2021 17:00-0400 Body mass index (BMI) [Ratio] 28.42 kg/m2 Renny L Samuel Work Phone: [facility] Work Phone: 07-18-2021 17:00-0400 Body surface area Derived from formula 1.78 m2 Renny L Samuel Work Phone: [facility] Work Phone: 07-18-2021 17:00-0400 Body weight 73.93 kg Renny L Samuel Work Phone: [facility] Work Phone: 07-18-2021 17:00-0400 Diastolic blood pressure 94 mm[Hg] Renny L Samuel Work Phone: [facility] Work Phone: 07-18-2021 17:00-0400 Heart rate 72 /min Renny L Samuel Work Phone: [facility] Work Phone: 07-18-2021 17:00-0400 Systolic blood pressure 138 mm[Hg] Renny L Samuel Work Phone: [facility] Work Phone: 06-03-2021 08:38-0400 Body height 161.29 cm Renny L Samuel Work Phone: [facility] Work Phone: 06-03-2021 08:38-0400 Body mass index (BMI) [Ratio] 28.42 kg/m2 Renny L Samuel Work Phone: [facility] Work Phone: 06-03-2021 08:38-0400 Body surface area Derived from formula 1.78 m2 Renny L Samuel Work Phone: [facility] Work Phone: 06-03-2021 08:38-0400 Body weight 73.94 kg Renny L Samuel Work Phone: [facility] Work Phone: 06-03-2021 08:38-0400 Diastolic blood pressure 92 mm[Hg] Renny L Samuel Work Phone: [facility] Work Phone: 06-03-2021 08:38-0400 Heart rate 60 /min Renny L Samuel Work Phone: [facility] Work Phone: 06-03-2021 08:38-0400 Systolic blood pressure 166 mm[Hg] Renny L Samuel Work Phone: [facility] Work Phone: 04-18-2021 13:57-0400 Body height 161.29 cm Renny L Samuel Work Phone: [facility] Work Phone: 04-18-2021 13:57-0400 Body mass index (BMI) [Ratio] 29 kg/m2 Renny L Samuel Work Phone: [facility] Work Phone: 04-18-2021 13:57-0400 Body surface area Derived from formula 1.8 m2 Renny L Samuel Work Phone: [facility] Work Phone: 04-18-2021 13:57-0400 Body weight 75.44 kg Renny L Samuel Work Phone: [facility] Work Phone: 04-18-2021 13:57-0400 Diastolic blood pressure 98 mm[Hg] Renny L Samuel Work Phone: [facility] Work Phone: 04-18-2021 13:57-0400 Heart rate 84 /min Renny L Samuel Work Phone: [facility] Work Phone: 04-18-2021 13:57-0400 Systolic blood pressure 144 mm[Hg] Renny L Samuel Work Phone: [facility] Work Phone: 03-03-2021 14:31-0400 Body height 161.29 cm Renny L Samuel Work Phone: [facility] Work Phone: 03-03-2021 14:31-0400 Body mass index (BMI) [Ratio] 29.42 kg/m2 Renny L Samuel Work Phone: [facility] Work Phone: 03-03-2021 14:31-0400 Body surface area Derived from formula 1.81 m2 Renny L Samuel Work Phone: [facility] Work Phone: 03-03-2021 14:31-0400 Body temperature 97.7 [degF] Renny L Samuel Work Phone: [facility] Work Phone: 03-03-2021 14:31-0400 Body weight 76.52 kg Renny Parker Work Phone: [facility] Work Phone: 03-03-2021 14:31-0400 Diastolic blood pressure 90 mm[Hg] Renny L Samuel Work Phone: [facility] Work Phone: 03-03-2021 14:31-0400 Heart rate 57 /min Renny Parker Work Phone: [facility] Work Phone: 03-03-2021 14:31-0400 Systolic blood pressure 140 mm[Hg] Renny Parker Work Phone: [facility] Work Phone: 08-15-2019 10:50-0500 BMI (Body Mass Index) 28.25 kg/m2 Renny Parker [facility] Work Phone: 08-15-2019 10:50-0500 Body weight 72.35 kg Renny Parker [facility] Work Phone: 08-15-2019 10:50-0500 BP Diastolic 90 mm[Hg] Renny Parker [facility] Work Phone: 08-15-2019 10:50-0500 BP Systolic 128 mm[Hg] Renny Parker [facility] Work Phone: 08-15-2019 10:50-0500 BSA (Body Surface Area) 1.76 m2 Renny Parker [facility] Work Phone: 08-15-2019 10:50-0500 Height 160.02 cm Renny Parker [facility] Work Phone: 08-15-2019 10:50-0500 Pulse (Heart Rate) 64 /min Renny Baker [facility] Work Phone: Encounters Encounter Date Encounter Type Care Provider Facility Start: 07-18-2024 End: 07-18-2024 ambulatory [facility] Amb[facility] Start: 07-18-2024 End: 07-18-2024 Office outpatient visit 25 minutes Renny Baker MD Work Phone: [facility] Comment on above: Benign essential hyp ertension (Primary Dx); Situational anxiety; Gastroesophageal reflux disease, unspecified whether esophagitis present Start: 04-21-2024 Emergency department patient visit [facility] Facility:[facility] Start: 04-17-2024 End: 04-17-2024 ambulatory [facility] Start: 02-26-2024 End: 02-26-2024 Office outpatient visit 15 minutes Gamaliel Swenson PA-C Work Phone: [facility] Comment on above: Achilles tendinitis of left lower extremity (Primary Dx); Acute right-sided low back pain without sciatica Start: 02-26-2024 End: 02-26-2024 ambulatory [facility] Ambulatory Start: 01-08-2024 End: 01-08-2024 Emergency department patient visit BERE RIVERS Facility:[facility] Start: 12-31-2023 End: 12-31-2023 Office outpatient visit 15 minutes Velma Mckenna MD Work Phone: [facility] Comment on above: Viral URI with cough (Primary Dx) Start: 12-31-2023 End: 12-31-2023 ambulatory VELMA Betts [facility] Ambulatory Start: 10-16-2023 End: 10-16-2023 ambulatory [facility] Start: 10-16-2023 End: 10-16-2023 Office outpatient visit 25 minutes Renny Baker MD Work Phone: [facility] Comment on above: Neck muscle spasm (P rimary Dx); Overweight (BMI 25.0-29.9) Start: 10-09-2023 End: 10-09-2023 ambulatory [facility] Start: 08-06-2023 End: 08-07-2023 ambulatory [facility] Start: 08-06-2023 End: 08-06-2023 Office outpatient visit 25 minutes Gamaliel Sunitha WEBBER Work Phone: [facility] Comment on above: Right upper quadrant abdominal pain (Primary Dx); Acute right-sided low back pain without sciatica Start: 08-06-2023 End: 08-06-2023 ambulatory [facility] Ambulatory Start: 07-17-2023 End: 07-17-2023 ambulatory RENNY BAKER [facility] Start: 07-10-2023 End: 07-10-2023 Office outpatient visit 25 minutes Renny Baker MD Work Phone: [facility] Comment on above: Overweight (BMI 25.0 -29.9) (Primary Dx); Benign essential hypertension; Greater trochanteric bursitis of left hip; Encounter for screening mammogram for breast cancer; Hypertriglyceridemia Start: 03-26-2023 End: 03-26-2023 Office outpatient visit 25 minutes Renny Baker MD Work Phone: [facility] Comment on above: Benign essential hyp ertension (Primary Dx); Gastroesophageal reflux disease, unspecified whether esophagitis present; Bursitis of left elbow, unspecified bursa Start: 03-02-2023 End: 03-02-2023 ambulatory Ernst Martinez Facility:[id number] Start: 03-02-2023 End: 03-02-2023 Subsequent hospital visit by physician Ernst Martinez DO Work Phone: 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; Radiographic dye allergy status; Allergy status to penicillin; Acquired absence of both cervix and uterus Start: 02-01-2023 ambulatory MD RENNY BAKER Fa cility:[id number] Start: 02-01-2023 End: 02-01-2023 Office outpatient visit 25 minutes Renny Baker MD Work Phone: [facility] Comment on above: Gastroesophageal ref lux disease, unspecified whether esophagitis present (Primary Dx); Precordial pain Start: 01-29-2023 AUDIT Renny Redman r Work Phone: [facility] [address] Work Phone: Start: 01-25-2023 AUDIT Renny Redman r Work Phone: [facility] [address] Work Phone: Start: 01-08-2023 End: 01-08-2023 Office outpatient visit 25 minutes Renny Baker MD Work Phone: [facility] Comment on above: Benign essential hyp ertension (Primary Dx); Mild sleep apnea; Premature ventricular beat; Subclinical hypothyroidism; Elevated alkaline phosphatase level Start: 12-21-2022 WILLOW, Provider : Brittany Pink, Status: Pen, Time: 9:00 AM Renny Baker Work Phone: [facility] Work Phone: Start: 12-19-2022 Chart Update Renny crandall Work Phone: [facility] Work Phone: Start: 12-14-2022 ambulatory MEDIATOR CHRIS KEEN ANNE-MARIE Fac ility:[id number] Start: 12-13-2022 AUDIT Renny crandall Work Phone: [facility] Work Phone: Start: 08-09-2022 AUDIT Renny crandall Work Phone: [facility] Work Phone: Start: 07-10-2022 Office outpatient vi sit 25 minutes Renny Baker Work Phone: [facility] Work Phone: Start: 07-10-2022 ambulatory RENNY BAKER Facil ity:[id number] Start: 06-28-2022 AUDIT Renny L Юлия r Work Phone: [facility] Work Phone: Start: 03-16-2022 Office outpatient vi sit 15 minutes Renny L Samuel Work Phone: [facility] Work Phone: Start: 03-16-[address] BRITTANY Dowd lity:[id number] Start: 02-20-2022 End: 02-20-2022 Emergency department patient visit Alton Scott [facility] Start: 02-14-2022 Office outpatient vi sit 25 minutes Renny L Samuel Work Phone: [facility] Work Phone: Start: 02-14-2022 ambulatory Mr. Gamaliel Swenson Facil ity:[id number] Start: 02-06-2022 Office outpatient vi sit 25 minutes Renny L Samuel Work Phone: [facility] Work Phone: Start: 02-06-2022 ambulatory Mr. Gamaliel Swenson Facil ity:[id number] Start: 02-03-2022 ambulatory Mr. Gamaliel Swenson Facil ity:[id number] Start: 02-03-2022 Office outpatient vi sit 25 minutes Renny L Samuel Work Phone: [facility] Work Phone: Start: 01-31-2022 Chart Update Renny L Юлия r Work Phone: [facility] Work Phone: Start: 01-30-2022 Office outpatient vi sit 15 minutes Renny L Samuel Work Phone: [facility] Work Phone: Start: 01-30-2022 ambulatory RENNY OTTO SAMUEL Facil ity:[id number] Start: 01-10-2022 AUDIT Renny L Юлия r Work Phone: [facility] Work Phone: Start: 01-05-2022 Chart Update Renny L Юлия r Work Phone: [facility] Work Phone: Start: 12-29-2021 AUDIT Renny L Юлия r Work Phone: [facility] Work Phone: Start: 12-21-2021 Office outpatient vi sit 25 minutes Renny L Samuel Work Phone: [facility] Work Phone: Start: 12-21-2021 ambulatory RENNY OTTO SAMUEL Facil ity:[id number] Start: 12-12-2021 Chart Update Renny L Юлия r Work Phone: [facility] Work Phone: Start: 12-08-2021 AUDIT Renny L Юлия r Work Phone: [facility] Work Phone: Start: 10-04-2021 Office outpatient vi sit 25 minutes Renny L Samuel Work Phone: [facility] Work Phone: Start: 10-04-2021 ambulatory RENNY OTTO SAMUEL Facil ity:[id number] Start: 09-20-2021 Periodic preventive med est patient 40-64yrs Renny L Samuel Work Phone: [facility] Work Phone: Start: 09-20-2021 ambulatory RENNY OTTO SAMUEL Facil ity:[id number] Start: 09-08-2021 AUDIT Renny L Юлия r Work Phone: [facility] Work Phone: Start: 09-06-2021 Office outpatient vi sit 25 minutes Renny L Samuel Work Phone: [facility] Work Phone: Start: 09-06-2021 ambulatory RENNY OTTO SAMUEL Facil ity:[id number] Start: [id number] Start: 07-18-2021 Office outpatient vi sit 25 minutes Renny L Samuel Work Phone: [facility] Work Phone: Start: 07-18-2021 Patient encounter procedure Renny L Samuel Work Phone: [facility] Work Phone: Start: 07-01-2021 Office outpatient vi sit 25 minutes Renny L Samuel [facility] Work Phone: Start: 07-01-2021 Patient encounter procedure Renny L Samuel Work Phone: [facility] Work Phone: Start: 06-03-2021 Office outpatient vi sit 25 minutes Renny L Samuel Work Phone: [facility] Work Phone: Start: 04-22-2021 AUDIT Renny L [facility]лия r [facility] Work [facility]: Start: 04-18-2021 Office outpatient vi sit 25 minutes Renny L Samuel [facility] Work Phone: Start: 04-18-2021 Patient encounter procedure Renny L Samuel Work Phone: [facility] Work Phone: Start: 03-03-2021 Office outpatient vi sit 25 minutes Renny L Samuel Work Phone: [facility] Work Phone: Start: 02-13-2020 Patient encounter procedure Brittany Pink [facility] Work Phone: Start: 01-14-2020 Patient encounter procedure Brittany Pink [facility] Work Phone: Start: 01-08-2020 Patient encounter procedure Brittany Pink [facility] Work Phone: Start: 12-31-2019 Patient encounter procedure Brittany Pink [facility] Work Phone: Start: 12-30-2019 Patient encounter procedure Brittany Pink [facility] Work Phone: Start: 12-02-2019 Patient encounter procedure Brittany Pink [facility] Work Phone: Start: 11-26-2019 Patient encounter procedure Brittany Pink [facility] Work Phone: Start: 11-18-2019 Patient encounter procedure Brittany Pink [facility] Work Phone: Start: 10-27-2019 Patient encounter procedure Brittany Pink [facility] Work Phone: Start: 10-16-2019 Patient encounter procedure Brittany Pink [facility] Work Phone: Start: 09-18-2019 Patient encounter procedure Brittany Pink [facility] Work Phone: Start: 08-15-2019 Patient encounter procedure Brittany Pink [facility] Work Phone: Start: 06-07-2018 Patient encounter BRIDGETT HEREDIA [facility] Ambulatory Procedures Date Procedure Procedure Detail Performing Clinician Start: 01-08-2024 Thyrotropin [Units/v olume] in Serum or Plasma Gamaliel Swenson PA-C Work Phone: Start: 10-09-2023 MICROSCOPIC ONLY, URINE RENNY BAKER Start: 10-09-2023 URINALYSIS WITH REFL EX MICROSCOPIC RENNY BAKER Start: 10-09-2023 Basic metabolic 2000 panel - Serum or Plasma RENNY BAKER Start: 10-09-2023 Lipid panel RENNY CONTRERAS Start: 10-09-2023 Lipid 1996 panel - S quyen or Plasma Renny Baker MD Work Phone: Start: 08-06-2023 CBC panel - Blood by Automated count RENNY BAKER Start: 08-06-2023 Lipase [Enzymatic activity/volume] in Serum or Plasma RENNY SAMUEL Start: 08-06-2023 MICROSCOPIC ONLY, URINE RENNY PARKER Start: 08-06-2023 URINALYSIS WITH REFL EX MICROSCOPIC RENNY BAKER Start: 08-06-2023 XR ABDOMEN 1 VIEW DOUGL SAMUEL Start: 07-17-2023 BI MAMMO BILATERAL SCREENING TOMOSYNTHESIS RENNY BAKER Start: 07-17-2023 Mammography Renny contreras MD Work Phone: Start: 03-02-2023 Colonoscopy stoma dx including collj spec spx Renny Baker MD Work Phone: Start: 03-02-2023 Colonoscopy Renny contreras MD Work Phone: Start: 02-01-2023 Ecg routine ecg w/le ast 12 lds w/i&r Renny Baker MD Work Phone: Start: 01-08-2023 Thyrotropin [Units/v olume] in Serum or Plasma Renny Baker MD Work Phone: Start: 12-28-2021 Mammography Renny contreras MD Work Phone: Start: 12-12-2021 Lipid 1996 panel - S quyen or Plasma Renny Baker MD Work Phone: Start: 08-15-2019 Basic metabolic 1998 panel - Serum or Plasma Renny Baker Start: 08-15-2019 Blood count complete auto&auto difrntl wbc Renny Samuel Start: 08-15-2019 MG Breast screening Anne Marie glas Samuel Start: 08-15-2019 TSH WITH REFLEX TO F REE T4 IF ABNORMAL Rennyjaleesa Baker Biopsy of breast Renny Rab er Colonoscopy Renny Baker Comment on above: 01/28/18 Dr. Martinez. To repeat 5 years; Hysterectomy Renny Samuel Ligation of fallopian tube D sia Baker Plan of Treatment Date Care Activity Detail Author Start: 03-02-2033 Screening for malignant neoplasm of colon [facility] Start: 10-09-2028 Lipid panel Lipid Panel [facility] Start: 12-12-2026 Lipid panel Lipid Panel [facility] Start: 01-16-2025 End: 01-16-2025 Patient encounter procedure 01/16/2025 10:00 AM EDT Office Visit [facility] [address] [place] [phone] Renny Baker MD [address] [facility], [address] [place], [place] [id number] [facility] Start: 01-07-2025 Thyroid stimulating hormone measurement TSH Level [facility] Start: 07-17-2024 Screening for malignant neoplasm of breast Mammogram [facility] Start: 06-08-2024 COVID-19 Vaccine () COVID-19 Vaccine () [facility] Start: 06-08-2024 Influenza vaccination [facility] Start: 04-17-2024 End: 04-17-2024 Patient encounter procedure 04/17/2024 8:40 AM EDT Office Visit [facility] [address] [place] [phone] Renny Baker MD [address] [facility], [address] [place], [place] [id number] [facility] Start: 03-27-2024 End: 03-27-2024 Patient encounter procedure 03/27/2024 9:00 AM EDT Office Visit [facility] [address] [place] [id number] Renny Baker MD [address] [facility], [address] [place], [place] [id number] [facility] Start: 01-09-2024 Thyroid stimulating hormone measurement TSH Level [facility] Start: 12-31-2023 End: 12-30-2024 Influenza virus A and B and SARS-CoV-2 (COVID-19) identified in Respiratory specimen by RUBY with probe detection Sars-CoV-2 and Influenza A/B PCR Lab Routine Viral URI with cough Expected: 12/31/2023 (Approximate), Expires: 12/30/2024 [facility] Work Phone: Comment on above: Expected: 12/31/2023 (Approximate), Expires: 12/30/2024 Start: 10-16-2023 End: 10-16-2023 Patient encounter procedure 10/16/2023 9:00 AM EST Office Visit [facility] [address] [place] [phone] Renny Baker MD [address] [facility], [address] [place] [id number] [facility] Start: 10-10-2023 End: 07-10-2024 Basic metabolic 2000 panel - Serum or Plasma Basic Metabolic Panel Lab Routine Hypertriglyceridemia Expected: 10/10/2023 (Approximate), Expires: 07/10/2024 [facility] Work Phone: Comment on above: Expected: 10/10/2023 (Approximate), Expires: 07/10/2024 Start: 10-10-2023 End: 07-10-2024 Lipid 1996 panel - Serum or Plasma Lipid Panel Lab Routine Hypertriglyceridemia Expected: 10/10/2023 (Approximate), Expires: 07/10/2024 [facility] Work Phone: Comment on above: Expected: 10/10/2023 (Approximate), Expires: 07/10/2024 Start: 08-06-2023 End: 08-06-2024 CBC panel - Blood by Automated count CBC Lab Routine Right upper quadrant abdominal pain Expected: 08/06/2023 (Approximate), Expires: 08/06/2024 [facility] Work Phone: Comment on above: Expected: 08/06/2023 (Approximate), Expires: 08/06/2024 Start: 08-06-2023 End: 08-06-2024 Lipase [Enzymatic activity/volume] in Serum or Plasma Lipase Lab Routine Right upper quadrant abdominal pain Expected: 08/06/2023 (Approximate), Expires: 08/06/2024 [facility] Work Phone: Comment on above: Expected: 08/06/2023 (Approximate), Expires: 08/06/2024 Start: 08-06-2023 End: 08-06-2024 Urinalysis complete panel - Urine Urinalysis with Reflex Microscopic Lab Routine Right upper quadrant abdominal pain Expected: 08/06/2023, Expires: 08/06/2024 [facility] Work Phone: Comment on above: Expected: 08/06/2023 , Expires: 08/06/2024 Start: 08-06-2023 End: 08-06-2024 XR Abdomen Single view XR abdomen 1 view Imaging Routine Right upper quadrant abdominal pain Expected: 08/06/2023, Expires: 08/06/2024 [facility] Work Phone: Comment on above: Expected: 08/06/2023 , Expires: 08/06/2024 Start: 07-17-2023 End: 07-17-2023 Professional / ancillary services management 07/17/2023 9:15 AM EDT Ancillary Procedure [facility] [address] [place] [address] [facility] Start: 07-10-2023 End: 09-09-2024 DBT Breast - bilateral BI mammo bilateral screening tomosynthesis Imaging Routine Encounter for screening mammogram for breast cancer Expected: 07/10/2023, Expires: 09/09/2024 [facility] Work Phone: Comment on above: Expected: 07/10/2023 , Expires: 09/09/2024 Start: 07-10-2023 End: 07-10-2023 Patient encounter procedure 07/10/2023 8:40 AM EDT Office Visit [facility] [address] [place] [phone] Renny Baker MD [address] [facility] [address] [place] [address] [facility] Start: 06-08-2023 Influenza vaccination [facility] Start: 04-03-2023 End: 04-03-2023 Patient encounter procedure 04/03/2023 8:40 AM EDT Office Visit [facility] [address] [place] [phone] Renny Baker MD [address] [facility], [address] [place] [address] [facility] Start: 03-26-2023 End: 03-26-2024 Basic metabolic 2000 panel - Serum or Plasma Basic Metabolic Panel Lab Routine Benign essential hypertension Expected: 03/26/2023 (Approximate), Expires: 03/26/2024 [facility] Work Phone: Comment on above: Expected: 03/26/2023 (Approximate), Expires: 03/26/2024 Start: 03-26-2023 End: 03-26-2024 Creatine kinase [Enzymatic activity/volume] in Serum or Plasma CK Lab Routine Benign essential hypertension Expected: 03/26/2023 (Approximate), Expires: 03/26/2024 [facility] Work Phone: Comment on above: Expected: 03/26/2023 (Approximate), Expires: 03/26/2024 Start: 03-26-2023 End: 03-26-2023 ambulatory 03/26/2023 9:40 AM EDT Lab [facility] [address] [place] [id number] [facility] Start: 02-02-2023 COLON, Provider: Ernst Martinez, Status: Pen, Time: 9:30 AM COLON, Provider: Ernst Martinez, Status: Pen, Time: 9:30 AM OF-Ckeynmkcof-Jfk digna Work Phone: Start: 02-01-2023 End: 02-02-2024 XR Chest 2 Views [facility] Work Phone: Comment on above: Expected: 02/01/2023 , Expires: 02/02/2024 Start: 01-08-2023 FUV, Provider: Renny Baker, Status: Pen, Time: 1:00 PM FUV, Provider: Renny Baker, Status: Pen, Time: 1:00 PM [facility] Work Phone: Start: 01-08-2023 End: 01-09-2024 CBC panel - Blood by Automated count CBC Lab Routine Mild sleep apnea Premature ventricular beat Expected: 01/08/2023 (Approximate), Expires: 01/09/2024 [facility] Work Phone: Comment on above: Expected: 01/08/2023 (Approximate), Expires: 01/09/2024 Start: 01-08-2023 End: 01-09-2024 Comprehensive metabolic 2000 panel - Serum or Plasma Comprehensive Metabolic Panel Lab Routine Mild sleep apnea Premature ventricular beat Elevated alkaline phosphatase level Expected: 01/08/2023 (Approximate), Expires: 01/09/2024 [facility] Work Phone: Comment on above: Expected: 01/08/2023 (Approximate), Expires: 01/09/2024 Start: 01-08-2023 End: 01-09-2024 TSH with reflex to Free T4 if abnormal TSH with reflex to Free T4 if abnormal Lab Routine Subclinical hypothyroidism Expected: 01/08/2023 (Approximate), Expires: 01/09/2024 [facility] Work Phone: Comment on above: Expected: 01/08/2023 (Approximate), Expires: 01/09/2024 Start: 12-28-2022 Screening for malignant neoplasm of breast Mammogram [facility] Start: 12-21-2022 WILLOW, Provider : Brittany Pink, Status: Pen, Time: 9:00 AM WILLOW, Provider: Brittany Pink, Status: Pen, Time: 9:00 AM DQ-Tvglkahkdr-Fck digna Work Phone: Start: 09-28-2022 ALLRGYSKIN, Provider : Brittany Pink, Status: Pen, Time: 9:00 AM ALLRGYSKIN, Provider: Brittany Pink, Status: Pen, Time: 9:00 AM [facility] Work Phone: Start: 07-10-2022 EPV, Provider: Renny Baker, Status: Pen, Time: 1:40 PM EPV, Provider: Renny Baker, Status: Pen, Time: 1:40 PM [facility] Work Phone: Start: 06-22-2022 EPV, Provider: Renny Baker, Status: Pen, Time: 10:20 AM EPV, Provider: Renny Baker, Status: Pen, Time: 10:20 AM [facility] Work Phone: Start: 06-22-2022 Patient encounter procedure [facility] Start: 05-18-2022 ALLRGYNIRMALIN, Provider : Brittany Pink, Status: Pen, Time: 9:00 AM ALLRGYSKIN, Provider: Brittany Pink, Status: Pen, Time: 9:00 AM QZ-Mivbrgehir-Vzo claunch Work Phone: Start: 02-06-2022 EPV, Provider: Gamaliel Swenson, Status: Pen, Time: 3:15 PM EPV, Provider: Gamaliel Swenson, Status: Pen, Time: 3:15 PM [facility] Work Phone: Start: 2021 RSV patient s and/or patients aged 60+ years (1 - 1-dose 60+ series) RSV patients and/or patients aged 60+ years (1 - 1-dose 60+ series) [facility] Start: 12-21-2021 EPV, Provider: Renny Baker, Status: Pen, Time: 11:20 AM EPV, Provider: Renny Baker, Status: Pen, Time: 11:20 AM [facility] Work Phone: Start: 11-17-2021 NPVRFRL, Provider: Brittany Pink, Status: Pen, Time: 2:00 PM NPVRFRL, Provider: Brittany Pink, Status: Pen, Time: 2:00 PM [facility] Work Phone: Start: 09-20-2021 EPV, Provider: Renny Baker, Status: Pen, Time: 9:00 AM EPV, Provider: Renny Baker, Status: Pen, Time: 9:00 AM [facility] Work Phone: Start: 09-12-2021 FUV, Provider: Pepe Tuttle, Status: Pen, Time: 4:40 PM FUV, Provider: Pepe Tuttle, Status: Pen, Time: 4:40 PM [facility] Work Phone: Start: 09-06-2021 EPV, Provider: Renny Baker, Status: Pen, Time: 1:20 PM EPV, Provider: Renny Baker, Status: Pen, Time: 1:20 PM [facility] Work Phone: Start: 07-18-2021 EPV, Provider: Pepe Tuttle, Status: Pen, Time: 4:40 PM EPV, Provider: Pepe Tuttle, Status: Pen, Time: 4:40 PM [facility] Work Phone: Start: 07-04-2021 EPV, Provider: Michelle Odonnell, Status: Pen, Time: 8:30 AM EPV, Provider: Michelle Odonnell, Status: Pen, Time: 8:30 AM [facility] Work Phone: Start: 05-30-2021 FUV, Provider: Michelle Odonnell, Status: Pen, Time: 9:00 AM FUV, Provider: Michelle Odonnell, Status: Pen, Time: 9:00 AM [facility] Work Phone: Start: 08-19-2019 MG Breast screening Mamm - Scr eening Mammogram w/ Tomosynthesis [facility] Work Phone: Start: 12-26-2011 Zoster Vaccines (1 o f 2) Zoster Vaccines (1 of 2) [facility] Start: 12-26-1983 DTaP/Tdap/Td Vaccine s (1 - Tdap) DTaP/Tdap/Td Vaccines (1 - Tdap) [facility] Start: 1982 Screening for malignant neoplasm of cervix [facility] Start: 12-26-1979 Diabetes mellitus screening Diabetes Screening [facility] Start: 12-26-1979 Hepatitis C screening Hepatitis C Sc reening [facility] Start: 1966 COVID-19 Vaccine (#1) COVID-19 Vacci ne (#1) [facility] Start: 1962 MMR Vaccines (1 of 1 - Standard series) MMR Vaccines (1 of 1 - Standard series) [facility] Start: 06-27-1962 COVID-19 Vaccine (#1) COVID-19 Vacci ne (#1) [facility] Start: 1961 HIV screening HIV Screening [facility] Start: 1961 Medicare Annual Wellness Visit Medicare Annual Wellness Visit (AWV) [facility] Start: 1961 Screening for malignant neoplasm of colon [facility] Start: 1961 Thyroid stimulating hormone measurement TSH Level [facility] Start: 1961 Yearly Adult Physical Yearly Adult P hysical [facility] Work Phone: NEGATED: Highlighted row has been ruled out! Planned Goals not documented [facility] Work Phone: Payers Date Payer Category Payer Unknown 2019 Private Health Insurance [id number] 2010 Unknown [id number] 1961 Unknown [id number] 2.16. [id number] 1961 Unknown [id number] 2.16. [id number] 1961 Unknown [id number] 2.16. 840.1.985255.3.579.2.356 1961 Unknown [id number] 2.16. 840.1.516824.3.579.2.356 1961 Unknown [id number] 2.16. 840.1.465111.3.579.2.356 1961 Unknown [id number] 2.16. 840.1.572562.3.579.2.356 1961 Unknown [id number] 2.16. 840.1.872651.3.579.2.356 1961 Unknown [id number] 2.16. 840.1.493573.3.579.2.356 1961 Unknown [id number] 2.16. 840.1.206946.3.579.2.356 1961 Unknown [id number] 2.16. 840.1.127991.3.579.2.356 1961 Unknown [id number] 2.16. 840.1.041894.3.579.2.356 1961 Unknown [id number] 2.16.8 40.1.541185.3.579.2.1069 1961 Unknown [id number] 2.16.8 40.1.272144.3.579.2.1069 1961 Unknown [id number] 2.16.8 40.1.003830.3.579.2.1069 1961 Unknown [id number] 2.16.84 0.1.331616.3.579.2.1243 1961 Unknown [id number] 2.16.840 .1.369861.3.579.2.1243 1961 Unknown [id number] 2.16. 840.1.098325.3.579.2.1244 1961 Unknown [id number] 2.16.8 40.1.901598.3.579.2.1244 1961 Unknown [id number] 2.16.8 40.1.044209.3.579.2.1244 1961 Unknown [id number] 2.16.8 40.1.151958.3.579.2.1244 1961 Unknown [id number] 2.16.8 40.1.216842.3.579.2.1244 1961 Unknown [id number] 2.16.8 40.1.237782.3.579.2.4 1961 Unknown [id number] 2.16.8 40.1.809254.3.579.2.5 1961 Unknown [id number] 2.16.8 40.1.952834.3.579.2.1245 1961 Unknown [id number] 2.16.8 40.1.012248.3.579.2.1245 Social History Date Type Detail Facility Start: 01-08-2023 End: 04-17-2024 Feels safe at home Feels safe at home [facility] Work Phone: Tobacco smoking consumption unknown [facility] Start: 12-14-2022 Tobacco smoking status NHIS Never smoked tobacco [facility] Work Phone: Start: 12-14-2022 End: 04-17-2024 Tobacco use and exposure Smokeless tobacco non-user [facility] Work Phone: Start: 01-08-2023 End: 07-18-2024 Alcohol intake Lifetime non-drinker (finding) [facility] Work Phone: Start: 01-08-2023 End: 04-17-2024 Tobacco use panel [facility] Work Phone: Start: 1960 Sex Assigned At Not on file [facility] Work Phone: Start: 12-29-2022 End: 07-18-2024 Exposure to SARS-CoV-2 (event) Not sure [facility] Start: 03-26-2023 End: 04-17-2024 Tobacco smoking status NHIS Ex-smoker [facility] Work Phone: End: 06-22-1988 History of tobacco use Current smoker [facility] Work Phone: End: 06-22-1988 History of tobacco use Cigarette Smoker [facility] Work Phone: NEGATED: Highlighted row - - [facility] Work Phone: Functional Status Date Assessment Result Facility NEGATED: Highlighted row Functional performance Functional status health issues are not documented Disease [facility] Work Phone: Mental Status Date Assessment Result Facility NEGATED: Highlighted row Cognitive function [Interpretation] Cognitive status health issues are not documented Disease [facility] Work Phone: Clinical Notes 11-26-2019 to 07-18-2024 Renny Baker MD - 07/18/2024 1:00 PM Danyel Swenson PA-C - 02/26/2024 12:45 PM Shila Mckenna MD - 12/31/2023 11:30 AM Anthony Dalton MA - 10/16/2023 9:00 AM ESTPatient Instructions Note Date & Type Note Facility 07-18-2024 History of Present illness Narrative Subjective Patient ID: Wanda Haddad is a 63 y.o. female who presents for Hypertension and GERD. Hypertension GERD Gastroesophageal reflux disease, If skips a day no symptoms Foods that make worse broccoli and cauliflower and spicey foods Has been out for 5 days has symptoms HTN Well controlled [facility] has had echo spring 2023 with mild mitral and tricuspid regurge No cp Occ heaviness in chest going up steps with sob Recovers within 1 minutes Has seen cardiology today and stress test has been ordered Was at [employer] and up steps had chest pressure 6 weeks ago Fxhx afib The 10-year ASCVD risk score (Gina TILLMAN, et al., 2019) is: 5.6% Values used to calculate the score: Age: 63 years Sex: Female Is Non- : No Diabetic: No Tobacco smoker: No Systolic Blood Pressure: 118 mmHg Is BP treated: Yes HDL Cholesterol: 48 mg/dL Total Cholesterol: 234 mg/dL Stress eating now was doing well Will get back to better diet Was eating more vegetables Recent ED visit for injury Ct head face and neck was normal 16 years found out that her has been having affair But states ended last August Complete denial on his part Separate living arrangements Colonoscopy February 2023 every 5 years this last time no polyps Hysterectomy hos one ovary Review of Systems Objective BP 118/74 Pulse 59 Wt 70.3 kg (155 lb) BMI 26.61 kg/m Physical Exam Vitals reviewed. Constitutional: Appearance: Normal appearance. HENT: Head: Normocephalic and atraumatic. Eyes: Conjunctiva/sclera: Conjunctivae normal. Cardiovascular: Rate and Rhythm: Normal rate and regular rhythm. Pulmonary: Effort: Pulmonary effort is normal. Breath sounds: Normal breath sounds. Musculoskeletal: Cervical back: Neck supple. Skin: General: Skin is warm and dry. Neurological: General: No focal deficit present. Mental Status: She is alert and oriented to person, place, and time. Psychiatric: Mood and Affect: Mood normal. Behavior: Behavior normal. Thought Content: Thought content normal. Judgment: Judgment normal. Assessment/Plan Diagnoses and all orders for this visit: Benign essential hypertension Situational anxiety 30 min f2f counseling documented in this encounter [facility] Work Phone: 02-26-2024 History of Present illness Narrative Subjective Patient ID: Wanda Haddad is a 63 y.o. female who presents for pt here due to left leg pain , started while on treadmill . HPI About 9 days ago, was walking on treadmill and sharp pain to back of L ankle/lower calf, denies injury. Painful to touch, she did try to walk on treadmill a couple of days ago and lower calf/ankle did swell and were painful. No color change to skin, no warmth. Review of Systems Constitutional: Negative. Respiratory: Negative. Cardiovascular: Negative. Gastrointestinal: Negative. Objective BP 132/80 Pulse 67 Temp 36.7 C (98 F) Ht 1.626 m (5' 4 ) Wt 70.3 kg (155 lb) SpO2 92% BMI 26.61 kg/m Physical Exam Constitutional: General: She is not in acute distress. Appearance: Normal appearance. She is not ill-appearing. HENT: Head: Normocephalic and atraumatic. Eyes: Extraocular Movements: Extraocular movements intact. Conjunctiva/sclera: Conjunctivae normal. Cardiovascular: Rate and Rhythm: Normal rate. Pulmonary: Effort: Pulmonary effort is normal. Abdominal: General: There is no distension. Musculoskeletal: General: Tenderness present. No swelling. Normal range of motion. Cervical back: Normal range of motion. Skin: General: Skin is warm and dry. Neurological: General: No focal deficit present. Mental Status: She is alert and oriented to person, place, and time. Psychiatric: Mood and Affect: Mood normal. Behavior: Behavior normal. Thought Content: Thought content normal. Judgment: Judgment normal. Assessment/Plan Rx prednisone taper Rx volteran gel Advised DARRELL Advised let me know if not resolving and will refer to ortho documented in this encounter [facility] Work Phone: 12-31-2023 History of Present illness Narrative Subjective Patient ID: Wanda Haddad is a 63 y.o. female who presents for Cough (Worse at night, stomach upset). Cough Cough for 4 days Dry lips and tongue SN and RN last week but better now No fever or shortness of breath or wheezing Walking on the treadmill but not as much endurance She has a lot going on Changed dedenter of Metoprolol last week Not achy and tired Queasy stomach Review of Systems Respiratory: Positive for cough. Objective BP 118/70 (BP Location: Left arm, Patient Position: Sitting) Pulse 65 Wt 72.1 kg (159 lb) SpO2 96% BMI 27.29 kg/m Physical Exam Constitutional: Appearance: Normal appearance. HENT: Head: Normocephalic. Right Ear: Tympanic membrane, ear canal and external ear normal. Left Ear: Tympanic membrane, ear canal and external ear normal. Nose: Nose normal. Mouth/Throat: Mouth: Mucous membranes are moist. Pharynx: Oropharynx is clear. Eyes: Extraocular Movements: Extraocular movements intact. Conjunctiva/sclera: Conjunctivae normal. Pupils: Pupils are equal, round, and reactive to light. Cardiovascular: Rate and Rhythm: Normal rate and regular rhythm. Pulmonary: Effort: Pulmonary effort is normal. Breath sounds: Normal breath sounds. Musculoskeletal: Cervical back: Normal range of motion and neck supple. Neurological: General: No focal deficit present. Mental Status: She is alert and oriented to person, place, and time. Psychiatric: Mood and Affect: Mood normal. Behavior: Behavior normal. Thought Content: Thought content normal. Judgment: Judgment normal. Assessment/Plan Diagnoses and all orders for this visit: Viral URI with cough - Sars-CoV-2 and Influenza A/B PCR; Future - codeine-guaifenesin (Robitussin-AC) 10-100 mg/5 mL syrup; Take 5 mL by mouth every 6 hours if needed for cough for up to 7 days. documented in this encounter [facility] Work Phone: 10-16-2023 History of Present illness Narrative OBESITY follow up Current medication did not start Mounjaro due to cost Last weight 172lbs 07/10/23 Weight loss since last OV 4 pounds Currently exercising yes Eating a low carb diet yes Lab Reivew Subjective Patient ID: Wanda Haddad is a 62 y.o. female who presents for Weight Management (3 mo). HPI OBESITY follow up Current medication did not start Mounjaro due to cost Last weight 172lbs 07/10/23 Weight loss since last OV 4 pounds Currently exercising yes Eating a low carb diet yes Has lost 4 pounds this year with intermittent fasting Has been eating more chicken and grains Only water only lowe calories Exercising more Chol TG were higher Had more cheese and abdon Did not do well over siabela Currently eating 600 calories per day Recommend 1000 to 1500 Last week right side had some neck pain Radiated up to back of head Right 4 and 5th finger numb Left 1 to 3 fingers numb Review of Systems Objective BP 110/70 (BP Location: Left arm, Patient Position: Sitting) Pulse 76 Temp 36.2 C (97.2 F) Wt 76.4 kg (168 lb 8 oz) SpO2 93% BMI 28.92 kg/m Physical Exam Vitals reviewed. Constitutional: Appearance: Normal appearance. HENT: Head: Normocephalic and atraumatic. Eyes: Conjunctiva/sclera: Conjunctivae normal. Cardiovascular: Rate and Rhythm: Normal rate and regular rhythm. Pulmonary: Effort: Pulmonary effort is normal. Breath sounds: Normal breath sounds. Musculoskeletal: Cervical back: Neck supple. Comments: Tender to palp along the right supraspinatus Right shoulder has FROM Skin: General: Skin is warm and dry. Neurological: General: No focal deficit present. Mental Status: She is alert and oriented to person, place, and time. Motor: No weakness. Gait: Gait normal. Deep Tendon Reflexes: Reflexes normal. Comments: Neg tinels tap no medial epicondyle tenderness to palpation. Psychiatric: Mood and Affect: Mood normal. Behavior: Behavior normal. Thought Content: Thought content normal. Judgment: Judgment normal. Assessment/Plan Diagnoses and all orders for this visit: Neck muscle spasm - cyclobenzaprine (Flexeril) 5 mg tablet; Take 1 tablet (5 mg) by mouth 3 times a day as needed for muscle spasms. Overweight (BMI 25.0-29.9) Discussed ways to loose weight documented in this encounter [facility] Work Phone: 10-16-2023 Instructions Renny Baker MD - 10/16/2023 9:00 AM EST BMI was above normal measurement. Current weight: 76.4 kg (168 lb 8 oz) Weight change since last visit (-) denotes wt loss -3.5 lbs Weight loss needed to achieve BMI 25: 23 Lbs documented in this encounter [facility] Work Phone: 08-06-2023 History of Present illness Narrative Subjective Patient ID: Wanda Haddad is a 62 y.o. female who presents for pt having issues with mid back pain (Pain radiates to rt side lower abdomen, pain is burning, some bloating , and nausea ). HPI 5 days ago pain to RUQ, pain would radiate to R side back and to RLQ, she had BM and pain resolved. This was an issue for about 2-3 days and then seemed to resolve. Yesterday she felt nausea. Today still with some nausea and pain to RUQ will come and go as well as RLQ, pain to R low back is burning and is somewhat more constant. She cannot correlate any action or eating with abdominal/back pain. No fever. Nothing odd in her diet recently. She does take Protonix chronically. She did have a similar episode about 1 month ago, tums helped mildly yesterday. Last BM yesterday was normal caliber. Review of Systems Constitutional: Negative. Respiratory: Negative. Cardiovascular: Negative. Gastrointestinal: Positive for abdominal pain. Objective BP 122/80 Pulse 70 Temp 36.5 C (97.7 F) Ht 1.626 m (5' 4 ) Wt 78 kg (172 lb) BMI 29.52 kg/m Physical Exam Constitutional: General: She is not in acute distress. Appearance: Normal appearance. She is not ill-appearing. HENT: Head: Normocephalic and atraumatic. Eyes: Extraocular Movements: Extraocular movements intact. Conjunctiva/sclera: Conjunctivae normal. Cardiovascular: Rate and Rhythm: Normal rate. Pulmonary: Effort: Pulmonary effort is normal. Abdominal: General: There is no distension. Palpations: Abdomen is soft. There is no mass. Tenderness: There is no abdominal tenderness. There is no right CVA tenderness, left CVA tenderness, guarding or rebound. Comments: Hyperactive bowel sounds throughout Musculoskeletal: General: Normal range of motion. Cervical back: Normal range of motion. Skin: General: Skin is warm and dry. Neurological: General: No focal deficit present. Mental Status: She is alert and oriented to person, place, and time. Psychiatric: Mood and Affect: Mood normal. Behavior: Behavior normal. Thought Content: Thought content normal. Judgment: Judgment normal. Assessment/Plan Xray abdomen Labs and UA today, will call with results and further plan Advised continue antacids prn, continue PPI Rx Volteran/meloxicam prn back pain documented in this encounter [facility] Work Phone: 07-10-2023 History of Present illness Narrative Subjective Patient ID: Wanda Haddad is a 62 y.o. female who presents for 6 month mdck.. HPI Gastroesophageal reflux disease, Cont protonix for 2 months doing much better Unable to tolerated every other day dosing HTN home bp in the evening 116/79 No cp occ heaviness with deep breath Exercise some but has pain with leg Depressed about weight Has tried to cut out calories Wt has gained overweight with BMI of 29 % Has decreasing energy levels Left lateral hip pain Hurts to lay on the side Ice or heat none Otc tried massage helps a little No limping with walking Chronic cough Comes and goes for 1 year January cxr normal Worse if does not take protonix Allergic symptoms mild No wheezing Feels a deep sigh The 10-year ASCVD risk score (Gina TILLMAN, et al., 2019) is: 4.7% Values used to calculate the score: Age: 62 years Sex: Female Is Non- : No Diabetic: No Tobacco smoker: No Systolic Blood Pressure: 120 mmHg Is BP treated: Yes HDL Cholesterol: 55 mg/dL Total Cholesterol: 223 mg/dL Colonoscopy February 2023 every 5 years this last time no polyps Review of Systems Objective BP 120/90 Pulse 64 Ht 1.626 m (5' 4 ) Wt 78.4 kg (172 lb 14.4 oz) SpO2 98% BMI 29.68 kg/m Physical Exam Vitals reviewed. Constitutional: Appearance: Normal appearance. HENT: Head: Normocephalic and atraumatic. Eyes: Conjunctiva/sclera: Conjunctivae normal. Cardiovascular: Rate and Rhythm: Normal rate and regular rhythm. Pulmonary: Effort: Pulmonary effort is normal. Breath sounds: Normal breath sounds. Musculoskeletal: Cervical back: Neck supple. Comments: Left greater trochanteric bursa tender to palpation. Normal gait Skin: General: Skin is warm and dry. Neurological: General: No focal deficit present. Mental Status: She is alert and oriented to person, place, and time. Psychiatric: Mood and Affect: Mood normal. Behavior: Behavior normal. Thought Content: Thought content normal. Judgment: Judgment normal. Assessment/Plan Diagnoses and all orders for this visit: Overweight (BMI 25.0-29.9) - tirzepatide (Mounjaro) 2.5 mg/0.5 mL pen injector; Inject 2.5 mg under the skin 1 (one) time per week. Benign essential hypertension - metoprolol succinate XL (Toprol-XL) 25 mg 24 hr tablet; Take 1 tablet (25 mg) by mouth once daily. Greater trochanteric bursitis of left hip Encounter for screening mammogram for breast cancer - BI mammo bilateral screening tomosynthesis; Future Hypertriglyceridemia - Lipid Panel; Future - Basic Metabolic Panel; Future Other orders - Follow Up In Primary Care documented in this encounter [facility] Work Phone: 03-26-2023 History of Present illness Narrative Subjective Patient ID: Wanda Haddad is a 62 y.o. female who presents for 2 month f/u. HPI Gastroesophageal reflux disease, unspecified whether esophagitis present Precordial vladimir Cont protonix for 2 months doing much better After running out and needed to start TUMS Was out for 5 day and buy the 3 day HTN 47 at night on fitbit Takes Metoprolol at night recommend taking tywice a day Wt is going Colonoscopy February 2023 every 5 years this last time no polyps Olecranon bursitis left Legs cramps will increase fluids States legs feel tight stiff ZAVALA pressure Sneezing that am No otc antihistamine 1 week ago Lasting 4 to 5 times during a meeting less than a minute During meeting felt anxious Has pain in neck with crepitus with rotation and stiffness Review of Systems Objective BP 134/90 Pulse 59 Ht 1.626 m (5' 4 ) Wt 78 kg (171 lb 14.4 oz) SpO2 99% BMI 29.51 kg/m Physical Exam Vitals reviewed. Constitutional: Appearance: Normal appearance. HENT: Head: Normocephalic and atraumatic. Right Ear: Tympanic membrane and ear canal normal. There is no impacted cerumen. Left Ear: Tympanic membrane, ear canal and external ear normal. There is no impacted cerumen. Nose: Nose normal. No congestion or rhinorrhea. Mouth/Throat: Mouth: Mucous membranes are moist. Pharynx: Oropharynx is clear. No oropharyngeal exudate or posterior oropharyngeal erythema. Eyes: Conjunctiva/sclera: Conjunctivae normal. Cardiovascular: Rate and Rhythm: Normal rate and regular rhythm. Pulmonary: Effort: Pulmonary effort is normal. Breath sounds: Normal breath sounds. Musculoskeletal: Cervical back: Neck supple. Right lower leg: No edema. Left lower leg: No edema. Comments: Left elbow with small bursitis and tender to palpation of olecranon Skin: General: Skin is warm and dry. Neurological: General: No focal deficit present. Mental Status: She is alert and oriented to person, place, and time. Psychiatric: Mood and Affect: Mood normal. Behavior: Behavior normal. Thought Content: Thought content normal. Judgment: Judgment normal. Assessment/Plan Diagnoses and all orders for this visit: Benign essential hypertension - Basic Metabolic Panel; Future - CK; Future Gastroesophageal reflux disease, unspecified whether esophagitis present - pantoprazole (ProtoNix) 40 mg EC tablet; Take 1 tablet (40 mg) by mouth once daily. Bursitis of left elbow, unspecified bursa Other orders - Follow Up In Primary Care Cont to cherie jeff documented in this encounter [facility] Work Phone: 03-02-2023 Note Patient Name: Rocco Haddad Procedure Date: 03/02/2023 12:29 PM Date of : 1960 Admit Type: Outpatient Site: [facility] 1 Ethnicity: Not or Race: White Attending MD: Ernst Martinez DO, [id number] Procedure: Colonoscopy Indications: Surveillance: Personal history of colonic polyps (unknown histology) on last colonoscopy more than 5 years ago Providers: Ernst Martinez DO (Doctor), Lisa Galloway RN (Nurse), Phylicia Sue, Cylinder Tester Referring: Renny Baker MD Medicines: Midazolam 6 mg IV, Meperidine 50 mg IV, Glucagon 2 mg IV Complications: No immediate complications. Procedure: Pre-Anesthesia Assessment: - Prior to the procedure, a History and Physical was performed, and patient medications and allergies were reviewed. The patient is competent. The risks and benefits of the procedure and the sedation options and risks were discussed with the patient. All questions were answered and informed consent was obtained. Patient identification and proposed procedure were verified by the physician in the pre-procedure area. Mental Status Examination: alert and oriented. Airway Examination: normal oropharyngeal airway and neck mobility. Respiratory Examination: clear to auscultation. CV Examination: normal. Prophylactic Antibiotics: The patient does not require prophylactic antibiotics. Prior Anticoagulants: The patient has taken no anticoagulant or antiplatelet agents. ASA Grade Assessment: II - A patient with mild systemic disease. After reviewing the risks and benefits, the patient was deemed in satisfactory condition to undergo the procedure. The anesthesia plan was to use moderate sedation / analgesia (conscious sedation). Immediately prior to administration of medications, the patient was re-assessed for adequacy to receive sedatives. The heart rate, respiratory rate, oxygen saturations, blood pressure, adequacy of pulmonary ventilation, and response to care were monitored throughout the procedure. The physical status of the patient was re-assessed after the procedure. After I obtained informed consent, the scope was passed under direct vision. Throughout the procedure, the patient's blood pressure, pulse, and oxygen saturations were monitored continuously. The pediatric colonoscope was introduced through the anus and advanced to the terminal ileum, with identification of the appendiceal orifice and IC valve. The colonoscopy was performed without difficulty. The patient tolerated the procedure well. The quality of the bowel preparation was excellent. The terminal ileum, ileocecal valve, appendiceal orifice, and rectum were photographed. Findings: The perianal and digital rectal examinations were normal. Pertinent negatives include normal sphincter tone and no palpable rectal lesions. The terminal ileum appeared normal. Multiple small and large-mouthed diverticula were found in the sigmoid colon and descending colon. The exam was otherwise without abnormality on direct and retroflexion views. Moderate Sedation: Moderate (conscious) sedation was administered by the nurse and supervised by the endoscopist. The following parameters were monitored: oxygen saturation, heart rate, blood pressure, and response to care. Total physician intraservice time was 21 minutes. Estimated Blood Loss: Estimated blood loss: none. Impression: - The examined portion of the ileum was normal. - Diverticulosis in the sigmoid colon and in the descending colon. - The examination was otherwise normal on direct and retroflexion views. - No specimens collected. Recommendation: - Patient has a contact number available for (more content not included)... PROVATION - 02-01-2023 History of Present illness Narrative Subjective Patient ID: Wanda Haddad is a 62 y.o. female who presents for Abdominal Pain and Chest Pain. Abdominal Pain Pertinent negatives include no headaches. Chest Pain Associated symptoms include abdominal pain and a cough (dry). Pertinent negatives include no headaches or palpitations. Stomach epigastric and better with protonix for 2 weeks with increased pyrosis with nausea and increased bowel sounds Lightheaded with deep breathing feels better Sometimes unable to get full breath 4 days ago after religion comes and goes 3 days was worse Tried lifting a recliner 6 days but was too heavy and could not lift Has had 2 stress test oct of 2019 and 2020 Sore bilateral upper chest but not tender to touch Has been anxious but no changes in stress level Was outside working around pool and felt spinning had to lay down and still spining Has dry cough hot tea helps x 1 year Ekg is normal Review of Systems Respiratory: Positive for cough (dry). Cardiovascular: Positive for chest pain (constant now and feels heavy). Negative for palpitations and leg swelling. Gastrointestinal: Positive for abdominal pain. Neurological: Positive for light-headedness. Negative for headaches. Objective BP 142/90 Pulse 62 Ht 1.626 m (5' 4 ) Wt 78 kg (171 lb 14.4 oz) BMI 29.51 kg/m Physical Exam Vitals reviewed. Constitutional: General: She is not in acute distress. Appearance: Normal appearance. HENT: Head: Normocephalic and atraumatic. Eyes: Conjunctiva/sclera: Conjunctivae normal. Cardiovascular: Rate and Rhythm: Normal rate and regular rhythm. Heart sounds: No murmur heard. Pulmonary: Effort: Pulmonary effort is normal. Breath sounds: Normal breath sounds. Abdominal: General: Abdomen is flat. Bowel sounds are normal. Palpations: Abdomen is soft. There is no mass. Musculoskeletal: Comments: Min tenderness to palpation trey upper chest at sternoclavicular joints Lymphadenopathy: Cervical: No cervical adenopathy. Skin: General: Skin is warm and dry. Neurological: General: No focal deficit present. Mental Status: She is alert and oriented to person, place, and time. Psychiatric: Mood and Affect: Mood normal. Judgment: Judgment normal. Assessment/Plan Diagnoses and all orders for this visit: Gastroesophageal reflux disease, unspecified whether esophagitis present Precordial pain - ECG 12 lead - XR chest 2 views; Future If no change in [address] scan or pfts Cont protonix for 2 months documented in this encounter [facility] Work Phone: 01-08-2023 History of Present illness Narrative Subjective Patient ID: Wanda Haddad is a 62 y.o. female who presents for 6 mth ov (C/O a red rash type area that goes from one cheek around chin to the other cheek off and on. Gets bruising easily and fatigued. ). HPI CP and htn had stress test was normal and has had 2 in [address] Cheney who ordered an echo only showed diastolic dysfunction. PVC well controlled on metoprolol HTN edema wih amlodipine had efren inhibitor cough chlorthalidone had allergic reaction with swollen lips and hands doing well with aldactone GERD started pantoprazole and taken only 2 x and some itching Mild pyrosis tums is sufficient sleep apnea mild no treatment needed but has mild snoring Wears fit bit at night with pulse to 52 and states her pulse ox is 96% States hard to wake up in the am high chol ASCVD risk 5% Has colonoscopy this month and is every 5 years Fatigue and gaining wt Has been trying to walk more on the treadmill 4.2 mph Got up to 136 bpm and took longer to recovery Patient is up-to-date on her colonoscopy repeat in 2022 Review of Systems Respiratory: Positive for cough. Negative for wheezing. Chronic cough since covid 2 years ago dry cough Cardiovascular: Negative for chest pain, palpitations and leg swelling. Gastrointestinal: Negative for blood in stool, nausea and vomiting. Genitourinary: Negative for hematuria. Skin: Last week had facial rash after picking up pineapple lasting only for less than 1 hour Not raised itches burning Feels itchy all over Right mid thoracic bruise not sure the cause Has had bowel changes with mucusy discharge Objective BP 132/74 (BP Location: Left arm, Patient Position: Sitting) Pulse 60 Ht 1.626 m (5' 4 ) Wt 77.9 kg (171 lb 11.2 oz) SpO2 97% BMI 29.47 kg/m Physical Exam Vitals reviewed. Constitutional: General: She is not in acute distress. Appearance: Normal appearance. HENT: Head: Normocephalic and atraumatic. Eyes: Conjunctiva/sclera: Conjunctivae normal. Cardiovascular: Rate and Rhythm: Normal rate and regular rhythm. Heart sounds: No murmur heard. Pulmonary: Effort: Pulmonary effort is normal. Breath sounds: Normal breath sounds. Abdominal: General: Abdomen is flat. Bowel sounds are normal. Palpations: Abdomen is soft. There is no mass. Lymphadenopathy: Cervical: No cervical adenopathy. Skin: General: Skin is warm and dry. Neurological: General: No focal deficit present. Mental Status: She is alert and oriented to person, place, and time. Psychiatric: Mood and Affect: Mood normal. Judgment: Judgment normal. Assessment/Plan Problem List Items Addressed This Visit Nervous Mild sleep apnea Relevant Orders Comprehensive Metabolic Panel CBC Circulatory Benign essential hypertension - Primary Relevant Medications spironolactone (Aldactone) 25 mg tablet Premature ventricular beat Relevant Orders Comprehensive Metabolic Panel CBC Endocrine/Metabolic Subclinical hypothyroidism Relevant Orders TSH with reflex to Free T4 if abnormal Other Elevated alkaline phosphatase level Relevant Orders Comprehensive Metabolic Panel If labs all normal consider trial of cpap for fatigue Bowel changes will be eval by gi documented in this encounter [facility] Work Phone: 01-08-2023 Instructions Renny Baker MD - 01/08/2023 1:00 PM EDT Recommend claritin 10 mg for rash documented in this encounter [facility] Work Phone: 06-11-2022 History of Present illness Narrative CP and htnhad stress test was normal and has had [address] Cheney who ordered an echo only showed diastolic dysfunction.was seen 1 month agoand no longer needs to be seenPVCon metoprololHTNedema wih amlodipinehad efren inhibitor coughchlorthalidonehad allergic reaction with swollen lips and handsdoing well with aldactoneGERDwas ppi for a couple of yearsafter eating turkey burger and then had n/vthen had some dysphagia after vomittingcheese makes worsestarted pantoprazole and taken only 2 x and some itching dry skin no rashuses lotionsleep apnea mildno treatment neededhigh cholASCVD risk calculator is low 2021left ear has cyst that cmoes and goeslast time was leakingPatient is up-to-date on her colonoscopy repeat in ll other systems have been reviewed and are negative except as noted in the HPI [facility] Work Phone: 02-03-2022 History of Present illness Narrative 61 YOF presents for follow up.INFECTED EAR LOBE: She presented on 02/03/22 with infected left ear lobe. I prescribed antibiotics, but she was unable to tolerate cephalexin or mupirocin due to hives. She has extensive allergies to antibiotics. I then prescribed rifampin and scheduled her for I&D with cold freeze as she has tachycardic reaction to novacaine. 1 day before I&D she called and endorsed that the ear lobe popped and began to drain on it's own. We canceled the I&D. She has been applying warm compresses frequently along with sea salt soaks. Seeing her today she endorsed being unable to tolerate rifampin due to pruritus. Today the left ear lobe is pain free, still with erythema, does not look edematous, looks like it is healing well.ALLERGIES TO MEDICATIONS: She had been seen by preparation supervisor canning Brittany Pink, but was unable to finish testing due to COVID and cost. She would like another referral to resume testing for allergies to medications. Dr. Pink was thinking the cause of reactions to antibiotics might be due to binding agents within the preparations. [facility] Work Phone: 01-31-2022 History of Present illness Narrative 61 YOF presents for acute visit.Presents for sore on left ear lobe x3 days. Erythematous, if you touch it is 8/10 pain, not pruritic, edematous, no warmth. Has tried hot water compress once with minimal relief, no other medication trials. Was here 4 days ago for suspected gout, has prescription for prednisone but has not started it yet. [facility] Work Phone: 01-16-2022 History of Present illness Narrative Wanda is a 61 yo female here with complaints of pain to 4th toe left foot. Pain started about 10-14 days ago. Patient states she initially thought it was her shoes ad tried wearing other shoes, pain worsened, she has tried soaking the toe in hot water with mild relief. Pain is worse when the toe is touched or any pressure applied. Patient states she noticed a few days ago it is now red, no warmness reported. Did not try any OTC medications. Denies any injury or wound to toe. [facility] Work Phone: 07-24-2021 History of Present illness Narrative Sleep Medicine Consultation NoteHPI: Wanda seen at the request of Dr. Baker, for advice regarding obstructive sleep apnea management.Patient reports that she has history of SARA and was prescribed CPAP.Face is hurting when she wakes up in the morning.Increased the amount of humidity in hopes that this may help her compliance.Gets the CPAP supplies from [employer].Trouble staying asleep is a concern- started about 5-6 years ago. 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 estimate of total sleep time: 4 hoursDaytime Symptoms:Upon Awakening: noDaytime fatigue/sleepiness: yesNaps: not usuallyInvoluntary Dozing: yesCognitive Symptoms: affectedDriving: Difficulty with sleepiness and driving: noClose calls related to sleepiness: noAccidents related to sleepiness: noSleep Review of Symptoms:Parasomnias:Sleep Walking: noDream Enactment: noBruxism: yesMotor:RLS: noPLMS: yesNarcolepsy:Hallucinations: noParalysis: noCataplexy: noPast/Childhood Sleep History: noneFamily History: Family history of sleep disorders: older brotherSocial History:Employment: works in ZYBAlcohol: noSmoking: noOther drugs: noCaffeine: noFamily: ; 2 dogs. [facility] Work Phone: 07-21-2021 History of Present illness Narrative Sleep Medicine Consultation NoteHPI: Wanda seen at the request of Dr. Baker, for advice regarding suspected obstructive sleep apnea.Patient repFace is hurting when she wakes up in the morning.Increased the amount of humidityGets the CPAP [facility].Trouble staying asleep is a concern- started about 5-6 years ago.Snoring: yesSeverity: loudFrequency: most daysDuration: 3 years agoObserved Apneas: noMouth Breathing at night: yesDry Mouth in morning: yesNocturnal Gasping: yesSleep Pattern:Bedtime: 10 - 11Lights out: immediateLatency: 20 mins to 1 hourAwakenings: multiple - to use restroomWake time: 6:30 amRise time: 6:30 amDays off: 7:30-8am -feels better on those days.Shift Work: [employer] estimate of total sleep time: 4 hoursDaytime Symptoms:Upon Awakening: noDaytime fatigue/sleepiness: yesNaps: not usuallyInvoluntary Dozing: yesCognitive Symptoms: affectedDriving: Difficulty with sleepiness and driving: noClose calls related to sleepiness: noAccidents related to sleepiness: noSleep Review of Symptoms:Parasomnias:Sleep Walking: noDream Enactment: noBruxism: yesMotor:RLS: noPLMS: yesNarcolepsy:Hallucinations: noParalysis: noCataplexy: noPast/Childhood Sleep History: noneFamily History: Family history of sleep disorders: older brotherSocial History:Employment: works in [employer]BAlcohol: noSmoking: noOther drugs: noCaffeine: noFamily: ; 2 dogs. [facility] Work Phone: 07-18-2021 History of Present illness Narrative Sleep Medicine Consultation NoteHPI: seen at the request of for advice regarding suspected obstructive sleep apnea. Accompanying the patient today is .Patient repFace is hurting when she wakes up in the morning.Increased the amount of humidityGets the CPAP supplies from [employer].Trouble staying asleep is a concern- started about 5-6 years ago.Snoring: yesSeverity: loudFrequency: most daysDuration: 3 years agoObserved Apneas: noMouth Breathing at night: yesDry Mouth in morning: yesNocturnal Gasping: yesNasal Obstruction: Weight: Sleep Pattern:Location: Bed/Recliner/Wedge: # of pillows under head: Position: Bedtime: 10 - 11Lights out: immediateLatency: 20 mins to 1 hourAwakenings: multiple - to use restroomWake time: 6:30 amRise time: 6:30 amDays off: 7:30-8am -feels better on those days.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 -Patients estimate of total sleep time: 4 hoursDaytime Symptoms:Upon Awakening: noDaytime fatigue/sleepiness: yesNaps: not usuallyInvoluntary Dozing: yesCognitive Symptoms: affectedDriving: Difficulty with sleepiness and driving: noClose calls related to sleepiness: noAccidents related to sleepiness: noSleep Review of Symptoms:Parasomnias:Sleep Walking: noDream Enactment: noBruxism: yesMotor:RLS: noPLMS: yesNarcolepsy:Hallucinations: noParalysis: noCataplexy: noPast/Childhood Sleep History: noneFamily History: Family history of sleep disorders: older brotherSocial History:Employment: works in salesAlcohol: noSmoking: noOther drugs: noCaffeine: noFamily: ; 2 dogs. [facility] Work Phone: 05-16-2021 History of Present illness Narrative 60 y.o. female patient presents for one month BP check. She went to ED on 05/16/2021 due to HTN and palpitations. She was asymptomatic at the time of ED visit. She reports intermittent periods of palpitations and a sensation in chest that feels like her heart is beating irregular. Denies CP or SOB at time of visit and when episodes occur. She feels they may be d/t anxiety as her tests have been unremarkable. She reports feeling fatigued most mornings after sleeping throughout the night. She reports her grand-daughter who spent the night with her told her she wasn't breathing right a couple of times throughout the night. She does not wear her CPAP because she is unhappy with the current [employer] who is managing her machine. [facility] Work Phone: 01-15-2021 History of Present illness Narrative 60 y.o. presents for continued left shoulder pain. Denies ROM difficulties at this time. She reports limited AROM over the weekend when the pain was more intense. The pain is intermittent and is rated 4/10 as she is sitting in exam chair, 10/10 over the weekend. She denies known injury or change in repetitive motion that would intensify the pain. Acetaminophen or ibuprofen are successful in relieving the pain. She has not tried home remedies for relief.She also reports an ecchymotic area on her left foot between her 4th and 5th phalanges, she noticed the area 2 days ago.. She denies known injury. She is able to walk without difficulty. She walks on her treadmill at 6mph most days.HTN: She reports she stopped taking amlodipine d/t b/l ankle edema. [facility] Work Phone: 03-03-2020 History of Present illness Narrative CP and htnhad stress test was normal and has had 2 in the last yearhas seen [id number] years ago had a monitorbrother and mother have afibboth had ablationhad sleep study 2 years agoFollow-up for hypertension she has been doing much better has seen Dr. Cheney who ordered an echo only showed diastolic dysfunction.will see in [facility] only showed diastolic dysfunctionlast bp this was 130/82 arm cuffamlodipine 2.5 mgno edema with amlodipinehas gaine 6 kg over the last yearocc cp but neg cardiac workupGERD feels like throat has extra fluidlast 2 weeks has felt 3 to 4 timesspicey mauritanian has burning in chestnight time symptoms has some waterbrash depeding on foodhas elevated HOBno choking no dysphagiasleep apnea mildstarted cpap but was unable to toleratesore nose and facetried high moisturehad nasal pillowshad sinus pressureleft shoulderwith electrical shocks starts tingling up to neckall other systems have been reviewed and are negative except as noted in the HPI [facility] Work Phone: 11-26-2019 History of Present illness Narrative SHE GOES BY [place] last visit, 11/26/2019, patient reports an infected left earlobe due to piercing, which is still symptomatic. He prescribed cephalexin and mupirocin, which caused red bumps and itching across her abdomen 4-6 hours after initial dose. She stopped it and switched to rifampin with developed similar Sx.With most antibiotics, she develops itching after 2 days and a painful, hot, sandpaper-like rash to bilateral arms, which resolves in a couple of days.Amlodipine caused swelling so she was switched to Lisinopril, which caused coughing. She subsequently stopped it and takes spironolactone.She developed SOB after having penicillin as a teen.She has multiple allergy/intolerances to:Penicillin in late 30s-40s, unsure date, with trouble breathing. They gave her a shot, unsure what, during hospitalization for aphasia and SOB. She developed shaking after the shot.Cipro 9 years ago for diverticulitis.Bharat, [id number], prescribed by Dr. Baker for a UTI. She notes feeling like her insides were shaking after 4th dose.Macrobid on 11/17/2019 - she developed sores inside her mouth and red squares on her face, but she was on cranberry at the same time so unsure if the cranberries were contributing to her Sx.Contrast, unknown typeMorphine - anaphylaxisDulcolax - rashSulfacetamide Sodium - rashLevaquin - unknownClindamycin - urticariaTetracycline - urticariaBactrim - urticariaZiac - itching [id number] Work Phone: Evaluation note Diagnosis Benign essential hypertension- Primary Essential hypertension, benign Mild sleep apnea Premature ventricular beat Other premature beats Subclinical hypothyroidism Other specified acquired hypothyroidism Elevated alkaline phosphatase level documented in this encounter [facility] Work Phone: Evaluation note* Diagnosis Gastroesophageal reflux disease, unspecified whether esophagitis present- Primary Precordial pain documented in this encounter [facility] Work Phone: Evaluation note* Diagnosis Benign essential hypertension- Primary Essential hypertension, benign Gastroesophageal reflux disease, unspecified whether esophagitis present Bursitis of left elbow, unspecified bursa documented in this encounter [facility] Work Phone: Evaluation note* Diagnosis Overweight (BMI 25.0-29.9)- Primary Overweight Benign essential hypertension Essential hypertension, benign Greater trochanteric bursitis of left hip Encounter for screening mammogram for breast cancer Hypertriglyceridemia Pure hyperglyceridemia documented in this encounter [facility] Work Phone: Evaluation note* Diagnosis Overweight (BMI 25.0-29.9)- Primary Overweight Benign essential hypertension Essential hypertension, benign Greater trochanteric bursitis of left hip Encounter for screening mammogram for breast cancer Hypertriglyceridemia Pure hyperglyceridemia Encounter for screening mammogram for breast cancer documented in this encounter [facility] Work Phone: Evaluation note* Diagnosis Right upper quadrant abdominal pain- Primary Acute right-sided low back pain without sciatica documented in this encounter [facility] Work Phone: Evaluation note* Diagnosis Personal history of colonic polyps Encounter for screening for malignant neoplasm of colon Diverticulosis of large intestine without perforation or abscess without bleeding Essential (primary) hypertension Unspecified essential hypertension Cardiac arrhythmia, unspecified Gastro-esophageal reflux disease without esophagitis Sleep apnea, unspecified buttermaker (current) use of aspirin Radiographic dye allergy status Allergy status to penicillin Acquired absence of both cervix and uterus documented in this encounter [facility] Work Phone: Evaluation note* Diagnosis Neck muscle spasm- Primary Overweight (BMI 25.0-29.9) Overweight documented in this encounter [facility] Work Phone: Evaluation note* Diagnosis Viral URI with cough- Primary documented in this encounter [facility] Work Phone: Evaluation note* Diagnosis Achilles tendinitis of left lower extremity- Primary Acute right-sided low back pain without sciatica documented in this encounter [facility] Work Phone: Evaluation note* Diagnosis Benign essential hypertension- Primary Essential hypertension, benign Situational anxiety Gastroesophageal reflux disease, unspecified whether esophagitis present documented in this encounter [facility] Work Phone: History of Present illness Narrative* 60 y.o. presents * Left shoulder pain contiues. Intermittent shoulder pain rated [facility] Work Phone: History of Present illness Narrative* Sleep Medicine Consultation Note * HPI: Wanda seen at the request of Dr. Baker, for advice regarding suspected obstructive sleep apnea. * Patient rep * Face is hurting when she wakes up in the morning. * Increased the amount of humidity * Gets the CPAP supplies from [employer]. * Trouble staying asleep is a concern- started about 5-6 years ago. * Snoring: yes * Severity: loud * Frequency: most days * Duration: 3 years ago * Observed Apneas: no * Mouth Breathing at night: yes * Dry Mouth in morning: yes * Nocturnal Gasping: yes * Sleep Pattern: * Bedtime: 10 - 11 * Lights out: immediate * Latency: 20 mins to 1 hour * Awakenings: multiple - to use restroom * Wake time: 6:30 am * Rise time: 6:30 am * Days off: 7:30-8am -feels better on those days. 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 * Patients estimate of total sleep time: 4 hours * Daytime Symptoms: * Upon Awakening: no * Daytime fatigue/sleepiness: yes * Naps: not usually * Involuntary Dozing: yes * Cognitive Symptoms: affected * Driving: Difficulty with sleepiness and driving: no * Close calls related to sleepiness: no * Accidents related to sleepiness: no * Sleep Review of Symptoms: * Parasomnias: * Sleep Walking: no * Dream Enactment: no * Bruxism: yes * Motor: * RLS: no * PLMS: yes * Narcolepsy: * Hallucinations: no * Paralysis: no * Cataplexy: no * Past/Childhood Sleep History: none * Family History: Family history of sleep disorders: older brother * Social History: * 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 [facility] Work Phone: History of Present illness Narrative* CP and htn * had stress test was normal and has had 2 in 2019 * has seen Dr. Cheney who ordered an echo only showed diastolic dysfunction. * HTN * echo only showed diastolic dysfunction * edema wih amlodipine * had efren inhibitor cough * no cp with neg cardiac workup * GERD * no choking no dysphagia * takes ppi 2 x per months * inc HOB has helped * had covid june 2021 * had tachycardia and dizziness and had cough * had sbusternal had chest fluttering and 2 deep breaths made better * sleep apnea mild * has seen sleep sp Dr Felton * states does feel she is not taking deep breaths * states insurance did not cover machine * sleeps on slide * all other systems have been reviewed and are negative except as noted in the HPI [facility] Work Phone: History of Present illness Narrative* CP and htn * had stress test was normal and has had 2 in 2019 * has seen Dr. Cheeny who ordered an echo only showed diastolic dysfunction. * HTN * echo only showed diastolic dysfunction * edema wih amlodipine * had efren inhibitor cough * no cp with neg cardiac workup * chlorthalidone * had allergic reaction with swollen lips and hands * never started aldactone * home bp fluctuate * GERD * no choking no dysphagia * takes ppi 2 x per months * inc HOB has helped * sleep apnea mild * has seen sleep sp Dr Felton * states does feel she is not taking deep breaths * states insurance did not cover machine * sleeps on slide * Patient is up-to-date on her colonoscopy repeat in 2022 * Patient is due for mammogram she has had no changes on self breast exam. * She is due for fasting glucose and lipid panel. * Her annual wellness form for work was signed that she is current and up-to-date on screening test. * all other systems have been reviewed and are negative except as noted in the HPI [facility] Work Phone: History of Present illness Narrative* Her blood pressure has been running high for the last 160/98 * Pulse has been running in the 60s and 50s * Has done in the past with increase in dose * Feeling pressure in the chest substernal * She has been falling asleep when she sits down * The pressure will last for a few seconds * Cannot get a deep breath initially but when she finally can get a breath it goes away * Walking does not create pressure and actually helps * Has a history of premature beats which are much better on meds * Has history of low heart rate on higher doses of the metoprolol * Amlodipine caused edema * Lisinopril caused cough * Did not get spironolactone * Chlorthalidone caused lip swelling * No recent labs so will check today * She did note one time when she was feeling closed in by people in a store that she had the chest tightness [facility] Work Phone: History of Present illness Narrative* Her blood pressure has been running high for the last 160/98 * Pulse has been running in the 60s and 50s * Has done in the past with increase in dose * Feeling pressure in the chest substernal * She has been falling asleep when she sits down * The pressure will last for a few seconds * Cannot get a deep breath initially but when she finally can get a breath it goes away * Walking does not create pressure and actually helps * Has a history of premature beats which are much better on meds * Has history of low heart rate on higher doses of the metoprolol * Amlodipine caused edema * Lisinopril caused cough * Did not get spironolactone * Chlorthalidone caused lip swelling * No recent labs so will check today * She did note one time when she was feeling closed in by people in a store that she had the chest tightness [facility] Work Phone: History of Present illness Narrative* CP and htn * had stress test was normal and has had 2 in 2019 * has seen Dr. Cheney who ordered an echo only showed diastolic dysfunction. * next appt is may * no leg edema * felt like passing out with ear pressure subocciptial and radiated over top of head * x 3 times 2 weeks ago * cervi ddd * no pain only pressure * no visual changes * no n/v * no palpitations * HTN * edema wih amlodipine * had efren inhibitor cough * chlorthalidone * had allergic reaction with swollen lips and hands * never started aldactone * home bp fluctuate * GERD * no choking no dysphagia * takes ppi 2 x per months * inc HOB has helped * intermittent abd pain * no dysuira * no kidney pain * last bm last night normal * still has gallbladder * now normal today * sleep apnea mild * no treatment needed * high chol * ASCVD risk calculator is low 2021 * I have discussed with the patient their cardiovascular risk. I have recommended behavioral therapies of nutritional choices, exercise and elimination of habits contributing to risk. We agreed on a plan how they may be able to reduce their risk. For patients 40 to 70 with a risk of 20% who are not at risk of bleeding complications aspirin was recommended. For patients 40 to 75 with risk of 10%, diabetes or ckd statins were recommended. * has started fiber and recommend low fat * Patient is up-to-date on her colonoscopy repeat in 2022 * Patient is due for mammogram she has had no changes on self breast exam. * all other systems have been reviewed and are negative except as noted in the HPI [facility] Work Phone: History of Present illness Narrative* 61 YOF presents for follow up. * INFECTED EAR LOBE: She was unable to tolerate cephalexin or mupirocin due to hives. Currently stillinfectious looking, pain has reduced. She endorses applying warm compresses frequently. * She endorses history tachycardic reaction to novocaine. [facility] Work Phone: Reason for referral (narrative)* Consultation (Routine) - Authorized Specialty Diagnoses / Procedures Referred By Sangeetha aguillon Referred To Contact Primary Care Procedures Follow Up In Primary Care Renny Baker MD [address] [facility], [address] [place] [address] Referral ID Status Reason Start Date Expiration Date V isits Requested Visits Authorized [id number] Authorized 01/08/2023 07/07/2023 1 1 [facility] Work Phone: Reason for referral (narrative)* Consultation (Routine) - Authorized Specialty Diagnoses / Procedures Referred By Contac t Referred To Contact Primary Care Procedures Follow Up In Primary Care Renny Baker MD [address] [facility], [address] [place] [id number] Referral ID Status Reason Start Date Expiration Date V isits Requested Visits Authorized [id number] Authorized 02/01/2023 07/31/2023 1 1 * Imaging (Routine) - Authorized Specialty Diagnoses / Procedures Referred By Contac t Referred To Contact Radiology Diagnoses Precordial pain Procedures XR chest 2 views Renny Baker MD [address] [facility], [address] [address] Referral ID Status Reason Start Date Expiration Date Visits Requested Visits Authorized [id number] Authorized Perform Procedure 02/01/2023 07/31/2023 1 1 * Cardiovascular (Routine) - Authorized Specialty Diagnoses / Procedures Referred By Contac t Referred To Contact Diagnoses Precordial pain Procedures ECG 12 lead Renny Baker MD [address] [facility], [address] [place] [address] Referral ID Status Reason Start Date Expiration Date V isits Requested Visits Authorized [id number] Authorized 02/01/2023 07/31/2023 1 1 [facility] Work Phone: Summary Purpose Family History No Family History Records Found Grandparent Name Dates Details Family history of renal fail ure(V18.69, Z84.1) Status:Active uncle Name Dates Details Family history of myocardial infarction(V17.3, Z82.49) Status:Active Mother Name Dates Details Family history of atrial fib rillation(V17.49, Z82.49) Status:Active Family history of diabetes m ellitus(V18.0, Z83.3) Status:Active Family history of Parkinson' s disease(V17.2, Z82.0) Status:Active Family history of renal fail ure(V18.69, Z84.1) Status:Active Father Name Dates Details Family history of diabetes m ellitus(V18.0, Z83.3) Status:Active Family history of Parkinson' s disease(V17.2, Z82.0) Status:Active Family history of cerebrovas cular accident (CVA)(V17.1, Z82.3) Status:Active Brother Name Dates Details Family history of atrial fib rillation(V17.49, Z82.49) Status:Active Family history of diabetes m ellitus(V18.0, Z83.3) Status:Active Family history of cerebrovas cular accident (CVA)(V17.1, Z82.3) Status:Active Family history of TIA (trans ient ischemic attack)(435.9, G45.9) Status:Active Grandparent Name Dates Details Family history of renal fail ure(V18.69, Z84.1) Status:Active uncle Name Dates Details Family history of myocardial infarction(V17.3, Z82.49) Status:Active Mother Name Dates Details Family history of atrial fib rillation(V17.49, Z82.49) Status:Active Family history of diabetes m ellitus(V18.0, Z83.3) Status:Active Family history of Parkinson' s disease(V17.2, Z82.0) Status:Active Family history of renal fail ure(V18.69, Z84.1) Status:Active Father Name Dates Details Family history of diabetes m ellitus(V18.0, Z83.3) Status:Active Family history of Parkinson' s disease(V17.2, Z82.0) Status:Active Family history of cerebrovas cular accident (CVA)(V17.1, Z82.3) Status:Active Brother Name Dates Details Family history of atrial fib rillation(V17.49, Z82.49) Status:Active Family history of diabetes m ellitus(V18.0, Z83.3) Status:Active Family history of cerebrovas cular accident (CVA)(V17.1, Z82.3) Status:Active Family history of TIA (trans ient ischemic attack)(435.9, G45.9) Status:Active Grandparent Name Dates Details Family history of renal fail ure(V18.69, Z84.1) Status:Active uncle Name Dates Details Family history of myocardial infarction(V17.3, Z82.49) Status:Active Mother Name Dates Details Family history of atrial fib rillation(V17.49, Z82.49) Status:Active Family history of diabetes m ellitus(V18.0, Z83.3) Status:Active Family history of Parkinson' s disease(V17.2, Z82.0) Status:Active Family history of renal fail ure(V18.69, Z84.1) Status:Active Father Name Dates Details Family history of diabetes m ellitus(V18.0, Z83.3) Status:Active Family history of Parkinson' s disease(V17.2, Z82.0) Status:Active Family history of cerebrovas cular accident (CVA)(V17.1, Z82.3) Status:Active Brother Name Dates Details Family history of atrial fib rillation(V17.49, Z82.49) Status:Active Family history of diabetes m ellitus(V18.0, Z83.3) Status:Active Family history of cerebrovas cular accident (CVA)(V17.1, Z82.3) Status:Active Family history of TIA (trans ient ischemic attack)(435.9, G45.9) Status:Active Grandparent Name Dates Details Family history of renal fail ure(V18.69, Z84.1) Status:Active uncle Name Dates Details Family history of myocardial infarction(V17.3, Z82.49) Status:Active Mother Name Dates Details Family history of diabetes m ellitus(V18.0, Z83.3) Status:Active Family history of Parkinson' s disease(V17.2, Z82.0) Status:Active Family history of atrial fib rillation(V17.49, Z82.49) Status:Active Family history of renal fail ure(V18.69, Z84.1) Status:Active Father Name Dates Details Family history of diabetes m ellitus(V18.0, Z83.3) Status:Active Family history of Parkinson' s disease(V17.2, Z82.0) Status:Active Family history of cerebrovas cular accident (CVA)(V17.1, Z82.3) Status:Active Brother Name Dates Details Family history of diabetes m ellitus(V18.0, Z83.3) Status:Active Family history of atrial fib rillation(V17.49, Z82.49) Status:Active Family history of cerebrovas cular accident (CVA)(V17.1, Z82.3) Status:Active Family history of TIA (trans ient ischemic attack)(435.9, G45.9) Status:Active Unknown Family Member Name Dates Details Family history of atrial fib rillation: Mother, Brother(V17.49, Z82.49) Status:Active Family history of diabetes m ellitus: Mother, Father, Brother(V18.0, Z83.3) Status:Active Family history of Parkinson' s disease: Mother, Father(V17.2, Z82.0) Status:Active Family history of renal fail ure: Mother, Grandparent(V18.69, Z84.1) Status:Active Family history of cerebrovas cular accident (CVA): Father, Brother(V17.1, Z82.3) Status:Active Family history of myocardial infarction: Uncle(V17.3, Z82.49) Status:Active TIA (transient ischemic paulie ck): Brother Status:Active Unknown Family Member Name Dates Details Family history of atrial fib rillation: Mother, Brother(V17.49, Z82.49) Status:Active Family history of diabetes m ellitus: Mother, Father, Brother(V18.0, Z83.3) Status:Active Family history of Parkinson' s disease: Mother, Father(V17.2, Z82.0) Status:Active Family history of renal fail ure: Mother, Grandparent(V18.69, Z84.1) Status:Active Family history of cerebrovas cular accident (CVA): Father, Brother(V17.1, Z82.3) Status:Active Family history of myocardial infarction: Uncle(V17.3, Z82.49) Status:Active TIA (transient ischemic paulie ck): Brother Status:Active Unknown Family Member Name Dates Details Family history of atrial fib rillation: Mother, Brother(V17.49, Z82.49) Status:Active Family history of diabetes m ellitus: Mother, Father, Brother(V18.0, Z83.3) Status:Active Family history of Parkinson' s disease: Mother, Father(V17.2, Z82.0) Status:Active Family history of renal fail ure: Mother, Grandparent(V18.69, Z84.1) Status:Active Family history of cerebrovas cular accident (CVA): Father, Brother(V17.1, Z82.3) Status:Active Family history of myocardial infarction: Uncle(V17.3, Z82.49) Status:Active TIA (transient ischemic paulie ck): Brother Status:Active Unknown Family Member Name Dates Details Family history of atrial fib rillation: Mother, Brother(V17.49, Z82.49) Status:Active Family history of diabetes m ellitus: Mother, Father, Brother(V18.0, Z83.3) Status:Active Family history of Parkinson' s disease: Mother, Father(V17.2, Z82.0) Status:Active Family history of renal fail ure: Mother, Grandparent(V18.69, Z84.1) Status:Active Family history of cerebrovas cular accident (CVA): Father, Brother(V17.1, Z82.3) Status:Active Family history of myocardial infarction: Uncle(V17.3, Z82.49) Status:Active TIA (transient ischemic paulie ck): Brother Status:Active Unknown Family Member Name Dates Details Family history of atrial fib rillation: Mother, Brother(V17.49, Z82.49) Status:Active Family history of diabetes m ellitus: Mother, Father, Brother(V18.0, Z83.3) Status:Active Family history of Parkinson' s disease: Mother, Father(V17.2, Z82.0) Status:Active Family history of renal fail ure: Mother, Grandparent(V18.69, Z84.1) Status:Active Family history of cerebrovas cular accident (CVA): Father, Brother(V17.1, Z82.3) Status:Active Family history of myocardial infarction: Uncle(V17.3, Z82.49) Status:Active TIA (transient ischemic paulie ck): Brother Status:Active Unknown Family Member Name Dates Details Family history of atrial fib rillation: Mother, Brother(V17.49, Z82.49) Status:Active Family history of diabetes m ellitus: Mother, Father, Brother(V18.0, Z83.3) Status:Active Family history of Parkinson' s disease: Mother, Father(V17.2, Z82.0) Status:Active Family history of renal fail ure: Mother, Grandparent(V18.69, Z84.1) Status:Active Family history of cerebrovas cular accident (CVA): Father, Brother(V17.1, Z82.3) Status:Active Family history of myocardial infarction: Uncle(V17.3, Z82.49) Status:Active TIA (transient ischemic paulie ck): Brother Status:Active Unknown Family Member Name Dates Details Family history of atrial fib rillation: Mother, Brother(V17.49, Z82.49) Status:Active Family history of diabetes m ellitus: Mother, Father, Brother(V18.0, Z83.3) Status:Active Family history of Parkinson' s disease: Mother, Father(V17.2, Z82.0) Status:Active Family history of renal fail ure: Mother, Grandparent(V18.69, Z84.1) Status:Active Family history of cerebrovas cular accident (CVA): Father, Brother(V17.1, Z82.3) Status:Active Family history of myocardial infarction: Uncle(V17.3, Z82.49) Status:Active TIA (transient ischemic paulie ck): Brother Status:Active Unknown Family Member Name Dates Details Family history of atrial fib rillation: Mother, Brother(V17.49, Z82.49) Status:Active Family history of diabetes m ellitus: Mother, Father, Brother(V18.0, Z83.3) Status:Active Family history of Parkinson' s disease: Mother, Father(V17.2, Z82.0) Status:Active Family history of renal fail ure: Mother, Grandparent(V18.69, Z84.1) Status:Active Family history of cerebrovas cular accident (CVA): Father, Brother(V17.1, Z82.3) Status:Active Family history of myocardial infarction: Uncle(V17.3, Z82.49) Status:Active TIA (transient ischemic paulie ck): Brother Status:Active Unknown Family Member Name Dates Details Family history of atrial fib rillation: Mother, Brother(V17.49, Z82.49) Status:Active Family history of diabetes m ellitus: Mother, Father, Brother(V18.0, Z83.3) Status:Active Family history of Parkinson' s disease: Mother, Father(V17.2, Z82.0) Status:Active Family history of renal fail ure: Mother, Grandparent(V18.69, Z84.1) Status:Active Family history of cerebrovas cular accident (CVA): Father, Brother(V17.1, Z82.3) Status:Active Family history of myocardial infarction: Uncle(V17.3, Z82.49) Status:Active TIA (transient ischemic paulie ck): Brother Status:Active Unknown Family Member Name Dates Details Family history of atrial fib rillation: Mother, Brother(V17.49, Z82.49) Status:Active Family history of diabetes m ellitus: Mother, Father, Brother(V18.0, Z83.3) Status:Active Family history of Parkinson' s disease: Mother, Father(V17.2, Z82.0) Status:Active Family history of renal fail ure: Mother, Grandparent(V18.69, Z84.1) Status:Active Family history of cerebrovas cular accident (CVA): Father, Brother(V17.1, Z82.3) Status:Active Family history of myocardial infarction: Uncle(V17.3, Z82.49) Status:Active TIA (transient ischemic paulie ck): Brother Status:Active Unknown Family Member Name Dates Details Family history of atrial fib rillation: Mother, Brother(V17.49, Z82.49) Status:Active Family history of diabetes m ellitus: Mother, Father, Brother(V18.0, Z83.3) Status:Active Family history of Parkinson' s disease: Mother, Father(V17.2, Z82.0) Status:Active Family history of renal fail ure: Mother, Grandparent(V18.69, Z84.1) Status:Active Family history of cerebrovas cular accident (CVA): Father, Brother(V17.1, Z82.3) Status:Active Family history of myocardial infarction: Uncle(V17.3, Z82.49) Status:Active TIA (transient ischemic paulie ck): Brother Status:Active Unknown Family Member Name Dates Details TIA (transient ischemic paulie ck): Brother Status:Active Family history of myocardial infarction: Uncle(V17.3, Z82.49) Status:Active Family history of cerebrovas cular accident (CVA): Father, Brother(V17.1, Z82.3) Status:Active Family history of renal fail ure: Mother, Grandparent(V18.69, Z84.1) Status:Active Family history of Parkinson' s disease: Mother, Father(V17.2, Z82.0) Status:Active Family history of diabetes m ellitus: Mother, Father, Brother(V18.0, Z83.3) Status:Active Family history of atrial fib rillation: Mother, Brother(V17.49, Z82.49) Status:Active Unknown Family Member Name Dates Details Family history of atrial fib rillation: Mother, Brother(V17.49, Z82.49) Status:Active Family history of diabetes m ellitus: Mother, Father, Brother(V18.0, Z83.3) Status:Active Family history of Parkinson' s disease: Mother, Father(V17.2, Z82.0) Status:Active Family history of renal fail ure: Mother, Grandparent(V18.69, Z84.1) Status:Active Family history of cerebrovas cular accident (CVA): Father, Brother(V17.1, Z82.3) Status:Active Family history of myocardial infarction: Uncle(V17.3, Z82.49) Status:Active TIA (transient ischemic paulie ck): Brother Status:Active Unknown Family Member Name Dates Details Family history of atrial fib rillation: Mother, Brother(V17.49, Z82.49) Status:Active Family history of diabetes m ellitus: Mother, Father, Brother(V18.0, Z83.3) Status:Active Family history of Parkinson' s disease: Mother, Father(V17.2, Z82.0) Status:Active Family history of renal fail ure: Mother, Grandparent(V18.69, Z84.1) Status:Active Family history of cerebrovas cular accident (CVA): Father, Brother(V17.1, Z82.3) Status:Active Family history of myocardial infarction: Uncle(V17.3, Z82.49) Status:Active TIA (transient ischemic paulie ck): Brother Status:Active Unknown Family Member Name Dates Details TIA (transient ischemic paulie ck): Brother Status:Active Family history of myocardial infarction: Uncle(V17.3, Z82.49) Status:Active Family history of cerebrovas cular accident (CVA): Father, Brother(V17.1, Z82.3) Status:Active Family history of renal fail ure: Mother, Grandparent(V18.69, Z84.1) Status:Active Family history of Parkinson' s disease: Mother, Father(V17.2, Z82.0) Status:Active Family history of diabetes m ellitus: Mother, Father, Brother(V18.0, Z83.3) Status:Active Family history of atrial fib rillation: Mother, Brother(V17.49, Z82.49) Status:Active Unknown Family Member Name Dates Details Family history of atrial fib rillation: Mother, Brother(V17.49, Z82.49) Status:Active Family history of diabetes m ellitus: Mother, Father, Brother(V18.0, Z83.3) Status:Active Family history of Parkinson' s disease: Mother, Father(V17.2, Z82.0) Status:Active Family history of renal fail ure: Mother, Grandparent(V18.69, Z84.1) Status:Active Family history of cerebrovas cular accident (CVA): Father, Brother(V17.1, Z82.3) Status:Active Family history of myocardial infarction: Uncle(V17.3, Z82.49) Status:Active TIA (transient ischemic paulie ck): Brother Status:Active Unknown Family Member Name Dates Details Family history of atrial fib rillation: Mother, Brother(V17.49, Z82.49) Status:Active Family history of diabetes m ellitus: Mother, Father, Brother(V18.0, Z83.3) Status:Active Family history of Parkinson' s disease: Mother, Father(V17.2, Z82.0) Status:Active Family history of renal fail ure: Mother, Grandparent(V18.69, Z84.1) Status:Active Family history of cerebrovas cular accident (CVA): Father, Brother(V17.1, Z82.3) Status:Active Family history of myocardial infarction: Uncle(V17.3, Z82.49) Status:Active TIA (transient ischemic paulie ck): Brother Status:Active Unknown Family Member Name Dates Details Family history of atrial fib rillation: Mother, Brother(V17.49, Z82.49) Status:Active Family history of diabetes m ellitus: Mother, Father, Brother(V18.0, Z83.3) Status:Active Family history of Parkinson' s disease: Mother, Father(V17.2, Z82.0) Status:Active Family history of renal fail ure: Mother, Grandparent(V18.69, Z84.1) Status:Active Family history of cerebrovas cular accident (CVA): Father, Brother(V17.1, Z82.3) Status:Active Family history of myocardial infarction: Uncle(V17.3, Z82.49) Status:Active TIA (transient ischemic paulie ck): Brother Status:Active Unknown Family Member Name Dates Details Family history of atrial fib rillation: Mother, Brother(V17.49, Z82.49) Status:Active Family history of diabetes m ellitus: Mother, Father, Brother(V18.0, Z83.3) Status:Active Family history of Parkinson' s disease: Mother, Father(V17.2, Z82.0) Status:Active Family history of renal fail ure: Mother, Grandparent(V18.69, Z84.1) Status:Active Family history of cerebrovas cular accident (CVA): Father, Brother(V17.1, Z82.3) Status:Active Family history of myocardial infarction: Uncle(V17.3, Z82.49) Status:Active TIA (transient ischemic paulie ck): Brother Status:Active Unknown Family Member Name Dates Details Family history of atrial fib rillation: Mother, Brother(V17.49, Z82.49) Status:Active Family history of diabetes m ellitus: Mother, Father, Brother(V18.0, Z83.3) Status:Active Family history of Parkinson' s disease: Mother, Father(V17.2, Z82.0) Status:Active Family history of renal fail ure: Mother, Grandparent(V18.69, Z84.1) Status:Active Family history of cerebrovas cular accident (CVA): Father, Brother(V17.1, Z82.3) Status:Active Family history of myocardial infarction: Uncle(V17.3, Z82.49) Status:Active TIA (transient ischemic paulie ck): Brother Status:Active Unknown Family Member Name Dates Details Family history of atrial fib rillation: Mother, Brother(V17.49, Z82.49) Status:Active Family history of diabetes m ellitus: Mother, Father, Brother(V18.0, Z83.3) Status:Active Family history of Parkinson' s disease: Mother, Father(V17.2, Z82.0) Status:Active Family history of renal fail ure: Mother, Grandparent(V18.69, Z84.1) Status:Active Family history of cerebrovas cular accident (CVA): Father, Brother(V17.1, Z82.3) Status:Active Family history of myocardial infarction: Uncle(V17.3, Z82.49) Status:Active TIA (transient ischemic paulie ck): Brother Status:Active Unknown Family Member Name Dates Details Family history of atrial fib rillation: Mother, Brother(V17.49, Z82.49) Status:Active Family history of diabetes m ellitus: Mother, Father, Brother(V18.0, Z83.3) Status:Active Family history of Parkinson' s disease: Mother, Father(V17.2, Z82.0) Status:Active Family history of renal fail ure: Mother, Grandparent(V18.69, Z84.1) Status:Active Family history of cerebrovas cular accident (CVA): Father, Brother(V17.1, Z82.3) Status:Active Family history of myocardial infarction: Uncle(V17.3, Z82.49) Status:Active TIA (transient ischemic paulie ck): Brother Status:Active Unknown Family Member Name Dates Details Family history of atrial fib rillation: Mother, Brother(V17.49, Z82.49) Status:Active Family history of diabetes m ellitus: Mother, Father, Brother(V18.0, Z83.3) Status:Active Family history of Parkinson' s disease: Mother, Father(V17.2, Z82.0) Status:Active Family history of renal fail ure: Mother, Grandparent(V18.69, Z84.1) Status:Active Family history of cerebrovas cular accident (CVA): Father, Brother(V17.1, Z82.3) Status:Active Family history of myocardial infarction: Uncle(V17.3, Z82.49) Status:Active TIA (transient ischemic paulie ck): Brother Status:Active Unknown Family Member Name Dates Details Family history of atrial fib rillation: Mother, Brother(V17.49, Z82.49) Status:Active Family history of diabetes m ellitus: Mother, Father, Brother(V18.0, Z83.3) Status:Active Family history of Parkinson' s disease: Mother, Father(V17.2, Z82.0) Status:Active Family history of renal fail ure: Mother, Grandparent(V18.69, Z84.1) Status:Active Family history of cerebrovas cular accident (CVA): Father, Brother(V17.1, Z82.3) Status:Active Family history of myocardial infarction: Uncle(V17.3, Z82.49) Status:Active TIA (transient ischemic paulie ck): Brother Status:Active Unknown Family Member Name Dates Details Family history of atrial fib rillation: Mother, Brother(V17.49, Z82.49) Status:Active Family history of diabetes m ellitus: Mother, Father, Brother(V18.0, Z83.3) Status:Active Family history of Parkinson' s disease: Mother, Father(V17.2, Z82.0) Status:Active Family history of renal fail ure: Mother, Grandparent(V18.69, Z84.1) Status:Active Family history of cerebrovas cular accident (CVA): Father, Brother(V17.1, Z82.3) Status:Active Family history of myocardial infarction: Uncle(V17.3, Z82.49) Status:Active TIA (transient ischemic paulie ck): Brother Status:Active Unknown Family Member Name Dates Details Family history of atrial fib rillation: Mother, Brother(V17.49, Z82.49) Status:Active Family history of diabetes m ellitus: Mother, Father, Brother(V18.0, Z83.3) Status:Active Family history of Parkinson' s disease: Mother, Father(V17.2, Z82.0) Status:Active Family history of renal fail ure: Mother, Grandparent(V18.69, Z84.1) Status:Active Family history of cerebrovas cular accident (CVA): Father, Brother(V17.1, Z82.3) Status:Active Family history of myocardial infarction: Uncle(V17.3, Z82.49) Status:Active TIA (transient ischemic paulie ck): Brother Status:Active Unknown Family Member Name Dates Details Family history of atrial fib rillation: Mother, Brother(V17.49, Z82.49) Status:Active Family history of diabetes m ellitus: Mother, Father, Brother(V18.0, Z83.3) Status:Active Family history of Parkinson' s disease: Mother, Father(V17.2, Z82.0) Status:Active Family history of renal fail ure: Mother, Grandparent(V18.69, Z84.1) Status:Active Family history of cerebrovas cular accident (CVA): Father, Brother(V17.1, Z82.3) Status:Active Family history of myocardial infarction: Uncle(V17.3, Z82.49) Status:Active TIA (transient ischemic paulie ck): Brother Status:Active Unknown Family Member Name Dates Details Family history of atrial fib rillation: Mother, Brother(V17.49, Z82.49) Status:Active Family history of diabetes m ellitus: Mother, Father, Brother(V18.0, Z83.3) Status:Active Family history of Parkinson' s disease: Mother, Father(V17.2, Z82.0) Status:Active Family history of renal fail ure: Mother, Grandparent(V18.69, Z84.1) Status:Active Family history of cerebrovas cular accident (CVA): Father, Brother(V17.1, Z82.3) Status:Active Family history of myocardial infarction: Uncle(V17.3, Z82.49) Status:Active TIA (transient ischemic paulie ck): Brother Status:Active Unknown Family Member Name Dates Details Family history of atrial fib rillation: Mother, Brother(V17.49, Z82.49) Status:Active Family history of diabetes m ellitus: Mother, Father, Brother(V18.0, Z83.3) Status:Active Family history of Parkinson' s disease: Mother, Father(V17.2, Z82.0) Status:Active Family history of renal fail ure: Mother, Grandparent(V18.69, Z84.1) Status:Active Family history of cerebrovas cular accident (CVA): Father, Brother(V17.1, Z82.3) Status:Active Family history of myocardial infarction: Uncle(V17.3, Z82.49) Status:Active TIA (transient ischemic paulie ck): Brother Status:Active Unknown Family Member Name Dates Details Family history of atrial fib rillation: Mother, Brother(V17.49, Z82.49) Status:Active Family history of diabetes m ellitus: Mother, Father, Brother(V18.0, Z83.3) Status:Active Family history of Parkinson' s disease: Mother, Father(V17.2, Z82.0) Status:Active Family history of renal fail ure: Mother, Grandparent(V18.69, Z84.1) Status:Active Family history of cerebrovas cular accident (CVA): Father, Brother(V17.1, Z82.3) Status:Active Family history of myocardial infarction: Uncle(V17.3, Z82.49) Status:Active TIA (transient ischemic paulie ck): Brother Status:Active Unknown Family Member Name Dates Details Family history of atrial fib rillation: Mother, Brother(V17.49, Z82.49) Status:Active Family history of diabetes m ellitus: Mother, Father, Brother(V18.0, Z83.3) Status:Active Family history of Parkinson' s disease: Mother, Father(V17.2, Z82.0) Status:Active Family history of renal fail ure: Mother, Grandparent(V18.69, Z84.1) Status:Active Family history of cerebrovas cular accident (CVA): Father, Brother(V17.1, Z82.3) Status:Active Family history of myocardial infarction: Uncle(V17.3, Z82.49) Status:Active TIA (transient ischemic paulie ck): Brother Status:Active Unknown Family Member Name Dates Details Family history of atrial fib rillation: Mother, Brother(V17.49, Z82.49) Status:Active Family history of diabetes m ellitus: Mother, Father, Brother(V18.0, Z83.3) Status:Active Family history of Parkinson' s disease: Mother, Father(V17.2, Z82.0) Status:Active Family history of renal fail ure: Mother, Grandparent(V18.69, Z84.1) Status:Active Family history of cerebrovas cular accident (CVA): Father, Brother(V17.1, Z82.3) Status:Active Family history of myocardial infarction: Uncle(V17.3, Z82.49) Status:Active TIA (transient ischemic paulie ck): Brother Status:Active Unknown Family Member Name Dates Details Family history of atrial fib rillation: Mother, Brother(V17.49, Z82.49) Status:Active Family history of diabetes m ellitus: Mother, Father, Brother(V18.0, Z83.3) Status:Active Family history of Parkinson' s disease: Mother, Father(V17.2, Z82.0) Status:Active Family history of renal fail ure: Mother, Grandparent(V18.69, Z84.1) Status:Active Family history of cerebrovas cular accident (CVA): Father, Brother(V17.1, Z82.3) Status:Active Family history of myocardial infarction: Uncle(V17.3, Z82.49) Status:Active TIA (transient ischemic paulie ck): Brother Status:Active Unknown Family Member Name Dates Details Family history of atrial fib rillation: Mother, Brother(V17.49, Z82.49) Status:Active Family history of diabetes m ellitus: Mother, Father, Brother(V18.0, Z83.3) Status:Active Family history of Parkinson' s disease: Mother, Father(V17.2, Z82.0) Status:Active Family history of renal fail ure: Mother, Grandparent(V18.69, Z84.1) Status:Active Family history of cerebrovas cular accident (CVA): Father, Brother(V17.1, Z82.3) Status:Active Family history of myocardial infarction: Uncle(V17.3, Z82.49) Status:Active TIA (transient ischemic paulie ck): Brother Status:Active Unknown Family Member Name Dates Details Family history of atrial fib rillation: Mother, Brother(V17.49, Z82.49) Status:Active Family history of diabetes m ellitus: Mother, Father, Brother(V18.0, Z83.3) Status:Active Family history of Parkinson' s disease: Mother, Father(V17.2, Z82.0) Status:Active Family history of renal fail ure: Mother, Grandparent(V18.69, Z84.1) Status:Active Family history of cerebrovas cular accident (CVA): Father, Brother(V17.1, Z82.3) Status:Active Family history of myocardial infarction: Uncle(V17.3, Z82.49) Status:Active TIA (transient ischemic paulie ck): Brother Status:Active Advance Directives No Advanced Directives Records FoundNo Advanced Directives Records FoundNo Advanced Directives Records FoundNo Advanced Directives Records FoundNo Advanced Directives Records FoundNo Advanced Directives Records FoundNo Advanced Directives Records FoundNo Advanced Directives Records FoundNo Advanced Directives Records FoundNo Advanced Directives Records FoundNo Advanced Directives Records Found Chief Complaint 3 month mdck.Left shoulder issues x a couple months - Also has a bump between the toes on the left foot.Left shoulder issues x a couple months - Also has a bump between the toes on the left foot.1 month follow-up.pt here to discuss sleeping issues , trouble staying asleep , would like cpap sent to another pharamcy.pt here to discuss sleeping issues , trouble staying asleep , would like cpap sent to another pharamcy.pt here to discuss sleeping issues , trouble staying asleep , would like cpap sent to another pharamcy.pt here to discuss sleeping issues , trouble staying asleep , would like cpap sent to another pharamcy.6 month f/u.2 wk fu bp.chest pressurechest pressure3 month.Toe pain on the left foot x 2 weeks - no trauma to her knowledge.pt c/o sore on left ear lobe x 3 days.pt here for f/u to left ear lobe infection , she was unable to tolerate the antibiotic.pt here to have left ear lobe infection evaluated , pt still itching from reaction from antibiotic.Followup visit for multiple drug allergies6 month mdck. Reason for Referral Specialty Diagnoses / Procedures Referred By Sangeetha aguillon Referred To Contact Radiology Diagnoses Encounter for screening mammogram for breast cancer Procedures BI mammo bilateral screening tomosynthesis Renny Baker MD [address] [facility], [facility] [address] [place] [id number] Referral ID Status Reason Start Date Expiration Date Visits Requested Visits Authorized [id number] Authorized Perform Procedure 07/10/2023 01/06/2024 1 1 Specialty Diagnoses / Procedures Referred By Sangeetha aguillon Referred To Contact Radiology Diagnoses Right upper quadrant abdominal pain Procedures XR abdomen 1 view Gamaliel Swenson PA-C [address] [facility], [facility] [address] [place] [id number] Referral ID Status Reason Start Date Expiration Date Visits Requested Visits Authorized [id number] Authorized Perform Procedure 08/05/2024 1 1 Additional Source Comments INFORMATION SOURCE (unrecogn ized section and content) DATE CREATED AUTHOR 06/10/2018 [facility] DATE CREATED AUTHOR AUTHOR'S ORGANIZ ATION 10/06/2018 [facility] DATE CREATED AUTHOR AUTHOR'S ORGANIZ ATION 06/18/2019 [facility] DATE CREATED AUTHOR AUTHOR'S ORGANIZ ATION 11/16/2019 [facility] DATE CREATED AUTHOR AUTHOR'S ORGANIZ ATION 07/11/2022 [facility] DATE CREATED AUTHOR AUTHOR'S ORGANIZ ATION 07/12/2022 [facility] DATE CREATED AUTHOR AUTHOR'S ORGANIZ ATION 03/26/2023 [facility] DATE CREATED AUTHOR AUTHOR'S ORGANIZ ATION 08/11/2023 [facility] DATE CREATED AUTHOR AUTHOR'S ORGANIZ ATION 04/25/2024 [facility] DATE CREATED AUTHOR AUTHOR'S ORGANIZ ATION 07/21/2024 [facility] DATE CREATED AUTHOR AUTHOR'S ORGANIZ ATION 07/23/2024 [facility] [place] <item> Privacy Markings (unrecogniz ed section and content) Section Author: Radha Flannery PROHIBITION ON REDISCLOSURE OF CONFIDENTIAL INFORMATION This notice accompanies a disclosure of information concerning a client made to you with the consent of such client. Reason for Visit (unrecogniz ed section and content) Reason Comments 6 mth ov C/O a red rash type area that goes from one cheek around chin to the other cheek off and on. Gets bruising easily and fatigued. Reason Comments Abdominal Pain Chest Pain Specialty Diagnoses / Procedures Referred By Contac t Referred To Contact Diagnoses Precordial pain Procedures ECG 12 lead Renny Baker MD [address] [facility], [address] [address] Referral ID Status Reason Start Date Expiration Date V isits Requested Visits Authorized [id number] Authorized 02/01/2023 07/31/2023 1 1 Reason Comments 2 month f/u Specialty Diagnoses / Procedures Referred By Contac t Referred To Contact Primary Care Procedures Follow Up In Primary Care Renny Baker MD [address] [facility], [address] [place] [address] Referral ID Status Reason Start Date Expiration Date V isits Requested Visits Authorized [id number] Authorized 02/01/2023 07/31/2023 1 1 Reason Comments 6 month mdck. Specialty Diagnoses / Procedures Referred By Contac t Referred To Contact Primary Care Procedures Follow Up In Primary Care Renny Baker MD [address] [facility], [place] [phone] Referral ID Status Reason Start Date Expiration Date Visits Re quested Visits Authorized [id number] Closed 01/08/2023 07/07/2023 1 1 Reason Comments pt having issues with mid back pain Pain radiates to rt side lower abdomen, pain is burning, some bloating , and nausea Reason Comments Other Personal history of colonic polyps Reason Comments Weight Management 3 mo Reason Comments Cough Worse at night, stom ach upset Reason Comments pt here due to left leg pain , started w hile on treadmill Reason Comments Hypertension GERD Care Teams (unrecognized sec tion and content) [facility] Man Relationship Specialty Start Date End Date Renny Baker MD [address] [facility], [place] [phone] PCP - General 06/10/19 Rneny Baker MD [address] [facility], [facility] [address] [place] [address] PCP - [facility] PCP 07/08/22 [facility] Man Relationship Specialty Start Date End Date Renny Baker MD [address] [facility], [facility] [address] [place] [address] PCP - General 06/10/19 Renny Baker MD [address] [facility], [address] [place] [address] PCP - [employer] [facility] PCP 07/08/22 [facility] Man Relationship Specialty Start Date End Date Renny Baker MD [address] [facility], [address] [place] [address] PCP - General 06/10/19 Renny Baker MD [address] [facility], [address] [place] [address] PCP - [employer] [facility] PCP 07/08/22 [facility] Man Relationship Specialty Start Date End Date Renny Baker MD [address] [facility], [address] [place] [address] PCP - General 06/10/19 Renny Baker MD [address] [facility], [address] [place] [address] PCP - [employer] [facility] PCP 07/08/22 [facility] Man Relationship Specialty Start Date End Date Renny Baker MD [address] [facility], [address] [place] [address] PCP - General 06/10/19 Renny Baker MD [address] [facility], [address] [place] [address] PCP - [employer] [facility] PCP 07/08/22 [facility] Man Relationship Specialty Start Date End Date Renny Baker MD [address] [facility], [place] [address] [place] [address] PCP - General 06/10/19 Renny Baker MD [address] [facility], [place] [address] [place] [address] PCP - [employer] [facility] PCP 07/08/22 [facility] Relationship Specialty Start Date End Date Renny Baker MD [address] [facility], [address] [place] [address] PCP - General 06/10/19 Renny Baker MD [address] [facility], [place] [address] [place] [address] PCP - [employer] [facility] PCP 07/08/22 [place] [facility] Relationship Specialty Start Date End Date Renny Baker MD [address] [facility], [address] [place] [address] PCP - General 06/10/19 Renny Baker MD [address] [facility], [place] [address] [place] [address] PCP - [employer] [facility] PCP 07/08/22 [place] Man Relationship Specialty Start Date End Date Renny Baker MD [address] [facility], [address] [place] [address] PCP - General 06/10/19 Renny Baker MD [address] [facility], [place] [address] [place] [address] PCP - [facility] PCP 07/08/22 [place] Man Relationship Specialty Start Date End Date Renny Baker MD [address] [facility], [address] [place] [address] PCP - General 06/10/19 Renny Baker MD [address] [facility], [place] [address] [place] [address] PCP - [facility] PCP 07/08/22 [place] Man Relationship Specialty Start Date End Date Renny Baker MD [address] [facility], [address] [place] [address] PCP - General 06/10/19 Velma Mckenna MD [address] [facility], [address] [place] [address] PCP - [facility] PCP 12/07/23 FOR RECORDS PERTAINING TO PATIENTS WHO ARE OR HAVE BEEN ENROLLED IN A CHEMICAL DEPENDENCY/SUBSTANCEABUSE PROGRAM, SOME INFORMATION MAY BE OMITTED. This clinical summary was aggregated from multiple sources. Caution should be exercised in using it in the provision of clinical care. This summary normalizes information from multiple sources, and as a consequence, information in this document may materially change the coding, format and clinical context of patient data. In addition, data may be omitted in some cases. CLINICAL DECISIONS SHOULD BE BASED ON THE PRIMARY CLINICAL RECORDS. [facility]. provides no warranty or guarantee of the accuracy or completeness of information in this document.
--- NOTE | 2024-08-04 09:08 | STRESSREP ---
Stress Test Report Exercise myocardial perfusion stress test. 63-year-old lady with a history of chest pain Stress protocol: Resting EKG demonstrates normal sinus rhythm with a rate of 55 bpm resting blood pressure is 122/86 mmHg. The patient exercised according to the regular [facility] protocol for a total duration of 10 minutes attaining a maximum heart rate of 148 bpm which was 93 beats of maximum predicted heart rate; the maximum workload was 13.4 metabolic equivalents. At rest there were no ST or T wave changes noted to suggest ischemia and at peak exercise upsloping ST changes only were noted which did not meet the criteria for ischemia. No clinical angina was noted the test was terminated due to the target heart rate being achieved/fatigue. The peak blood pressure was 150/70 mmHg. Rate-pressure product was 20,400. Myocardial perfusion protocol. 9.6 mCi of technetium 99m sestamibi was injected at rest. The patient exercised according to regular [facility] protocol for total duration of 10 minutes and at peak exercise 30.9 mCi of technetium 99m sestamibi was injected stress images were obtained stress and rest images were reconstructed in comparing the short axis vertical long and horizontal long axis. Gated images were also obtained. Perfusion SPECT analysis: Review of the stress images demonstrate normal uptake of tracer noted in all areas of the myocardium. The resting images similarly demonstrate normal uptake of tracer noted in all areas of the myocardium. No areas of reversibility are noted to suggest ischemia no previous infarct was noted. Gated SPECT analysis: The gated ejection fraction is 85%. Conclusion: Normal exercise myocardial perfusion stress test at a high workload Preserved ejection fraction.
== END | disposition home or self-care (01) ==
LOC: CVS 06:23
PROVIDERS: PCP Family Medicine; Referring Provider Nurse Practitioner Gerontology; Visit Provider Nurse Practitioner Gerontology
DX: R06.09 Other forms of dyspnea (principal)
CPT/HCPCS: 78452; 93017; A9500; A4216